=== PATIENT | female | born 1945 | race Caucasian/White ===

== ENCOUNTER 2020-03-25 19:30 | Inpatient (IN) | payer MEDICARE ==
--- NOTE | 2020-03-25 20:11 | ER Document Report ---
ED General - General Chief Complaint: Abdominal Pain Stated Complaint: ABDOMINAL PAIN Time Seen by Provider: 03/25/20 19:56 Notes: Patient is a 74 year old female that comes to the Emergency Department by EMS for chief complaint of upper abdominal pain and abdominal swelling, along with swelling of all the extremities. She denies current pain in the abdomen however, it comes and goes. She denies vomiting, fever, chest pain. She states she has no appetite. Patient comes from home, for most questions she replies "you'll need to ask my ". She denies history of NE, CAD, congestive heart failure, or liver failure. She denies alcohol. Past medical history per her home medications includes hypertension, hyperlipidemia, type 2 diabetes and she has been on diuretics including metolazone and Bumex. - Related Data Allergies/Adverse Reactions: oxycodone [From Percocet] Adverse Reaction (Verified 03/26/20 00:40) Nausea Past Medical History - General Information source: Patient - Social History Smoking Status: Never Smoker Frequency of alcohol use: None Drug Abuse: None Lives with: Family Family History: Reviewed & Not Pertinent - Past Medical History Cardiac Medical History: Reports: Hx Congestive Heart Failure, Hx Hypercholesterolemia, Hx Hypertension Endocrine Medical History: Reports: Hx Diabetes Mellitus Type 2 Past Surgical History: Reports: Hx Bowel Surgery - ? Bowel perforation repair - Immunizations Hx Diphtheria, Pertussis, Tetanus Vaccination: Yes Review of Systems - Review of Systems Constitutional: No symptoms reported EENT: No symptoms reported Cardiovascular: See HPI Respiratory: No symptoms reported Gastrointestinal: See HPI Genitourinary: No symptoms reported Female Genitourinary: No symptoms reported Musculoskeletal: See HPI Skin: No symptoms reported Hematologic/Lymphatic: No symptoms reported Neurological/Psychological: No symptoms reported Physical Exam - Vital signs Vitals: Temp 98.0 F 03/25/20 19:55 - Notes Notes: GENERAL: Alert, responsive, cooperative HEAD: Normocephalic, atraumatic. EYES: Pupils equal, round, and reactive to light. Extraocular movements intact. ENT: Oral mucosa dry, tongue midline. Oropharynx unremarkable. Airway patent. NECK: Full range of motion. Supple. Trachea midline. No lymphadenopathy. LUNGS: Clear to auscultation bilaterally, no wheezes, rales, or rhonchi. No respiratory distress. Non-tender chest wall. HEART: Regular rate and rhythm. No murmur ABDOMEN: Abdomen appears somewhat distended but is not rigid or noted to be tender. Old surgical scars over the left mid to lower abdomen. Questionable mid to right upper abdominal hernia but the area is soft and there is no noted tenderness or erythema. EXTREMITIES: 2+ pitting edema in bilateral lower extremities, there is also noted pitting edema in both upper extremities with some clear weeping fluid from the hand. Distal sensation and capillary refill intact. Otherwise unremar kable. BACK: no cervical, thoracic, lumbar midline tenderness. No saddle anesthesia, normal distal neurovascular exam. NEUROLOGICAL: Alert and oriented to person and place but not to events. Normal s peech. Cranial nerves II through XII grossly intact. Strength 5/5 in all extremities. PSYCH: Normal affect, normal mood. SKIN: Warm, dry, normal turgor. No rashes or lesions noted. Course - Re-evaluation Re-evalutation: 03/25/20 21:40 Patient reevaluated. She is still alert and oriented. Acute abdominal series does not show evidence of obstruction, there is no free air, chest x-ray showing possible right lower infiltrate. Patient has no fever, leukocytosis, cough, shortness of breath, chest pain. Patient is hyponatremic at 118, bicarbonate is low at 20, heart is enlarged on imaging, patient with pitting edema in all extremities with weeping fluid suggestive of developing anasarca. Patient is not hypoxic, denies shortness of breath, does not have vascular congestion on x-ray. BNP is 10,000. Suspect component of right heart failure. Discussed with Dr. Garcia, recommends admission to the hospitalist at this point, no further interventions recommended because of patient's complicated presentation with both hyponatremia and fluid overload. Seizure precautions are in place. Discussed with Dr. Baer, he does not recommend any initiated treatments at this time, recommends full admission to [facility]. - Vital Signs Vital signs: Temp Pulse Resp BP Pulse Ox 97.7 F 72 18 178/86 H 100 03/26/20 00:07 03/26/20 00:07 03/26/20 00:07 03/26/20 00:07 03/26/20 00:07 - Laboratory Result Diagrams: 03/25/20 19:50 03/25/20 20:41 Laboratory results interpreted by me: 03/25/20 03/25/20 03/25/20 19:50 19:50 20:41 Lymph % (Auto) 9.6 L Seg Neutrophils % 84.6 H APTT 37.7 H Sodium Chloride Carbon Dioxide BUN Creatinine Est GFR ( Amer) Est GFR (MDRD) Non-Af Glucose Calcium AST Alkaline Phosphatase NT-Pro-B Natriuret Pep 87136 H Total Protein Albumin 03/25/20 20:41 Lymph % (Auto) Seg Neutrophils % APTT Sodium 118.4 L* Chloride 93 L Carbon Dioxide 19 L BUN 23 H Creatinine 1.52 H Est GFR ( Amer) 41 L Est GFR (MDRD) Non-Af 34 L Glucose 133 H Calcium 7.5 L AST 43 H Alkaline Phosphatase 154 H NT-Pro-B Natriuret Pep Total Protein 5.7 L Albumin 2.5 L Discharge - Discharge Clinical Impression: Swelling of extremity, Hyponatremia, Uncontrolled hypertension CHF exacerbation Qualifiers: Heart failure type: unspecified Qualified Code(s): I50.9 - Heart failure, unspecified Condition: Stable Disposition: ADMITTED INPATIENT Admitting Provider: Buffy (Hospitalist) Unit Admitted: [facility]
[2020-03-25 20:13] LABS: ABSOLUTE LYMPHOCYTES (AUTO) 0.6 10^3/uL (0.5-4.7); ABSOLUTE MONOCYTES (AUTO) 0.3 10^3/uL (0.1-1.4); ABSOLUTE NEUT (AUTO) 5.2 10^3/uL (1.7-8.2); BASOPHILS % (AUTO) 0.5 % (0-2); EOSINOPHILS % (AUTO) 0.3 % (0-6); HEMATOCRIT 36.1 % (36.0-47.0); HEMOGLOBIN 12.6 g/dL (12.0-15.5); LYMPHOCYTES % (AUTO) 9.6 % (13-45); MEAN CORPUSCULAR HEMOGLOBIN 31.5 pg (27.0-33.4); MEAN CORPUSCULAR VOLUME 90 fl (80-97); PLATELET COUNT 303 10^3/uL (150-450); RED CELL DISTRIBUTION WIDTH 12.9 % (11.5-14.0); SEGMENTED NEUTROPHILS % (AUTO) 84.6 % (42-78); TOTAL CELLS COUNTED % (AUTO) 100 %; WHITE BLOOD COUNT 6.2 10^3/uL (4.0-10.5)
[2020-03-25 20:20] LABS: INTERNATIONAL RATION (INR) 1.16; PROTHROMBIN TIME 14.9 SEC (11.4-15.4)
[2020-03-25 20:21] LABS: PARTIAL THROMBOPLASTIN TIME 37.7 SEC (23.5-35.8)
[2020-03-25 21:10] LABS: ALBUMIN 2.5 g/dL (3.5-5.0); ALKALINE PHOSPHATASE 154 U/L (38-126); ASPARTATE AMINO TRANSFERASE 43 U/L (14-36); BILIRUBIN,TOTAL 0.4 mg/dL (0.2-1.3); BLOOD UREA NITROGEN 23 mg/dL (7-20); CALCIUM 7.5 mg/dL (8.4-10.2); CARBON DIOXIDE 19 mmol/L (22-30); CHLORIDE 93 mmol/L (98-107); GLUCOSE 133 mg/dL (75-110); TOTAL PROTEIN 5.7 g/dL (6.3-8.2)
[2020-03-25 21:11] LABS: ANION GAP 6 (5-19)
[2020-03-25 21:22] LABS: TROPONIN I 0.015 ng/mL
--- NOTE | 2020-03-25 21:25 | RADIOLOGY REPORT (SQ) ---
EXAM DESCRIPTION: XR ABDOMEN SUPINE AND ERECT WITH CHEST (ABD ACUTE SERIES) COMPLETED DATE/TME: 03/25/2020 20:05 CLINICAL HISTORY: 74 years Female ,abdominal swelling COMPARISON: 05/02/2011 TECHNIQUE: Frontal view chest x-ray and two views of the abdomen. FINDINGS: Cardiac enlargement which appears similar to the previous. Calcified aorta and median sternotomy wires. Patchy density in the right lung base which may reflect atelectasis. Developing area of infiltrate is not excluded. No free air is identified beneath the hemidiaphragms. No dilated loops of bowel to suggest obstruction. IMPRESSION: Patchy density in the right lung base new when compared to the previous study. Findings may reflect atelectasis versus developing infiltrate Cardiac enlargement
--- NOTE | 2020-03-25 21:25 | EKG REPORT ---
SEVERITY:- ABNORMAL ECG - SINUS RHYTHM BORDERLINE LEFT AXIS DEVIATION ABNRM R PROG, CONSIDER ASMI OR LEAD PLACEMENT NONSPECIFIC T ABNORMALITIES, ANT-LAT LEADS : Confirmed by: Marilou Esparza MD 25-Mar-2020 21:24:40
[2020-03-25] MEDS ORDERED: NORMAL SALINE 1000 ML 1,000 ML IV PRN (21:36)
[2020-03-25] MEDS ORDERED: MAGNESIUM HYDROXIDE SUSP 30 ML UDCUP PO PRN (22:57)
[2020-03-25] MEDS ORDERED: MAG HYDROX/AL HYDROX/SIMETH SUSP 30 ML UDCUP PO PRN (22:57)
[2020-03-25] MEDS ORDERED: ACETAMINOPHEN 325 MG TABLET PO PRN (23:03)
[2020-03-25] MEDS ORDERED: GUAIFENESIN SYRP 200 MG/10 ML UDC PO PRN (23:03)
[2020-03-25] MEDS ORDERED: LORAZEPAM INJ 2 MG/1 ML VIAL IV PRN (23:03)
[2020-03-25] MEDS ORDERED: SODIUM BICARBONATE 650 MG TABLET PO ONE (23:05)
[2020-03-25] MEDS ORDERED: METOPROLOL TARTRATE PF/INJ 5 MG/5 ML SDV IV PRN (23:07)
[2020-03-26] MEDS: FAMOTIDINE 20 MG TABLET PO SCH ×3 (01:28→22:12)
[2020-03-26] MEDS: INSULIN REG, HUMAN 100 UNIT/ML 3 ML VIAL (PYX) SUBCUT SCH ×5 (01:28→22:10)
[2020-03-26] MEDS ORDERED: ALBUMIN HUMAN 50.0 GM/200 ML RTUINJ IV ONE (01:29)
[2020-03-26] MEDS ORDERED: SODIUM BICARBONATE 650 MG TABLET PO ONE (01:30)
[2020-03-26] MEDS: BUMETANIDE INJ/PF 1 MG/4 ML SDV IV SCH ×5 (01:36→22:44)
[2020-03-26] MEDS: ALBUMIN HUMAN 12.5 GM/50 ML RTUINJ IV SCH ×4 (01:42→04:28)
[2020-03-26] MEDS: HYDRALAZINE HCL INJ/PF 20 MG/1 ML SDV IV PRN ×2 (02:40→12:08)
[2020-03-26] MEDS ORDERED: NITROGLYCERIN 2% OINTMENT 1 GM PACKET TP SCH ×2 (03:34→04:30)
--- NOTE | 2020-03-26 03:44 | PDOC H&P ---
History of Present Illness Admission Date/PCP: 03/25/20 22:14 Todd Jaimenelly Patient complains of: Swelling all over History of Present Illness: LITZY MAGANA is a 74 year old female who presented to the emergency room via EMS with a several week history of edema. Patient is a poor historian but relates progressively worsening edema involving all of her extremities and her abdomen over the last 2 to 3 weeks and becoming severe over the last 2 to 3 days. Her swelling was accompanied by mild generalized upper abdominal pain (pressure) beginning earlier today. Her swelling has been associated with a decreased appetite. She denies other associated or accompanying signs and symptoms. She denies prior similar episodes. She has not identified any aggravating or ameliorating factors for her edema. In the emergency room she was found to have an elevated BNP and a sodium 118. She was noted on ER physician exam to have anasarca and was subsequently admitted to the hospital for further evaluation and treatment. Past Medical History Cardiac Medical History: Reports: Hyperlipidema, Hypertension Denies: Atrial Fibrillation, Congestive Heart Failure, Coronary Artery Disease, DVT, Myocardial Infarction, Pulmonary Embolism Pulmonary Medical History: Denies: Asthma, Chronic Obstructive Pulmonary Disease (COPD) EENT Medical History: Denies: Cataracts, Ears - Hearing aids Neurological Medical History: Denies: Hemorrhagic CVA, Ischemic CVA, Seizures Endocrine Medical History: Reports: Diabetes Mellitus Type 2 Denies: Diabetes Mellitus Type 1, Hyperthyroidism, Hypothyroidism Renal/ Medical History: Reports: Chronic Kidney Disease Denies: Nephrolithiasis Malignancy Medical History: Reports: None GI Medical History: Denies: Cirrhosis, Hepatitis, Peptic Ulcer Disease Musculoskeltal Medical History: Denies: Fibromyalgia, Gout Skin Medical History: Denies: Eczema, Psoriasis Psychiatric Medical History: Denies: Alcohol Dependency, Substance Abuse, Tobacco Dependency Traumatic Medical History: Reports: None Hematology: Denies: Anemia, Bleeding Tendencies Infectious Medical History: Reports: None Past Surgical History Past Surgical History: Reports: None Social History Information Source: Patient Lives with: Spouse/Significant other Smoking Status: Former Smoker Electronic Cigarette use?: No Frequency of Alcohol Use: None Hx Recreational Drug Use: No Drugs: None Hx Prescription Drug Abuse: No - Advance Directive Resuscitation Status: Full Code Surrogate healthcare decision maker:: Milton Magana Family History Family History: denies: CAD, DM, Hypertension, Malignancy Parental Family History Reviewed: Yes Children Family History Reviewed: No Sibling(s) Family History Reviewed.: Yes Medication/Allergy Allergies/Adverse Reactions: oxycodone [From Percocet] Adverse Reaction (Verified 03/26/20 00:40) Nausea Review of Systems Constitutional: ABSENT: chills, fever(s) Eyes: ABSENT: visual disturbances, other - Eye pain Ears: ABSENT: hearing changes, other - Ear pain Nose, Mouth, and Throat: ABSENT: headache(s), sore throat Cardiovascular: PRESENT: as per HPI, edema. ABSENT: chest pain, dyspnea on exertion, orthropnea, palpitations Respiratory: ABSENT: cough, dyspnea Gastrointestinal: PRESENT: as per HPI, abdominal pain. ABSENT: constipation, diarrhea, nausea, vomiting Genitourinary: ABSENT: dysuria, hematuria Musculoskeletal: ABSENT: back pain, joint swelling Integumentary: ABSENT: pruritus, rash Neurological: ABSENT: confusion, convulsions, focal weakness, memory loss, syncope Psychiatric: ABSENT: anxiety, depression Endocrine: ABSENT: cold intolerance, heat intolerance, polydipsia, polyphagia, polyuria Hematologic/Lymphatic: ABSENT: easy bleeding, easy bruising Allergic/Immunologic: ABSENT: seasonal rhinorrhea Physical Exam Vital Signs: Temp Pulse Resp BP Pulse Ox 97.9 F 77 18 203/66 H 99 03/25/20 22:14 03/25/20 22:14 03/25/20 22:14 03/25/20 22:14 03/25/20 22:14 Intake & Output 03/23/20 03/24/20 03/25/20 23:59 23:59 23:59 Weight 75.2 kg General appearance: PRESENT: no acute distress, cooperative Head exam: PRESENT: atraumatic, normocephalic Eye exam: PRESENT: conjunctiva pink. ABSENT: conjunctival injection, scleral icterus Ear exam: PRESENT: normal external ear exam. ABSENT: bleeding, drainage Mouth exam: PRESENT: dry mucosa, neck supple Neck exam: ABSENT: JVD, thyromegaly, tracheal deviation Respiratory exam: PRESENT: clear to auscultation star, symmetrical, unlabored Cardiovascular exam: PRESENT: RRR, other - Anasarca involving the bilateral upper and lower extremities and the abdominal pannus. ABSENT: clicks, gallop, rubs Pulses: PRESENT: normal carotid pulses, normal radial pulses Vascular exam: PRESENT: normal capillary refill. ABSENT: pallor GI/Abdominal exam: PRESENT: normal bowel sounds, soft, other - Anasarca involving the abdominal pannus Rectal exam: PRESENT: deferred Extremities exam: PRESENT: pedal edema - Bilateral, other - 3+ pitting edema (anasarca) of the bilateral upper and lower extremities as well as the abdominal pannus. ABSENT: joint swelling Musculoskeletal exam: ABSENT: deformity, dislocation Neurological exam: PRESENT: alert, oriented to person, oriented to place, oriented to time, oriented to situation, CN II-XII grossly intact. ABSENT: motor sensory deficit Psychiatric exam: PRESENT: appropriate affect, normal mood Skin exam: PRESENT: dry, intact, warm. ABSENT: jaundice, rash, urticaria Results Laboratory Results: 03/25/20 19:50 03/25/20 20:41 03/25/20 03/25/20 03/25/20 19:50 19:50 20:41 WBC 6.2 RBC 4.00 Hgb 12.6 Hct 36.1 MCV 90 MCH 31.5 MCHC 35.0 RDW 12.9 Plt Count 303 Seg Neutrophils % 84.6 H Sodium Cancelled Potassium Cancelled Chloride Cancelled Carbon Dioxide Cancelled Anion Gap Cancelled BUN Cancelled Creatinine Cancelled Est GFR ( Amer) Cancelled Est GFR (Non-Af Amer) Cancelled Glucose Cancelled Lactic Acid 1.0 Calcium Cancelled Total Bilirubin Cancelled AST Cancelled Alkaline Phosphatase Cancelled Total Protein Cancelled Albumin Cancelled Lipase Cancelled 03/25/20 20:41 WBC RBC Hgb Hct MCV MCH MCHC RDW Plt Count Seg Neutrophils % Sodium 118.4 L* Potassium 4.0 Chloride 93 L Carbon Dioxide 19 L Anion Gap 6 BUN 23 H Creatinine 1.52 H Est GFR ( Amer) 41 L Est GFR (Non-Af Amer) Glucose 133 H Lactic Acid Calcium 7.5 L Total Bilirubin 0.4 AST 43 H Alkaline Phosphatase 154 H Total Protein 5.7 L Albumin 2.5 L Lipase 71.7 03/25/20 03/25/20 03/25/20 19:50 19:50 20:41 Troponin I Cancelled 0.015 NT-Pro-B Natriuret Pep Cancelled 20149 H Impressions: Acute Abdomen Series 03/25/20 20:05 IMPRESSION: Patchy density in the right lung base new when compared to the previous study. Findings may reflect atelectasis versus developing infiltrate Cardiac enlargement Assessment and Plan - Diagnosis (1) Anasarca Is this a current diagnosis for this admission?: Yes (2) Uncontrolled hypertension Is this a current diagnosis for this admission?: Yes (3) Hyponatremia Is this a current diagnosis for this admission?: Yes (4) Chronic kidney disease (CKD) Qualifiers: Chronic kidney disease stage: unspecified stage Qualified Code(s): N18.9 - Chronic kidney disease, unspecified Is this a current diagnosis for this admission?: Yes (5) Hyperlipidemia, unspecified Qualifiers: Hyperlipidemia type: unspecified Qualified Code(s): E78.5 - Hyperlipidemia, unspecified Is this a current diagnosis for this admission?: Yes (6) Diabetes mellitus type 2 in nonobese Is this a current diagnosis for this admission?: Yes - Plan Summary Summary: Patient will be admitted to the [facility] where she will receive routine supportive and symptomatic cares. She will be treated initially with IV albumin and diuresis with Bumex 1 mg IV every 6 hours. She will be given oral sodium bicarbonate 1300 mg p.o. with meals and at bedtime. Her blood pressure will be controlled with IV hydralazine and/or IV metoprolol as required. CBCs, metabolic profiles and magnesium levels to be followed closely. Patient will be maintained on telemetry. She will be treated with a low-fat and diabetic restricted diet. Hemoglobin A1c and a lipid profile will be obtained in the morning. A cardiology consultation will be obtained with Dr. Strickland. Before meals and at bedtime Accu-Cheks will be obtained with sliding scale regular insulin administered for hyperglycemia and a hypoglycemic protocol in place. She will use Ativan 1 mg IV every 4 hours as needed for anxiety or restlessness. A nephrology consultation may be appropriate as soon as nephrology service is again available on Friday. - Time Time Spent with patient: 15-24 minutes Medications reviewed and adjusted accordingly: Yes Anticipated discharge: Home with Homehealth - Inpatient Certification Based on my medical assessment, after consideration of the patient's comorbidities, presenting symptoms, or acuity I expect that the services needed warrant INPATIENT care.: Yes I certify that my determination is in accordance with my understanding of Medicare's requirements for reasonable and necessary INPATIENT services [42 CFR 412.3e].: Yes Medical Necessity: Significant Comorbidiites Make Outpatient Treatment Too Risky, Need Close Monitoring Due to Risk of Patient Decompensation, Need For Continuous Telemetry Monitoring, Risk of Complication if Not Cared For in Hospital, Risk of Diagnosis Which Will Require Inpatient Eval/Care/Monitoring
[2020-03-26 03:51] LABS: CREATINE KINASE MB 2.08 ng/mL (<4.55); TROPONIN I 0.023 ng/mL
[2020-03-26] MEDS: NITROGLYCERIN 2% OINTMENT 1 GM PACKET TP SCH ×3 (04:27→17:19)
[2020-03-26] MEDS: LOSARTAN POTASSIUM 50 MG TABLET PO SCH ×2 (04:28→22:13)
[2020-03-26] MEDS: METOPROLOL SUCCINATE 50 MG TAB.SR.24H PO SCH ×2 (05:47→17:16)
[2020-03-26] MEDS: HEPARIN SOD (PORCINE) 5,000 UNIT/ML 1 ML VIAL SUBCUT SCH ×3 (05:47→22:14)
[2020-03-26 06:59] LABS: APPEARANCE,URINE SLIGHTLY-CLOUDY; BILIRUBIN,URINE NEGATIVE (NEGATIVE); COLOR,URINE YELLOW; GLUCOSE, URINE 150 mg/dL (NEGATIVE); KETONES,URINE NEGATIVE (NEGATIVE); LEUKOCYTE ESTERASE,URINE NEGATIVE (NEGATIVE); NITRITE,URINE NEGATIVE (NEGATIVE); PROTEIN,URINE >=500 mg/dL (NEGATIVE); URINE SPECIFIC GRAVITY 1.007; UROBILINOGEN,URINE NEGATIVE mg/dL (<2.0)
[2020-03-26] MEDS: SODIUM BICARBONATE 650 MG TABLET PO SCH ×4 (08:27→22:13)
[2020-03-26] MEDS: SUCRALFATE 1 GM TABLET PO SCH ×4 (08:28→22:11)
[2020-03-26] MEDS: METOCLOPRAMIDE HCL 10 MG TABLET PO SCH ×4 (08:28→22:12)
[2020-03-26 08:59] LABS: BLOOD UREA NITROGEN 23 mg/dL (7-20); CALCIUM 7.7 mg/dL (8.4-10.2); CARBON DIOXIDE 20 mmol/L (22-30); CHLORIDE 94 mmol/L (98-107); CREATINE KINASE 144 U/L (30-135); GLUCOSE 90 mg/dL (75-110); POTASSIUM 3.8 mmol/L (3.6-5.0); TRIGLYCERIDES 67 mg/dL (<150)
[2020-03-26 09:02] LABS: HEMATOCRIT 28.8 % (36.0-47.0); MEAN CORPUSCULAR HEMOGLOBIN 32.1 pg (27.0-33.4); MEAN CORPUSCULAR HGB CONC 35.9 g/dL (32.0-36.0); MEAN CORPUSCULAR VOLUME 90 fl (80-97); PLATELET COUNT 225 10^3/uL (150-450); RED BLOOD COUNT 3.22 10^6/uL (3.72-5.28); RED CELL DISTRIBUTION WIDTH 13.1 % (11.5-14.0); WHITE BLOOD COUNT 5.5 10^3/uL (4.0-10.5)
[2020-03-26 09:03] LABS: HEMOGLOBIN 10.3 g/dL (12.0-15.5)
[2020-03-26 09:11] LABS: CREATINE KINASE MB 1.92 ng/mL (<4.55); TROPONIN I 0.028 ng/mL
[2020-03-26 09:16] LABS: FREE T3 2.29 pg/mL (2.77-5.27)
[2020-03-26 09:18] LABS: DIRECT LDL < 30 mg/dL (<100)
[2020-03-26 09:22] LABS: ANION GAP 7 (5-19)
[2020-03-26 09:30] LABS: THYROID STIMULATING HORMONE 2.31 uIU/mL (0.47-4.68)
[2020-03-26] MEDS ORDERED: LOSARTAN POTASSIUM 50 MG TABLET PO SCH (10:00)
[2020-03-26] MEDS ORDERED: METOPROLOL SUCCINATE 50 MG TAB.SR.24H PO SCH (10:00)
[2020-03-26] MEDS: DOCUSATE SODIUM 100 MG/10 ML UDC PO SCH ×2 (10:12→17:17)
--- NOTE | 2020-03-26 10:18 | EKG REPORT ---
SEVERITY:- ABNORMAL ECG - SINUS RHYTHM ATRIAL PREMATURE COMPLEX LOW VOLTAGE THROUGHOUT CONSIDER ANTERIOR INFARCT NONSPECIFIC T ABNORMALITIES, DIFFUSE LEADS : Confirmed by: Marilou Esparza MD 26-Mar-2020 10:17:56
[2020-03-26 14:58] LABS: ANION GAP 8 (5-19); BLOOD UREA NITROGEN 25 mg/dL (7-20); CALCIUM 7.4 mg/dL (8.4-10.2); CARBON DIOXIDE 19 mmol/L (22-30); CHLORIDE 94 mmol/L (98-107); GLUCOSE 138 mg/dL (75-110); POTASSIUM 3.8 mmol/L (3.6-5.0)
[2020-03-26 15:08] LABS: CREATINE KINASE MB 1.83 ng/mL (<4.55); TROPONIN I 0.022 ng/mL
--- NOTE | 2020-03-26 15:38 | PDOC PROGRESS REPORT ---
Subjective Progress Note for:: 03/26/20 Subjective:: The patient reports feeling poorly in general Reason For Visit: ANASARCA,UPPER ABDOMINAL PAIN,MALIGNANT Physical Exam Vital Signs: Temp Pulse Resp BP Pulse Ox 98.1 F 63 18 160/51 H 94 03/26/20 14:43 03/26/20 14:43 03/26/20 14:43 03/26/20 14:56 03/26/20 14:43 Intake & Output 03/25/20 03/26/20 03/27/20 06:59 06:59 06:59 Intake Total 459 480 Output Total 325 550 Balance 134 -70 Weight 78.2 kg General appearance: PRESENT: cooperative, mild distress, well-developed Head exam: PRESENT: atraumatic, normocephalic Ear exam: PRESENT: normal external ear exam. ABSENT: bleeding, drainage Mouth exam: PRESENT: moist, tongue midline Neck exam: PRESENT: lymphadenopathy - Bilateral submandibular gland slightly enlarged. No tenderness., other - Extensive redundant skin anteriorly Respiratory exam: PRESENT: clear to auscultation star, symmetrical, unlabored. ABSENT: accessory muscle use, rales, rhonchi, tachypnea, wheezes Cardiovascular exam: PRESENT: RRR, +S1, +S2 GI/Abdominal exam: PRESENT: normal bowel sounds, soft. ABSENT: distended, guarding, tenderness Rectal exam: PRESENT: deferred Extremities exam: PRESENT: +1 edema Neurological exam: PRESENT: alert, awake, oriented to person, oriented to place, oriented to time, oriented to situation, CN II-XII grossly intact. ABSENT: altered Psychiatric exam: PRESENT: flat affect. ABSENT: agitated, anxious Focused psych exam: ABSENT: delusional, paranoid, restlessness Skin exam: PRESENT: dry - Very dry skin, pallor, warm Results Laboratory Results: 03/26/20 08:17 03/26/20 14:07 03/25/20 03/25/20 03/25/20 19:50 19:50 20:41 WBC 6.2 RBC 4.00 Hgb 12.6 Hct 36.1 MCV 90 MCH 31.5 MCHC 35.0 RDW 12.9 Plt Count 303 Seg Neutrophils % 84.6 H Sodium Cancelled Potassium Cancelled Chloride Cancelled Carbon Dioxide Cancelled Anion Gap Cancelled BUN Cancelled Creatinine Cancelled Est GFR ( Amer) Cancelled Est GFR (Non-Af Amer) Cancelled Glucose Cancelled Lactic Acid 1.0 Calcium Cancelled Magnesium Total Bilirubin Cancelled AST Cancelled Alkaline Phosphatase Cancelled Total Protein Cancelled Albumin Cancelled Triglycerides Cholesterol LDL Cholesterol Direct VLDL Cholesterol HDL Cholesterol Lipase Cancelled TSH Free T3 pg/mL Urine Color Urine Appearance Urine pH Ur Specific Silva Urine Protein Urine Glucose (UA) Urine Ketones Urine Blood Urine Nitrite Ur Leukocyte Esterase Urine WBC (Auto) Urine RBC (Auto) 03/25/20 03/26/20 03/26/20 20:41 05:50 08:17 WBC RBC Hgb Hct MCV MCH MCHC RDW Plt Count Seg Neutrophils % Sodium 118.4 L* 120.7 L* Potassium 4.0 3.8 Chloride 93 L 94 L Carbon Dioxide 19 L 20 L Anion Gap 6 7 BUN 23 H 23 H Creatinine 1.52 H 1.56 H Est GFR ( Amer) 41 L 39 L Est GFR (Non-Af Amer) Glucose 133 H 90 Lactic Acid Calcium 7.5 L 7.7 L Magnesium 3.0 H Total Bilirubin 0.4 AST 43 H Alkaline Phosphatase 154 H Total Protein 5.7 L Albumin 2.5 L Triglycerides 67 Cholesterol 108.20 LDL Cholesterol Direct < 30 VLDL Cholesterol 13.0 HDL Cholesterol 74 Lipase 71.7 TSH Free T3 pg/mL Urine Color YELLOW Urine Appearance SLIGHTLY-CLOUDY Urine pH 6.0 Ur Specific Silva 1.007 Urine Protein >=500 H Urine Glucose (UA) 150 H Urine Ketones NEGATIVE Urine Blood SMALL H Urine Nitrite NEGATIVE Ur Leukocyte Esterase NEGATIVE Urine WBC (Auto) 2 Urine RBC (Auto) 1 03/26/20 03/26/20 03/26/20 08:17 08:17 14:07 WBC 5.5 RBC 3.22 L Hgb 10.3 L D Hct 28.8 L MCV 90 MCH 32.1 MCHC 35.9 RDW 13.1 Plt Count 225 Seg Neutrophils % Sodium 121.0 L Potassium 3.8 Chloride 94 L Carbon Dioxide 19 L Anion Gap 8 BUN 25 H Creatinine 1.61 H Est GFR ( Amer) 38 L Est GFR (Non-Af Amer) Glucose 138 H Lactic Acid Calcium 7.4 L Magnesium Total Bilirubin AST Alkaline Phosphatase Total Protein Albumin Triglycerides Cholesterol LDL Cholesterol Direct VLDL Cholesterol HDL Cholesterol Lipase TSH 2.31 Free T3 pg/mL 2.29 L Urine Color Urine Appearance Urine pH Ur Specific Silva Urine Protein Urine Glucose (UA) Urine Ketones Urine Blood Urine Nitrite Ur Leukocyte Esterase Urine WBC (Auto) Urine RBC (Auto) 03/25/20 03/25/20 03/25/20 19:50 19:50 20:41 Creatine Kinase CK-MB (CK-2) Troponin I Cancelled 0.015 NT-Pro-B Natriuret Pep Cancelled [id number] H 03/26/20 03/26/20 03/26/20 02:54 02:54 08:17 Creatine Kinase 115 144 H CK-MB (CK-2) 2.08 Troponin I 0.023 NT-Pro-B Natriuret Pep 03/26/20 03/26/20 03/26/20 08:17 14:07 14:07 Creatine Kinase 134 CK-MB (CK-2) 1.92 1.83 Troponin I 0.028 0.022 NT-Pro-B Natriuret Pep Impressions: Acute Abdomen Series 03/25/20 20:05 IMPRESSION: Patchy density in the right lung base new when compared to the previous study. Findings may reflect atelectasis versus developing infiltrate Cardiac enlargement Assessment and Plan - Diagnosis (1) Anasarca Is this a current diagnosis for this admission?: Yes Plan: 03/26/2020 Patient's anasarca is likely due to her kidney disease. We will try to diurese the patient keeping in mind her sodium levels. Nephrology will be consulted as well. Urine studies have been ordered. (2) Chronic kidney disease, stage 3 (moderate) Is this a current diagnosis for this admission?: Yes Plan: 03/26/[address] from [facility]. Patient's GFR was between 30 and 45 as well. She has a lot of protein in her urine. Urine studies have been ordered and nephrology is consulted. (3) Hypertensive emergency Is this a current diagnosis for this admission?: Yes Plan: 03/26/2020 The patient's blood pressures were markedly elevated on admission. I received her medications. We will try to crease her blood pressures now at a moderate pace. Cardiology will be seeing the patient as well. (4) Hyponatremia Is this a current diagnosis for this admission?: Yes Plan: 03/26/2020 Is here at home will check urine studies including urine sodium, urine and plasma osmolality. We will check a kidney ultrasound and nephrology will be seeing the patient. Her hyponatremia is most likely due to her kidney disease with possibly diuretic use contributing. (5) Hyperglycemia due to diabetes mellitus Is this a current diagnosis for this admission?: Yes Plan: 03/26/2020 We will start with insulin sliding scale and Accu-Cheks. According to her hus band her appetite is been poor so we will need to proceed cautiously. (6) Proteinuria due to type 2 diabetes mellitus Is this a current diagnosis for this admission?: Yes Plan: 03/26/2020 Marked proteinuria by dipstick. 24-hour studies have been ordered. (7) Chronic diarrhea Is this a current diagnosis for this admission?: Yes Plan: 03/26/2020 Ever since her ruptured colon with subsequent partial colectomy she has been having watery stools. States that they are watery with some mucus. He never has observed any bright red blood. This is been going on for 10 years. Her lipase is in the low normal range. I will check for fecal fat and a stool culture has been ordered. She will benefit from GI consult including possible endoscopy. - Plan Summary Summary: Patient will be admitted to the [facility] where she will receive routine supportive and symptomatic cares. She will be treated initially with IV albumin and diur esis with Bumex 1 mg IV every 6 hours. She will be given oral sodium bicarbonate 1300 mg p.o. with meals and at bedtime. Her blood pressure will be controlled with IV hydralazine and/or IV metoprolol as required. CBCs, metabolic profiles and magnesium levels to be followed closely. Patient will be maintained on telemetry. She will be treated with a low-fat and diabetic restricted diet. Hemoglobin A1c and a lipid profile will be obtained in the morning. A cardiology consultation will be obtained with Dr. Strickland. Before meals and at bedtime Accu-Cheks will be obtained with sliding scale regular insulin administered for hyperglycemia and a hypoglycemic protocol in place. She will use Ativan 1 mg IV every 4 hours as needed for anxiety or restlessness. A nephrology consultation may be appropriate as soon as nephrology service is again available on Friday. - Time Time Spent with patient: 25-34 minutes - More than half of this time was spent obtaining further history from the patient's she has such a poor historian. In addition reviewing records from [facility]. Medications reviewed and adjusted accordingly: Yes
[2020-03-27] MEDS: NITROGLYCERIN 2% OINTMENT 1 GM PACKET TP SCH ×3 (00:21→06:35)
--- NOTE | 2020-03-27 00:44 | RADIOLOGY REPORT (SQ) ---
Ultrasound abdomen: 03/26/2020 11:41 PM CDT Technique: Multiple grayscale and color Doppler images of the abdomen were obtained. Comparison: None available History: 74-year old patient with anasarca, renal failure, alcohol use. Findings: The visualized portions of the hepatic parenchyma demonstrates a coarsened heterogeneous appearance. There is no evidence to suggest intra or extrahepatic ductal dilatation. There is normal direction of flow is seen in the main portal vein. The gallbladder is surgically absent. The common duct measures 1-2 mm. The right kidney measures up to 10.1 cm in length. The left kidney measures 10.4 cm in length. Both kidneys demonstrate normal cortical echogenicity with no evidence to suggest hydronephrosis. The spleen measures up to 8.5 cm in length, and is normal in size. The abdominal aorta, IVC, and pancreatic head are obscured by overlying bowel gas. Trace free intraperitoneal fluid is seen. Evaluation of the hepatic vasculature was limited by lack of patient cooperation. Impression: The liver has a coarse heterogeneous appearance which could be due to underlying hepatic parenchymal disease. Trace ascites is seen. The main portal vein has normal directional flow. Evaluation is limited by lack of cooperation.
[2020-03-27 06:00] LABS: ABSOLUTE EOSINOPHILS # (AUTO) 0.1 10^3/uL (0.0-0.6); ABSOLUTE LYMPHOCYTES (AUTO) 0.5 10^3/uL (0.5-4.7); ABSOLUTE MONOCYTES (AUTO) 0.4 10^3/uL (0.1-1.4); ABSOLUTE NEUT (AUTO) 5.4 10^3/uL (1.7-8.2); BASOPHILS % (AUTO) 0.3 % (0-2); EOSINOPHILS % (AUTO) 1.2 % (0-6); HEMATOCRIT 27.6 % (36.0-47.0); HEMOGLOBIN 9.8 g/dL (12.0-15.5); LYMPHOCYTES % (AUTO) 8.1 % (13-45); MEAN CORPUSCULAR HEMOGLOBIN 32.1 pg (27.0-33.4); MEAN CORPUSCULAR HGB CONC 35.5 g/dL (32.0-36.0); MEAN CORPUSCULAR VOLUME 90 fl (80-97); MONOCYTES % (AUTO) 6.7 % (3-13); PLATELET COUNT 198 10^3/uL (150-450); RED BLOOD COUNT 3.06 10^6/uL (3.72-5.28); RED CELL DISTRIBUTION WIDTH 13.2 % (11.5-14.0); SEGMENTED NEUTROPHILS % (AUTO) 83.7 % (42-78); TOTAL CELLS COUNTED % (AUTO) 100 %; WHITE BLOOD COUNT 6.4 10^3/uL (4.0-10.5)
[2020-03-27 06:25] LABS: C-REACTIVE PROTEIN < 5.0 mg/L (<10.0)
[2020-03-27] MEDS: HEPARIN SOD (PORCINE) 5,000 UNIT/ML 1 ML VIAL SUBCUT SCH ×3 (06:25→22:41)
[2020-03-27] MEDS: METOPROLOL SUCCINATE 50 MG TAB.SR.24H PO SCH ×2 (06:26→17:08)
[2020-03-27] MEDS: BUMETANIDE INJ/PF 1 MG/4 ML SDV IV SCH ×3 (06:32→22:41)
[2020-03-27 06:40] LABS: ERYTHROCYTE SEDIMENTATION RATE 19 mm/hr (0-30)
[2020-03-27 08:30] LABS: ALBUMIN 2.4 g/dL (3.5-5.0); ALKALINE PHOSPHATASE 84 U/L (38-126); ASPARTATE AMINO TRANSFERASE 30 U/L (14-36); BILIRUBIN,TOTAL 0.5 mg/dL (0.2-1.3); BLOOD UREA NITROGEN 26 mg/dL (7-20); CALCIUM 7.3 mg/dL (8.4-10.2); CHLORIDE 95 mmol/L (98-107); GLUCOSE 90 mg/dL (75-110); POTASSIUM 3.7 mmol/L (3.6-5.0); TOTAL PROTEIN 4.8 g/dL (6.3-8.2)
[2020-03-27 08:37] LABS: ANION GAP 5 (5-19); CARBON DIOXIDE 21 mmol/L (22-30)
[2020-03-27] MEDS: INSULIN REG, HUMAN 100 UNIT/ML 3 ML VIAL (PYX) SUBCUT SCH (09:04)
[2020-03-27] MEDS: DOCUSATE SODIUM 100 MG/10 ML UDC PO SCH (09:37)
[2020-03-27] MEDS: FAMOTIDINE 20 MG TABLET PO SCH (09:37)
[2020-03-27] MEDS: LOSARTAN POTASSIUM 50 MG TABLET PO SCH (09:37)
[2020-03-27] MEDS: SUCRALFATE 1 GM TABLET PO SCH ×4 (09:37→22:40)
[2020-03-27] MEDS: METOCLOPRAMIDE HCL 10 MG TABLET PO SCH ×4 (09:37→22:40)
[2020-03-27] MEDS: SODIUM BICARBONATE 650 MG TABLET PO SCH (09:37)
[2020-03-27] MEDS: HYDRALAZINE HCL INJ/PF 20 MG/1 ML SDV IV PRN (09:41)
--- NOTE | 2020-03-27 09:45 | PDOC CONSULTATION ---
Consultation Consult Date: 03/27/20 Attending physician:: NADIA MARLEY Provider Consulted: ARLEEN MACK Consult reason:: Anasarca History of Present Illness Admission Date/PCP: 03/25/20 22:14 Patient complains of: Abdominal pain and swelling all over History of Present Illness: LITZY DUKES is a 74 year old female Who is a poor historian Patient was admitted through the emergency room with reports of increasing anasarca and also epigastric discomfort. Patient is not able to relate any meaningful history. She appears to be in a fair amount of distress. No family is present at this time. She does not mention any prior cardiac history to me. Although it is difficult to corroborate without the presence of family members. She does not have detailed history in the electronic record either. Past Medical History Cardiac Medical History: Reports: Hyperlipidema, Hypertension Denies: Atrial Fibrillation, Congestive Heart Failure, Coronary Artery Disease, DVT, Myocardial Infarction, Pulmonary Embolism Pulmonary Medical History: Denies: Asthma, Chronic Obstructive Pulmonary Disease (COPD) EENT Medical History: Denies: Cataracts, Ears - Hearing aids Neurological Medical History: Denies: Hemorrhagic CVA, Ischemic CVA, Seizures Endocrine Medical History: Reports: Diabetes Mellitus Type 2 Denies: Diabetes Mellitus Type 1, Hyperthyroidism, Hypothyroidism Renal/ Medical History: Reports: Chronic Kidney Disease Denies: Nephrolithiasis Malignancy Medical History: Reports: None GI Medical History: Denies: Cirrhosis, Hepatitis, Peptic Ulcer Disease Musculoskeltal Medical History: Denies: Fibromyalgia, Gout Skin Medical History: Denies: Eczema, Psoriasis Psychiatric Medical History: Reports: Depression Denies: Alcohol Dependency, Substance Abuse, Tobacco Dependency Traumatic Medical History: Reports: None Hematology: Denies: Anemia, Bleeding Tendencies Infectious Medical History: Reports: None Past Surgical History Past Surgical History: Reports: None Social History Lives with: Spouse/Significant other Smoking Status: Former Smoker Electronic Cigarette use?: No Frequency of Alcohol Use: None Hx Recreational Drug Use: No Drugs: None Hx Prescription Drug Abuse: No - Advance Directive Resuscitation Status: Full Code Family History Family History: denies: CAD, DM, Hypertension, Malignancy Parental Family History Reviewed: No - Unable to obtain. Patient is in distress. Children Family History Reviewed: NA Sibling(s) Family History Reviewed.: NA Medication/Allergy Home Medications: Amlodipine Besylate [Norvasc 5 mg Tablet] 5 mg PO DAILY 03/26/20 Aspirin [Ecotrin 81 mg EC Tablet] 81 mg PO DAILY 03/26/20 Azilsartan Medoxomil [Edarbi] 80 mg PO QPM 03/26/20 Cholecalciferol (Vitamin D3) [Vitamin D3 1000 Unit Tablet] 2,000 unit PO DAILY 03/26/20 Cholestyramine (with Sugar) [Cholestyramine Packet] 4 gm PO TID 03/26/20 Levothyroxine Sodium [Synthroid 0.025 mg Tablet] 0.025 mg PO Q6AM 03/26/20 Loperamide HCl [Imodium 2 mg Capsule] 2 mg PO Q6HP PRN 03/26/20 Magnesium Oxide [Mag-Ox 400 mg Tablet] 400 mg PO BID 03/26/20 Simvastatin 20 mg PO QHS 03/26/20 Ubidecarenone [Co Q-10] 150 mg PO DAILY 03/26/20 Allergies/Adverse Reactions: oxycodone [From Percocet] Adverse Reaction (Verified 03/26/20 00:40) Nausea Review of Systems ROS unobtainable: Other - Reports abdominal pain and swelling all over. Gastrointestinal: PRESENT: abdominal pain, bloating Integumentary: PRESENT: as per HPI Neurological: PRESENT: as per HPI Physical Exam Vital Signs: Temp Pulse Resp BP Pulse Ox 98.1 F 54 L 15 186/50 H 96 03/27/20 08:29 03/27/20 08:29 03/27/20 08:29 03/27/20 08:29 03/27/20 08:29 Intake & Output 03/26/20 03/27/20 03/28/20 06:59 06:59 06:59 Intake Total 459 1373 Output Total 325 1160 Balance 134 213 Weight 78.2 kg 75.1 kg General appearance: PRESENT: mild distress, obese, well-developed, well- nourished Head exam: PRESENT: atraumatic Eye exam: PRESENT: conjunctiva pale Neck exam: PRESENT: JVD Respiratory exam: PRESENT: crackles, decreased breath sounds, symmetrical, unlabored Cardiovascular exam: PRESENT: RRR, +S1, +S2 Pulses: PRESENT: normal radial pulses GI/Abdominal exam: PRESENT: ascites, distended Rectal exam: PRESENT: deferred Neurological exam: PRESENT: alert, awake Skin exam: PRESENT: dry Results Laboratory Results: 03/27/20 05:40 03/27/20 05:40 03/26/20 03/26/20 03/26/20 08:17 08:17 14:07 WBC RBC Hgb Hct MCV MCH MCHC RDW Plt Count Seg Neutrophils % Sodium 120.7 L* 121.0 L Potassium 3.8 3.8 Chloride 94 L 94 L Carbon Dioxide 20 L 19 L Anion Gap 7 8 BUN 23 H 25 H Creatinine 1.56 H 1.61 H Est GFR ( Amer) 39 L 38 L Glucose 90 138 H Serum Osmolality Calcium 7.7 L 7.4 L Magnesium 3.0 H Total Bilirubin AST Alkaline Phosphatase C-Reactive Protein Total Protein Albumin Triglycerides 67 Cholesterol 108.20 LDL Cholesterol Direct < 30 VLDL Cholesterol 13.0 HDL Cholesterol 74 TSH 2.31 Free T3 pg/mL 2.29 L Stool Occult Blood 03/26/20 03/27/20 03/27/20 20:50 05:40 05:40 WBC RBC Hgb Hct MCV MCH MCHC RDW Plt Count Seg Neutrophils % Sodium Potassium Chloride Carbon Dioxide Anion Gap BUN Creatinine Est GFR ( Amer) Glucose Serum Osmolality 261 L Calcium Magnesium 2.7 H Total Bilirubin AST Alkaline Phosphatase C-Reactive Protein < 5.0 Total Protein Albumin Triglycerides Cholesterol LDL Cholesterol Direct VLDL Cholesterol HDL Cholesterol TSH Free T3 pg/mL Stool Occult Blood POSITIVE 03/27/20 03/27/20 05:40 05:40 WBC 6.4 RBC 3.06 L Hgb 9.8 L Hct 27.6 L MCV 90 MCH 32.1 MCHC 35.5 RDW 13.2 Plt Count 198 Seg Neutrophils % 83.7 H Sodium 121.2 L Potassium 3.7 Chloride 95 L Carbon Dioxide 21 L Anion Gap 5 BUN 26 H Creatinine 1.69 H Est GFR ( Amer) 36 L Glucose 90 Serum Osmolality Calcium 7.3 L Magnesium Total Bilirubin 0.5 AST 30 Alkaline Phosphatase 84 C-Reactive Protein Total Protein 4.8 L Albumin 2.4 L Triglycerides Cholesterol LDL Cholesterol Direct VLDL Cholesterol HDL Cholesterol TSH Free T3 pg/mL Stool Occult Blood 03/25/20 03/25/20 03/25/20 19:50 19:50 20:41 Creatine Kinase CK-MB (CK-2) Troponin I Cancelled 0.015 NT-Pro-B Natriuret Pep Cancelled [id number] H 03/26/20 03/26/20 03/26/20 02:54 02:54 08:17 Creatine Kinase 115 144 H CK-MB (CK-2) 2.08 Troponin I 0.023 NT-Pro-B Natriuret Pep 03/26/20 03/26/20 03/26/20 08:17 14:07 14:07 Creatine Kinase 134 CK-MB (CK-2) 1.92 1.83 Troponin I 0.028 0.022 NT-Pro-B Natriuret Pep EKG Comments: Twelve-lead EKG. 26 Mar 2020. Independently viewed by me. Low voltage throughout. Sinus rhythm, 71 bpm, nonspecific ST-T abnormalities. Baseline artifact. Cardiac enlargement is seen on chest x-ray. Patchy opacity in the right lung. Abdominal ultrasound-coarse hepatic echotexture-hepatic parenchymal disease. Trace ascites. Impressions: Acute Abdomen Series 03/25/20 20:05 IMPRESSION: Patchy density in the right lung base new when compared to the previous study. Findings may reflect atelectasis versus developing infiltrate Cardiac enlargement Assessment & Plan - Diagnosis (1) Anasarca Is this a current diagnosis for this admission?: Yes Plan: Anasarca. Difficult history. EKG shows normal rhythm. Low voltage. Agree with diuretic challenge We will obtain transthoracic echocardiogram Abnormal liver ultrasound noted as well. Fluid restriction Consider Aldactone
--- NOTE | 2020-03-27 09:59 | CDI QUERY ---
CDI Query CDI Review: Dear Provider: To better reflect your patients severity of illness, morbidity, and resource utilization Please specify and document in the Progress Notes and Discharge Summary if you are monitoring / treating / evaluating any of the following conditions: Query Clinical indicators Please stage the CKD Chronic kidney disease (CKD) Qualifiers: Chronic kidney disease stage: unspecified stage Qualified Code(s): N18.9 - Chronic kidney disease, unspecified Is this a current diagnosis for this admission?: Yes BUN / Cr 26 / 1.69 Est GFR ( Amer) 41 L Est GFR (MDRD) Non-Af 34 L CKD I GFR > 90 CKD II GFR 60-89 CKD III GFR 30-59 CKD IV GFR 15-20 CKD V GFR < 15 ESRD On dialysis The terms probable, suspected, likely, possible or still to be ruled out may be used if you are unable to determine the exact nature of a condition. Thank you for your consideration, Clinical Documentation Physician Advisors DIMPLE Real RN DIMPLE Parnell Office [phone] Office [phone]
--- NOTE | 2020-03-27 11:37 | PDOC CONSULTATION ---
Consultation Consult Date: 03/27/20 Provider Consulted: Rich MARTIN Consult reason:: Hyponatremia/ VAISHNAVI History of Present Illness Admission Date/PCP: 03/25/20 22:14 History of Present Illness: LITZY DUKES is a 74 year old female With a past medical history of chronic hypertension, hypothyroidism, hyperlipidemia and chronic diarrhea for the last 1 year was admitted with history of generalized anasarca and weakness. She tells me that she is not a diabetic. She is also complaining of upper abdominal pains with intermittent nausea with occasional vomiting. No history of any GI blood losses. She states she has been having this chronic diarrhea for quite some time and apparently has been evaluated. Unsure when she had a last colonoscopy. No history of any fever or chills. Poor intake for the last few days. She recalls having some sort of colectomy in the past for apparent perforation?. Evaluations in the ER revealed that she had severe hypertension. Admission labs showed sodium of 118 along with a creatinine of 1.5, albumin of 2.4 and she had urinary proteinuria. She doctors with a Dr. macias in [facility]. She is unsure if she has a pre existing kidney disease.She is been admitted for further evaluation. Medications were reviewed. Past Medical History Cardiac Medical History: Reports: Hyperlipidemia, Hypertension-primary Denies: Atrial Fibrillation, Coronary Artery Disease, DVT, Myocardial Infarction, Pulmonary Embolism Pulmonary Medical History: Denies: Asthma, Chronic Obstructive Pulmonary Disease (COPD) EENT Medical History: Denies: Cataracts, Ears - Hearing aids Neurological Medical History: Denies: Hemorrhagic CVA, Ischemic CVA, Seizures Endocrine Medical History: Reports: Diabetes Mellitus Type 2 Denies: Diabetes Mellitus Type 1, Hyperthyroidism, Hypothyroidism Complications of Diabetes: Reports: None Renal/ Medical History: Denies: Hematuria, Nephrolithiasis Malignancy Medical History: Reports: None GI Medical History: Denies: Cirrhosis, Hepatitis, Peptic Ulcer Disease Musculoskeltal Medical History: Denies: Fibromyalgia, Gout Skin Medical History: Denies: Eczema, Psoriasis Psychiatric Medical History: Reports: Depression Denies: Alcohol Dependency, Substance Abuse, Tobacco Dependency Traumatic Medical History: Reports: None Infectious Medical History: Reports: None Past Surgical History Past Surgical History: Reports: None, Colectomy - ?And partial Social History Lives with: Spouse/Significant other Smoking Status: Former Smoker Electronic Cigarette use?: No Frequency of Alcohol Use: None Hx Recreational Drug Use: No Drugs: None Hx Prescription Drug Abuse: No - Advance Directive Resuscitation Status: Full Code Family History Parental Family History Reviewed: No Children Family History Reviewed: No Sibling(s) Family History Reviewed.: No Medication/Allergy Home Medications: Amlodipine Besylate [Norvasc 5 mg Tablet] 5 mg PO DAILY 03/26/20 Aspirin [Ecotrin 81 mg EC Tablet] 81 mg PO DAILY 03/26/20 Azilsartan Medoxomil [Edarbi] 80 mg PO QPM 03/26/20 Cholecalciferol (Vitamin D3) [Vitamin D3 1000 Unit Tablet] 2,000 unit PO DAILY 03/26/20 Cholestyramine (with Sugar) [Cholestyramine Packet] 4 gm PO TID 03/26/20 Levothyroxine Sodium [Synthroid 0.025 mg Tablet] 0.025 mg PO Q6AM 03/26/20 Loperamide HCl [Imodium 2 mg Capsule] 2 mg PO Q6HP PRN 03/26/20 Magnesium Oxide [Mag-Ox 400 mg Tablet] 400 mg PO BID 03/26/20 Simvastatin 20 mg PO QHS 03/26/20 Ubidecarenone [Co Q-10] 150 mg PO DAILY 03/26/20 Allergies/Adverse Reactions: oxycodone [From Percocet] Adverse Reaction (Verified 03/26/20 00:40) Nausea Review of Systems Constitutional: PRESENT: anorexia, fatigue, weakness. ABSENT: chills, fever(s), headache(s), night sweats Nose, Mouth, and Throat: ABSENT: mouth pain, sore throat Cardiovascular: PRESENT: dyspnea on exertion, edema. ABSENT: chest pain, orthropnea, palpitations Gastrointestinal: PRESENT: abdominal pain, bloating, diarrhea - Chronic and intermittent for the last 1 year. No precipitating or relieving factors. Usually preceded by abdominal pains., nausea, vomiting. ABSENT: coffee ground emesis, constipation, dysphagia, heartburn, hematemesis, hematochezia, melena Genitourinary: ABSENT: dysuria, hematuria, nocturia Musculoskeletal: ABSENT: deformity, joint swelling Integumentary: ABSENT: lesions, pruritus, rash Neurological: ABSENT: abnormal gait, abnormal movements, abnormal speech, focal weakness Hematologic/Lymphatic: ABSENT: easy bruising, lymphadenopathy Physical Exam Vital Signs: Temp Pulse Resp BP Pulse Ox 98.1 F 54 L 15 186/50 H 96 03/27/20 08:29 03/27/20 08:29 03/27/20 08:29 03/27/20 08:29 03/27/20 08:29 Intake & Output 03/26/20 03/27/20 03/28/20 06:59 06:59 06:59 Intake Total 459 1373 Output Total 325 1160 Balance 134 213 Weight 78.2 kg 75.1 kg General appearance: PRESENT: no acute distress, disheveled Eye exam: PRESENT: EOMI, PERRLA. ABSENT: scleral icterus Mouth exam: PRESENT: neck supple. ABSENT: moist Neck exam: ABSENT: lymphadenopathy, meningismus, tenderness, thyromegaly, tracheal deviation Respiratory exam: PRESENT: clear to auscultation star, decreased breath sounds. ABSENT: crackles Cardiovascular exam: PRESENT: +S1, +S2 GI/Abdominal exam: PRESENT: diminished bowel sounds, distended, soft, tenderness - Mainly in the left upper quadrant. ABSENT: firm, guarding, normal bowel sounds, organomegaly Extremities exam: PRESENT: pedal edema Neurological exam: PRESENT: alert, awake, oriented to person Psychiatric exam: PRESENT: anxious Skin exam: ABSENT: cyanosis, erythema, mottled, rash Results Laboratory Results: 03/27/20 05:40 03/27/20 05:40 03/26/20 03/26/20 03/27/20 14:07 20:50 05:40 WBC RBC Hgb Hct MCV MCH MCHC RDW Plt Count Seg Neutrophils % Sodium 121.0 L Potassium 3.8 Chloride 94 L Carbon Dioxide 19 L Anion Gap 8 BUN 25 H Creatinine 1.61 H Est GFR ( Amer) 38 L Glucose 138 H Serum Osmolality Calcium 7.4 L Magnesium 2.7 H Total Bilirubin AST Alkaline Phosphatase C-Reactive Protein < 5.0 Total Protein Albumin Stool Occult Blood POSITIVE 03/27/20 03/27/20 03/27/20 05:40 05:40 05:40 WBC 6.4 RBC 3.06 L Hgb 9.8 L Hct 27.6 L MCV 90 MCH 32.1 MCHC 35.5 RDW 13.2 Plt Count 198 Seg Neutrophils % 83.7 H Sodium 121.2 L Potassium 3.7 Chloride 95 L Carbon Dioxide 21 L Anion Gap 5 BUN 26 H Creatinine 1.69 H Est GFR ( Amer) 36 L Glucose 90 Serum Osmolality 261 L Calcium 7.3 L Magnesium Total Bilirubin 0.5 AST 30 Alkaline Phosphatase 84 C-Reactive Protein Total Protein 4.8 L Albumin 2.4 L Stool Occult Blood 03/25/20 03/25/20 03/25/20 19:50 19:50 20:41 Creatine Kinase CK-MB (CK-2) Troponin I Cancelled 0.015 NT-Pro-B Natriuret Pep Cancelled [id number] H 03/26/20 03/26/20 03/26/20 02:54 02:54 08:17 Creatine Kinase 115 144 H CK-MB (CK-2) 2.08 Troponin I 0.023 NT-Pro-B Natriuret Pep 03/26/20 03/26/20 03/26/20 08:17 14:07 14:07 Creatine Kinase 134 CK-MB (CK-2) 1.92 1.83 Troponin I 0.028 0.022 NT-Pro-B Natriuret Pep Impressions: Acute Abdomen Series 03/25/20 20:05 IMPRESSION: Patchy density in the right lung base new when compared to the previous study. Findings may reflect atelectasis versus developing infiltrate Cardiac enlargement Assessment & Plan - Diagnosis (1) Hyponatremia Is this a current diagnosis for this admission?: Yes Plan: Looks like she may have had a chronic hyponatremia given her chronic diarrhea and such.Will treat gently with IV fluids and monitor. Etiology of diarrhea still unknown. This needs to be worked up. (2) Proteinuria Plan: Likely nephrotic. Patient not a diabetic as I see. Initiate work-up. (3) Anasarca Is this a current diagnosis for this admission?: Yes Plan: Probably part of nephrotic syndrome/hypoalbuminemia. Monitor (4) Chronic diarrhea Is this a current diagnosis for this admission?: Yes Plan: Been going on for 1 year. Usually preceded by abdominal pains. Needs further evaluations.I ordered a C. difficile. (5) Chronic kidney disease, stage 3 (moderate) Is this a current diagnosis for this admission?: Yes Plan: Likely element of acute on chronic. It is possible that her chronic diarrhea may be playing a role in some of her CKD. Imaging studies did not show any obstructive uropathy. Initiate work-up. She may ultimately need a renal biopsy. (6) Hypertensive emergency Is this a current diagnosis for this admission?: Yes Plan: Currently she is taking any p.o. medications. I would stop her amlo dipine/Losartan and then start on IV hydralazine and titrate.
[2020-03-27 14:40] LABS: C DIFFICILE GDH NEGATIVE (NEGATIVE)
[2020-03-27] MEDS: NORMAL SALINE 1000 ML 1,000 ML IV PRN (14:49)
--- NOTE | 2020-03-27 15:08 | RADIOLOGY REPORT (SQ) ---
EXAM DESCRIPTION: KUB/ABDOMEN (SINGLE VIEW) IMAGES COMPLETED DATE/TIME: 03/27/2020 2:53 pm REASON FOR STUDY: distention COMPARISON: AP views of the abdomen from 03/25/2020. NUMBER OF VIEWS: One view. TECHNIQUE: Supine radiographic image of the abdomen acquired. LIMITATIONS: None. FINDINGS: BOWEL GAS PATTERN: Anastomotic staple line in the right lower quadrant. There are air-gisella led distended loops of small bowel in the pelvis that measure up to 2.4 cm in AP diameter. The trans verse colon is also distended. CALCIFICATIONS: Pelvic phleboliths. SOFT TISSUES: No abnormality. HARDWARE: Cholecystectomy clips. BONES: Degenerative spondylosis of the lumbar spine. OTHER: No other finding. IMPRESSION: Nonspecific nonobstructive bowel gas pattern. TECHNICAL DOCUMENTATION: JOB ID: [id number] 2010 [employer]- All Rights Reserved Reading location - IP/workstation name: [email or web address]
[2020-03-27 15:40] LABS: ANION GAP 6 (5-19); BLOOD UREA NITROGEN 26 mg/dL (7-20); CALCIUM 7.4 mg/dL (8.4-10.2); CARBON DIOXIDE 21 mmol/L (22-30); CHLORIDE 94 mmol/L (98-107); GLUCOSE 106 mg/dL (75-110); POTASSIUM 3.5 mmol/L (3.6-5.0)
[2020-03-27] MEDS ORDERED: DIPHENOXYLATE HCL/ATROP SULF 2.5-0.025 MG TABLET PO PRN (15:44)
--- NOTE | 2020-03-27 16:21 | PDOC PROGRESS REPORT ---
Subjective Progress Note for:: 03/27/20 Subjective:: Patient was seen on morning rounds. She is found resting in bed, comfortably, on room air. She does report continued frequent loose stools; chronic for several years, and managed at home with Imodium. She denies ever having had a formal work-up for her diarrhea. She also reports generalized abdominal discomfort and bloating; does confirm that she is passing flatus today. Does not feel that her peripheral edema is significantly improved. Otherwise, she has no questions or concerns today. Specifically denies fever, chest pain, palpitations, dyspnea, orthopnea, cough. Case discussed with nursing. Reason For Visit: ANASARCA,UPPER ABDOMINAL PAIN,MALIGNANT Physical Exam Vital Signs: Temp Pulse Resp BP Pulse Ox 98.1 F 65 13 163/43 H 96 03/27/20 10:43 03/27/20 14:00 03/27/20 10:43 03/27/20 10:43 03/27/20 10:43 Intake & Output 03/26/20 03/27/20 03/28/20 06:59 06:59 06:59 Intake Total 459 1373 Output Total 325 1160 Balance 134 213 Weight 78.2 kg 75.1 kg General appearance: PRESENT: no acute distress, cooperative, disheveled, well- developed, well-nourished Head exam: PRESENT: atraumatic, normocephalic Eye exam: PRESENT: conjunctiva pink, EOMI, PERRLA. ABSENT: scleral icterus Ear exam: PRESENT: normal external ear exam Mouth exam: PRESENT: moist, tongue midline Respiratory exam: PRESENT: clear to auscultation star, symmetrical, unlabored. ABSENT: rales, rhonchi, wheezes Cardiovascular exam: PRESENT: RRR. ABSENT: diastolic murmur, rubs, systolic murmur Pulses: PRESENT: normal dorsalis pedis pul Vascular exam: PRESENT: normal capillary refill GI/Abdominal exam: PRESENT: distended - bloated, hyperactive bowel sounds, soft, tenderness - RUQ. ABSENT: guarding, mass, organolmegaly, rebound Rectal exam: PRESENT: deferred Extremities exam: PRESENT: full ROM. ABSENT: calf tenderness, clubbing, pedal edema Neurological exam: PRESENT: alert, awake, oriented to person, oriented to place, oriented to time, oriented to situation, CN II-XII grossly intact. ABSENT: motor sensory deficit Psychiatric exam: PRESENT: normal mood, unusual affect. ABSENT: homicidal ideation, suicidal ideation Skin exam: PRESENT: dry, intact, warm. ABSENT: cyanosis, rash Results Laboratory Results: 03/27/20 05:40 03/26/20 03/27/20 03/27/20 20:50 05:40 05:40 WBC RBC Hgb Hct MCV MCH MCHC RDW Plt Count Seg Neutrophils % Sodium Potassium Chloride Carbon Dioxide Anion Gap BUN Creatinine Est GFR ( Amer) Glucose Serum Osmolality 261 L Calcium Magnesium 2.7 H Total Bilirubin AST Alkaline Phosphatase C-Reactive Protein < 5.0 Total Protein Albumin Stool Occult Blood POSITIVE 03/27/20 03/27/20 05:40 05:40 WBC 6.4 RBC 3.06 L Hgb 9.8 L Hct 27.6 L MCV 90 MCH 32.1 MCHC 35.5 RDW 13.2 Plt Count 198 Seg Neutrophils % 83.7 H Sodium 121.2 L Potassium 3.7 Chloride 95 L Carbon Dioxide 21 L Anion Gap 5 BUN 26 H Creatinine 1.69 H Est GFR ( Amer) 36 L Glucose 90 Serum Osmolality Calcium 7.3 L Magnesium Total Bilirubin 0.5 AST 30 Alkaline Phosphatase 84 C-Reactive Protein Total Protein 4.8 L Albumin 2.4 L Stool Occult Blood 03/25/20 03/25/20 03/25/20 19:50 19:50 20:41 Creatine Kinase CK-MB (CK-2) Troponin I Cancelled 0.015 NT-Pro-B Natriuret Pep Cancelled [id number] H 03/26/20 03/26/20 03/26/20 02:54 02:54 08:17 Creatine Kinase 115 144 H CK-MB (CK-2) 2.08 Troponin I 0.023 NT-Pro-B Natriuret Pep 03/26/20 03/26/20 03/26/20 08:17 14:07 14:07 Creatine Kinase 134 CK-MB (CK-2) 1.92 1.83 Troponin I 0.028 0.022 NT-Pro-B Natriuret Pep Impressions: Acute Abdomen Series 03/25/20 20:05 IMPRESSION: Patchy density in the right lung base new when compared to the previous study. Findings may reflect atelectasis versus developing infiltrate Cardiac enlargement KUB X-Ray 03/27/20 00:00 IMPRESSION: Nonspecific nonobstructive bowel gas pattern. Assessment and Plan - Diagnosis (1) Anasarca Is this a current diagnosis for this admission?: Yes Plan: Patient's anasarca is likely due to her kidney disease. ABD U/S shows coarse heterogeneous liver appearance; likely underlying liver d isease. LFTs unremarkable Hep B/C panel pending Cardiology and Nephrology services are consulted. Echo pending per cardiology. Nephrology evaluating for nephrotic syndome. IV fluids and IV bumetanide per Dr. Mac. client delivery manager is consulted. (2) Chronic diarrhea Is this a current diagnosis for this admission?: Yes Plan: Patient reports chronic diarrhea since prior ruptured colon with subsequent partial colectomy; unclear follow up. Stool culture and C. diff pending. KUB shows nonspecific gas pattern. Will trial lomotil. Plan to consult GI when Dr. Deshpande will be available tomorrow. (3) Chronic kidney disease, stage 3 (moderate) Is this a current diagnosis for this admission?: Yes Plan: Received records from [facility]. Patient's GFR was between 30 and 45 as well. She has a lot of protein in her urine. Nephrology has been consulted; primary management per their expertise. (4) Hyperglycemia due to diabetes mellitus Is this a current diagnosis for this admission?: No Plan: Patient reports that she does not have diabetes. Hemoglobin A1c 5.1%. Glucose 90-138 since time of admission. Has not required insulin coverage. We will discontinue Accu-Cheks and insulin. Should we note that her glucose on chemistries trend upward; reevaluate. Registered dietitian is consulted. (5) Hypertensive emergency Is this a current diagnosis for this admission?: Yes Plan: Improved blood pressures; 163/43 today. Patient is on home dose amlodipine and losartan placed on hold per nephrology. Continue metoprolol twice daily. IV hydralazine as needed for blood pressure control. Nephrology livestock auctioneer has been consulted; appreciate Dr. Mac's evaluation recommendations. Cardiac diet. (6) Hyponatremia Is this a current diagnosis for this admission?: Yes Plan: Sodium 121.4; Trending upward from 118 at time of admission. Likely secondary to fluid volume overload resulting in anasarca. Nephrology is consulted. Appreciate Dr. Mac's assistance. (7) Proteinuria Qualifiers: Proteinuria type: unspecified Qualified Code(s): R80.9 - Proteinuria, unspecified Is this a current diagnosis for this admission?: Yes Plan: Likely nephrotic syndrome. 24hr urine pending Nephrology consulted. - Time Time Spent with patient: 25-34 minutes Medications reviewed and adjusted accordingly: Yes
[2020-03-27] MEDS: DOCUSATE SODIUM 100 MG CAPSULE PO SCH (18:43)
[2020-03-28] MEDS: HYDRALAZINE HCL INJ/PF 20 MG/1 ML SDV IV PRN ×2 (04:12→23:55)
[2020-03-28] MEDS: ONDANSETRON HCL INJ/PF 4 MG/2 ML SDV IV PRN (04:17)
[2020-03-28] MEDS: HEPARIN SOD (PORCINE) 5,000 UNIT/ML 1 ML VIAL SUBCUT SCH ×3 (05:55→21:45)
[2020-03-28] MEDS: LEVOTHYROXINE SODIUM 0.025 MG TABLET PO SCH (05:59)
[2020-03-28 06:49] LABS: HEMATOCRIT 27.8 % (36.0-47.0); MEAN CORPUSCULAR HEMOGLOBIN 32.4 pg (27.0-33.4); MEAN CORPUSCULAR HGB CONC 35.9 g/dL (32.0-36.0); MEAN CORPUSCULAR VOLUME 90 fl (80-97); PLATELET COUNT 193 10^3/uL (150-450); RED BLOOD COUNT 3.08 10^6/uL (3.72-5.28); RED CELL DISTRIBUTION WIDTH 13.5 % (11.5-14.0); WHITE BLOOD COUNT 5.9 10^3/uL (4.0-10.5)
[2020-03-28] MEDS: METOPROLOL SUCCINATE 50 MG TAB.SR.24H PO SCH ×2 (06:51→17:32)
[2020-03-28 07:21] LABS: ANION GAP 6 (5-19); BLOOD UREA NITROGEN 26 mg/dL (7-20); CALCIUM 7.3 mg/dL (8.4-10.2); CARBON DIOXIDE 21 mmol/L (22-30); CHLORIDE 96 mmol/L (98-107); GLUCOSE 83 mg/dL (75-110); POTASSIUM 3.3 mmol/L (3.6-5.0)
[2020-03-28] MEDS ORDERED: POTASSIUM CHLORIDE 10 MEQ TABLET.ER PO ONE ×2 (08:17→14:00)
[2020-03-28] MEDS: DOCUSATE SODIUM 100 MG CAPSULE PO SCH ×2 (09:14→17:35)
[2020-03-28] MEDS: BUMETANIDE INJ/PF 1 MG/4 ML SDV IV SCH ×2 (09:16→21:43)
[2020-03-28] MEDS: SUCRALFATE 1 GM TABLET PO SCH ×4 (09:17→21:44)
[2020-03-28] MEDS: FAMOTIDINE 20 MG TABLET PO SCH (09:17)
[2020-03-28] MEDS: METOCLOPRAMIDE HCL 10 MG TABLET PO SCH ×4 (09:17→21:44)
[2020-03-28] MEDS: NORMAL SALINE 1000 ML 1,000 ML IV PRN (09:18)
[2020-03-28] MEDS ORDERED: AMLODIPINE BESYLATE 5 MG TABLET PO SCH (10:00)
--- NOTE | 2020-03-28 11:40 | PDOC PROGRESS REPORT ---
Subjective Progress Note for:: 03/28/20 Subjective:: Patient was seen laying in her bed at the time of examination. Her only complaint was that she was cold. Diarrhea is currently resolved. She denies chest pain or SOB. Urine output was 1,300mL for a negative of 600mL for yesterday. Reason For Visit: ANASARCA,UPPER ABDOMINAL PAIN,MALIGNANT Physical Exam Vital Signs: Temp Pulse Resp BP Pulse Ox 97.9 F 57 L 16 176/60 H 97 03/28/20 08:15 03/28/20 08:15 03/28/20 08:15 03/28/20 08:15 03/28/20 08:15 Intake & Output 03/27/20 03/28/20 03/29/20 06:59 06:59 06:59 Intake Total 1373 700 924 Output Total 1160 1300 Balance 213 -600 924 Weight 75.1 kg 75.2 kg 75.2 kg General appearance: PRESENT: no acute distress, well-developed, well-nourished Mouth exam: PRESENT: moist, neck supple Respiratory exam: PRESENT: clear to auscultation star. ABSENT: accessory muscle use, crackles, rales, rhonchi, wheezes Cardiovascular exam: PRESENT: +S1, +S2 GI/Abdominal exam: PRESENT: diminished bowel sounds, distended, soft, tenderness - Mainly in the left upper quadrant. ABSENT: firm, guarding, normal bowel sounds, organomegaly Extremities exam: PRESENT: pedal edema, +2 edema. ABSENT: tenderness Musculoskeletal exam: ABSENT: normal inspection, tenderness Neurological exam: PRESENT: alert, awake, oriented to person, oriented to place, oriented to time, oriented to situation Skin exam: PRESENT: dry, intact, warm. ABSENT: cyanosis Results Laboratory Results: 03/28/20 05:57 03/28/20 05:57 03/27/20 03/28/20 03/28/20 15:00 05:57 05:57 WBC 5.9 RBC 3.08 L Hgb 10.0 L Hct 27.8 L MCV 90 MCH 32.4 MCHC 35.9 RDW 13.5 Plt Count 193 Sodium 121.4 L 123.1 L Potassium 3.5 L 3.3 L Chloride 94 L 96 L Carbon Dioxide 21 L 21 L Anion Gap 6 6 BUN 26 H 26 H Creatinine 1.61 H 1.66 H Est GFR ( Amer) 38 L 37 L Glucose 106 83 Calcium 7.4 L 7.3 L 03/25/20 03/25/20 03/25/20 19:50 19:50 20:41 Creatine Kinase CK-MB (CK-2) Troponin I Cancelled 0.015 NT-Pro-B Natriuret Pep Cancelled [id number] H 03/26/20 03/26/20 03/26/20 02:54 02:54 08:17 Creatine Kinase 115 144 H CK-MB (CK-2) 2.08 Troponin I 0.023 NT-Pro-B Natriuret Pep 03/26/20 03/26/20 03/26/20 08:17 14:07 14:07 Creatine Kinase 134 CK-MB (CK-2) 1.92 1.83 Troponin I 0.028 0.022 NT-Pro-B Natriuret Pep Impressions: Acute Abdomen Series 03/25/20 20:05 IMPRESSION: Patchy density in the right lung base new when compared to the previous study. Findings may reflect atelectasis versus developing infiltrate Cardiac enlargement KUB X-Ray 03/27/20 00:00 IMPRESSION: Nonspecific nonobstructive bowel gas pattern. Assessment & Plan - Diagnosis (1) Hyponatremia Is this a current diagnosis for this admission?: Yes Plan: currently improving on normal saline and with fluid removal. Likely combination from chronic diarrhea and the fluid overload from the anasarca (2) Chronic kidney disease, stage 3 (moderate) Is this a current diagnosis for this admission?: Yes Plan: Awaiting serologies, currently creatinine is stable. Awaiting 24 hour urine calculations. Renal biopsy pending biopsy. Due to the risk and complications that can happen with a picc line she should not have one. If better access is needed I recommend a central line over a picc. (3) Proteinuria Qualifiers: Proteinuria type: unspecified Qualified Code(s): R80.9 - Proteinuria, unspecified Is this a current diagnosis for this admission?: Yes Plan: awaiting serology testing, currently stable at this time. Biopsy pending serology (4) Hypokalemia Plan: Patient received 40mEQ of potassium this AM. She will most likely need more from the increased urination and saline she is receiving. Will look to also have her receive another 20mEQ later in the afternoon. Due not want to cause for her diarrhea to come back. (5) Anasarca Is this a current diagnosis for this admission?: Yes Plan: looks to be due to hypoalbuminemia and nephritis. Giving bumex 1mg bid, continue to look for negative I's and O's. (6) Chronic diarrhea Is this a current diagnosis for this admission?: Yes Plan: awaiting culture, as of right now it has resolved according to the patient. (7) Uncontrolled hypertension Is this a current diagnosis for this admission?: Yes
--- NOTE | 2020-03-28 13:01 | PDOC PROGRESS REPORT ---
Subjective Progress Note for:: 03/28/20 Subjective:: No complaints. Resting in bed. Reason For Visit: ANASARCA,UPPER ABDOMINAL PAIN,MALIGNANT Physical Exam Vital Signs: Temp Pulse Resp BP Pulse Ox 97.9 F 57 L 16 176/60 H 97 03/28/20 08:15 03/28/20 08:15 03/28/20 08:15 03/28/20 08:15 03/28/20 08:15 Intake & Output 03/27/20 03/28/20 03/29/20 06:59 06:59 06:59 Intake Total 1373 700 924 Output Total 1160 1300 Balance 213 -600 924 Weight 75.1 kg 75.2 kg 75.2 kg General appearance: PRESENT: no acute distress, obese, well-developed, well- nourished Head exam: PRESENT: atraumatic, normocephalic Eye exam: PRESENT: EOMI Respiratory exam: PRESENT: symmetrical, unlabored Cardiovascular exam: PRESENT: RRR, +S1, +S2 GI/Abdominal exam: PRESENT: distended Rectal exam: PRESENT: deferred Extremities exam: PRESENT: pedal edema Neurological exam: PRESENT: alert, awake Skin exam: PRESENT: dry, intact, pallor Results Laboratory Results: 03/28/20 05:57 03/28/20 05:57 03/27/20 03/28/20 03/28/20 15:00 05:57 05:57 WBC 5.9 RBC 3.08 L Hgb 10.0 L Hct 27.8 L MCV 90 MCH 32.4 MCHC 35.9 RDW 13.5 Plt Count 193 Sodium 121.4 L 123.1 L Potassium 3.5 L 3.3 L Chloride 94 L 96 L Carbon Dioxide 21 L 21 L Anion Gap 6 6 BUN 26 H 26 H Creatinine 1.61 H 1.66 H Est GFR ( Amer) 38 L 37 L Glucose 106 83 Calcium 7.4 L 7.3 L 03/25/20 03/25/20 03/25/20 19:50 19:50 20:41 Creatine Kinase CK-MB (CK-2) Troponin I Cancelled 0.015 NT-Pro-B Natriuret Pep Cancelled [id number] H 03/26/20 03/26/20 03/26/20 02:54 02:54 08:17 Creatine Kinase 115 144 H CK-MB (CK-2) 2.08 Troponin I 0.023 NT-Pro-B Natriuret Pep 03/26/20 03/26/20 03/26/20 08:17 14:07 14:07 Creatine Kinase 134 CK-MB (CK-2) 1.92 1.83 Troponin I 0.028 0.022 NT-Pro-B Natriuret Pep Impressions: Acute Abdomen Series 03/25/20 20:05 IMPRESSION: Patchy density in the right lung base new when compared to the previous study. Findings may reflect atelectasis versus developing infiltrate Cardiac enlargement KUB X-Ray 03/27/20 00:00 IMPRESSION: Nonspecific nonobstructive bowel gas pattern. Assessment & Plan - Diagnosis (1) Anasarca Is this a current diagnosis for this admission?: Yes Plan: Likely multifactorial Presentation does not truly fit congestive heart failure although patient probably has diastolic dysfunction Ongoing work-up for proteinuria which can contribute to edema Also significant fluid losses and hypoalbuminemic state Agree with intravenous diuretic We will review echocardiogram
--- NOTE | 2020-03-28 15:21 | PDOC PROGRESS REPORT ---
Subjective Progress Note for:: 03/28/20 Subjective:: Patient was seen on afternoon rounds. She is found resting in bed, comfortably, on room air. She reports continued frequent loose stools; chronic for several years. Reports that she has not had loose stools today; however, she is noted to be grimacing, baring down, with audible flatus/passage of stool. She also reports continued generalized abdominal discomfort and bloating. Otherwise, she expresses that she denies fever, chest pain, palpitations, dyspnea, orthopnea, cough, nausea and vomiting. She has no questions or concerns today. No concerns per nursing. Reason For Visit: ANASARCA,UPPER ABDOMINAL PAIN,MALIGNANT Physical Exam Vital Signs: Temp Pulse Resp BP Pulse Ox 97.9 F 61 16 176/60 H 97 03/28/20 08:15 03/28/20 14:00 03/28/20 08:15 03/28/20 08:15 03/28/20 08:15 Intake & Output 03/27/20 03/28/20 03/29/20 06:59 06:59 06:59 Intake Total 1373 700 924 Output Total 1160 1300 Balance 213 -600 924 Weight 75.1 kg 75.2 kg 75.2 kg General appearance: PRESENT: no acute distress, disheveled, well-developed, well-nourished Head exam: PRESENT: atraumatic, normocephalic Eye exam: PRESENT: conjunctiva pink, EOMI, PERRLA. ABSENT: scleral icterus Mouth exam: PRESENT: moist, tongue midline Respiratory exam: PRESENT: clear to auscultation star, symmetrical, unlabored. ABSENT: rales, rhonchi, wheezes Cardiovascular exam: PRESENT: RRR. ABSENT: diastolic murmur, rubs, systolic murmur Pulses: PRESENT: normal dorsalis pedis pul Vascular exam: PRESENT: normal capillary refill GI/Abdominal exam: PRESENT: distended - bloated, normal bowel sounds, soft, tenderness. ABSENT: guarding, mass, organolmegaly, rebound Rectal exam: PRESENT: deferred Extremities exam: PRESENT: full ROM. ABSENT: calf tenderness, clubbing, pedal edema Neurological exam: PRESENT: alert, awake, oriented to person, oriented to place, oriented to time, oriented to situation, CN II-XII grossly intact. ABSENT: motor sensory deficit Psychiatric exam: PRESENT: normal mood, unusual affect. ABSENT: homicidal ideation, suicidal ideation Skin exam: PRESENT: dry, intact, warm. ABSENT: cyanosis, rash Results Laboratory Results: 03/28/20 05:57 03/28/20 05:57 03/27/20 03/28/20 03/28/20 15:00 05:57 05:57 WBC 5.9 RBC 3.08 L Hgb 10.0 L Hct 27.8 L MCV 90 MCH 32.4 MCHC 35.9 RDW 13.5 Plt Count 193 Sodium 121.4 L 123.1 L Potassium 3.5 L 3.3 L Chloride 94 L 96 L Carbon Dioxide 21 L 21 L Anion Gap 6 6 BUN 26 H 26 H Creatinine 1.61 H 1.66 H Est GFR ( Amer) 38 L 37 L Glucose 106 83 Calcium 7.4 L 7.3 L 03/25/20 03/25/20 03/25/20 19:50 19:50 20:41 Creatine Kinase CK-MB (CK-2) Troponin I Cancelled 0.015 NT-Pro-B Natriuret Pep Cancelled 16811 H 03/26/20 03/26/20 03/26/20 02:54 02:54 08:17 Creatine Kinase 115 144 H CK-MB (CK-2) 2.08 Troponin I 0.023 NT-Pro-B Natriuret Pep 03/26/20 03/26/20 03/26/20 08:17 14:07 14:07 Creatine Kinase 134 CK-MB (CK-2) 1.92 1.83 Troponin I 0.028 0.022 NT-Pro-B Natriuret Pep Impressions: Acute Abdomen Series 03/25/20 20:05 IMPRESSION: Patchy density in the right lung base new when compared to the previous study. Findings may reflect atelectasis versus developing infiltrate Cardiac enlargement KUB X-Ray 03/27/20 00:00 IMPRESSION: Nonspecific nonobstructive bowel gas pattern. Assessment and Plan - Diagnosis (1) Anasarca Is this a current diagnosis for this admission?: Yes Plan: Patient's anasarca is likely due to her kidney disease. ABD U/S shows coarse heterogeneous liver appearance; likely underlying liver disease. LFTs unremarkable Hep B/C panel pending Cardiology and Nephrology services are consulted. Echo pending per cardiology. Did discuss with Dr. Strickland today; unlikely due to CHF alone, though expects some underlying diastolic dysfunction. Nephrology evaluating for nephrotic syndome. IV fluids and IV bumetanide per Dr. Mac. luggage liner is consulted. (2) Chronic diarrhea Is this a current diagnosis for this admission?: Yes Plan: Patient reports chronic diarrhea since prior ruptured colon with subsequent partial colectomy; unclear follow up. Stool culture and C. diff pending. KUB shows nonspecific gas pattern. Will trial lomotil. GI consulted today; appreciate Dr. Deshpande's evaluation and recommendations. (3) Chronic kidney disease, stage 3 (moderate) Is this a current diagnosis for this admission?: Yes Plan: Received records from [facility]. Patient's GFR was between 30 and 45 as well. She has a lot of protein in her urine. Nephrology has been consulted; primary management per their expertise. (4) Hyperglycemia due to diabetes mellitus Is this a current diagnosis for this admission?: No Plan: Patient reports that she does not have diabetes. Hemoglobin A1c 5.1%. Glucose 90-138 since time of admission. Has not required insulin coverage. We will discontinue Accu-Cheks and insulin. Should we note that her glucose on chemistries trend upward; reevaluate. Registered dietitian is consulted. Cardiac diet. (5) Hypertensive emergency Is this a current diagnosis for this admission?: Yes Plan: Improved blood pressures; 176/60 today. Patient is on home dose amlodipine and losartan placed on hold per nephrology. Continue metoprolol twice daily. IV hydralazine as needed for blood pressure control. Nephrology diamond grinder has been consulted; appreciate Dr. Mac's evaluation recommendations. Cardiac diet. (6) Hyponatremia Is this a current diagnosis for this admission?: Yes Plan: Sodium 123.1; Trending upward from 118 at time of admission. Likely secondary to fluid volume overload resulting in anasarca. Nephrology is consulted. Appreciate Dr. Mac's assistance. (7) Proteinuria Qualifiers: Proteinuria type: unspecified Qualified Code(s): R80.9 - Proteinuria, unspecified Is this a current diagnosis for this admission?: Yes Plan: Likely nephrotic syndrome. 24hr urine pending Nephrology consulted. (8) Hypokalemia Is this a current diagnosis for this admission?: Yes Plan: R/t GI losses. Perhaps worsened by diuretics. Oral replacement today. Follow up chemistry. - Time Time Spent with patient: 25-34 minutes Medications reviewed and adjusted accordingly: Yes Anticipated discharge: Home with Homehealth
--- NOTE | 2020-03-28 16:48 | PDOC CONSULTATION ---
Consultation Consult Date: 03/28/20 Provider Consulted: JENNIFER BURNETT Consult reason:: chronic diarrhea with history of previous colectomy due to possible perforated diverticulitis History of Present Illness Admission Date/PCP: 03/25/20 22:14 History of Present Illness: LITZY DUKES is a 74 year old female patient has been admitted via the Hospitalist service. has been having diarrhea with concomitant electrolyte abnormalities has had chronic CKD witth now anarsarca asked to provide evaluation for diarrhea, has not been controlled with medications unclear why she had partial colectomy, not a great historian need mucosal evaluation rule out underlying collagenous colitis will need colonoscopy Past Medical History Cardiac Medical History: Reports: Hyperlipidema, Hypertension Denies: Atrial Fibrillation, Congestive Heart Failure, Coronary Artery Disease, DVT, Myocardial Infarction, Pulmonary Embolism Pulmonary Medical History: Denies: Asthma, Chronic Obstructive Pulmonary Disease (COPD) EENT Medical History: Denies: Cataracts, Ears - Hearing aids Neurological Medical History: Denies: Hemorrhagic CVA, Ischemic CVA, Seizures Endocrine Medical History: Reports: Diabetes Mellitus Type 2 Denies: Diabetes Mellitus Type 1, Hyperthyroidism, Hypothyroidism Renal/ Medical History: Reports: Chronic Kidney Disease Denies: Nephrolithiasis Malignancy Medical History: Reports: None GI Medical History: Denies: Cirrhosis, Hepatitis, Peptic Ulcer Disease Musculoskeltal Medical History: Denies: Fibromyalgia, Gout Skin Medical History: Denies: Eczema, Psoriasis Psychiatric Medical History: Reports: Depression Denies: Alcohol Dependency, Substance Abuse, Tobacco Dependency Traumatic Medical History: Reports: None Hematology: Denies: Anemia, Bleeding Tendencies Infectious Medical History: Reports: None Past Surgical History Past Surgical History: Reports: None Social History Lives with: Spouse/Significant other Smoking Status: Former Smoker Electronic Cigarette use?: No Frequency of Alcohol Use: None Hx Recreational Drug Use: No Drugs: None Hx Prescription Drug Abuse: No - Advance Directive Resuscitation Status: Full Code Family History Family History: denies: CAD, DM, Hypertension, Malignancy Parental Family History Reviewed: Yes Children Family History Reviewed: Unknown Sibling(s) Family History Reviewed.: Unknown Medication/Allergy Home Medications: Amlodipine Besylate [Norvasc 5 mg Tablet] 5 mg PO DAILY 03/26/20 Aspirin [Ecotrin 81 mg EC Tablet] 81 mg PO DAILY 03/26/20 Azilsartan Medoxomil [Edarbi] 80 mg PO QPM 03/26/20 Cholecalciferol (Vitamin D3) [Vitamin D3 1000 Unit Tablet] 2,000 unit PO DAILY 03/26/20 Cholestyramine (with Sugar) [Cholestyramine Packet] 4 gm PO TID 03/26/20 Levothyroxine Sodium [Synthroid 0.025 mg Tablet] 0.025 mg PO Q6AM 03/26/20 Loperamide HCl [Imodium 2 mg Capsule] 2 mg PO Q6HP PRN 03/26/20 Magnesium Oxide [Mag-Ox 400 mg Tablet] 400 mg PO BID 03/26/20 Simvastatin 20 mg PO QHS 03/26/20 Ubidecarenone [Co Q-10] 150 mg PO DAILY 03/26/20 Allergies/Adverse Reactions: oxycodone [From Percocet] Adverse Reaction (Verified 03/26/20 00:40) Nausea Review of Systems Constitutional: ABSENT: fever(s), headache(s), night sweats, weakness Eyes: ABSENT: visual disturbances Ears: ABSENT: hearing changes Nose, Mouth, and Throat: ABSENT: mouth pain, sore throat Respiratory: ABSENT: dyspnea, hemoptysis Gastrointestinal: PRESENT: diarrhea. ABSENT: hematemesis, nausea, vomiting Genitourinary: ABSENT: dysuria, hematuria Musculoskeletal: ABSENT: joint swelling Neurological: ABSENT: syncope, tingling, tremor(s), vertigo Endocrine: ABSENT: polydipsia, polyphagia Hematologic/Lymphatic: ABSENT: easy bruising Physical Exam Vital Signs: Temp Pulse Resp BP Pulse Ox 97.9 F 61 16 176/60 H 97 03/28/20 08:15 03/28/20 14:00 03/28/20 08:15 03/28/20 08:15 03/28/20 08:15 Intake & Output 03/27/20 03/28/20 03/29/20 06:59 06:59 06:59 Intake Total 1373 700 924 Output Total 1160 1300 Balance 213 -600 924 Weight 75.1 kg 75.2 kg 75.2 kg General appearance: PRESENT: no acute distress, well-developed Head exam: PRESENT: atraumatic, normocephalic Eye exam: PRESENT: EOMI, PERRLA. ABSENT: scleral icterus Mouth exam: PRESENT: moist, neck supple Throat exam: ABSENT: tonsillogmegaly Neck exam: ABSENT: meningismus, tenderness, thyromegaly Respiratory exam: PRESENT: symmetrical, unlabored. ABSENT: tachypnea, wheezes Cardiovascular exam: PRESENT: RRR, +S1, +S2 GI/Abdominal exam: ABSENT: St's sign Extremities exam: PRESENT: pedal edema. ABSENT: joint swelling Neurological exam: PRESENT: alert, awake, CN II-XII grossly intact Skin exam: PRESENT: normal color. ABSENT: mottled, pallor, urticaria, vesicles Results Laboratory Results: 03/28/20 05:57 03/28/20 05:57 03/28/20 03/28/20 05:57 05:57 WBC 5.9 RBC 3.08 L Hgb 10.0 L Hct 27.8 L MCV 90 MCH 32.4 MCHC 35.9 RDW 13.5 Plt Count 193 Sodium 123.1 L Potassium 3.3 L Chloride 96 L Carbon Dioxide 21 L Anion Gap 6 BUN 26 H Creatinine 1.66 H Est GFR ( Amer) 37 L Glucose 83 Calcium 7.3 L 03/25/20 03/25/20 03/25/20 19:50 19:50 20:41 Creatine Kinase CK-MB (CK-2) Troponin I Cancelled 0.015 NT-Pro-B Natriuret Pep Cancelled [id number] H 03/26/20 03/26/20 03/26/20 02:54 02:54 08:17 Creatine Kinase 115 144 H CK-MB (CK-2) 2.08 Troponin I 0.023 NT-Pro-B Natriuret Pep 03/26/20 03/26/20 03/26/20 08:17 14:07 14:07 Creatine Kinase 134 CK-MB (CK-2) 1.92 1.83 Troponin I 0.028 0.022 NT-Pro-B Natriuret Pep Impressions: Acute Abdomen Series 03/25/20 20:05 IMPRESSION: Patchy density in the right lung base new when compared to the previous study. Findings may reflect atelectasis versus developing infiltrate Cardiac enlargement KUB X-Ray 03/27/20 00:00 IMPRESSION: Nonspecific nonobstructive bowel gas pattern. Assessment & Plan - Diagnosis (1) Chronic diarrhea Is this a current diagnosis for this admission?: Yes Plan: chronic changes in her bowel habits, it is prolonged and in conjunction with her kidney disease as electrolyte abnormalities work up to include a colonoscopy to exclude possible collagenous colitis Risks, benefits and alternatives are explained to the patient in detail further recommendations to follow will put on schedule with Propofol sedation - Time Time Spent: 50 to 70 Minutes
[2020-03-28] MEDS ORDERED: PEG 3350/NA SULF,BICARB,CL/KCL 4000 ML PO ONE (17:30)
[2020-03-29] MEDS: HEPARIN SOD (PORCINE) 5,000 UNIT/ML 1 ML VIAL SUBCUT SCH ×3 (05:00→22:05)
[2020-03-29] MEDS: METOPROLOL SUCCINATE 50 MG TAB.SR.24H PO SCH ×2 (05:01→17:26)
[2020-03-29] MEDS: LEVOTHYROXINE SODIUM 0.025 MG TABLET PO SCH (05:02)
[2020-03-29] MEDS: NORMAL SALINE 1000 ML 1,000 ML IV PRN (05:02)
[2020-03-29 07:23] LABS: ALBUMIN 2.3 g/dL (3.5-5.0); ALKALINE PHOSPHATASE 76 U/L (38-126); ANION GAP 6 (5-19); ASPARTATE AMINO TRANSFERASE 27 U/L (14-36); BILIRUBIN,TOTAL 0.3 mg/dL (0.2-1.3); BLOOD UREA NITROGEN 27 mg/dL (7-20); CALCIUM 7.1 mg/dL (8.4-10.2); CARBON DIOXIDE 19 mmol/L (22-30); CHLORIDE 101 mmol/L (98-107); GLUCOSE 101 mg/dL (75-110); POTASSIUM 3.8 mmol/L (3.6-5.0); TOTAL PROTEIN 4.6 g/dL (6.3-8.2)
[2020-03-29 07:38] LABS: HEPATITS B SURFACE ANTIGEN Negative (Negative)
[2020-03-29] MEDS: HYDRALAZINE HCL INJ/PF 20 MG/1 ML SDV IV PRN ×2 (08:20→17:32)
[2020-03-29] MEDS: BUMETANIDE INJ/PF 1 MG/4 ML SDV IV SCH ×2 (09:06→17:26)
[2020-03-29] MEDS: SUCRALFATE 1 GM TABLET PO SCH ×4 (09:06→22:09)
[2020-03-29] MEDS: METOCLOPRAMIDE HCL 10 MG TABLET PO SCH ×2 (09:06→11:50)
[2020-03-29] MEDS: FAMOTIDINE 20 MG TABLET PO SCH (09:06)
[2020-03-29 09:10] LABS: HEPATITIS B CORE AB TOT Negative (Negative)
[2020-03-29] MEDS: DOCUSATE SODIUM 100 MG CAPSULE PO SCH ×2 (10:03→17:28)
--- NOTE | 2020-03-29 10:35 | Progress Note ---
Provider Note Provider Note: patient refused prep overnight RN patient also does not want procedure done next available time that I would be able to get her procedure done will be Saturday 03/31 I will sign off for now her electrolytes are better please call if needed
[2020-03-29 10:53] LABS: URINE CREATININE 46.2 mg/dL (15-278); URINE SODIUM 39 mmol/L (30-90)
[2020-03-29 10:57] LABS: 24 HOUR URINE SODIUM RESULT 37 mmol/day (40-200)
[2020-03-29] MEDS ORDERED: NORMAL SALINE 1000 ML 1,000 ML IV PRN (10:59)
[2020-03-29 11:07] LABS: 24 HOUR URINE PROTEIN RESULT 3855 mg/day (42-225); URINE PROTEIN 401.6 mg/dL (<12)
--- NOTE | 2020-03-29 11:10 | PDOC PROGRESS REPORT ---
Subjective Progress Note for:: 03/29/20 Subjective:: Patient was laying in her bed this morning in no acute distress. She declined doing the bowel prep for her colonoscopy. She denies chest pain or SOB. Recently had a gandhi catheter placed for stricter I's&O's. Continues to have significant swelling in her arms and legs. Reason For Visit: ANASARCA,UPPER ABDOMINAL PAIN,MALIGNANT Physical Exam Vital Signs: Temp Pulse Resp BP Pulse Ox 97.8 F 60 18 211/50 H 97 03/29/20 08:06 03/29/20 08:16 03/29/20 08:06 03/29/20 08:16 03/29/20 08:16 Intake & Output 03/28/20 03/29/20 03/30/20 06:59 06:59 06:59 Intake Total 700 2606 Output Total 1300 865 Balance -600 1741 Weight 75.2 kg 76.4 kg General appearance: PRESENT: no acute distress, well-developed, well-nourished Mouth exam: PRESENT: moist, neck supple Neck exam: ABSENT: JVD, tracheal deviation Respiratory exam: PRESENT: clear to auscultation star, crackles - -bases. ABSENT: rales, rhonchi, wheezes Cardiovascular exam: PRESENT: +S1, +S2 GI/Abdominal exam: PRESENT: diminished bowel sounds, distended, soft, tenderness - Mainly in the left upper quadrant. ABSENT: firm, guarding, normal bowel sounds, organomegaly Extremities exam: PRESENT: pedal edema, +2 edema. ABSENT: tenderness Musculoskeletal exam: PRESENT: normal inspection. ABSENT: tenderness Neurological exam: PRESENT: alert, awake, oriented to person, oriented to place, oriented to time, oriented to situation Psychiatric exam: PRESENT: depressed, flat affect Skin exam: PRESENT: dry, intact, warm. ABSENT: cyanosis Results Laboratory Results: 03/28/20 05:57 03/29/20 06:40 03/29/20 06:40 Sodium 125.6 L Potassium 3.8 Chloride 101 Carbon Dioxide 19 L Anion Gap 6 BUN 27 H Creatinine 1.59 H Est GFR ( Amer) 39 L Glucose 101 Calcium 7.1 L Total Bilirubin 0.3 AST 27 Alkaline Phosphatase 76 Total Protein 4.6 L Albumin 2.3 L 03/26/20 20:50 Stool - Stool Fecal Fat Neutral Stain - Final 03/26/20 20:50 Stool - Stool Stool Fat, Qualitative - Final 03/25/20 03/25/20 03/25/20 19:50 19:50 20:41 Creatine Kinase CK-MB (CK-2) Troponin I Cancelled 0.015 NT-Pro-B Natriuret Pep Cancelled [id number] H 03/26/20 03/26/20 03/26/20 02:54 02:54 08:17 Creatine Kinase 115 144 H CK-MB (CK-2) 2.08 Troponin I 0.023 NT-Pro-B Natriuret Pep 03/26/20 03/26/20 03/26/20 08:17 14:07 14:07 Creatine Kinase 134 CK-MB (CK-2) 1.92 1.83 Troponin I 0.028 0.022 NT-Pro-B Natriuret Pep Impressions: Acute Abdomen Series 03/25/20 20:05 IMPRESSION: Patchy density in the right lung base new when compared to the previous study. Findings may reflect atelectasis versus developing infiltrate Cardiac enlargement KUB X-Ray 03/27/20 00:00 IMPRESSION: Nonspecific nonobstructive bowel gas pattern. Assessment & Plan - Diagnosis (1) Hyponatremia Is this a current diagnosis for this admission?: Yes Plan: Improving, will look to increase bumex to 1mg q8. Decreasing normal saline to 40mL an hour to keep helping with the sodium. Need to shift I's&O's to being negative. If she is still positive than the normal saline may need to be stopped. (2) Chronic kidney disease, stage 3 (moderate) Is this a current diagnosis for this admission?: Yes Plan: Awaiting serologies, currently creatinine is stable. Awaiting 24 hour urine calculations. Renal biopsy pending serology. Due to the risk and complications that can happen with a picc line she should not have one. If better access is needed I recommend a central line over a picc. (3) Proteinuria Qualifiers: Proteinuria type: unspecified Qualified Code(s): R80.9 - Proteinuria, unspecified Is this a current diagnosis for this admission?: Yes Plan: awaiting serology testing, currently stable at this time. Biopsy pending serology (4) Hypokalemia Is this a current diagnosis for this admission?: Yes Plan: stable today, will reassess with the increase in bumex (5) Anasarca Is this a current diagnosis for this admission?: Yes Plan: increasing bumex to 1mg TID and decreasing normal saline to 40mL an hour. May need to consider adding albumin before giving bumex if urine output dose not supervisor toy assembly. (6) Chronic diarrhea Is this a current diagnosis for this admission?: Yes Plan: awaiting culture, as of right now it has resolved according to the patient. turned down colonoscopy (7) Uncontrolled hypertension Is this a current diagnosis for this admission?: Yes Plan: Having the metoprolol restarted, on hydralazine 25mg q8 prn. If patient becomes bradycardic then she will need to be switched to different medications. Will also see how her bp is with removing more fluid. (8) Hypocalcemia Plan: getting an ionized calcium
--- NOTE | 2020-03-29 13:39 | PDOC PROGRESS REPORT ---
Subjective Progress Note for:: 03/29/20 Subjective:: Patient was seen on afternoon rounds. She is found resting in bed, comfortably, on room air. She reports continued frequent loose stools; chronic for several years. Reports that she has not had loose stools today; however, she is noted to be grimacing, baring down, with audible flatus/passage of stool. She also reports continued generalized abdominal discomfort and bloating. Otherwise, she expresses that she denies fever, chest pain, palpitations, dyspnea, orthopnea, cough, nausea and vomiting. She has no questions or concerns today. No concerns per nursing. Reason For Visit: ANASARCA,UPPER ABDOMINAL PAIN,MALIGNANT Physical Exam Vital Signs: Temp Pulse Resp BP Pulse Ox 97.8 F 52 L 16 153/86 H 98 03/29/20 12:40 03/29/20 12:40 03/29/20 12:40 03/29/20 12:40 03/29/20 12:40 Intake & Output 03/28/20 03/29/20 03/30/20 06:59 06:59 06:59 Intake Total 700 2606 Output Total 1300 865 Balance -600 1741 Weight 75.2 kg 76.4 kg General appearance: PRESENT: no acute distress, disheveled, well-developed, well-nourished. ABSENT: cooperative Head exam: PRESENT: atraumatic, normocephalic Eye exam: PRESENT: conjunctiva pink, EOMI, PERRLA. ABSENT: scleral icterus Mouth exam: PRESENT: moist, tongue midline Respiratory exam: PRESENT: clear to auscultation star, symmetrical, unlabored. ABSENT: rales, rhonchi, wheezes Cardiovascular exam: PRESENT: RRR. ABSENT: diastolic murmur, rubs, systolic murmur Vascular exam: PRESENT: normal capillary refill GI/Abdominal exam: PRESENT: distended - Bloated, normal bowel sounds, soft, tenderness. ABSENT: guarding, mass, organolmegaly, rebound Rectal exam: PRESENT: heme (+) stool Extremities exam: PRESENT: full ROM, +1 edema - BLE. ABSENT: calf tenderness, clubbing, pedal edema Neurological exam: PRESENT: alert, awake, oriented to person, oriented to place, oriented to time, oriented to situation, CN II-XII grossly intact. ABSENT: motor sensory deficit Psychiatric exam: PRESENT: agitated, normal mood. ABSENT: homicidal ideation, suicidal ideation Skin exam: PRESENT: dry, intact, warm. ABSENT: cyanosis, rash Results Laboratory Results: 03/28/20 05:57 03/29/20 06:40 03/29/20 03/29/20 06:40 09:40 Sodium 125.6 L Potassium 3.8 Chloride 101 Carbon Dioxide 19 L Anion Gap 6 BUN 27 H Creatinine 1.59 H Est GFR ( Amer) 39 L Glucose 101 Calcium 7.1 L Total Bilirubin 0.3 AST 27 Alkaline Phosphatase 76 Total Protein 4.6 L Albumin 2.3 L Ur 24 Hour Volume 960 Ur Total Protein 24 Hr 3855 H Ur Sodium 24 Hour 37 L 03/26/20 20:50 Stool - Stool Fecal Fat Neutral Stain - Final 03/26/20 20:50 Stool - Stool Stool Fat, Qualitative - Final 03/25/20 03/25/20 03/25/20 19:50 19:50 20:41 Creatine Kinase CK-MB (CK-2) Troponin I Cancelled 0.015 NT-Pro-B Natriuret Pep Cancelled [id number] H 03/26/20 03/26/20 03/26/20 02:54 02:54 08:17 Creatine Kinase 115 144 H CK-MB (CK-2) 2.08 Troponin I 0.023 NT-Pro-B Natriuret Pep 03/26/20 03/26/20 03/26/20 08:17 14:07 14:07 Creatine Kinase 134 CK-MB (CK-2) 1.92 1.83 Troponin I 0.028 0.022 NT-Pro-B Natriuret Pep Impressions: Acute Abdomen Series 03/25/20 20:05 IMPRESSION: Patchy density in the right lung base new when compared to the previous study. Findings may reflect atelectasis versus developing infiltrate Cardiac enlargement KUB X-Ray 03/27/20 00:00 IMPRESSION: Nonspecific nonobstructive bowel gas pattern. Assessment and Plan - Diagnosis (1) Anasarca Is this a current diagnosis for this admission?: Yes Plan: Patient's anasarca is likely due to her kidney disease. ABD U/S shows coarse heterogeneous liver appearance; likely underlying liver disease. LFTs unremarkable Hep B negative. Hep C pending. Cardiology and Nephrology services are consulted. Echo pending per cardiology. Did discuss with Dr. Strickland; unlikely due to CHF alone, though expects some underlying diastolic dysfunction. Nephrology evaluating for nephrotic syndome. IV fluids and IV bumetanide per Dr. Mac. sociology teacher is consulted. (2) Chronic diarrhea Is this a current diagnosis for this admission?: Yes Plan: Patient reports chronic diarrhea since prior ruptured colon with subsequent partial colectomy; unclear follow up. Stool culture and C. diff pending. Occult stool positive. Now with melena and blood clots w/ stools. KUB shows nonspecific gas pattern. Clear liquid diet. Protonix and Carafate Clear liquids. Hold on antidiarrheal. Stap scheduled Reglan GI consulted today; appreciate Dr. Deshpande's evaluation and recommendations. Plans for colonoscopy. (3) Chronic kidney disease, stage 3 (moderate) Is this a current diagnosis for this admission?: Yes Plan: Received records from [facility]. Patient's GFR was between 30 and 45 as well. She has a lot of protein in her urine. Nephrology has been consulted; primary management per their expertise. (4) Hyperglycemia due to diabetes mellitus Is this a current diagnosis for this admission?: No Plan: Patient reports that she does not have diabetes. Hemoglobin A1c 5.1%. Glucose 90-138 since time of admission. Has not required insulin coverage. We will discontinue Accu-Cheks and insulin. Should we note that her glucose on chemistries trend upward; reevaluate. Registered dietitian is consulted. Cardiac diet. (5) Hypertensive emergency Is this a current diagnosis for this admission?: Yes Plan: Improved blood pressures; 150/80 today. Patient is on home dose amlodipine and losartan placed on hold per nephrology. Continue metoprolol twice daily. IV hydralazine as needed for blood pressure control. Nephrology medical records receptionist has been consulted; appreciate Dr. Mac's evaluation recommendations. Cardiac diet. (6) Hyponatremia Is this a current diagnosis for this admission?: Yes Plan: Sodium 125.6; Trending upward from 118 at time of admission. Likely secondary to fluid volume overload resulting in anasarca. Nephrology is consulted. Appreciate Dr. Mac's assistance. (7) Proteinuria Qualifiers: Proteinuria type: unspecified Qualified Code(s): R80.9 - Proteinuria, unspecified Is this a current diagnosis for this admission?: Yes Plan: Likely nephrotic syndrome. 24hr urine pending Nephrology consulted. (8) Hypokalemia Is this a current diagnosis for this admission?: Yes Plan: Replete. R/t GI losses. Perhaps worsened by diuretics. Follow up chemistry. (9) Melena Is this a current diagnosis for this admission?: Yes Plan: GI is consulted; plans for colonoscopy. Start twice daily Protonix. Continue Carafate with meals at bedtime. Clear liquid diet. Serial CBCs. - Time Time Spent with patient: 25-34 minutes Medications reviewed and adjusted accordingly: Yes Anticipated discharge: Home with Homehealth
[2020-03-29 15:16] LABS: HEMATOCRIT 29.7 % (36.0-47.0); HEMOGLOBIN 10.4 g/dL (12.0-15.5); MEAN CORPUSCULAR HGB CONC 35.1 g/dL (32.0-36.0); MEAN CORPUSCULAR VOLUME 91 fl (80-97); PLATELET COUNT 131 10^3/uL (150-450); RED BLOOD COUNT 3.25 10^6/uL (3.72-5.28); RED CELL DISTRIBUTION WIDTH 13.6 % (11.5-14.0); WHITE BLOOD COUNT 7.7 10^3/uL (4.0-10.5)
[2020-03-29] MEDS: CALCIUM CARBONATE 600 MG TABLET PO SCH (22:09)
[2020-03-29] MEDS: MELATONIN 3 MG TABLET PO SCH (22:09)
[2020-03-29] MEDS: PANTOPRAZOLE SODIUM 40 MG VIAL IV SCH (22:09)
[2020-03-29 23:47] LABS: URINE CREATININE 53.2 mg/dL (15-278)
[2020-03-29 23:54] LABS: UR PRO/CREAT RATIO RESULT 9.8 mg/mg (0.0-0.2); URINE PROTEIN 519.5 mg/dL (<12)
[2020-03-30 00:29] LABS: OSMOLALITY,URINE 220 mOsm/kg (300-900)
[2020-03-30] MEDS: BUMETANIDE INJ/PF 1 MG/4 ML SDV IV SCH ×3 (01:21→18:14)
[2020-03-30] MEDS: HYDRALAZINE HCL INJ/PF 20 MG/1 ML SDV IV PRN ×4 (01:38→22:44)
[2020-03-30] MEDS: HEPARIN SOD (PORCINE) 5,000 UNIT/ML 1 ML VIAL SUBCUT SCH ×3 (05:11→21:16)
[2020-03-30] MEDS: LEVOTHYROXINE SODIUM 0.025 MG TABLET PO SCH (05:12)
[2020-03-30] MEDS: METOPROLOL SUCCINATE 50 MG TAB.SR.24H PO SCH ×2 (05:12→17:51)
[2020-03-30 06:49] LABS: HEMATOCRIT 27.4 % (36.0-47.0); HEMOGLOBIN 9.7 g/dL (12.0-15.5); MEAN CORPUSCULAR HGB CONC 35.4 g/dL (32.0-36.0); MEAN CORPUSCULAR VOLUME 91 fl (80-97); PLATELET COUNT 186 10^3/uL (150-450); RED BLOOD COUNT 3.02 10^6/uL (3.72-5.28); RED CELL DISTRIBUTION WIDTH 13.2 % (11.5-14.0); WHITE BLOOD COUNT 5.3 10^3/uL (4.0-10.5)
[2020-03-30 07:12] LABS: ANION GAP 5 (5-19); BLOOD UREA NITROGEN 28 mg/dL (7-20); CALCIUM 7.4 mg/dL (8.4-10.2); CARBON DIOXIDE 20 mmol/L (22-30); CHLORIDE 102 mmol/L (98-107); GLUCOSE 106 mg/dL (75-110); POTASSIUM 3.7 mmol/L (3.6-5.0)
[2020-03-30 07:13] LABS: ANTINUCLEAR ANTIBODIES Negative (Negative)
[2020-03-30] MEDS: ALBUMIN HUMAN 12.5 GM/50 ML RTUINJ IV SCH ×3 (09:41→17:48)
[2020-03-30] MEDS: CALCIUM CARBONATE 600 MG TABLET PO SCH ×2 (09:42→17:51)
[2020-03-30] MEDS: DOCUSATE SODIUM 100 MG CAPSULE PO SCH ×3 (09:42→17:53)
[2020-03-30] MEDS: PANTOPRAZOLE SODIUM 40 MG VIAL IV SCH ×2 (09:42→21:11)
[2020-03-30] MEDS: SUCRALFATE 1 GM TABLET PO SCH ×4 (10:03→21:11)
[2020-03-30] MEDS ORDERED: CARBOXYMETHYLCELLULOSE SOD 0.5% 0.4 ML DROPERETTE OU PRN (11:04)
--- NOTE | 2020-03-30 11:10 | PDOC PROGRESS REPORT ---
Subjective Progress Note for:: 03/30/20 Subjective:: Patient was seen on morning rounds. She is found sitting up to the recliner, comfortably, on room air. She reports that she is feeling well today. She cannot recall if she had any bowel movements overnight (per nursing, multiple soft melena stools). She denies current abdominal pain, nausea or vomiting. She states that she is feeling well. At this time, she is agreeable to colonoscopy. She denies fever, chest pain, palpitations, dyspnea, orthopnea, cough. She has no questions or concerns today. No concerns per nursing. Reason For Visit: ANASARCA,UPPER ABDOMINAL PAIN,MALIGNANT Physical Exam Vital Signs: Temp Pulse Resp BP Pulse Ox 98.2 F 83 18 165/58 H 96 03/30/20 08:17 03/30/20 10:28 03/30/20 08:17 03/30/20 10:28 03/30/20 08:17 Intake & Output 03/29/20 03/30/20 03/31/20 06:59 06:59 06:59 Intake Total 2606 240 Output Total 865 710 Balance 1741 -470 Weight 76.4 kg 78.8 kg General appearance: PRESENT: no acute distress, well-developed, well-nourished - Overweight Head exam: PRESENT: atraumatic, normocephalic Eye exam: PRESENT: conjunctiva pink, EOMI, PERRLA. ABSENT: scleral icterus Mouth exam: PRESENT: moist, tongue midline Respiratory exam: PRESENT: clear to auscultation star, symmetrical, unlabored. ABSENT: rales, rhonchi, wheezes Cardiovascular exam: PRESENT: RRR, +S1, +S2. ABSENT: diastolic murmur, rubs, systolic murmur Vascular exam: PRESENT: normal capillary refill GI/Abdominal exam: PRESENT: distended, hyperactive bowel sounds, normal bowel sounds, soft. ABSENT: guarding, mass, organolmegaly, rebound, tenderness Extremities exam: PRESENT: full ROM, +1 edema - BLE. ABSENT: calf tenderness, clubbing, pedal edema Neurological exam: PRESENT: alert, awake, oriented to person, oriented to place, oriented to time, oriented to situation, CN II-XII grossly intact, other - Intermittently confused/forgetful. ABSENT: motor sensory deficit Psychiatric exam: PRESENT: appropriate affect, normal mood. ABSENT: homicidal ideation, suicidal ideation Skin exam: PRESENT: dry, intact, warm. ABSENT: cyanosis, rash Results Laboratory Results: 03/30/20 06:35 03/30/20 06:35 03/29/20 03/29/20 03/29/20 09:40 14:47 14:47 WBC 7.7 RBC 3.25 L Hgb 10.4 L Hct 29.7 L MCV 91 MCH 32.0 MCHC 35.1 RDW 13.6 Plt Count 131 L Sodium Potassium Chloride Carbon Dioxide Anion Gap BUN Creatinine Est GFR ( Amer) Glucose Calcium Ionized Calcium Dina 1.01 L PTH Intact Urine Osmolality Ur 24 Hour Volume 960 Ur Total Protein 24 Hr 3855 H Ur Sodium 24 Hour 37 L 03/29/20 03/30/20 03/30/20 23:04 06:35 06:35 WBC RBC Hgb Hct MCV MCH MCHC RDW Plt Count Sodium 126.9 L Potassium 3.7 Chloride 102 Carbon Dioxide 20 L Anion Gap 5 BUN 28 H Creatinine 1.48 H Est GFR ( Amer) 42 L Glucose 106 Calcium 7.4 L Ionized Calcium Dina PTH Intact 91.1 H Urine Osmolality 220 L Ur 24 Hour Volume Ur Total Protein 24 Hr Ur Sodium 24 Hour 03/30/20 06:35 WBC 5.3 RBC 3.02 L Hgb 9.7 L Hct 27.4 L MCV 91 MCH 32.0 MCHC 35.4 RDW 13.2 Plt Count 186 Sodium Potassium Chloride Carbon Dioxide Anion Gap BUN Creatinine Est GFR ( Amer) Glucose Calcium Ionized Calcium Dina PTH Intact Urine Osmolality Ur 24 Hour Volume Ur Total Protein 24 Hr Ur Sodium 24 Hour 03/27/20 19:13 Stool - Stool - Final 03/26/20 20:50 Stool - Stool Fecal Fat Neutral Stain - Final 03/26/20 20:50 Stool - Stool Stool Fat, Qualitative - Final 03/25/20 03/25/20 03/25/20 19:50 19:50 20:41 Creatine Kinase CK-MB (CK-2) Troponin I Cancelled 0.015 NT-Pro-B Natriuret Pep Cancelled [id number] H 03/26/20 03/26/20 03/26/20 02:54 02:54 08:17 Creatine Kinase 115 144 H CK-MB (CK-2) 2.08 Troponin I 0.023 NT-Pro-B Natriuret Pep 03/26/20 03/26/20 03/26/20 08:17 14:07 14:07 Creatine Kinase 134 CK-MB (CK-2) 1.92 1.83 Troponin I 0.028 0.022 NT-Pro-B Natriuret Pep Impressions: Acute Abdomen Series 03/25/20 20:05 IMPRESSION: Patchy density in the right lung base new when compared to the previous study. Findings may reflect atelectasis versus developing infiltrate Cardiac enlargement KUB X-Ray 03/27/20 00:00 IMPRESSION: Nonspecific nonobstructive bowel gas pattern. Assessment and Plan - Diagnosis (1) Anasarca Is this a current diagnosis for this admission?: Yes Plan: Slight improvement. Patient's anasarca is likely due to her kidney disease. ABD U/S shows coarse heterogeneous liver appearance; likely underlying liver disease. LFTs unremarkable Hep B negative. Hep C pending. Cardiology and Nephrology services are consulted. Echo pending per cardiology. Did discuss with Dr. Strickland; unlikely due to CHF alone, though expects some underlying diastolic dysfunction. Nephrology evaluating for nephrotic syndome. IV fluids and IV bumetanide per Dr. Mac. oim consultant is consulted. (2) Chronic diarrhea Is this a current diagnosis for this admission?: Yes Plan: Patient reports chronic diarrhea since prior ruptured colon with subsequent partial colectomy; unclear follow up. Stool culture and C. diff pending. Occult stool positive. Now with melena and blood clots w/ stools. KUB shows nonspecific gas pattern. Clear liquid diet. Protonix and Carafate Clear liquids. Hold on antidiarrheal. Stop scheduled Reglan GI consulted today; appreciate Dr. Deshpande's evaluation and recommendations. Plans for colonoscopy. (3) Chronic kidney disease, stage 3 (moderate) Is this a current diagnosis for this admission?: Yes Plan: Received records from [facility]. Patient's GFR was between 30 and 45 as well. She has a lot of protein in her urine. Nephrology has been consulted; primary management per their expertise. (4) Hyperglycemia due to diabetes mellitus Is this a current diagnosis for this admission?: No Plan: Patient reports that she does not have diabetes. Hemoglobin A1c 5.1%. Glucose 90-138 since time of admission. Has not required insulin coverage. We will discontinue Accu-Cheks and insulin. Should we note that her glucose on chemistries trend upward; reevaluate. Registered dietitian is consulted. Cardiac diet. Currently n.p.o. for colonoscopy; when appropriate, advance to consistent carb diet. (5) Hypertensive emergency Is this a current diagnosis for this admission?: Yes Plan: Continues to have elevated blood pressures. Patient home dose amlodipine and losartan placed on hold per nephrology. Continue metoprolol twice daily. IV hydralazine as needed for blood pressure control. Nephrology has been consulted; appreciate Dr. Mac's evaluation r ecommendations. Cardiac diet. (6) Hyponatremia Is this a current diagnosis for this admission?: Yes Plan: Sodium 126.9; Trending upward from 118 at time of admission. Likely secondary to fluid volume overload resulting in anasarca. Nephrology is consulted. Appreciate Dr. Mac's assistance. (7) Proteinuria Qualifiers: Proteinuria type: unspecified Qualified Code(s): R80.9 - Proteinuria, unspecified Is this a current diagnosis for this admission?: Yes Plan: Likely nephrotic syndrome. 24hr urine pending Nephrology consulted. (8) Hypokalemia Is this a current diagnosis for this admission?: Yes Plan: Replete. R/t GI losses. Perhaps worsened by diuretics. Follow up chemistry. (9) Melena Is this a current diagnosis for this admission?: Yes Plan: GI is consulted; plans for colonoscopy. Continue twice daily Protonix. Continue Carafate with meals at bedtime. Hemoglobin stable; follow-up CBC. - Time Time Spent with patient: 25-34 minutes Medications reviewed and adjusted accordingly: Yes Anticipated discharge: Home with Homehealth
[2020-03-30] MEDS: POLYETHYLENE GLYCOL 3350 POWDER 17 GM/1 PACKET PO SCH ×2 (11:11→15:28)
--- NOTE | 2020-03-30 12:00 | PDOC PROGRESS REPORT ---
Subjective Progress Note for:: 03/30/20 Subjective:: Patient continues to slowly improve with her swelling and hyponatremia. She claims to be feeling better today. She is set for a colonoscopy today despite not doing her bowel prep. Reason For Visit: ANASARCA,UPPER ABDOMINAL PAIN,MALIGNANT Physical Exam Vital Signs: Temp Pulse Resp BP Pulse Ox 98.2 F 83 18 165/58 H 96 03/30/20 08:17 03/30/20 10:28 03/30/20 08:17 03/30/20 10:28 03/30/20 08:17 Intake & Output 03/29/20 03/30/20 03/31/20 06:59 06:59 06:59 Intake Total 2606 240 Output Total 865 710 Balance 1741 -470 Weight 76.4 kg 78.8 kg General appearance: PRESENT: no acute distress, well-developed, well-nourished Mouth exam: PRESENT: moist, neck supple Neck exam: ABSENT: JVD, tracheal deviation Respiratory exam: PRESENT: crackles. ABSENT: clear to auscultation star, rales, wheezes Cardiovascular exam: PRESENT: +S1, +S2 GI/Abdominal exam: PRESENT: diminished bowel sounds, distended, soft, tenderness - Mainly in the left upper quadrant. ABSENT: firm, guarding, normal bowel sounds, organomegaly Extremities exam: PRESENT: pedal edema, +2 edema. ABSENT: tenderness Musculoskeletal exam: PRESENT: normal inspection. ABSENT: tenderness Neurological exam: PRESENT: alert, awake, oriented to person, oriented to place, oriented to time, oriented to situation Psychiatric exam: PRESENT: other - appears slightly happier this morning Skin exam: PRESENT: dry, intact, warm Results Laboratory Results: 03/30/20 06:35 03/30/20 06:35 03/29/20 03/29/20 03/29/20 14:47 14:47 23:04 WBC 7.7 RBC 3.25 L Hgb 10.4 L Hct 29.7 L MCV 91 MCH 32.0 MCHC 35.1 RDW 13.6 Plt Count 131 L Sodium Potassium Chloride Carbon Dioxide Anion Gap BUN Creatinine Est GFR ( Amer) Glucose Calcium Ionized Calcium Dina 1.01 L PTH Intact Urine Osmolality 220 L 03/30/20 03/30/20 03/30/20 06:35 06:35 06:35 WBC 5.3 RBC 3.02 L Hgb 9.7 L Hct 27.4 L MCV 91 MCH 32.0 MCHC 35.4 RDW 13.2 Plt Count 186 Sodium 126.9 L Potassium 3.7 Chloride 102 Carbon Dioxide 20 L Anion Gap 5 BUN 28 H Creatinine 1.48 H Est GFR ( Amer) 42 L Glucose 106 Calcium 7.4 L Ionized Calcium Dina PTH Intact 91.1 H Urine Osmolality 03/27/20 19:13 Stool - Stool - Final 03/25/20 03/25/20 03/25/20 19:50 19:50 20:41 Creatine Kinase CK-MB (CK-2) Troponin I Cancelled 0.015 NT-Pro-B Natriuret Pep Cancelled [id number] H 03/26/20 03/26/20 03/26/20 02:54 02:54 08:17 Creatine Kinase 115 144 H CK-MB (CK-2) 2.08 Troponin I 0.023 NT-Pro-B Natriuret Pep 03/26/20 03/26/20 03/26/20 08:17 14:07 14:07 Creatine Kinase 134 CK-MB (CK-2) 1.92 1.83 Troponin I 0.028 0.022 NT-Pro-B Natriuret Pep Impressions: Acute Abdomen Series 03/25/20 20:05 IMPRESSION: Patchy density in the right lung base new when compared to the previous study. Findings may reflect atelectasis versus developing infiltrate Cardiac enlargement KUB X-Ray 03/27/20 00:00 IMPRESSION: Nonspecific nonobstructive bowel gas pattern. Assessment & Plan - Diagnosis (1) Hyponatremia Is this a current diagnosis for this admission?: Yes Plan: slowly improving, adding albumin 12.5g TID. Also stopped the normal saline for now. (2) Chronic kidney disease, stage 3 (moderate) Is this a current diagnosis for this admission?: Yes Plan: despite the improvement in creatinine, her proteinuria is at a large level. With the protein/creatinine ratio at 9.8g a day she is in need of a kidney biopsy. Discussed the risks and benefits of a kidney biopsy. She was agreeable. Will look to arrange for a kidney biopsy for tomorrow morning. (3) Proteinuria Qualifiers: Proteinuria type: unspecified Qualified Code(s): R80.9 - Proteinuria, unspecified Is this a current diagnosis for this admission?: Yes Plan: With the protein/creatinine ratio at 9.8g a day she is in need of a kidney biopsy. Discussed the risks and benefits of a kidney biopsy. She was agreeable. Will look to arrange for a kidney biopsy for tomorrow morning. (4) Hypokalemia Is this a current diagnosis for this admission?: Yes Plan: stable today (5) Anasarca Is this a current diagnosis for this admission?: Yes Plan: On bumex to 1mg TID, stopped normal saline. Starting albumin 12.5g TID (6) Chronic diarrhea Is this a current diagnosis for this admission?: Yes Plan: awaiting culture, as of right now it has resolved according to the patient. colonoscopy today (7) Uncontrolled hypertension Is this a current diagnosis for this admission?: Yes Plan: Having the metoprolol restarted, on hydralazine 25mg q8 prn. If patient becomes bradycardic then she will need to be switched to different medications. Will also see how her bp is with removing more fluid. (8) Hypocalcemia Plan: starting calcium supplements
[2020-03-30 14:16] LABS: INTERNATIONAL RATION (INR) 1.07; PROTHROMBIN TIME 13.9 SEC (11.4-15.4)
[2020-03-30] MEDS ORDERED: EPINEPHRINE INJ 1 MG/10 ML DISP.SYRIN ONE (14:25)
[2020-03-30] MEDS ORDERED: PROPOFOL INJ 200 MG/20 ML VIAL IV ONE (15:00)
[2020-03-30 15:36] LABS: ANTIMYELOPEROXIDASE (MPO) AB <9.0 U/mL (0.0-9.0); CYTOPLASMIC (C-ANCA) <1:20 titer (Neg:<1:20)
--- NOTE | 2020-03-30 15:36 | Operative Report ---
Operative Report DATE OF SURGERY: 03/30/20 Operative Report: The risk, benefits and alternatives of the procedure including the risk of bleeding, perforation requiring surgery have been explained to the patient in detail and informed consent has been obtained. Patient is taken back to the endoscopy suite and placed in a left, lateral decubital position. Timeout was called. Propofol medication is administered. Rectal examination is done which did not reveal any masses, tears or fissures. An Olympus videoscope was seen introduced into the patient's rectum and advanced to the anastomosis. There appears to be some irritation on the colonic side and biopsies obtained the scope was then sequentially pulled back through the various segments of the colon there appears to have been at least a right hemicolectomy. 2 polyps are noted and removed via snare polypectomy retroflexion does reveal some internal hemorrhoids there also appears to be diverticulum noted in the rectum. There also appears to be a previous surgery site in the area. PREOPERATIVE DIAGNOSIS: Chronic diarrhea possible GI bleeding POSTOPERATIVE DIAGNOSIS: Colon polyps removed via snare polypectomy. Biopsies obtained to rule out for reasons of chronic diarrhea. No active GI bleeding see n OPERATION: Colonoscopy with snare polypectomy. Colonoscopy with biopsy SURGEON: JENNIFER BURNETT ANESTHESIA: LMAC TISSUE REMOVED OR ALTERED: As noted above. COMPLICATIONS: None. ESTIMATED BLOOD LOSS: None. INTRAOPERATIVE FINDINGS: As noted above. PROCEDURE: Patient tolerated the procedure well. No immediate postprocedure complications are noted. Patient is sent back to her room in good condition. Wait on the pathology. Resume previous diet. Resume previous activity level. If further GI bleeding may need EGD
--- NOTE | 2020-03-30 17:59 | PDOC PROGRESS REPORT ---
Subjective Progress Note for:: 03/30/20 Subjective:: No complaints. Resting in chair. Had melena. Awaiting colonoscopy. Feels somewhat better. Reason For Visit: ANASARCA,UPPER ABDOMINAL PAIN,MALIGNANT Physical Exam Vital Signs: Temp Pulse Resp BP Pulse Ox 97.8 F 73 16 165/54 H 100 03/30/20 15:56 03/30/20 15:56 03/30/20 15:56 03/30/20 15:56 03/30/20 15:56 Intake & Output 03/29/20 03/30/20 03/31/20 06:59 06:59 06:59 Intake Total 2606 240 250 Output Total 865 710 Balance 1741 -470 250 Weight 76.4 kg 78.8 kg General appearance: PRESENT: cooperative, well-developed, well-nourished Head exam: PRESENT: atraumatic, normocephalic Eye exam: PRESENT: EOMI Mouth exam: PRESENT: moist Respiratory exam: PRESENT: crackles, symmetrical, unlabored Cardiovascular exam: PRESENT: RRR, +S1, +S2 Pulses: PRESENT: normal radial pulses - 76-year-old biliary was admitted pleural EMS patient 22-year of care Painful over the ASD 25 and a year he had a severe younger years. He had 8-year-old who tends a year close follow-up to do with higher your higher probability of fallon reviewed by anybody here is anybody here will a lot of at work and I do not hear PND. Agree with your ENT if you are older GI/Abdominal exam: PRESENT: soft Rectal exam: PRESENT: deferred Extremities exam: PRESENT: pedal edema Musculoskeletal exam: PRESENT: normal inspection Neurological exam: PRESENT: alert, awake, oriented to person, oriented to place, oriented to time, oriented to situation Results Laboratory Results: 03/30/20 06:35 03/30/20 06:35 03/29/20 03/30/20 03/30/20 23:04 06:35 06:35 WBC RBC Hgb Hct MCV MCH MCHC RDW Plt Count Sodium 126.9 L Potassium 3.7 Chloride 102 Carbon Dioxide 20 L Anion Gap 5 BUN 28 H Creatinine 1.48 H Est GFR ( Amer) 42 L Glucose 106 Calcium 7.4 L PTH Intact 91.1 H Urine Osmolality 220 L 03/30/20 06:35 WBC 5.3 RBC 3.02 L Hgb 9.7 L Hct 27.4 L MCV 91 MCH 32.0 MCHC 35.4 RDW 13.2 Plt Count 186 Sodium Potassium Chloride Carbon Dioxide Anion Gap BUN Creatinine Est GFR ( Amer) Glucose Calcium PTH Intact Urine Osmolality 03/27/20 19:13 Stool - Stool - Final 03/27/20 19:13 Stool - Stool Stool Culture - Final NO SALMONELLA, SHIGELLA, CAMPYLOBACTER, OR E.COLI 0157 RECOVERED. NEGATIVE FOR SHIGA TOXINS 1&2. 03/25/20 03/25/20 03/25/20 19:50 19:50 20:41 Creatine Kinase CK-MB (CK-2) Troponin I Cancelled 0.015 NT-Pro-B Natriuret Pep Cancelled [id number] H 03/26/20 03/26/20 03/26/20 02:54 02:54 08:17 Creatine Kinase 115 144 H CK-MB (CK-2) 2.08 Troponin I 0.023 NT-Pro-B Natriuret Pep 03/26/20 03/26/20 03/26/20 08:17 14:07 14:07 Creatine Kinase 134 CK-MB (CK-2) 1.92 1.83 Troponin I 0.028 0.022 NT-Pro-B Natriuret Pep Impressions: Acute Abdomen Series 03/25/20 20:05 IMPRESSION: Patchy density in the right lung base new when compared to the previous study. Findings may reflect atelectasis versus developing infiltrate Cardiac enlargement KUB X-Ray 03/27/20 00:00 IMPRESSION: Nonspecific nonobstructive bowel gas pattern. Assessment & Plan - Diagnosis (1) Anasarca Is this a current diagnosis for this admission?: Yes Plan: Likely multifactorial Presentation does not truly fit congestive heart failure although patient probably has diastolic dysfunction Ongoing work-up for proteinuria which can contribute to edema Also significant fluid losses and hypoalbuminemic state Agree with intravenous diuretic
[2020-03-30] MEDS ORDERED: ENALAPRILAT DIHYDRATE INJ/PF 2.5 MG/2 ML SDV IV ONE (21:00)
[2020-03-30] MEDS: MELATONIN 3 MG TABLET PO SCH (21:12)
--- NOTE | 2020-03-30 21:40 | EKG REPORT ---
SEVERITY:- ABNORMAL ECG - ATRIAL FIBRILLATION, V-RATE 68-115 NONSPECIFIC T ABNORMALITIES, LATERAL LEADS CONSIDER OLD ANTERIOR MO : Confirmed by: Abhijit Hardy MD 30-Mar-2020 21:39:50
[2020-03-31] MEDS: BUMETANIDE INJ/PF 1 MG/4 ML SDV IV SCH ×3 (01:29→17:52)
[2020-03-31] MEDS ORDERED: NITROGLYCERIN 2% OINTMENT 1 GM PACKET TP ONE (03:46)
[2020-03-31] MEDS ORDERED: LORAZEPAM INJ 2 MG/1 ML VIAL ONE (03:47)
[2020-03-31] MEDS ORDERED: NITROGLYCERIN 2% OINTMENT 1 GM PACKET ONE (03:55)
[2020-03-31] MEDS ORDERED: LORAZEPAM INJ 2 MG/1 ML VIAL IV ONE (04:00)
[2020-03-31] MEDS ORDERED: AMLODIPINE BESYLATE 10 MG TABLET PO ONE (05:00)
[2020-03-31] MEDS: HEPARIN SOD (PORCINE) 5,000 UNIT/ML 1 ML VIAL SUBCUT SCH ×3 (05:07→21:54)
[2020-03-31] MEDS: METOPROLOL SUCCINATE 50 MG TAB.SR.24H PO SCH ×2 (05:09→17:52)
[2020-03-31] MEDS: LEVOTHYROXINE SODIUM 0.025 MG TABLET PO SCH (05:09)
[2020-03-31] MEDS: HYDRALAZINE HCL INJ/PF 20 MG/1 ML SDV IV PRN (06:44)
[2020-03-31] MEDS ORDERED: FENTANYL CITRATE INJ/PF 100 MCG/2 ML AMPUL ONE (08:31)
[2020-03-31] MEDS ORDERED: MIDAZOLAM 2 MG/2 ML INJ ONE (08:31)
[2020-03-31 09:22] LABS: ATYPICAL PANCA <1:20 titer (Neg:<1:20)
[2020-03-31] MEDS ORDERED: AMLODIPINE BESYLATE 10 MG TABLET PO SCH (10:00)
--- NOTE | 2020-03-31 10:13 | RADIOLOGY REPORT (SQ) ---
EXAM DESCRIPTION: CT BIOPSY RENAL IMAGES COMPLETED DATE/TIME: 03/31/2020 9:49 am REASON FOR STUDY: Nephrotic Proteinuria COMPARISON: None. RADIATION DOSE: CT Rad equipment meets quality standard of care and radiation dose reduction techniq ues were employed. CTDIvol: 4.0 - 19.4 mGy. DLP: 906 mGy-cm. mGy. LIMITATIONS: None. PROCEDURE: After obtaining informed consent and explaining the risks and benefits of conscious sedat ion,the patient agreed to the procedure. Preliminary CT scanning to localize the biopsy site was performed. A site was marked on the left kid nilam and time out was performed. Procedure was performed using CT fluoroscopy. Total exposure time: [address] fluoroscopic images were obtained and saved to PACS. IV conscious sedation was administered and physician direction by the registered nurse using 1.0 mill igrams of Versed and 50 micrograms of fentanyl. Physiologic monitoring was provided before, during, a nd after sedation. The total sedation time was 20 minutes. Documentation face to face time, the performing proceduralist, spent monitoring the patient: 20 minut es. After sterile skin prep with ChloraPrep, local lidocaine for skin and deep tissue anesthesia, the lef t kidney was localized. A coaxial 18 gauge needle was used to obtain 4 cores of tissue from the left kidney. The biopsy tract was embolized with Gelfoam. All CT scanners at this facility use dose modulation, iterative reconstruction, and/or weight based d osing when appropriate to reduce radiation dose to as low as reasonably achievable (ALARA). [facility]: Dose Right [facility]: CareDose [facility]: Dose Right [facility]: Teradose 4D [facility]: [employer] FINDINGS: There were no immediate complications. Specimen was carried to cytology on sterile saline gauze and submitted to the sorority supervisor for processing. Pathology is pending at the time of dict ation. IMPRESSION: CT GUIDED LEFT KIDNEY CORTICAL BIOPSY. COMMENT: Patient medication list reviewed:Yes- Quality ID# [id number]:Eligible professional attests to docu menting in the medical record they obtained, updated, or reviewed the patient's current medications.. TECHNICAL DOCUMENTATION: JOB ID: [id number] Quality ID #[id number]: Final reports for procedures using fluoroscopy that document radiation exposure jatin erik, or exposure time and number of fluorographic images (if radiation exposure indices are not avail able) Quality ID # [id number]: Final reports with documentation of one or more dose reduction techniques (e.g., Au tomated exposure control, adjustment of the mA and/or kV according to patient size, use of iterative reconstruction technique) 2010 [employer]- All Rights Reserved Reading location - IP/workstation name: [email or web address]
--- NOTE | 2020-03-31 10:15 | RADIOLOGY REPORT (SQ) ---
EXAM DESCRIPTION: CT NEEDLE PLACEMENT COMPLETE DATE/TIME: 03/31/2020 9:49 am REASON FOR STUDY: Nephrotic Proteinuria FINDINGS: Please see combined report for performance of procedure and radiologic supervision and int erpretation. IMPRESSION: Please see combined report for performance of procedure and radiologic supervision and i nterpretation. Reading location - IP/workstation name: [email or web address]
--- NOTE | 2020-03-31 10:40 | RADIOLOGY REPORT (SQ) ---
EXAM DESCRIPTION: ADDITIONAL CHARGES COMPLETE DATE/TIME: 03/31/2020 10:29 am REASON FOR STUDY: Nephrotic Proteinuria FINDINGS: Please see combined report for performance of procedure and radiologic supervision and int erpretation. IMPRESSION: Please see combined report for performance of procedure and radiologic supervision and i nterpretation. Reading location - IP/workstation name: [email or web address]
[2020-03-31 10:46] LABS: ABSOLUTE EOSINOPHILS # (AUTO) 0.2 10^3/uL (0.0-0.6); ABSOLUTE LYMPHOCYTES (AUTO) 0.5 10^3/uL (0.5-4.7); ABSOLUTE MONOCYTES (AUTO) 0.3 10^3/uL (0.1-1.4); ABSOLUTE NEUT (AUTO) 4.4 10^3/uL (1.7-8.2); BASOPHILS % (AUTO) 0.4 % (0-2); EOSINOPHILS % (AUTO) 4.4 % (0-6); HEMATOCRIT 25.9 % (36.0-47.0); HEMOGLOBIN 9.1 g/dL (12.0-15.5); LYMPHOCYTES % (AUTO) 8.9 % (13-45); MEAN CORPUSCULAR HGB CONC 35.2 g/dL (32.0-36.0); MEAN CORPUSCULAR VOLUME 91 fl (80-97); PLATELET COUNT 173 10^3/uL (150-450); RED BLOOD COUNT 2.85 10^6/uL (3.72-5.28); RED CELL DISTRIBUTION WIDTH 13.2 % (11.5-14.0); SEGMENTED NEUTROPHILS % (AUTO) 80.3 % (42-78); TOTAL CELLS COUNTED % (AUTO) 100 %; WHITE BLOOD COUNT 5.5 10^3/uL (4.0-10.5)
[2020-03-31] MEDS: SUCRALFATE 1 GM TABLET PO SCH ×4 (11:04→21:55)
[2020-03-31] MEDS: PANTOPRAZOLE SODIUM 40 MG VIAL IV SCH ×2 (11:13→21:54)
[2020-03-31] MEDS: CALCIUM CARBONATE 600 MG TABLET PO SCH ×2 (11:13→17:52)
[2020-03-31] MEDS: ALBUMIN HUMAN 12.5 GM/50 ML RTUINJ IV SCH ×3 (11:13→17:53)
[2020-03-31 11:16] LABS: ANION GAP 6 (5-19); BLOOD UREA NITROGEN 27 mg/dL (7-20); CALCIUM 7.7 mg/dL (8.4-10.2); CARBON DIOXIDE 21 mmol/L (22-30); CHLORIDE 101 mmol/L (98-107); GLUCOSE 112 mg/dL (75-110); POTASSIUM 3.5 mmol/L (3.6-5.0)
[2020-03-31] MEDS: DOCUSATE SODIUM 100 MG CAPSULE PO SCH ×2 (11:17→17:38)
--- NOTE | 2020-03-31 12:03 | PDOC PROGRESS REPORT ---
Subjective Progress Note for:: 03/31/20 Subjective:: Patient was seen this morning laying in bed. Apparently she had several high blood pressure readings last night. Currently this morning the bp is down to the 160s systolic. She was also given ativan so she is fairly sleepy this morning. She had a colonoscopy yesterday. Patient is having her kidney biopsy this AM. Currently denies chest pain or SOB. Reason For Visit: ANASARCA,UPPER ABDOMINAL PAIN,MALIGNANT Physical Exam Vital Signs: Temp Pulse Resp BP Pulse Ox 97.5 F 86 18 169/41 H 92 03/31/20 08:06 03/31/20 08:06 03/31/20 08:06 03/31/20 08:06 03/31/20 08:06 Intake & Output 03/30/20 03/31/20 04/01/20 06:59 06:59 06:59 Intake Total 240 300 Output Total 710 875 Balance -470 -575 Weight 78.8 kg 78.4 kg General appearance: PRESENT: no acute distress, well-developed, well-nourished, other - -fairly sleepy Mouth exam: PRESENT: moist, neck supple Neck exam: ABSENT: JVD, tracheal deviation Respiratory exam: PRESENT: crackles - in the bases of the lungs.. ABSENT: rhonchi, wheezes Cardiovascular exam: PRESENT: +S1, +S2 GI/Abdominal exam: PRESENT: soft, tenderness - Mainly in the left upper quadrant. ABSENT: firm, guarding, normal bowel sounds, organomegaly Extremities exam: PRESENT: +2 edema. ABSENT: tenderness Musculoskeletal exam: PRESENT: normal inspection. ABSENT: tenderness Neurological exam: PRESENT: oriented to person, oriented to place. ABSENT: alert, awake Skin exam: PRESENT: dry, intact, warm. ABSENT: cyanosis Results Laboratory Results: 03/30/20 06:35 03/30/20 06:35 03/27/20 19:13 Stool - Stool - Final 03/27/20 19:13 Stool - Stool Stool Culture - Final NO SALMONELLA, SHIGELLA, CAMPYLOBACTER, OR E.COLI 0157 RECOVERED. NEGATIVE FOR SHIGA TOXINS 1&2. 03/25/20 03/25/20 03/25/20 19:50 19:50 20:41 Creatine Kinase CK-MB (CK-2) Troponin I Cancelled 0.015 NT-Pro-B Natriuret Pep Cancelled [id number] H 03/26/20 03/26/20 03/26/20 02:54 02:54 08:17 Creatine Kinase 115 144 H CK-MB (CK-2) 2.08 Troponin I 0.023 NT-Pro-B Natriuret Pep 03/26/20 03/26/20 03/26/20 08:17 14:07 14:07 Creatine Kinase 134 CK-MB (CK-2) 1.92 1.83 Troponin I 0.028 0.022 NT-Pro-B Natriuret Pep Impressions: Acute Abdomen Series 03/25/20 20:05 IMPRESSION: Patchy density in the right lung base new when compared to the previous study. Findings may reflect atelectasis versus developing infiltrate Cardiac enlargement KUB X-Ray 03/27/20 00:00 IMPRESSION: Nonspecific nonobstructive bowel gas pattern. Assessment & Plan - Diagnosis (1) Hyponatremia Is this a current diagnosis for this admission?: Yes Plan: She continues to improve, continue with bumex and albumin (2) Chronic kidney disease, stage 3 (moderate) Is this a current diagnosis for this admission?: Yes Plan: despite the improvement in creatinine, her proteinuria is at a large level. With the protein/creatinine ratio at 9.8g a day. Patient had renal biopsy this AM. Awaiting results. (3) Proteinuria Qualifiers: Proteinuria type: unspecified Qualified Code(s): R80.9 - Proteinuria, uns pecified Is this a current diagnosis for this admission?: Yes Plan: Waiting on biopsy and serology results (4) Hypokalemia Is this a current diagnosis for this admission?: Yes Plan: giving 20mEQ of klor con once (5) Anasarca Is this a current diagnosis for this admission?: Yes Plan: She looks to be slowly improving. Currently not having as much urine output as expected but still negative on her I's&O's. On bumex to 1mg TID and albumin 12.5g TID (6) Chronic diarrhea Is this a current diagnosis for this admission?: Yes Plan: awaiting culture, as of right now it has resolved according to the patient. colonoscopy yesterday (7) Uncontrolled hypertension Is this a current diagnosis for this admission?: Yes Plan: Patient is on metoprolol and amlodipine. Recommend starting an ALFREDO-I or an ARB to help will reducing the proteinuria and getting the bp under better control. (8) Hypocalcemia Plan: currently improving
[2020-03-31] MEDS ORDERED: POTASSIUM CHLORIDE 10 MEQ TABLET.ER PO ONE (13:00)
[2020-03-31] MEDS: DILTIAZEM HCL 30 MG TABLET PO SCH ×2 (14:00→21:55)
--- NOTE | 2020-03-31 14:38 | PDOC PROGRESS REPORT ---
Subjective Progress Note for:: 03/31/20 Subjective:: Patient was seen on morning rounds. She was sleeping soundly; having just returned from renal biopsy. She roused slightly when I said her name but then waved her hand at me and closed her eyes. Did not attempt to wake her again. She does appear comfortable and is not noted to be in any distress. No concerns per nursing. Reason For Visit: ANASARCA,UPPER ABDOMINAL PAIN,MALIGNANT Physical Exam Vital Signs: Temp Pulse Resp BP Pulse Ox 97.4 F 77 18 158/58 H 94 03/31/20 11:00 03/31/20 11:00 03/31/20 11:00 03/31/20 11:00 03/31/20 11:00 Intake & Output 03/30/20 03/31/20 04/01/20 06:59 06:59 06:59 Intake Total 240 300 50 Output Total 710 875 175 Balance -470 -575 -125 Weight 78.8 kg 78.4 kg General appearance: PRESENT: no acute distress, well-developed, well-nourished - Overweight Head exam: PRESENT: atraumatic, normocephalic Eye exam: PRESENT: conjunctiva pink, EOMI, PERRLA. ABSENT: scleral icterus Mouth exam: PRESENT: moist, tongue midline Respiratory exam: PRESENT: clear to auscultation star, symmetrical, unlabored. ABSENT: rales, rhonchi, wheezes Cardiovascular exam: PRESENT: RRR. ABSENT: diastolic murmur, rubs, systolic murmur Pulses: PRESENT: normal dorsalis pedis pul Vascular exam: PRESENT: normal capillary refill Extremities exam: PRESENT: full ROM, +1 edema - BLE; improved. ABSENT: calf tenderness, clubbing, pedal edema Neurological exam: PRESENT: other - Sleeping soundly. Intermittent confusion. ABSENT: motor sensory deficit Psychiatric exam: PRESENT: appropriate affect, normal mood. ABSENT: homicidal ideation, suicidal ideation Skin exam: PRESENT: dry, intact, warm. ABSENT: cyanosis, rash Results Laboratory Results: 03/31/20 10:25 03/31/20 10:25 03/31/20 03/31/20 10:25 10:25 WBC 5.5 RBC 2.85 L Hgb 9.1 L Hct 25.9 L MCV 91 MCH 32.0 MCHC 35.2 RDW 13.2 Plt Count 173 Seg Neutrophils % 80.3 H Sodium 128.2 L Potassium 3.5 L Chloride 101 Carbon Dioxide 21 L Anion Gap 6 BUN 27 H Creatinine 1.49 H Est GFR ( Amer) 42 L Glucose 112 H Calcium 7.7 L 03/27/20 19:13 Stool - Stool - Final 03/27/20 19:13 Stool - Stool Stool Culture - Final NO SALMONELLA, SHIGELLA, CAMPYLOBACTER, OR E.COLI 0157 RECOVERED. NEGATIVE FOR SHIGA TOXINS 1&2. 03/25/20 03/25/20 03/25/20 19:50 19:50 20:41 Creatine Kinase CK-MB (CK-2) Troponin I Cancelled 0.015 NT-Pro-B Natriuret Pep Cancelled [id number] H 03/26/20 03/26/20 03/26/20 02:54 02:54 08:17 Creatine Kinase 115 144 H CK-MB (CK-2) 2.08 Troponin I 0.023 NT-Pro-B Natriuret Pep 03/26/20 03/26/20 03/26/20 08:17 14:07 14:07 Creatine Kinase 134 CK-MB (CK-2) 1.92 1.83 Troponin I 0.028 0.022 NT-Pro-B Natriuret Pep Impressions: Acute Abdomen Series 03/25/20 20:05 IMPRESSION: Patchy density in the right lung base new when compared to the previous study. Findings may reflect atelectasis versus developing infiltrate Cardiac enlargement KUB X-Ray 03/27/20 00:00 IMPRESSION: Nonspecific nonobstructive bowel gas pattern. Guidance Needle Placement CT 03/31/20 00:00 IMPRESSION: Please see combined report for performance of procedure and radiologic supervision and interpretation. Renal Biopsy CT 03/31/20 08:00 IMPRESSION: CT GUIDED LEFT KIDNEY CORTICAL BIOPSY. Assessment and Plan - Diagnosis (1) Anasarca Is this a current diagnosis for this admission?: Yes Plan: Slight improvement. Patient's anasarca is likely due to her kidney disease. ABD U/S shows coarse heterogeneous liver appearance; likely underlying liver disease. LFTs unremarkable Hep B negative. Hep C pending. Cardiology and Nephrology services are consulted. Echo pending per cardiology. Did discuss with Dr. Strickland; unlikely due to CHF alone, though expects some underlying diastolic dysfunction. Nephrology evaluating for nephrotic syndome. S/p kidney biopsy IV fluids and IV bumetanide per Dr. Mac. hypoid gear generator is consulted. (2) Chronic diarrhea Is this a current diagnosis for this admission?: Yes Plan: Patient reports chronic diarrhea since prior ruptured colon with subsequent partial colectomy; unclear follow up. Stool culture and C. diff negative. Occult stool positive. Melena and blood clots w/ stools is resolved. KUB shows nonspecific gas pattern. Colonoscopy revealed a colon polyps (removed via snare) and no active signs of GI bleeding. Clear liquid diet. Protonix and Carafate Clear liquids. Hold on antidiarrheal. Stop scheduled Reglan GI consulted today; appreciate Dr. Deshpande's evaluation and recommendations. (3) Chronic kidney disease, stage 3 (moderate) Is this a current diagnosis for this admission?: Yes Plan: Received records from [facility]. Patient's GFR was between 30 and 45 as well. She has a lot of protein in her urine. S/p renal biopsy Nephrology has been consulted; primary management per their expertise. (4) Hyperglycemia due to diabetes mellitus Is this a current diagnosis for this admission?: No Plan: Patient reports that she does not have diabetes. Hemoglobin A1c 5.1%. Has not required insulin coverage. We will discontinue Accu-Cheks and insulin. Should we note that her glucose on chemistries trend upward; reevaluate. Registered dietitian is consulted. Consistent Carb diet. (5) Hypertensive emergency Is this a current diagnosis for this admission?: Yes Plan: Continues to have elevated blood pressures. Start diltiazem Continue metoprolol twice daily. IV hydralazine as needed for blood pressure control. Nephrology has been consulted; appreciate Dr. Mac's evaluation recommendations. Cardiac diet. (6) Hyponatremia Is this a current diagnosis for this admission?: Yes Plan: Sodium 18.2; Trending upward from 118 at time of admission. Likely secondary to fluid volume overload resulting in anasarca. Nephrology is consulted. Appreciate Dr. Mac's assistance. (7) Proteinuria Qualifiers: Proteinuria type: unspecified Qualified Code(s): R80.9 - Proteinuria, unspecified Is this a current diagnosis for this admission?: Yes Plan: Likely nephrotic syndrome. Nephrology consulted. Evaluation and management as above. (8) Hypokalemia Is this a current diagnosis for this admission?: Yes Plan: Replete. R/t GI losses. Perhaps worsened by diuretics. Follow up chemistry. (9) Melena Is this a current diagnosis for this admission?: Yes Plan: No further episodes. GI is consulted. s/p colonoscopy. Continue twice daily Protonix. Continue Carafate with meals at bedtime. Hemoglobin stable; follow-up CBC. (10) Atrial fibrillation Qualifiers: Atrial fibrillation type: paroxysmal Qualified Code(s): I48.0 - Paroxysmal atrial fibrillation Is this a current diagnosis for this admission?: Yes Plan: Patient converted into atrial fibrillation overnight on telemetry. Confirmed by EKG. Unknown history of the same; patient not able to elaborate. She is already on metoprolol 100 mg twice daily. We will start diltiazem 30 mg every 8 hours. Not a candidate for anticoagulation or aspirin therapy at this time due to recent renal biopsy and GI bleed. - Time Time Spent with patient: 35 or more minutes Medications reviewed and adjusted accordingly: Yes Anticipated discharge: Home with Homehealth Within: within 48 hours
[2020-03-31] MEDS: MELATONIN 3 MG TABLET PO SCH (21:55)
[2020-03-31] MEDS: ONDANSETRON HCL INJ/PF 4 MG/2 ML SDV IV PRN (22:24)
[2020-03-31 23:36] LABS: HEPATITIS C QUANTITATION HCV Not Detected IU/mL (.)
[2020-04-01] MEDS: BUMETANIDE INJ/PF 1 MG/4 ML SDV IV SCH ×3 (01:14→17:33)
[2020-04-01] MEDS: HEPARIN SOD (PORCINE) 5,000 UNIT/ML 1 ML VIAL SUBCUT SCH ×3 (05:31→21:56)
[2020-04-01] MEDS: ONDANSETRON HCL INJ/PF 4 MG/2 ML SDV IV PRN ×4 (05:31→20:27)
[2020-04-01] MEDS: METOPROLOL SUCCINATE 50 MG TAB.SR.24H PO SCH ×2 (05:32→17:39)
[2020-04-01] MEDS: LEVOTHYROXINE SODIUM 0.025 MG TABLET PO SCH (05:32)
[2020-04-01] MEDS: DILTIAZEM HCL 30 MG TABLET PO SCH ×3 (05:32→21:55)
[2020-04-01 06:39] LABS: ANION GAP 8 (5-19); BLOOD UREA NITROGEN 33 mg/dL (7-20); CALCIUM 7.8 mg/dL (8.4-10.2); CARBON DIOXIDE 20 mmol/L (22-30); CHLORIDE 101 mmol/L (98-107); GLUCOSE 123 mg/dL (75-110); POTASSIUM 4.1 mmol/L (3.6-5.0)
[2020-04-01 07:51] LABS: MEAN CORPUSCULAR HEMOGLOBIN 32.8 pg (27.0-33.4); MEAN CORPUSCULAR HGB CONC 36.1 g/dL (32.0-36.0); MEAN CORPUSCULAR VOLUME 91 fl (80-97); PLATELET COUNT 134 10^3/uL (150-450); RED BLOOD COUNT 1.54 10^6/uL (3.72-5.28); RED CELL DISTRIBUTION WIDTH 13.7 % (11.5-14.0)
[2020-04-01 08:06] LABS: HEMOGLOBIN 5.1 g/dL (12.0-15.5)
[2020-04-01] MEDS ORDERED: NORMAL SALINE 250 ML IV PRN ×2 (08:12)
[2020-04-01] MEDS: SUCRALFATE 1 GM TABLET PO SCH ×4 (08:32→21:55)
[2020-04-01] MEDS ORDERED: POTASSIUM CHLORIDE 20 MEQ PACKET PO SCH (10:00)
--- NOTE | 2020-04-01 10:32 | RADIOLOGY REPORT (SQ) ---
EXAM DESCRIPTION: CT ABD/PELVIS NO ORAL OR IV IMAGES COMPLETED DATE/TIME: 04/01/2020 9:46 am REASON FOR STUDY: anemia, abdominal distension COMPARISON: None. TECHNIQUE: CT scan of the abdomen and pelvis performed without intravenous or oral contrast. Images reviewed with lung, soft tissue, and bone windows. Reconstructed coronal and sagittal MPR images revi ewed. All images stored on PACS. All CT scanners at this facility use dose modulation, iterative reconstruction, and/or weight based d osing when appropriate to reduce radiation dose to as low as reasonably achievable (ALARA). [facility]: Dose Right [facility]: CareDose [facility]: Dose Right [facility]: Teradose 4D [facility]: Smart [employer] RADIATION DOSE: CT Rad equipment meets quality standard of care and radiation dose reduction techniq ues were employed. CTDIvol: 11.0 mGy. DLP: 554 mGy-cm.mGy. LIMITATIONS: None. FINDINGS: LOWER CHEST: Cardiomegaly. Small pleural effusions. NON-CONTRASTED LIVER, SPLEEN, ADRENALS: Evaluation limited by lack of IV contrast. No identified sign ificant masses. PANCREAS: No masses. No peripancreatic inflammatory changes. GALLBLADDER: Surgically absent. RIGHT KIDNEY AND URETER: No suspicious masses. Assessment limited by lack of IV contrast. No signif icant calcifications. No hydronephrosis or hydroureter. LEFT KIDNEY AND URETER: No suspicious masses. Assessment limited by lack of IV contrast. Lateral mauricio bcapsular hematoma status post recent biopsy. No hydronephrosis or hydroureter. AORTA AND RETROPERITONEUM: No aneurysm. No retroperitoneal masses or adenopathy. BOWEL AND PERITONEAL CAVITY: Trace ascites. Dilated 3rd and 4th portions of the duodenum with decomp ressed proximal jejunum. Small bowel anastomosis right lower quadrant. Anastomosis sigmoid colon. No free-air. APPENDIX: Not visualized. PELVIS, BLADDER, AND ABDOMINAL WALL:Right upper quadrant anterior abdominal hernia containing nondila ho colon. Body wall edema. BONES: Nothing acute. Chronic appearing compression fracture L1. OTHER: No other significant finding. IMPRESSION: 1. Contained hematoma left kidney status post recent biopsy. 2. Dilated duodenum with transition at the duodenum jejunal junction status post partial small bowel and sigmoid resection. 3. Right upper quadrant hernia containing nondilated colon. COMMENT: Quality ID # [id number]: Final reports with documentation of one or more dose reduction techniques (e.g., Automated exposure control, adjustment of the mA and/or kV according to patient size, use of iterative reconstruction technique) TECHNICAL DOCUMENTATION: JOB ID: [id number] 2010 [employer]- All Rights Reserved Reading location - IP/workstation name: [email or web address]
[2020-04-01] MEDS: PANTOPRAZOLE SODIUM 40 MG VIAL IV SCH (10:48)
[2020-04-01] MEDS: DOCUSATE SODIUM 100 MG CAPSULE PO SCH ×2 (10:52→17:39)
[2020-04-01] MEDS: CALCIUM CARBONATE 600 MG TABLET PO SCH ×2 (10:55→17:39)
[2020-04-01] MEDS: ALBUMIN HUMAN 12.5 GM/50 ML RTUINJ IV SCH ×3 (11:10→17:34)
--- NOTE | 2020-04-01 11:45 | PDOC PROGRESS REPORT ---
Subjective Progress Note for:: 04/01/20 Subjective:: No adverse events overnight. She was complaining of some persistent abdominal pain. Her hemoglobin dropped some this morning and so we got an abdominal CT. She appears to have a contained renal hematoma. 2 units of packed red blood cells were ordered. She has an incisional hernia without evidence of obstruction. Her belly was soft and she has bowel sounds. Reason For Visit: ANASARCA,UPPER ABDOMINAL PAIN,MALIGNANT Physical Exam Vital Signs: Temp Pulse Resp BP Pulse Ox 97.7 F 67 18 124/48 L 96 04/01/20 10:52 04/01/20 10:52 04/01/20 10:52 04/01/20 10:52 04/01/20 10:52 Intake & Output 03/31/20 04/01/20 04/02/20 06:59 06:59 06:59 Intake Total 300 150 0 Output Total 875 315 Balance -575 -165 0 Weight 78.4 kg 74.9 kg General appearance: PRESENT: no acute distress, well-developed, pale, cantanker ous Respiratory exam: PRESENT: clear to auscultation star, symmetrical, unlabored. ABSENT: rales, rhonchi, wheezes Cardiovascular exam: PRESENT: RRR. ABSENT: diastolic murmur, rubs, systolic murmur Abdomen: Soft mass upper abdomen right of midline, no tenderness to palpation, body wall edema Pulses: PRESENT: normal dorsalis pedis pul Vascular exam: PRESENT: normal capillary refill Extremities exam: PRESENT: full ROM, +1 edema - BLE; improved. ABSENT: calf tenderness, clubbing, pedal edema Neurological exam: PRESENT: Awake, alert, oriented to person, oriented to situation ABSENT: motor sensory deficit Psychiatric exam: PRESENT: appropriate affect, normal mood Skin exam: PRESENT: dry, intact, warm. ABSENT: cyanosis, rash Results Laboratory Results: 04/01/20 07:16 04/01/20 06:01 04/01/20 04/01/20 04/01/20 06:01 06:01 07:16 WBC Cancelled 10.0 RBC Cancelled 1.54 L Hgb Cancelled 5.1 L D Hct Cancelled 14.0 L* MCV Cancelled 91 MCH Cancelled 32.8 MCHC Cancelled 36.1 H RDW Cancelled 13.7 Plt Count Cancelled 134 L Sodium 128.5 L Potassium 4.1 Chloride 101 Carbon Dioxide 20 L Anion Gap 8 BUN 33 H Creatinine 1.98 H Est GFR ( Amer) 30 L Glucose 123 H Calcium 7.8 L Blood Type Antibody Screen 04/01/20 07:16 WBC RBC Hgb Hct MCV MCH MCHC RDW Plt Count Sodium Potassium Chloride Carbon Dioxide Anion Gap BUN Creatinine Est GFR ( Amer) Glucose Calcium Blood Type A NEGATIVE Antibody Screen NEGATIVE 03/25/20 03/25/20 03/25/20 19:50 19:50 20:41 Creatine Kinase CK-MB (CK-2) Troponin I Cancelled 0.015 NT-Pro-B Natriuret Pep Cancelled [id number] H 03/26/20 03/26/20 03/26/20 02:54 02:54 08:17 Creatine Kinase 115 144 H CK-MB (CK-2) 2.08 Troponin I 0.023 NT-Pro-B Natriuret Pep 03/26/20 03/26/20 03/26/20 08:17 14:07 14:07 Creatine Kinase 134 CK-MB (CK-2) 1.92 1.83 Troponin I 0.028 0.022 NT-Pro-B Natriuret Pep Impressions: Acute Abdomen Series 03/25/20 20:05 IMPRESSION: Patchy density in the right lung base new when compared to the previous study. Findings may reflect atelectasis versus developing infiltrate Cardiac enlargement KUB X-Ray 03/27/20 00:00 IMPRESSION: Nonspecific nonobstructive bowel gas pattern. Guidance Needle Placement CT 03/31/20 00:00 IMPRESSION: Please see combined report for performance of procedure and r adiologic supervision and interpretation. Renal Biopsy CT 03/31/20 08:00 IMPRESSION: CT GUIDED LEFT KIDNEY CORTICAL BIOPSY. Abdomen/Pelvis CT 04/01/20 00:00 IMPRESSION: 1. Contained hematoma left kidney status post recent biopsy. 2. Dilated duodenum with transition at the duodenum jejunal junction status post partial small bowel and sigmoid resection. 3. Right upper quadrant hernia containing nondilated colon. Assessment and Plan - Diagnosis (1) Closed hematoma of left kidney Qualifiers: Encounter type: initial encounter Qualified Code(s): S37.012A - Minor contusion of left kidney, initial encounter Is this a current diagnosis for this admission?: Yes Plan: The hematoma looks stable on abdominal CT. We will continue to monitor closely for any signs of decompensation. (2) Acute blood loss anemia Is this a current diagnosis for this admission?: Yes Plan: 2 units of packed red blood cells ordered, will monitor for any signs of ongoing blood loss. (3) Anasarca Is this a current diagnosis for this admission?: Yes Plan: Slight improvement. Patient's anasarca is likely due to her kidney disease. ABD U/S shows coarse heterogeneous liver appearance; likely underlying liver disease. LFTs unremarkable Hep B negative. Hep C pending. Cardiology and Nephrology services are consulted. Echo pending per cardiology. Did discuss with Dr. Strickland; unlikely due to CHF alone, though expects some underlying diastolic dysfunction. Nephrology evaluating for nephrotic syndome. S/p kidney biopsy IV fluids and IV bumetanide per Dr. Mac. mica plate layer hand is consulted. (4) Atrial fibrillation Qualifiers: Atrial fibrillation type: paroxysmal Qualified Code(s): I48.0 - Paroxysmal atrial fibrillation Is this a current diagnosis for this admission?: Yes Plan: Patient converted into atrial fibrillation overnight on telemetry. Confirmed by EKG. Unknown history of the same; patient not able to elaborate. She is already on metoprolol 100 mg twice daily. diltiazem 30 mg every 8 hours. Not a candidate for anticoagulation or aspirin therapy at this time due to recent renal hematoma and GI bleed. (5) CHF exacerbation Qualifiers: Heart failure type: unspecified Qualified Code(s): I50.9 - Heart failure, unspecified Is this a current diagnosis for this admission?: Yes Plan: Anasarca actually not thought to be due to a CHF exacerbation at this time, echocardiogram pending, cardiology consulted (6) Chronic kidney disease, stage 3 (moderate) Is this a current diagnosis for this admission?: Yes Plan: Received records from [facility]. Patient's GFR was between 30 and 45 as well. She has a lot of protein in her urine. S/p renal biopsy Nephrology has been consulted; primary management per their expertise. (7) Diabetes mellitus type 2 in nonobese Is this a current diagnosis for this admission?: Yes Plan: Continue sliding scale and diabetic diet - Time Time Spent with patient: 25-34 minutes
--- NOTE | 2020-04-01 11:54 | PDOC PROGRESS REPORT ---
Subjective Progress Note for:: 04/01/20 Subjective:: No complaints. Resting in bed. Had melena. Colonoscopy failed to reveal an active source of bleeding. Subsequently had renal biopsy. Drop in hemoglobin. Perinephric hematoma consistent with renal biopsy Herniated colon. Interim development of atrial fibrillation with controlled ventricular response on the monitor which is a new finding. Tolerating the arrhythmia well. Reason For Visit: ANASARCA,UPPER ABDOMINAL PAIN,MALIGNANT Physical Exam Vital Signs: Temp Pulse Resp BP Pulse Ox 97.7 F 67 18 124/48 L 96 04/01/20 10:52 04/01/20 10:52 04/01/20 10:52 04/01/20 10:52 04/01/20 10:52 Intake & Output 03/31/20 04/01/20 04/02/20 06:59 06:59 06:59 Intake Total 300 150 0 Output Total 875 315 Balance -575 -165 0 Weight 78.4 kg 74.9 kg General appearance: PRESENT: no acute distress, obese, well-developed, well- nourished Head exam: PRESENT: normocephalic Eye exam: PRESENT: conjunctiva pale Ear exam: PRESENT: normal external ear exam Respiratory exam: PRESENT: symmetrical, unlabored Cardiovascular exam: PRESENT: irregular rhythm, +S1, +S2 Pulses: PRESENT: normal radial pulses GI/Abdominal exam: PRESENT: soft Rectal exam: PRESENT: deferred Skin exam: PRESENT: dry, intact, pallor Results Laboratory Results: 04/01/20 07:16 04/01/20 06:01 04/01/20 04/01/20 04/01/20 06:01 06:01 07:16 WBC Cancelled 10.0 RBC Cancelled 1.54 L Hgb Cancelled 5.1 L D Hct Cancelled 14.0 L* MCV Cancelled 91 MCH Cancelled 32.8 MCHC Cancelled 36.1 H RDW Cancelled 13.7 Plt Count Cancelled 134 L Sodium 128.5 L Potassium 4.1 Chloride 101 Carbon Dioxide 20 L Anion Gap 8 BUN 33 H Creatinine 1.98 H Est GFR ( Amer) 30 L Glucose 123 H Calcium 7.8 L Blood Type Antibody Screen 04/01/20 07:16 WBC RBC Hgb Hct MCV MCH MCHC RDW Plt Count Sodium Potassium Chloride Carbon Dioxide Anion Gap BUN Creatinine Est GFR ( Amer) Glucose Calcium Blood Type A NEGATIVE Antibody Screen NEGATIVE 03/25/20 03/25/20 03/25/20 19:50 19:50 20:41 Creatine Kinase CK-MB (CK-2) Troponin I Cancelled 0.015 NT-Pro-B Natriuret Pep Cancelled [id number] H 03/26/20 03/26/20 03/26/20 02:54 02:54 08:17 Creatine Kinase 115 144 H CK-MB (CK-2) 2.08 Troponin I 0.023 NT-Pro-B Natriuret Pep 03/26/20 03/26/20 03/26/20 08:17 14:07 14:07 Creatine Kinase 134 CK-MB (CK-2) 1.92 1.83 Troponin I 0.028 0.022 NT-Pro-B Natriuret Pep EKG Comments: Telemetry shows atrial fibrillation controlled ventricular response CT scan abdomen findings reviewed. Perinephric hematoma. Colonic herniation Impressions: Acute Abdomen Series 03/25/20 20:05 IMPRESSION: Patchy density in the right lung base new when compared to the previous study. Findings may reflect atelectasis versus developing infiltrate Cardiac enlargement KUB X-Ray 03/27/20 00:00 IMPRESSION: Nonspecific nonobstructive bowel gas pattern. Guidance Needle Placement CT 03/31/20 00:00 IMPRESSION: Please see combined report for performance of procedure and radiologic supervision and interpretation. Renal Biopsy CT 03/31/20 08:00 IMPRESSION: CT GUIDED LEFT KIDNEY CORTICAL BIOPSY. Abdomen/Pelvis CT 04/01/20 00:00 IMPRESSION: 1. Contained hematoma left kidney status post recent biopsy. 2. Dilated duodenum with transition at the duodenum jejunal junction status post partial small bowel and sigmoid resection. 3. Right upper quadrant hernia containing nondilated colon. Assessment & Plan - Diagnosis (1) Anasarca Is this a current diagnosis for this admission?: Yes (2) Atrial fibrillation Qualifiers: Atrial fibrillation type: paroxysmal Qualified Code(s): I48.0 - Paroxysmal atrial fibrillation Is this a current diagnosis for this admission?: Yes Plan: New onset atrial fibrillation in the midst of anemia status post procedure Probably a reflection of overall illness and poor health Rate controlled. Would recommend rate control only given anemia and probable bleeding. Consider use of metoprolol as needed for rate control Would not recommend systemic anticoagulation (3) Closed hematoma of left kidney Qualifiers: Encounter type: initial encounter Qualified Code(s): S37.012A - Minor contusion of left kidney, initial encounter Is this a current diagnosis for this admission?: Yes Plan: Hopefully this is self-contained and will resolve (4) Acute blood loss anemia Is this a current diagnosis for this admission?: Yes Plan: Multifactorial. Watching hemoglobin and hematocrit Would not recommend anticoagulation for A. fib Perinephric hematoma reported
[2020-04-01] MEDS ORDERED: METOCLOPRAMIDE HCL INJ/PF 10 MG/2 ML SDV ONE (17:28)
[2020-04-01] MEDS ORDERED: METOCLOPRAMIDE HCL INJ/PF 10 MG/2 ML SDV IV ONE (17:30)
[2020-04-01] MEDS ORDERED: MORPHINE SULFATE 10 MG/ML INJ ONE (18:16)
[2020-04-01 18:30] LABS: ABSOLUTE MONOCYTES (AUTO) 0.9 10^3/uL (0.1-1.4); BASOPHILS % (AUTO) 0.1 % (0-2); EOSINOPHILS % (AUTO) 0.1 % (0-6); HEMATOCRIT 23.1 % (36.0-47.0); HEMOGLOBIN 8.1 g/dL (12.0-15.5); LYMPHOCYTES % (AUTO) 8.9 % (13-45); MEAN CORPUSCULAR HEMOGLOBIN 30.4 pg (27.0-33.4); MEAN CORPUSCULAR HGB CONC 35.1 g/dL (32.0-36.0); MONOCYTES % (AUTO) 8.2 % (3-13); PLATELET COUNT 120 10^3/uL (150-450); RED BLOOD COUNT 2.67 10^6/uL (3.72-5.28); RED CELL DISTRIBUTION WIDTH 15.7 % (11.5-14.0); SEGMENTED NEUTROPHILS % (AUTO) 82.7 % (42-78); TOTAL CELLS COUNTED % (AUTO) 100 %; WHITE BLOOD COUNT 10.9 10^3/uL (4.0-10.5)
[2020-04-01 18:31] LABS: MEAN CORPUSCULAR VOLUME 87 fl (80-97)
[2020-04-01 18:45] LABS: ANION GAP 10 (5-19); BLOOD UREA NITROGEN 33 mg/dL (7-20); CALCIUM 8.2 mg/dL (8.4-10.2); CARBON DIOXIDE 18 mmol/L (22-30); CHLORIDE 100 mmol/L (98-107); GLUCOSE 128 mg/dL (75-110); POTASSIUM 4.1 mmol/L (3.6-5.0)
[2020-04-01] MEDS: NORMAL SALINE 1000 ML 1,000 ML IV PRN (20:20)
[2020-04-01] MEDS ORDERED: HALOPERIDOL LACTATE INJ 5 MG/1 ML VIAL IV ONE (21:30)
[2020-04-01] MEDS ORDERED: HALOPERIDOL LACTATE INJ 5 MG/1 ML VIAL ONE (21:32)
[2020-04-01] MEDS: MELATONIN 3 MG TABLET PO SCH (21:55)
[2020-04-01] MEDS: MORPHINE SULFATE 10 MG/ML INJ IV PRN (21:56)
[2020-04-01 23:24] LABS: HEMATOCRIT 18.2 % (36.0-47.0); MEAN CORPUSCULAR HEMOGLOBIN 29.8 pg (27.0-33.4); MEAN CORPUSCULAR HGB CONC 34.9 g/dL (32.0-36.0); MEAN CORPUSCULAR VOLUME 86 fl (80-97); PLATELET COUNT 103 10^3/uL (150-450); RED BLOOD COUNT 2.13 10^6/uL (3.72-5.28); RED CELL DISTRIBUTION WIDTH 15.8 % (11.5-14.0); WHITE BLOOD COUNT 12.2 10^3/uL (4.0-10.5)
[2020-04-01 23:31] LABS: HEMOGLOBIN 6.3 g/dL (12.0-15.5)
[2020-04-02] MEDS: MORPHINE SULFATE 10 MG/ML INJ IV PRN (01:33)
[2020-04-02] MEDS: METOPROLOL SUCCINATE 50 MG TAB.SR.24H PO SCH ×2 (06:26→18:38)
[2020-04-02] MEDS: DILTIAZEM HCL 30 MG TABLET PO SCH ×3 (06:27→21:14)
[2020-04-02] MEDS: LEVOTHYROXINE SODIUM 0.025 MG TABLET PO SCH (06:27)
[2020-04-02] MEDS: HEPARIN SOD (PORCINE) 5,000 UNIT/ML 1 ML VIAL SUBCUT SCH ×3 (06:27→21:15)
[2020-04-02 06:35] LABS: ANION GAP 8 (5-19); BLOOD UREA NITROGEN 39 mg/dL (7-20); CALCIUM 7.8 mg/dL (8.4-10.2); CARBON DIOXIDE 18 mmol/L (22-30); CHLORIDE 103 mmol/L (98-107); GLUCOSE 147 mg/dL (75-110); POTASSIUM 4.6 mmol/L (3.6-5.0)
[2020-04-02] MEDS: SUCRALFATE 1 GM TABLET PO SCH ×4 (10:38→21:14)
[2020-04-02] MEDS: CALCIUM CARBONATE 600 MG TABLET PO SCH ×2 (10:39→18:04)
[2020-04-02] MEDS: DOCUSATE SODIUM 100 MG CAPSULE PO SCH ×2 (10:39→18:04)
[2020-04-02] MEDS: ONDANSETRON HCL INJ/PF 4 MG/2 ML SDV IV PRN (10:40)
--- NOTE | 2020-04-02 11:16 | PDOC PROGRESS REPORT ---
Subjective Progress Note for:: 04/02/20 Subjective:: We trended her hemoglobin last night and her hemoglobin dropped again so she got another couple units of packed red blood cells. We checked metabolic panel yesterday and her creatinine was rising, so we took another one last night and it was still going up but the rate of rise had attenuated. She is not had a lot of urine output. Oral intake is been poor. Reason For Visit: ANASARCA,UPPER ABDOMINAL PAIN,MALIGNANT Physical Exam Vital Signs: Temp Pulse Resp BP Pulse Ox 98.2 F 55 L 18 147/55 H 96 04/02/20 09:55 04/02/20 09:55 04/02/20 09:55 04/02/20 09:55 04/02/20 09:55 Intake & Output 04/01/20 04/02/20 04/03/20 06:59 06:59 06:59 Intake Total 150 1025 300 Output Total 315 20 Balance -165 1005 300 Weight 74.9 kg 74.2 kg General appearance: PRESENT: no acute distress, well-developed, pale, [place] ro[place]an Respiratory exam: PRESENT: clear to auscultation star, symmetrical, unlabored. ABSENT: rales, rhonchi, wheezes Cardiovascular exam: PRESENT: RRR. ABSENT: diastolic murmur, rubs, systolic murmur Abdomen: Soft mass upper abdomen right of midline, no tenderness to palpation, body wall edema Pulses: PRESENT: normal dorsalis pedis pul Vascular exam: PRESENT: normal capillary refill Extremities exam: PRESENT: full ROM, +1 edema - BLE; improved. ABSENT: calf tenderness, clubbing, pedal edema Neurological exam: PRESENT: Drowsy but arousable, oriented to person, oriented to situation ABSENT: motor sensory deficit Psychiatric exam: PRESENT: appropriate affect, normal mood Skin exam: PRESENT: dry, intact, warm. ABSENT: cyanosis, rash Results Laboratory Results: 04/01/20 23:10 04/02/20 05:59 04/01/20 04/01/20 04/01/20 07:16 17:55 17:55 WBC 10.9 H RBC 2.67 L Hgb 8.1 L D Hct 23.1 L MCV 87 D MCH 30.4 MCHC 35.1 RDW 15.7 H Plt Count 120 L Seg Neutrophils % 82.7 H Sodium 127.9 L Potassium 4.1 Chloride 100 Carbon Dioxide 18 L Anion Gap 10 BUN 33 H Creatinine 2.33 H Est GFR ( Amer) 25 L Glucose 128 H Calcium 8.2 L Blood Type A NEGATIVE Antibody Screen NEGATIVE 04/01/20 04/01/20 04/02/20 22:44 23:10 05:59 WBC Cancelled 12.2 H RBC Cancelled 2.13 L Hgb Cancelled 6.3 L Hct Cancelled 18.2 L MCV Cancelled 86 MCH Cancelled 29.8 MCHC Cancelled 34.9 RDW Cancelled 15.8 H Plt Count Cancelled 103 L Seg Neutrophils % Sodium 128.6 L Potassium 4.6 Chloride 103 Carbon Dioxide 18 L Anion Gap 8 BUN 39 H Creatinine 2.56 H Est GFR ( Amer) 22 L Glucose 147 H Calcium 7.8 L Blood Type Antibody Screen 03/25/20 03/25/20 03/25/20 19:50 19:50 20:41 Creatine Kinase CK-MB (CK-2) Troponin I Cancelled 0.015 NT-Pro-B Natriuret Pep Cancelled [id number] H 03/26/20 03/26/20 03/26/20 02:54 02:54 08:17 Creatine Kinase 115 144 H CK-MB (CK-2) 2.08 Troponin I 0.023 NT-Pro-B Natriuret Pep 03/26/20 03/26/20 03/26/20 08:17 14:07 14:07 Creatine Kinase 134 CK-MB (CK-2) 1.92 1.83 Troponin I 0.028 0.022 NT-Pro-B Natriuret Pep Impressions: Acute Abdomen Series 03/25/20 20:05 IMPRESSION: Patchy density in the right lung base new when compared to the previous study. Findings may reflect atelectasis versus developing infiltrate Cardiac enlargement KUB X-Ray 03/27/20 00:00 IMPRESSION: Nonspecific nonobstructive bowel gas pattern. Guidance Needle Placement CT 03/31/20 00:00 IMPRESSION: Please see combined report for performance of procedure and radiologic supervision and interpretation. Renal Biopsy CT 03/31/20 08:00 IMPRESSION: CT GUIDED LEFT KIDNEY CORTICAL BIOPSY. Abdomen/Pelvis CT 04/01/20 00:00 IMPRESSION: 1. Contained hematoma left kidney status post recent biopsy. 2. Dilated duodenum with transition at the duodenum jejunal junction status post partial small bowel and sigmoid resection. 3. Right upper quadrant hernia containing nondilated colon. Assessment and Plan - Diagnosis (1) Closed hematoma of left kidney Qualifiers: Encounter type: initial encounter Qualified Code(s): S37.012A - Minor contusion of left kidney, initial encounter Is this a current diagnosis for this admission?: Yes Plan: The hematoma looks stable on abdominal CT. We will continue to monitor closely for any signs of decompensation. Rising creatinine is declining. Will monitor urine output closely. Monitoring CBC to determine need for repeat transfusion. (2) Acute blood loss anemia Is this a current diagnosis for this admission?: Yes Plan: 2 more units of packed red blood cells ordered, will monitor for any signs of ongoing blood loss. (3) Anasarca Is this a current diagnosis for this admission?: Yes Plan: Slight improvement. Patient's anasarca is likely due to her kidney disease. ABD U/S shows coarse heterogeneous liver appearance; likely underlying liver disease. LFTs unremarkable Hep B negative. Hep C pending. Cardiology and Nephrology services are consulted. Echo pending per cardiology. Did discuss with Dr. Strickland; unlikely due to CHF alone, though expects some underlying diastolic dysfunction. Nephrology evaluating for nephrotic syndome. S/p kidney biopsy IV fluids and IV bumetanide per Dr. Mac, bumetanide on hold due to renal failure. leather tacker is consulted. (4) Atrial fibrillation Qualifiers: Atrial fibrillation type: paroxysmal Qualified Code(s): I48.0 - Paroxysmal atrial fibrillation Is this a current diagnosis for this admission?: Yes Plan: Patient converted into atrial fibrillation overnight on telemetry. Confirmed by EKG. Unknown history of the same; patient not able to elaborate. She is already on metoprolol 100 mg twice daily. diltiazem 30 mg every 8 hours. Not a candidate for anticoagulation or aspirin therapy at this time due to recent renal hematoma and GI bleed. (5) CHF exacerbation Qualifiers: Heart failure type: unspecified Qualified Code(s): I50.9 - Heart failure, unspecified Is this a current diagnosis for this admission?: Yes Plan: Anasarca actually not thought to be due to a CHF exacerbation at this time, echocardiogram pending, cardiology consulted (6) Chronic kidney disease, stage 3 (moderate) Is this a current diagnosis for this admission?: Yes Plan: Received records from [facility]. Patient's GFR was between 30 and 45 as well. She has a lot of protein in her urine. S/p renal biopsy Nephrology has been consulted; primary management per their expertise. (7) Diabetes mellitus type 2 in nonobese Is this a current diagnosis for this admission?: Yes Plan: Continue sliding scale and diabetic diet (8) Myxdl-gd-[id number] kidney injury Qualifiers: Acute renal failure type: with other specified pathological lesion Chronic kidney disease stage: stage 3 (moderate) Qualified Code(s): N17.8 - Other acute kidney failure; N18.3 - Chronic kidney disease, stage 3 (moderate) Is this a current diagnosis for this admission?: Yes Plan: Creatinine has gotten worse since the formation of a hematoma. Creatinine went up fairly quickly, the rate of rise has attenuated. We will get a repeat her m etabolic panel again this afternoon to see if the rate of rise is plateaued. She is on IV fluids and getting repeat transfusions as needed, monitoring urine output. - Time Time Spent with patient: 25-34 minutes
[2020-04-02 12:22] LABS: HEMATOCRIT 25.8 % (36.0-47.0); MEAN CORPUSCULAR HEMOGLOBIN 30.2 pg (27.0-33.4); MEAN CORPUSCULAR VOLUME 84 fl (80-97); RED BLOOD COUNT 3.07 10^6/uL (3.72-5.28); RED CELL DISTRIBUTION WIDTH 14.4 % (11.5-14.0); WHITE BLOOD COUNT 16.4 10^3/uL (4.0-10.5)
[2020-04-02 12:27] LABS: HEMOGLOBIN 9.3 g/dL (12.0-15.5)
[2020-04-02 12:50] LABS: PLATELET COUNT 86 10^3/uL (150-450)
[2020-04-02] MEDS: NORMAL SALINE 1000 ML 1,000 ML IV PRN (13:41)
[2020-04-02 16:40] LABS: ANION GAP 10 (5-19); BLOOD UREA NITROGEN 40 mg/dL (7-20); CALCIUM 7.8 mg/dL (8.4-10.2); CARBON DIOXIDE 17 mmol/L (22-30); CHLORIDE 102 mmol/L (98-107); GLUCOSE 125 mg/dL (75-110); POTASSIUM 4.2 mmol/L (3.6-5.0)
[2020-04-02] MEDS ORDERED: NORMAL SALINE 1000 ML 1,000 ML IV PRN (21:01)
[2020-04-02] MEDS ORDERED: ALBUMIN HUMAN 50.0 GM/200 ML RTUINJ IV ONE (21:13)
[2020-04-02] MEDS: MELATONIN 3 MG TABLET PO SCH (21:16)
[2020-04-02] MEDS: ALBUMIN HUMAN 12.5 GM/50 ML RTUINJ IV SCH ×3 (21:19→23:55)
[2020-04-03] MEDS: ALBUMIN HUMAN 12.5 GM/50 ML RTUINJ IV SCH (00:40)
[2020-04-03] MEDS: HEPARIN SOD (PORCINE) 5,000 UNIT/ML 1 ML VIAL SUBCUT SCH ×3 (05:22→21:39)
[2020-04-03] MEDS: METOPROLOL SUCCINATE 50 MG TAB.SR.24H PO SCH ×2 (05:23→18:32)
[2020-04-03] MEDS: DILTIAZEM HCL 30 MG TABLET PO SCH ×3 (05:23→21:46)
[2020-04-03] MEDS: LEVOTHYROXINE SODIUM 0.025 MG TABLET PO SCH (05:23)
[2020-04-03] MEDS ORDERED: NORMAL SALINE 1000 ML 1,000 ML IV PRN (05:56)
[2020-04-03 06:41] LABS: ANION GAP 11 (5-19); BLOOD UREA NITROGEN 46 mg/dL (7-20); CARBON DIOXIDE 16 mmol/L (22-30); CHLORIDE 104 mmol/L (98-107); GLUCOSE 96 mg/dL (75-110); POTASSIUM 4.3 mmol/L (3.6-5.0)
[2020-04-03 09:20] LABS: HEMATOCRIT 22.4 % (36.0-47.0); MEAN CORPUSCULAR HEMOGLOBIN 30.8 pg (27.0-33.4); MEAN CORPUSCULAR HGB CONC 35.7 g/dL (32.0-36.0); MEAN CORPUSCULAR VOLUME 86 fl (80-97); RED CELL DISTRIBUTION WIDTH 15.3 % (11.5-14.0); WHITE BLOOD COUNT 11.2 10^3/uL (4.0-10.5)
[2020-04-03] MEDS ORDERED: FUROSEMIDE INJ/PF 100 MG/10 ML SDV IV ONE (09:30)
[2020-04-03 09:42] LABS: PLATELET COUNT 81 10^3/uL (150-450)
[2020-04-03 09:44] LABS: ABSOLUTE LYMPHOCYTES# (MANUAL) 0.1 10^3/uL (0.5-4.7); ABSOLUTE MONOCYTES # (MANUAL) 0.4 10^3/uL (0.1-1.4); BASOPHILS % (MANUAL) 0 % (0-2); EOSINOPHILS % (MANUAL) 0 % (0-6); LYMPHOCYTES % (MANUAL) 1 % (13-45); MONOCYTES % (MANUAL) 4 % (3-13); SEGMENTED NEUTROPHILS % (MAN) 95 % (42-78); TOTAL CELLS COUNTED 100
[2020-04-03 09:46] LABS: ANISOCYTOSIS SLIGHT; BURR CELLS SLIGHT; OVALOCYTES SLIGHT; PLATELET COMMENT DECREASED; POIKILOCYTOSIS SLIGHT; POLYCHROMASIA SLIGHT; TOXIC GRANULATION 2+
[2020-04-03] MEDS: DOCUSATE SODIUM 100 MG CAPSULE PO SCH ×2 (10:19→18:29)
[2020-04-03] MEDS: CALCIUM CARBONATE 600 MG TABLET PO SCH ×2 (10:19→18:31)
[2020-04-03] MEDS: SUCRALFATE 1 GM TABLET PO SCH ×4 (10:20→21:46)
[2020-04-03 10:25] LABS: INTERNATIONAL RATION (INR) 1.41; PROTHROMBIN TIME 17.4 SEC (11.4-15.4)
--- NOTE | 2020-04-03 10:43 | RADIOLOGY REPORT (SQ) ---
EXAM DESCRIPTION: CHEST SINGLE VIEW IMAGES COMPLETED DATE/TIME: 04/03/2020 9:39 am REASON FOR STUDY: wheezing COMPARISON: CT of the abdomen and pelvis without contrast from 04/01/2020. EXAM PARAMETERS: NUMBER OF VIEWS: One view. TECHNIQUE: An AP view of the chest was obtained. RADIATION DOSE: NA LIMITATIONS: None. FINDINGS: LUNGS AND PLEURA: Asymmetric bibasilar predominant opacities that on the left obscure the contour of the hemidiaphragm. The costophrenic sulci are blunted. There is no pneumothorax. MEDIASTINUM AND HILAR STRUCTURES: The contour of the left hilum is indistinct. HEART AND VASCULAR STRUCTURES: The cardiac silhouette is enlarged. BONES: No acute findings. HARDWARE: None in the chest. OTHER: No other finding. IMPRESSION: Cardiomegaly and asymmetric bibasilar opacities that on the left could represent a [place] of pleural fluid, atelectasis and/or consolidation. TECHNICAL DOCUMENTATION: JOB ID: [id number] 2010 [employer]- All Rights Reserved Reading location - IP/workstation name: [email or web address]
--- NOTE | 2020-04-03 11:04 | PDOC PROGRESS REPORT ---
Subjective Progress Note for:: 04/03/20 Subjective:: 74-year-old female with multiple medical problems who was admitted on 03/25/2020 with anasarca and who had been followed by Dr. Strickland for possible heart failure. For details of this admission and cardiology follow-up please see Dr. Strickland's notes. In summary, the patient presented slightly obtunded and with anasarca. She eventually developed new onset atrial fibrillation with RVR and was consulted to cardiology. During this hospitalization she also developed melena as well as a perinephric hematoma status post renal biopsy. Today she is at her baseline and this morning complains of slightly increase in her shortness of breath. Her hemoglobin dropped again as of this morning. Her telemetry demonstrates atrial fibrillation with no sustained ventricular dysrhythmias. Physical exam on 04/03/2020: GENERAL: Pleasant and conversational. Oriented x3 with normal mood. Not in acute distress. Well groomed and well developed. HEENT: Normocephalic, atraumatic. Pupils equal. Sclerae anicteric. Oropharynx moist. NECK: No JVD. No carotid bruits. ABDOMEN: No masses or tenderness to palpation. No bruit. No splenomegaly or hepatomegaly. No abdominal aorta bruit noted. EXTREMITIES: 2+ pitting edema bilaterally SKIN: No lesions or rashes. MUSCULOSKELETAL: No chest tenderness to palpation. NEUROLOGIC: Nonfocal. No gross sensory or motor deficits bilateral upper or lower extremities. Cardiac studies: Echocardiogram on 03/07/2020: -LV systolic function is normal. -EF 60 to 65%. -Moderate concentric LVH. -Grade 1 diastolic dysfunction. -Suspected pulmonary hypertension. -Small pericardial effusion. No evidence of cardiac tamponade. -Pleural effusion is present. Lexiscan MPS on 11/14/2014: -No ischemia or infarct. -Normal ejection fraction. Reason For Visit: ANASARCA,UPPER ABDOMINAL PAIN,MALIGNANT Physical Exam Vital Signs: Temp Pulse Resp BP Pulse Ox 98.0 F 78 16 145/42 H 90 L 04/03/20 03:44 04/03/20 07:00 04/02/20 23:32 04/03/20 03:44 04/03/20 03:44 Intake & Output 04/02/20 04/03/20 04/04/20 06:59 06:59 06:59 Intake Total 2025 2508 Output Total 20 100 Balance 20048 Weight 74.2 kg 76.2 kg Results Laboratory Results: 04/03/20 05:09 04/03/20 05:09 04/02/20 04/02/20 04/03/20 11:47 15:55 05:09 WBC 16.4 H RBC 3.07 L Hgb 9.3 L D Hct 25.8 L MCV 84 MCH 30.2 MCHC 36.0 RDW 14.4 H Plt Count 86 L Seg Neutrophils % Sodium 128.6 L 131.1 L Potassium 4.2 4.3 Chloride 102 104 Carbon Dioxide 17 L 16 L Anion Gap 10 11 BUN 40 H 46 H Creatinine 2.55 H 2.88 H Est GFR ( Amer) 22 L 19 L Glucose 125 H 96 Calcium 7.8 L 8.0 L 04/03/20 05:09 WBC Cancelled RBC Cancelled Hgb Cancelled Hct Cancelled MCV Cancelled MCH Cancelled MCHC Cancelled RDW Cancelled Plt Count Cancelled Seg Neutrophils % Cancelled Sodium Potassium Chloride Carbon Dioxide Anion Gap BUN Creatinine Est GFR ( Amer) Glucose Calcium 03/25/20 03/25/20 03/25/20 19:50 19:50 20:41 Creatine Kinase CK-MB (CK-2) Troponin I Cancelled 0.015 NT-Pro-B Natriuret Pep Cancelled 38228 H 03/26/20 03/26/20 03/26/20 02:54 02:54 08:17 Creatine Kinase 115 144 H CK-MB (CK-2) 2.08 Troponin I 0.023 NT-Pro-B Natriuret Pep 03/26/20 03/26/20 03/26/20 08:17 14:07 14:07 Creatine Kinase 134 CK-MB (CK-2) 1.92 1.83 Troponin I 0.028 0.022 NT-Pro-B Natriuret Pep Impressions: Acute Abdomen Series 03/25/20 20:05 IMPRESSION: Patchy density in the right lung base new when compared to the previous study. Findings may reflect atelectasis versus developing infiltrate Cardiac enlargement KUB X-Ray 03/27/20 00:00 IMPRESSION: Nonspecific nonobstructive bowel gas pattern. Guidance Needle Placement CT 03/31/20 00:00 IMPRESSION: Please see combined report for performance of procedure and radiologic supervision and interpretation. Renal Biopsy CT 03/31/20 08:00 IMPRESSION: CT GUIDED LEFT KIDNEY CORTICAL BIOPSY. Abdomen/Pelvis CT 04/01/20 00:00 IMPRESSION: 1. Contained hematoma left kidney status post recent biopsy. 2. Dilated duodenum with transition at the duodenum jejunal junction status post partial small bowel and sigmoid resection. 3. Right upper quadrant hernia containing nondilated colon. 04/03/20 09:07 04/03/20 05:09 MCV 86 fl (80-97) 04/03/20 09:07 MCH 30.8 pg (27.0-33.4) 04/03/20 09:07 MCHC 35.7 g/dL (32.0-36.0) 04/03/20 09:07 RDW 15.3 % (11.5-14.0) H 04/03/20 09:07 Seg Neutrophils % Not Reportable 04/03/20 09:07 Chloride 104 mmol/L (98-107) 04/03/20 05:09 Carbon Dioxide 16 mmol/L (22-30) L 04/03/20 05:09 Anion Gap 11 (5-19) 04/03/20 05:09 Est GFR ( Amer) 19 (>60) L 04/03/20 05:09 Est GFR (Non-Af Amer) Cancelled 03/25/20 19:50 Glucose 96 mg/dL (75-110) 04/03/20 05:09 Serum Osmolality 261 mOsm/kg (275-301) L 03/27/20 05:40 Lactic Acid 1.0 mmol/L (0.7-2.1) 03/25/20 20:41 Calcium 8.0 mg/dL (8.4-10.2) L 04/03/20 05:09 Ionized Calcium Dina 1.01 mmol/L (1.14-1.30) L 03/29/20 14:47 Magnesium 2.7 mg/dL (1.6-2.3) H 03/27/20 05:40 Total Bilirubin 0.3 mg/dL (0.2-1.3) 03/29/20 06:40 AST 27 U/L (14-36) 03/29/20 06:40 Alkaline Phosphatase 76 U/L (38-126) 03/29/20 06:40 C-Reactive Protein < 5.0 mg/L (<10.0) 03/27/20 05:40 Total Protein 4.6 g/dL (6.3-8.2) L 03/29/20 06:40 Albumin 2.3 g/dL (3.5-5.0) L 03/29/20 06:40 Triglycerides 67 mg/dL (<150) 03/26/20 08:17 Cholesterol 108.20 mg/dL (0-200) 03/26/20 08:17 LDL Cholesterol Direct < 30 mg/dL (<100) 03/26/20 08:17 VLDL Cholesterol 13.0 mg/dL (10-31) 03/26/20 08:17 HDL Cholesterol 74 mg/dL (>40) 03/26/20 08:17 Lipase 71.7 U/L (23-300) 03/25/20 20:41 TSH 2.31 uIU/mL (0.47-4.68) 03/26/20 08:17 Free T3 pg/mL 2.29 pg/mL (2.77-5.27) L 03/26/20 08:17 PTH Intact 91.1 pg/mL (10.0-65.0) H 03/30/20 06:35 Urine Color YELLOW 03/26/20 05:50 Urine Appearance SLIGHTLY-CLOUDY 03/26/20 05:50 Urine pH 6.0 (5.0-9.0) 03/26/20 05:50 Ur Specific [place] 1.007 03/26/20 05:50 Urine Protein >=500 mg/dL (NEGATIVE) H 03/26/20 05:50 Urine Glucose (UA) 150 mg/dL (NEGATIVE) H 03/26/20 05:50 Urine Ketones NEGATIVE mg/dL (NEGATIVE) 03/26/20 05:50 Urine Blood SMALL (NEGATIVE) H 03/26/20 05:50 Urine Nitrite NEGATIVE (NEGATIVE) 03/26/20 05:50 Ur Leukocyte Esterase NEGATIVE (NEGATIVE) 03/26/20 05:50 Urine WBC (Auto) 2 /HPF 03/26/20 05:50 Urine RBC (Auto) 1 /HPF 03/26/20 05:50 Urine Osmolality 220 mOsm/kg (300-900) L 03/29/20 23:04 Ur 24 Hour Volume 960 mL 03/29/20 09:40 Ur Total Protein 24 Hr 3855 mg/day (42-225) H 03/29/20 09:40 Ur Sodium 24 Hour 37 mmol/day (40-200) L 03/29/20 09:40 Stool Occult Blood POSITIVE (NEGATIVE) 03/26/20 20:50 Blood Type A NEGATIVE 04/01/20 07:16 Antibody Screen NEGATIVE 04/01/20 07:16 03/25/20 03/25/20 03/25/20 19:50 19:50 20:41 Creatine Kinase CK-MB (CK-2) Troponin I Cancelled 0.015 NT-Pro-B Natriuret Pep Cancelled [id number] H 03/26/20 03/26/20 03/26/20 02:54 02:54 08:17 Creatine Kinase 115 144 H CK-MB (CK-2) 2.08 Troponin I 0.023 NT-Pro-B Natriuret Pep 03/26/20 03/26/20 03/26/20 08:17 14:07 14:07 Creatine Kinase 134 CK-MB (CK-2) 1.92 1.83 Troponin I 0.028 0.022 NT-Pro-B Natriuret Pep Current Medication List Generic Name Dose Route Start Last Admin Trade Name Freq PRN Reason Stop Dose Admin Acetaminophen 650 mg 03/25/20 23:03 04/01/20 17:38 Tylenol 325 Mg Tablet PO 04/24/20 23:02 650 mg Q4HP PRN Administration For headache, pain or fever Al Hydrox/Mg Hydrox/Simethicone 30 ml 03/25/20 22:57 Maalox Plus Susp 30 Udcup PO 04/24/20 22:56 Q6HP PRN HEARTBURN Artificial Tears 1 drop 03/30/20 11:04 Refresh Plus 0.5% Oph Soln 0.4 Ml Droperette OU 04/29/20 11:03 QIDP PRN DRY EYE(S) Calcium Carbonate 600 mg 03/29/20 21:00 04/03/20 10:19 Caltrate 600 Mg Tablet PO 04/28/20 20:59 600 mg BID PATRICIA Administration Diltiazem HCl 30 mg 03/31/20 14:00 04/03/20 05:23 Cardizem 30 Mg Tablet PO 04/30/20 13:59 30 mg Q8 PATRICIA Administration Docusate Sodium 100 mg 03/27/20 18:00 04/03/20 10:19 Colace 100 Mg Capsule PO 04/26/20 17:59 100 mg BID PATRICIA Administration Guaifenesin 200 mg 03/25/20 23:03 Robitussin Syrup 200 Mg/10 Ml Ud Cup PO 04/24/20 23:02 Q4HP PRN COUGH Heparin Sodium (Porcine) 5,000 unit 03/26/20 06:00 04/03/20 05:22 Heparin Inj 5,000 Units/Ml 1 Ml Vial SUBCUT 04/25/20 05:59 Not Given Q8 PATRICIA Hydralazine HCl 10 mg 03/30/20 16:28 03/31/20 06:44 Apresoline Inj/Pf 20 Mg/1 Ml Sdv IV 04/29/20 16:27 10 mg Q6HP PRN Administration FOR SBP >160 AND/OR DBP > 100 Levothyroxine Sodium 0.025 mg 03/28/20 06:00 04/03/20 05:23 Synthroid 0.025 Mg Tablet PO 04/27/20 05:59 0.025 mg Q6AM PATRICIA Administration Magnesium Hydroxide 30 ml 03/25/20 22:57 Milk Of Magnesia 30 Ml Udcup PO 04/24/20 22:56 HSP PRN FOR CONSTIPATION Melatonin 6 mg 03/29/20 22:00 04/02/20 21:16 Melatonin 3 Mg Tablet PO 04/28/20 21:59 6 mg QHS PATRICIA Administration Metoprolol Succinate 100 mg 03/26/20 06:00 04/03/20 05:23 Toprol Xl 50 Mg Tab.Sr PO 04/25/20 05:59 100 mg Q12H PATRICIA Administration Morphine Sulfate 2 mg 04/01/20 19:21 04/02/20 01:33 Morphine 10 Mg/Ml Inj IV 04/08/20 19:20 2 mg Q4HP PRN Administration FOR PAIN SCALE 3-5 Ondansetron HCl 4 mg 03/25/20 22:57 04/02/20 10:40 Zofran Inj/Pf 4 Mg/2 Ml Sdv IV 04/24/20 22:56 4 mg Q4HP PRN Administration FOR NAUSEA/VOMITING Sodium Chloride 2.5 ml 03/26/20 06:00 04/03/20 05:23 Saline Flush 2.5 Ml Monoject Prefil Syrin IV 04/25/20 05:59 2.5 ml Q8 PATRICIA Administration Sucralfate 1 gm 03/26/20 08:00 04/03/20 10:20 Carafate 1 Gm Tablet PO 04/25/20 07:59 1 gm ACHS PATRICIA Administration Discontinued Medications Generic Name Dose Route Start Last Admin Trade Name Freq PRN Reason Stop Dose Admin Amlodipine Besylate 5 mg 03/28/20 10:00 Norvasc 5 Mg Tablet PO 04/27/20 09:59 DAILY PATRICIA Amlodipine Besylate 10 mg 03/31/20 05:00 03/31/20 04:42 Norvasc 10 Mg Tablet PO 03/31/20 05:01 10 mg NOW ONE Administration Amlodipine Besylate 10 mg 03/31/20 10:00 Norvasc 10 Mg Tablet PO 04/30/20 09:59 DAILY PATRICIA Bumetanide 1 mg 03/25/20 23:30 03/27/20 11:50 Bumex Inj/Pf 1 Mg/4 Ml Sdv IV 04/24/20 23:29 1 mg Q6H PATRICIA Administration Bumetanide 1 mg 03/27/20 22:00 03/29/20 09:06 Bumex Inj/Pf 1 Mg/4 Ml Sdv IV 04/26/20 21:59 1 mg Q12 PATRICIA Administration Bumetanide 1 mg 03/29/20 18:00 04/01/20 17:33 Bumex Inj/Pf 1 Mg/4 Ml Sdv IV 04/28/20 17:59 1 mg Q8A PATRICIA Administration Diphenoxylate HCl/Atropine 1 tab 03/27/20 15:44 03/27/20 17:09 Lomotil 2.5 Mg Tablet PO 04/03/20 15:43 1 tab QIDP PRN Administration DIARRHEA Docusate Sodium 100 mg 03/26/20 10:00 03/27/20 09:37 Colace Udc 100 Mg/10 Ml Oral Soln PO 04/25/20 09:59 Not Given BID PATRICIA Enalaprilat 2.5 mg 03/30/20 21:00 03/30/20 20:51 Vasotec Inj/Pf 2.5 Mg/2 Ml Sdv IV 03/30/20 21:01 2.5 mg NOW ONE Administration Epinephrine HCl Confirm 03/30/20 14:25 Epinephrine Inj 1 Mg/10 Ml Disp.Syrin Administered 03/30/20 14:26 Dose 1 mg .ROUTE .STK-MED ONE Famotidine 20 mg 03/25/20 23:00 03/27/20 09:37 Pepcid 20 Mg Tablet PO 04/24/20 22:59 20 mg Q12 PATRICIA Administration Famotidine 20 mg 03/28/20 10:00 03/29/20 09:06 Pepcid 20 Mg Tablet PO 04/27/20 09:59 20 mg DAILY PATRICIA Administration Fentanyl Citrate Confirm 03/31/20 08:31 03/31/20 11:03 Sublimaze Inj/Pf 100 Mcg/2 Ml Ampule Administered 03/31/20 08:32 Not Given Dose 100 mcg .ROUTE .STK-MED ONE Furosemide 60 mg 04/03/20 09:30 04/03/20 10:20 Lasix Inj/Pf 100 Mg/10 Ml Sdv IV 04/03/20 09:31 60 mg NOW ONE Administration Haloperidol Lactate 5 mg 04/01/20 21:30 04/01/20 21:36 Haldol 5 Mg/Ml Inj 1 Ml Vial IV 04/01/20 21:31 5 mg NOW ONE Administration Haloperidol Lactate Confirm 04/01/20 21:32 04/01/20 21:36 Haldol 5 Mg/Ml Inj 1 Ml Vial Administered 04/01/20 21:33 Not Given Dose 5 mg .ROUTE .STK-MED ONE Hydralazine HCl 20 mg 03/25/20 23:07 03/27/20 09:41 Apresoline Inj/Pf 20 Mg/1 Ml Sdv IV 04/24/20 23:06 20 mg Q4HP PRN Administration Give For Sbp > 160 / Dbp > 100 Hydralazine HCl 10 mg 03/27/20 11:30 03/30/20 09:43 Apresoline Inj/Pf 20 Mg/1 Ml Sdv IV 04/26/20 11:29 10 mg Q8HP PRN Administration FOR SBP >160 AND/OR DBP > 100 Sodium Chloride 1,000 mls @ 125 mls/hr 03/25/20 21:36 Nacl 0.9% 1000 Ml Iv Soln IV 04/24/20 21:35 .CONTINUOUS PRN DIARRHEA Albumin Human 12.5 gm in 50 mls @ 50 mls/hr 03/25/20 23:15 03/26/20 05:57 Albuminar-25 Rtu Inj 12.5 Gm/50 Ml Premix IV 03/26/20 03:14 Infused Q1H PATRICIA Infusion Albumin Human Confirm 03/26/20 01:29 03/26/20 01:47 Albuminar-25 Rtu Inj 12.5 Gm/50 Ml Premix Administered 03/26/20 01:30 Not Given Dose 50.0 gm in 200 mls @ ud IV .STK-MED ONE Sodium Chloride 1,000 mls @ 50 mls/hr 03/27/20 11:19 03/29/20 05:02 Nacl 0.9% 1000 Ml Iv Soln IV 04/26/20 11:18 50 mls/hr CONTINUOUS PRN Administration THIS MED IS NOT "PRN" Sodium Chloride 1,000 mls @ 40 mls/hr 03/29/20 10:59 Nacl 0.9% 1000 Ml Iv Soln IV 04/26/20 11:18 CONTINUOUS PRN THIS MED IS NOT "PRN" Albumin Human 12.5 gm in 50 mls @ 50 mls/hr 03/30/20 10:00 04/01/20 17:34 Albuminar-25 Rtu Inj 12.5 Gm/50 Ml Premix IV 04/02/20 09:59 50 mls/hr TID PATRICIA Administration Sodium Chloride 250 mls @ 30 mls/hr 04/01/20 08:12 Nacl 0.9% 250 Ml Iv Soln IV 04/02/20 08:11 .DURING TRANSFUSION PRN THIS MED IS NOT "PRN" Sodium Chloride 250 mls @ 0 mls/hr 04/01/20 08:12 Nacl 0.9% 250 Ml Iv Soln IV 04/02/20 08:11 CONTINUOUS PRN AFTER EACH UNIT As Directed Sodium Chloride 1,000 mls @ 100 mls/hr 04/01/20 19:09 04/02/20 23:45 Nacl 0.9% 1000 Ml Iv Soln IV 05/01/20 19:08 Infused CONTINUOUS PRN Infusion THIS MED IS NOT "PRN" Albumin Human 12.5 gm in 50 mls @ 50 mls/hr 04/02/20 21:00 04/03/20 01:45 Albuminar-25 Rtu Inj 12.5 Gm/50 Ml Premix IV 04/03/20 00:59 Infused Q1H PATRICIA Infusion Sodium Chloride 1,000 mls @ 150 mls/hr 04/02/20 21:01 04/03/20 04:00 Nacl 0.9% 1000 Ml Iv Soln IV 05/02/20 21:00 Infused CONTINUOUS PRN Infusion THIS MED IS NOT "PRN" Albumin Human Confirm 04/02/20 21:13 04/02/20 21:20 Albuminar-25 Rtu Inj 12.5 Gm/50 Ml Premix Administered 04/02/20 21:14 Not Given Dose 50.0 gm in 200 mls @ ud IV .STK-MED ONE Sodium Chloride 1,000 mls @ 100 mls/hr 04/03/20 05:56 Nacl 0.9% 1000 Ml Iv Soln IV 05/03/20 05:55 CONTINUOUS PRN THIS MED IS NOT "PRN" Insulin Human Regular 0 - 15 unit 03/25/20 23:03 03/27/20 09:04 Humulin R (Pyxis) Insulin 100 Unit/Ml 3ml SUBCUT 04/24/20 23:02 Not Given ACHS PATRICIA Protocol Lorazepam 1 mg 03/25/20 23:03 Ativan Inj 2 Mg/1 Ml Vial IV 04/01/20 23:02 Q4HP PRN ANXIETY/AGITATION Lorazepam Confirm 03/31/20 03:47 03/31/20 03:53 Ativan Inj 2 Mg/1 Ml Vial Administered 03/31/20 03:48 Not Given Dose 2 mg .ROUTE .STK-MED ONE Lorazepam 1 mg 03/31/20 04:00 03/31/20 03:52 Ativan Inj 2 Mg/1 Ml Vial IV 03/31/20 04:01 1 mg NOW ONE Administration Losartan Potassium 50 mg 03/26/20 10:00 Cozaar 50 Mg Tablet PO 04/25/20 09:59 Q12 PATRICIA Losartan Potassium 50 mg 03/26/20 04:30 03/27/20 09:37 Cozaar 50 Mg Tablet PO 04/25/20 04:29 50 mg Q12 PATRICIA Administration Metoclopramide HCl 5 mg 03/26/20 08:00 03/29/20 11:50 Reglan 10 Mg Tablet PO 04/25/20 07:59 5 mg ACHS PATRICIA Administration Metoclopramide HCl 10 mg 04/01/20 17:30 04/01/20 17:31 Reglan Inj/Pf 10 Mg/2 Ml Sdv IV 04/01/20 17:31 10 mg NOW ONE Administration Metoclopramide HCl Confirm 04/01/20 17:28 04/01/20 17:46 Reglan Inj/Pf 10 Mg/2 Ml Sdv Administered 04/01/20 17:29 Not Given Dose 10 mg .ROUTE .STK-MED ONE Metoprolol Succinate 100 mg 03/26/20 10:00 Toprol Xl 50 Mg Tab.Sr PO 04/25/20 09:59 Q12 PATRICIA Metoprolol Tartrate 5 mg 03/25/20 23:07 Lopressor Inj/Pf 5 Mg/5 Ml Sdv IV 04/24/20 23:06 Q4HP PRN Give For Sbp > 160 / Dbp > 100 Midazolam HCl Confirm 03/31/20 08:31 03/31/20 11:04 Versed 2 Mg/2 Ml Inj Administered 03/31/20 08:32 Not Given Dose 2 mg .ROUTE .STK-MED ONE Morphine Sulfate Confirm 04/01/20 18:16 04/01/20 18:22 Morphine 10 Mg/Ml Inj Administered 04/01/20 18:17 2 mg Dose Administration 10 mg .ROUTE .STK-MED ONE Nitroglycerin 1 gm 03/26/20 03:34 03/26/20 04:52 Nitrol 2% Ointment 1gm Packet TP 04/25/20 03:33 Not Given Q6 PATRICIA Nitroglycerin 1 gm 03/26/20 04:30 Nitrol 2% Ointment 1gm Packet TP 04/25/20 04:29 Q6 PATRICIA Nitroglycerin 1 gm 03/26/20 04:30 03/27/20 06:35 Nitrol 2% Ointment 1gm Packet TP 04/25/20 04:29 Not Given Q6 PATRICIA Nitroglycerin 0.5 gm 03/31/20 03:46 03/31/20 03:53 Nitrol 2% Ointment 1gm Packet TP 03/31/20 03:47 0.5 gm NOW ONE Administration Nitroglycerin Confirm 03/31/20 03:55 03/31/20 04:15 Nitrol 2% Ointment 1gm Packet Administered 03/31/20 03:56 Not Given Dose 1 gm .ROUTE .STK-MED ONE Pantoprazole Sodium 40 mg 03/29/20 22:00 04/01/20 10:48 Protonix Iv Inj 40 Mg Vial IV 04/01/20 21:59 40 mg Q12 PATRICIA Administration Polyethylene Glycol 17 gm 03/30/20 11:30 03/30/20 15:28 Miralax Powder 17 Gm/Packet PO 03/30/20 14:01 Not Given Q2 PATRICIA Polyethylene Glycol/Electrolytes 4,000 ml 03/28/20 17:30 03/28/20 22:57 Golytely Solution 4000 Ml PO 03/28/20 17:31 Not Given ONCE ONE Potassium Chloride 40 meq 03/28/20 08:17 03/28/20 09:17 Klor-Con 10 Meq Tablet Er PO 03/28/20 08:18 40 meq NOW ONE Administration Potassium Chloride 20 meq 03/28/20 14:00 03/28/20 14:19 Klor-Con 10 Meq Tablet Er PO 03/28/20 14:01 20 meq TAM@1400 ONE Administration Potassium Chloride 20 meq 03/31/20 13:00 03/31/20 14:00 Klor-Con 10 Meq Tablet Er PO 03/31/20 13:01 20 meq NOW ONE Administration Potassium Chloride 20 meq 04/01/20 10:00 04/01/20 10:52 Potassium Chloride 20 Meq Packet PO 05/01/20 09:59 Not Given DAILY PATRICIA Propofol Confirm 03/30/20 15:00 Diprivan Inj 200 Mg/20 Ml Vial Administered 03/30/20 15:01 Dose 200 mg IV .STK-MED ONE Sodium Bicarbonate 1,300 mg 03/26/20 09:00 03/27/20 09:37 Sodium Bicarbonate 650 Mg Tablet PO 04/25/20 08:59 1,300 mg HS PATRICIA Administration Sodium Bicarbonate 2,600 mg 03/25/20 23:05 03/26/20 01:29 Sodium Bicarbonate 650 Mg Tablet PO 03/25/20 23:06 2,600 mg NOW ONE Administration Sodium Bicarbonate 2,600 mg 03/26/20 01:30 03/26/20 01:48 Sodium Bicarbonate 650 Mg Tablet PO 03/26/20 01:31 Not Given NOW ONE Assessment & Plan - Diagnosis (1) Atrial fibrillation Qualifiers: Atrial fibrillation type: paroxysmal Qualified Code(s): I48.0 - Paroxysmal atrial fibrillation Is this a current diagnosis for this admission?: Yes Plan: Likely secondary to her other medical problems. She is essentially asymptomatic and without palpitations this morning. Her telemetry did not show any sustained ventricular dysrhythmias. Unfortunately she cannot be anticoagulated at this point given her bleeding issues. Recommendations: -Continue with current medical management. -We will continue to follow-up with you. (2) Anasarca Plan: Multifactorial in etiology. The patient does not appear to have acute heart failure at this time. Recommendations: -We will defer further management to primary team. (3) Acute blood loss anemia Is this a current diagnosis for this admission?: Yes Plan: Her hemoglobin is slightly down from the prior CBC. She denied bright red blood per rectum, black/tarry stools as well as red/tea colored urine as of this morning. Recommendations: -Further management per primary team. (4) Closed hematoma of left kidney Qualifiers: Encounter type: initial encounter Qualified Code(s): S37.012A - Minor contusion of left kidney, initial encounter Is this a current diagnosis for this admission?: Yes Plan: I will defer further management to primary team.
[2020-04-03 11:22] LABS: ARTERIAL BLOOD BASE EXCESS -6.8 mmol/L; ARTERIAL BLOOD H2CO3 0.95 mmol/L (1.05-1.35); ARTERIAL BLOOD HCO3 17.7 mmol/L (20-24); ARTERIAL BLOOD O2 SATURATION 90.6 % (94-98); ARTERIAL BLOOD PCO2 31.5 mmHg (35-45); ARTERIAL BLOOD PH 7.37 (7.35-7.45); ARTERIAL BLOOD TOTAL CO2 18.6 mmol/L (21-25)
[2020-04-03 11:24] LABS: ARTERIAL BLOOD FIO2 21%
[2020-04-03 12:47] LABS: D-DIMER 2.47 ug/mL (0.00-0.50)
--- NOTE | 2020-04-03 12:53 | PDOC PROGRESS REPORT ---
Subjective Progress Note for:: 04/03/20 Reason For Visit: Patient seen today. She is status post CT-guided renal biopsy of her left kidney on Friday the . Apparently the procedure was uneventful, however she dropped her hemoglobin the next day from a prebiopsy hemoglobin of 9.1-5.1. A CT scan done the next day she shows that she has a maury-nephric hematoma on the left kidney. The size has not been described. She has required transfusions on the and and today's hemoglobin is 8.0. At the same time I note that her white count was 5.5 pre biopsy and today is 11.2 and it peaked at 16 on the . Her platelets were 176 prebiopsy and today its 81. Patient looks comfortable though she complains of mild shortness of breath with some exertion. She denies any history of chest pain, fever chills or rigors. She denies any abdominal pains. She denies any hematuria. Labs and medications were reviewed. Discussions were done with Dr. Holley/hospitalist covering her today. Physical Exam Vital Signs: Temp Pulse Resp BP Pulse Ox 97.5 F 65 12 154/44 H 96 04/03/20 07:44 04/03/20 07:44 04/03/20 07:44 04/03/20 07:44 04/03/20 07:44 Intake & Output 04/02/20 04/03/20 04/04/20 06:59 06:59 06:59 Intake Total 20248 Output Total 100 Balance 20048 Weight 74.2 kg 76.2 kg General appearance: PRESENT: no acute distress Respiratory exam: PRESENT: clear to auscultation star, decreased breath sounds. ABSENT: crackles Cardiovascular exam: PRESENT: +S1, +S2 GI/Abdominal exam: PRESENT: soft. ABSENT: firm, guarding, normal bowel sounds, organomegaly, tenderness - Mainly in the left upper quadrant Extremities exam: PRESENT: pedal edema Neurological exam: PRESENT: alert, awake, oriented to person. ABSENT: oriented to place, oriented to time Psychiatric exam: PRESENT: agitated Skin exam: ABSENT: cyanosis, erythema, mottled, rash Results Laboratory Results: 04/03/20 09:07 04/03/20 05:09 05/10/20 05/10/20 05/11/20 11:47 15:55 05:09 WBC 16.4 H RBC 3.07 L Hgb 9.3 L D Hct 25.8 L MCV 84 MCH 30.2 MCHC 36.0 RDW 14.4 H Plt Count 86 L Seg Neutrophils % Carbonic Acid HCO3/H2CO3 Ratio ABG pH ABG pCO2 ABG pO2 ABG HCO3 ABG O2 Saturation ABG Base Excess FiO2 Sodium 128.6 L 131.1 L Potassium 4.2 4.3 Chloride 102 104 Carbon Dioxide 17 L 16 L Anion Gap 10 11 BUN 40 H 46 H Creatinine 2.55 H 2.88 H Est GFR ( Amer) 22 L 19 L Glucose 125 H 96 Calcium 7.8 L 8.0 L 04/03/20 04/03/20 04/03/20 05:09 09:07 11:00 WBC Cancelled 11.2 H RBC Cancelled 2.60 L Hgb Cancelled 8.0 L Hct Cancelled 22.4 L MCV Cancelled 86 MCH Cancelled 30.8 MCHC Cancelled 35.7 RDW Cancelled 15.3 H Plt Count Cancelled 81 L Seg Neutrophils % Cancelled Not Reportable Carbonic Acid 0.95 L HCO3/H2CO3 Ratio 18:1 ABG pH 7.37 ABG pCO2 31.5 L ABG pO2 60.0 L ABG HCO3 17.7 L ABG O2 Saturation 90.6 L ABG Base Excess -6.8 FiO2 21% Sodium Potassium Chloride Carbon Dioxide Anion Gap BUN Creatinine Est GFR ( Amer) Glucose Calcium 03/25/20 03/25/20 03/25/20 19:50 19:50 20:41 Creatine Kinase CK-MB (CK-2) Troponin I Cancelled 0.015 NT-Pro-B Natriuret Pep Cancelled 58161 H 03/26/20 03/26/20 03/26/20 02:54 02:54 08:17 Creatine Kinase 115 144 H CK-MB (CK-2) 2.08 Troponin I 0.023 NT-Pro-B Natriuret Pep 03/26/20 03/26/20 03/26/20 08:17 14:07 14:07 Creatine Kinase 134 CK-MB (CK-2) 1.92 1.83 Troponin I 0.028 0.022 NT-Pro-B Natriuret Pep Impressions: Acute Abdomen Series 03/25/20 20:05 IMPRESSION: Patchy density in the right lung base new when compared to the previous study. Findings may reflect atelectasis versus developing infiltrate Cardiac enlargement KUB X-Ray 03/27/20 00:00 IMPRESSION: Nonspecific nonobstructive bowel gas pattern. Guidance Needle Placement CT 03/31/20 00:00 IMPRESSION: Please see combined report for performance of procedure and radi ologic supervision and interpretation. Renal Biopsy CT 03/31/20 08:00 IMPRESSION: CT GUIDED LEFT KIDNEY CORTICAL BIOPSY. Abdomen/Pelvis CT 04/01/20 00:00 IMPRESSION: 1. Contained hematoma left kidney status post recent biopsy. 2. Dilated duodenum with transition at the duodenum jejunal junction status post partial small bowel and sigmoid resection. 3. Right upper quadrant hernia containing nondilated colon. Chest X-Ray 04/03/20 00:00 IMPRESSION: Cardiomegaly and asymmetric bibasilar opacities that on the left could represent a combination of pleural fluid, atelectasis and/or consolidation. Assessment & Plan - Diagnosis (1) Proteinuria Qualifiers: Proteinuria type: unspecified Qualified Code(s): R80.9 - Proteinuria, unspecified Is this a current diagnosis for this admission?: Yes Plan: Nephrotic. Status post renal biopsy. However unfortunately she has had a complicated procedure with resulting perinephric hematoma of the left kidney. Serologies so far returned negative. Renal pathology still pending. Unfortunately we see her drop hemoglobin/platelets along with rising WBCs. Concern for DIC. Discussed with Dr. Holley/hospitalist who is aware of the situation and has ordered appropriate labs including DIC panel and also has ordered a CT scan of her kidneys to assess the hematoma size.If hematoma is worsening, along with the possibility of DIC she would be at high risk of getting into more complications and need for transfer to tertiary care center for possible need of arterial embolization/even nephrectomy if things got worse. I would recommend to get blood cultures and start on antibiotics meanwhile. C hest x-ray done also shows possibility of consolidation which is another insult which should also be covered by the antibiotics.Patient is critical and one should have a low threshold for her to be transferred to a tertiary care center. (2) Closed hematoma of left kidney Qualifiers: Encounter type: initial encounter Qualified Code(s): S37.012A - Minor contusion of left kidney, initial encounter Is this a current diagnosis for this admission?: Yes Plan: She is in the process of having a CT scan repeated to assess if any enlargement of hematoma has happened since last CT scan done on the ninth. I also ordered a urine analysis now to see if she is showing any hematuria. If there is active hematuria as well as any increase in size with a perinephric hematoma and also considering the possibility that she might be entering a DIC phase, she would need to be transferred to tertiary care center for further evaluation and management . (3) Acute blood loss anemia Is this a current diagnosis for this admission?: Yes Plan: Critical. Has been daily transfused. I will also order DDAVP . Discussed with Dr. Holley/hospitalist. (4) Chronic diarrhea Is this a current diagnosis for this admission?: Yes Plan: As per hospitalist. (5) Chronic kidney disease, stage 3 (moderate) Is this a current diagnosis for this admission?: Yes Plan: With acute worsening status post renal biopsy. Her pre-biopsy creatinine was 1.4 and today is 2.8. Multifactorial. Monitor carefully for DIC and hemolysis. Start antibiotics.Follow-up on CT scan of the kidneys. Other plans as outlined earlier. (6) Hypertensive emergency Is this a current diagnosis for this admission?: Yes Plan: Resolved. It is also good to see that she has never been hemodynamically unstable following the perinephric hematoma after the renal biopsy.However one needs to be aware of the potential complications of her current situation and blood pressure and hemodynamics need to be closely monitored. (7) Hyponatremia Is this a current diagnosis for this admission?: Yes Plan: Stable with today's sodium at 131.
[2020-04-03] MEDS ORDERED: DESMOPRESSIN ACETATE 20 MCG in NORMAL SALINE 50 ML IV ONE (13:30)
--- NOTE | 2020-04-03 15:01 | PDOC PROGRESS REPORT ---
Subjective Progress Note for:: 04/03/20 Subjective:: No adverse events overnight. Vital signs been stable. Urine output has been minimal. Her creatinine went up a little again today. Her platelets have been stable. Her hemoglobin was down a point from yesterday but she is been on continuous fluids overnight. She is awake and looks fatigued, but she says that overall she feels okay, just tired. She is not complaining of any abdominal pain. Breathing has been comfortable. There has been no visual evidence of any external bleeding. No rashes. Interestingly, her edema does not appear to have gotten any worse. Reason For Visit: ANASARCA,UPPER ABDOMINAL PAIN,MALIGNANT Physical Exam Vital Signs: Temp Pulse Resp BP Pulse Ox 97.7 F 66 12 171/56 H 94 04/03/20 11:28 04/03/20 11:28 04/03/20 11:28 04/03/20 11:28 04/03/20 11:28 Intake & Output 04/02/20 04/03/20 04/04/20 06:59 06:59 06:59 Intake Total 2024 2507 Output Total Balance 2004 2407 Weight 74.2 kg 76.2 kg General appearance: PRESENT: no acute distress, well-developed, pale, cant ankerous Respiratory exam: PRESENT: clear to auscultation star, symmetrical, unlabored. ABSENT: rales, rhonchi, wheezes Cardiovascular exam: PRESENT: RRR. ABSENT: diastolic murmur, rubs, systolic murmur Abdomen: Soft mass upper abdomen right of midline, no tenderness to palpation, body wall edema Pulses: PRESENT: normal dorsalis pedis pul Vascular exam: PRESENT: normal capillary refill Extremities exam: PRESENT: full ROM, +1 edema - BLE; improved. ABSENT: calf tenderness, clubbing, pedal edema Neurological exam: PRESENT: Drowsy but arousable, oriented to person, oriented to situation ABSENT: motor sensory deficit Psychiatric exam: PRESENT: appropriate affect, normal mood Skin exam: PRESENT: dry, intact, warm. ABSENT: cyanosis, rash Results Laboratory Results: 04/03/20 09:07 04/03/20 05:09 04/02/20 04/03/20 04/03/20 15:55 05:09 05:09 WBC Cancelled RBC Cancelled Hgb Cancelled Hct Cancelled MCV Cancelled MCH Cancelled MCHC Cancelled RDW Cancelled Plt Count Cancelled Seg Neutrophils % Cancelled Carbonic Acid HCO3/H2CO3 Ratio ABG pH ABG pCO2 ABG pO2 ABG HCO3 ABG O2 Saturation ABG Base Excess FiO2 Sodium 128.6 L 131.1 L Potassium 4.2 4.3 Chloride 102 104 Carbon Dioxide 17 L 16 L Anion Gap 10 11 BUN 40 H 46 H Creatinine 2.55 H 2.88 H Est GFR ( Amer) 22 L 19 L Glucose 125 H 96 Calcium 7.8 L 8.0 L 04/03/20 04/03/20 09:07 11:00 WBC 11.2 H RBC 2.60 L Hgb 8.0 L Hct 22.4 L MCV 86 MCH 30.8 MCHC 35.7 RDW 15.3 H Plt Count 81 L Seg Neutrophils % Not Reportable Carbonic Acid 0.95 L HCO3/H2CO3 Ratio 18:1 ABG pH 7.37 ABG pCO2 31.5 L ABG pO2 60.0 L ABG HCO3 17.7 L ABG O2 Saturation 90.6 L ABG Base Excess -6.8 FiO2 21% Sodium Potassium Chloride Carbon Dioxide Anion Gap BUN Creatinine Est GFR ( Amer) Glucose Calcium 03/25/20 03/25/20 03/25/20 19:50 19:50 20:41 Creatine Kinase CK-MB (CK-2) Troponin I Cancelled 0.015 NT-Pro-B Natriuret Pep Cancelled 28652 H 03/26/20 03/26/20 03/26/20 02:54 02:54 08:17 Creatine Kinase 115 144 H CK-MB (CK-2) 2.08 Troponin I 0.023 NT-Pro-B Natriuret Pep 03/26/20 03/26/20 03/26/20 08:17 14:07 14:07 Creatine Kinase 134 CK-MB (CK-2) 1.92 1.83 Troponin I 0.028 0.022 NT-Pro-B Natriuret Pep Impressions: Acute Abdomen Series 03/25/20 20:05 IMPRESSION: Patchy density in the right lung base new when compared to the previous study. Findings may reflect atelectasis versus developing infiltrate Cardiac enlargement KUB X-Ray 03/27/20 00:00 IMPRESSION: Nonspecific nonobstructive bowel gas pattern. Guidance Needle Placement CT 03/31/20 00:00 IMPRESSION: Please see combined report for performance of procedure and radiologic supervision and interpretation. Renal Biopsy CT 03/31/20 08:00 IMPRESSION: CT GUIDED LEFT KIDNEY CORTICAL BIOPSY. Abdomen/Pelvis CT 04/01/20 00:00 IMPRESSION: 1. Contained hematoma left kidney status post recent biopsy. 2. Dilated duodenum with transition at the duodenum jejunal junction status post partial small bowel and sigmoid resection. 3. Right upper quadrant hernia containing nondilated colon. Chest X-Ray 04/03/20 00:00 IMPRESSION: Cardiomegaly and asymmetric bibasilar opacities that on the left could represent a combination of pleural fluid, atelectasis and/or consol idation. Assessment and Plan - Diagnosis (1) Closed hematoma of left kidney Qualifiers: Encounter type: initial encounter Qualified Code(s): S37.012A - Minor contusion of left kidney, initial encounter Is this a current diagnosis for this admission?: Yes Plan: I have ordered a repeat CT scan today to see if the size of the hematoma has changed. I will call and speak with the urologist once I have this information, to see if there is any recommendation that could help her from a surgical standpoint. (2) Acute blood loss anemia Is this a current diagnosis for this admission?: Yes Plan: Her hemoglobin seems relatively stable at this time. She had to get 2 units and 2 consecutive days. Her hemoglobin was down a little bit today, but I suspect some of this is from hemodilution. Her platelets are stable from yesterday. There has been mention of some concern that this might be DIC. I do not believe this to be the case, and there are multiple reasons why. First, she has a good explanation for why her hemoglobin is down, and she has had no signs of any external bleeding. Second, her platelets are low, but they have stabilized, and you can see a drop in platelets with blood volume loss combined with administration of IV fluids. Third, her coagulation studies are not that much different from when she was admitted 9 days ago. Her PT is up from 15-17, and her PTT is up from 37-39. Fourth, her fibrinogen is well within the normal range at 338. Her d-dimer is elevated, but with her level of renal failure this is to be expected, and with the bleeding she has had we would expect it to be a little elevated, which it is. Fifth, her LDH is normal, which argues against microangiopathic hemolysis that one typically sees with DIC. We will of course be monitoring her closely for development of this process, but at this time I do not think that is what is going on, for the reasons noted above. (3) Anasarca Is this a current diagnosis for this admission?: Yes Plan: Slight improvement. Patient's anasarca is likely due to her kidney disease. ABD U/S shows coarse heterogeneous liver appearance; likely underlying liver disease. LFTs unremarkable Hep B negative. Hep C negative. Cardiology and Nephrology services are consulted. Echo pending per cardiology. Did discuss with Dr. Strickland; unlikely due to CHF alone, though expects some underlying diastolic dysfunction. Nephrology evaluating for nephrotic syndome, which her 24-hour urine would suggest. S/p kidney biopsy IV fluids and IV bumetanide per Dr. Mac, bumetanide on hold due to renal failure. drop forge hand is consulted. (4) Atrial fibrillation Qualifiers: Atrial fibrillation type: paroxysmal Qualified Code(s): I48.0 - Paroxysmal atrial fibrillation Is this a current diagnosis for this admission?: Yes Plan: Patient converted into atrial fibrillation overnight on telemetry. Confirmed by EKG. Unknown history of the same; patient not able to elaborate. She is already on metoprolol 100 mg twice daily. diltiazem 30 mg every 8 hours. Not a candidate for anticoagulation or aspirin therapy at this time due to recent renal hematoma and GI bleed. (5) CHF exacerbation Qualifiers: Heart failure type: unspecified Qualified Code(s): I50.9 - Heart failure, unspecified Is this a current diagnosis for this admission?: Yes Plan: Anasarca actually not thought to be due to a CHF exacerbation at this time, echocardiogram pending, cardiology consulted (6) Chronic kidney disease, stage 3 (moderate) Is this a current diagnosis for this admission?: Yes Plan: Received records from [facility]. Patient's GFR was between 30 and 45 as well. She has a lot of protein in her urine. S/p renal biopsy Nephrology has been consulted; primary management per their expertise. (7) Diabetes mellitus type 2 in nonobese Is this a current diagnosis for this admission?: Yes Plan: Continue sliding scale and diabetic diet (8) [id number] kidney injury Qualifiers: Acute renal failure type: with other specified pathological lesion Chronic kidney disease stage: stage 3 (moderate) Qualified Code(s): N17.8 - Other acute kidney failure; N18.3 - Chronic kidney disease, stage 3 (moderate) Is this a current diagnosis for this admission?: Yes Plan: Creatinine has gotten worse since the formation of a hematoma. Creatinine went up fairly quickly, up to 2.88 today. She is on IV fluids and getting repeat transfusions as needed, monitoring urine output. Am repeating the CT of the abdomen and pelvis to assess for interval change in the size of the renal hematoma. Once I have that information, I will contact the urologist to discuss the case and see if there is any role for surgical intervention here. My concern is that on the original CT the right kidney looks very atrophic, and I believe the left kidney was probably the better of the 2, and now it is compromised by a large subcapsular hematoma putting mass-effect onto the renal parenchyma, and I would like to see if there is something that can be done to salvage this kidney. With her decreased urine output, she may need dialysis. - Time Time Spent with patient: 25-34 minutes
--- NOTE | 2020-04-03 15:44 | RADIOLOGY REPORT (SQ) ---
EXAM DESCRIPTION: CT ABD/PELVIS NO ORAL OR IV IMAGES COMPLETED DATE/TIME: 04/03/2020 2:58 pm REASON FOR STUDY: left renal hematoma, measure compare to prior COMPARISON: None. TECHNIQUE: CT scan of the abdomen and pelvis performed without intravenous or oral contrast. Images reviewed with lung, soft tissue, and bone windows. Reconstructed coronal and sagittal MPR images revi ewed. All images stored on PACS. All CT scanners at this facility use dose modulation, iterative reconstruction, and/or weight based d osing when appropriate to reduce radiation dose to as low as reasonably achievable (ALARA). [facility]: Dose Right [facility]: CareDose [facility]: Dose Right [facility]: Teradose 4D [facility]: Smart [employer] RADIATION DOSE: CT Rad equipment meets quality standard of care and radiation dose reduction techniq ues were employed. CTDIvol: 10.1 mGy. DLP: 503 mGy-cm. LIMITATIONS: None. FINDINGS: LOWER CHEST: Cardiomegaly and atherosclerotic calcification of the coronary arteries. The re is no pericardial effusion. There are moderate bilateral pleural effusions associated with partial collapse of the left lower lob e and with areas of subsegmental atelectasis in the left lower lobe. The patchy ground-glass opaciti es in the right middle lobe are acute (compared to the 04/01/2020 CT) and nonspecific. NON-CONTRASTED LIVER, SPLEEN, ADRENALS: Evaluation is limited due to the absence of intravenous contr ast. There is no CT evidence of hepatic steatosis. The spleen is normal in size. There is no focal adrenal mass or asymmetry. PANCREAS: No acute gross abnormality of the pancreas. GALLBLADDER: Surgically absent. RIGHT KIDNEY AND URETER: Evaluation is limited due to the absence of intravenous contrast. There is no hydronephrosis, nephrolithiasis, hydroureter or ureterolithiasis. LEFT KIDNEY AND URETER: Evaluation is limited due to the absence of intravenous contrast. There is r e- demonstration of a perinephric hematoma that is unchanged in size compared to 04/01/2020. There is no hydronephrosis, nephrolithiasis, hydroureter or ureterolithiasis. AORTA AND RETROPERITONEUM: Unchanged left-sided retroperitoneal hematoma. BOWEL AND PERITONEAL CAVITY: No bowel obstruction, bowel wall thickening or pericolonic/ perienteric inflammation. There is diffuse stranding of the mesenteric and omental fat without ascites or free i ntraperitoneal gas. APPENDIX: Unable to identify the appendix. PELVIS, BLADDER, AND ABDOMINAL WALL:Diffuse anasarca and right paramedian ventral hernia. There is a Tiwari catheter within the urinary bladder. There is no abnormality of the adnexa that is apparent o n CT. BONES: Compression fracture of the superior endplate of the L1 vertebral body. OTHER: No other finding. IMPRESSION: 1. Bilateral pleural effusions and increased collapse / atelectasis of the left lower l obe. The alveolar ground-glass opacities in the right middle lobe are nonspecific and could represen t an infection or early edema. 2. Unchanged left perinephric and retroperitoneal hematomas. 3. Other findings as detailed above. COMMENT: Quality ID # [id number]: Final reports with documentation of one or more dose reduction techniques (e.g., Automated exposure control, adjustment of the mA and/or kV according to patient size, use of iterative reconstruction technique) TECHNICAL DOCUMENTATION: JOB ID: [id number] 2010 [employer]- All Rights Reserved Reading location - IP/workstation name: [email or web address]
[2020-04-03] MEDS: IPRATROPIUM/ALBUTEROL 0.5-2.5 MG/3 ML AMPUL NEB PRN ×2 (15:48→21:26)
[2020-04-03 16:41] LABS: HEMATOCRIT 24.7 % (36.0-47.0); HEMOGLOBIN 8.8 g/dL (12.0-15.5); MEAN CORPUSCULAR HEMOGLOBIN 30.3 pg (27.0-33.4); MEAN CORPUSCULAR HGB CONC 35.4 g/dL (32.0-36.0); MEAN CORPUSCULAR VOLUME 86 fl (80-97); RED BLOOD COUNT 2.89 10^6/uL (3.72-5.28); RED CELL DISTRIBUTION WIDTH 15.2 % (11.5-14.0); WHITE BLOOD COUNT 12.4 10^3/uL (4.0-10.5)
[2020-04-03 16:56] LABS: ANION GAP 11 (5-19); BLOOD UREA NITROGEN 47 mg/dL (7-20); CARBON DIOXIDE 17 mmol/L (22-30); CHLORIDE 102 mmol/L (98-107); GLUCOSE 192 mg/dL (75-110); PLATELET COUNT 89 10^3/uL (150-450); POTASSIUM 4.2 mmol/L (3.6-5.0)
[2020-04-03] MEDS: HYDRALAZINE HCL INJ/PF 20 MG/1 ML SDV IV PRN (20:01)
[2020-04-03] MEDS: ONDANSETRON HCL INJ/PF 4 MG/2 ML SDV IV PRN (20:56)
[2020-04-03] MEDS ORDERED: NITROGLYCERIN 5 MG (0.2 MG/HR) PATCH.TD24 TD ONE (21:00)
[2020-04-03] MEDS ORDERED: BENZOCAINE/MENTHOL SORE THROAT LOZENGE BUCCAL PRN (21:05)
[2020-04-03] MEDS: MELATONIN 3 MG TABLET PO SCH (21:45)
[2020-04-04] MEDS: IPRATROPIUM/ALBUTEROL 0.5-2.5 MG/3 ML AMPUL NEB PRN ×2 (04:41→19:58)
[2020-04-04] MEDS: HEPARIN SOD (PORCINE) 5,000 UNIT/ML 1 ML VIAL SUBCUT SCH ×3 (06:08→22:00)
[2020-04-04] MEDS: LEVOTHYROXINE SODIUM 0.025 MG TABLET PO SCH (06:24)
[2020-04-04] MEDS: METOPROLOL SUCCINATE 50 MG TAB.SR.24H PO SCH ×2 (06:24→18:21)
[2020-04-04] MEDS: DILTIAZEM HCL 30 MG TABLET PO SCH ×3 (06:24→21:28)
[2020-04-04 07:22] LABS: ANION GAP 11 (5-19); BLOOD UREA NITROGEN 50 mg/dL (7-20); CARBON DIOXIDE 17 mmol/L (22-30); CHLORIDE 101 mmol/L (98-107); GLUCOSE 131 mg/dL (75-110); POTASSIUM 4.2 mmol/L (3.6-5.0)
[2020-04-04] MEDS: SUCRALFATE 1 GM TABLET PO SCH ×4 (08:00→21:28)
[2020-04-04] MEDS: CALCIUM CARBONATE 600 MG TABLET PO SCH ×2 (08:00→18:18)
--- NOTE | 2020-04-04 09:33 | PDOC PROGRESS REPORT ---
Subjective Progress Note for:: 04/04/20 Subjective:: 74-year-old female with multiple medical problems who was admitted on 03/25/2020 with anasarca and who had been followed by Dr. Strickland for possible heart failure. For details of this admission and cardiology follow-up please see Dr. Strickland's notes. In summary, the patient presented slightly obtunded and with anasarca. She eventually developed new onset atrial fibrillation with RVR and was consulted to cardiology. During this hospitalization she also developed melena as well as a perinephric hematoma status post renal biopsy. Today she is at her baseline and this morning complains of slightly increase in her shortness of breath. Her hemoglobin dropped again as of this morning. Her telemetry demonstrates atrial fibrillation with no sustained ventricular dysrhythmias. 04/04/2020: The patient underwent abdominal pelvic CT scan yesterday demonstrating stability of the perinephric hematoma as well as of the retroperitoneal hematoma. Unfortunately she was found to have moderate pleural effusions with partial collapse of the left lower lobe and alveolar groundglass appearance of the right middle lobe consistent with infection versus early edema. Her hemoglobin continues to drop and is now down to 8.8, her platelets are also low at 89,000 with an increased in her creatinine from 1.98 on admission to 3.09. Her blood pressure continues to be above goal and her fluid balance since admission is +4771 cc. This morning she complains of shortness of breath as well as overall feeling poorly. Her telemetry shows significant artifact as well as atrial fibrillation with heart rates between 60 and 80 bpm. Physical exam on 04/04/2020: GENERAL: Pleasant. She is dyspneic with regular conversation. Oriented x3 with normal mood. Disheveled. HEENT: Normocephalic, atraumatic. Pupils equal. Sclerae anicteric. Oropharynx moist. NECK: No JVD. No carotid bruits. LUNGS: Inspiratory and expiratory crackles in all walters as well as wheezing. CARDIOVASCULAR: Irregularly irregular rate and rhythm, normal S1 and S2 without murmurs, rubs, or gallops. PMI not displaced. EXTREMITIES: 2+ pitting edema bilaterally, no cyanosis, no clubbing. +2 pulses femoral and pedal pulses bilaterally. MUSCULOSKELETAL: No chest tenderness to palpation. NEUROLOGIC: Nonfocal. No gross sensory or motor deficits bilateral upper or lower extremities. Cardiac studies: Echocardiogram on 03/07/2020: -LV systolic function is normal. -EF 60 to 65%. -Moderate concentric LVH. -Grade 1 diastolic dysfunction. -Suspected pulmonary hypertension. -Small pericardial effusion. No evidence of cardiac tamponade. -Pleural effusion is present. Lexiscan MPS on 11/14/2014: -No ischemia or infarct. -Normal ejection fraction. Reason For Visit: ANASARCA,UPPER ABDOMINAL PAIN,MALIGNANT Physical Exam Vital Signs: Temp Pulse Resp BP Pulse Ox 98.1 F 71 18 152/66 H 94 04/04/20 03:09 04/04/20 04:41 04/04/20 04:41 04/04/20 03:09 04/04/20 04:41 Intake & Output 04/02/20 04/03/20 04/04/20 06:59 06:59 06:59 Intake Total 2024 2508 165 Output Total 100 85 Balance 2004 2408 80 Weight 74.2 kg 76.2 kg Results Laboratory Results: 04/03/20 16:15 04/03/20 16:15 04/03/20 04/03/20 04/03/20 05:09 05:09 09:07 WBC Cancelled 11.2 H RBC Cancelled 2.60 L Hgb Cancelled 8.0 L Hct Cancelled 22.4 L MCV Cancelled 86 MCH Cancelled 30.8 MCHC Cancelled 35.7 RDW Cancelled 15.3 H Plt Count Cancelled 81 L Seg Neutrophils % Cancelled Not Reportable Carbonic Acid HCO3/H2CO3 Ratio ABG pH ABG pCO2 ABG pO2 ABG HCO3 ABG O2 Saturation ABG Base Excess FiO2 Sodium 131.1 L Potassium 4.3 Chloride 104 Carbon Dioxide 16 L Anion Gap 11 BUN 46 H Creatinine 2.88 H Est GFR ( Amer) 19 L Glucose 96 Calcium 8.0 L 04/03/20 04/03/20 04/03/20 11:00 16:15 16:15 WBC 12.4 H RBC 2.89 L Hgb 8.8 L Hct 24.7 L MCV 86 MCH 30.3 MCHC 35.4 RDW 15.2 H Plt Count 89 L Seg Neutrophils % Carbonic Acid 0.95 L HCO3/H2CO3 Ratio 18:1 ABG pH 7.37 ABG pCO2 31.5 L ABG pO2 60.0 L ABG HCO3 17.7 L ABG O2 Saturation 90.6 L ABG Base Excess -6.8 FiO2 21% Sodium 130.3 L Potassium 4.2 Chloride 102 Carbon Dioxide 17 L Anion Gap 11 BUN 47 H Creatinine 3.09 H Est GFR ( Amer) 18 L Glucose 192 H Calcium 8.0 L 03/25/20 03/25/20 03/25/20 19:50 19:50 20:41 Creatine Kinase CK-MB (CK-2) Troponin I Cancelled 0.015 NT-Pro-B Natriuret Pep Cancelled [id number] H 03/26/20 03/26/20 03/26/20 02:54 02:54 08:17 Creatine Kinase 115 144 H CK-MB (CK-2) 2.08 Troponin I 0.023 NT-Pro-B Natriuret Pep 03/26/20 03/26/20 03/26/20 08:17 14:07 14:07 Creatine Kinase 134 CK-MB (CK-2) 1.92 1.83 Troponin I 0.028 0.022 NT-Pro-B Natriuret Pep Impressions: Acute Abdomen Series 03/25/20 20:05 IMPRESSION: Patchy density in the right lung base new when compared to the previous study. Findings may reflect atelectasis versus developing infiltrate Cardiac enlargement KUB X-Ray 03/27/20 00:00 IMPRESSION: Nonspecific nonobstructive bowel gas pattern. Guidance Needle Placement CT 03/31/20 00:00 IMPRESSION: Please see combined report for performance of procedure and radiologic supervision and interpretation. Renal Biopsy CT 03/31/20 08:00 IMPRESSION: CT GUIDED LEFT KIDNEY CORTICAL BIOPSY. Abdomen/Pelvis CT 04/03/20 00:00 IMPRESSION: 1. Bilateral pleural effusions and increased collapse / a telectasis of the left lower lobe. The alveolar ground-glass opacities in the right middle lobe are nonspecific and could represent an infection or early edema. 2. Unchanged left perinephric and retroperitoneal hematomas. 3. Other findings as detailed above. Chest X-Ray 04/03/20 00:00 IMPRESSION: Cardiomegaly and asymmetric bibasilar opacities that on the left could represent a combination of pleural fluid, atelectasis and/or consolidation. 04/03/20 16:15 04/03/20 16:15 MCV 86 fl (80-97) 04/03/20 16:15 MCH 30.3 pg (27.0-33.4) 04/03/20 16:15 MCHC 35.4 g/dL (32.0-36.0) 04/03/20 16:15 RDW 15.2 % (11.5-14.0) H 04/03/20 16:15 Seg Neutrophils % Not Reportable 04/03/20 09:07 Carbonic Acid 0.95 mmol/L (1.05-1.35) L 04/03/20 11:00 HCO3/H2CO3 Ratio 18:1 04/03/20 11:00 ABG pH 7.37 (7.35-7.45) 04/03/20 11:00 ABG pCO2 31.5 mmHg (35-45) L 04/03/20 11:00 ABG pO2 60.0 mmHg (80-100) L 04/03/20 11:00 ABG HCO3 17.7 mmol/L (20-24) L 04/03/20 11:00 ABG O2 Saturation 90.6 % (94-98) L 04/03/20 11:00 ABG Base Excess -6.8 mmol/L 04/03/20 11:00 FiO2 21% 04/03/20 11:00 Chloride 102 mmol/L (98-107) 04/03/20 16:15 Carbon Dioxide 17 mmol/L (22-30) L 04/03/20 16:15 Anion Gap 11 (5-19) 04/03/20 16:15 Est GFR ( Amer) 18 (>60) L 04/03/20 16:15 Est GFR (Non-Af Amer) Cancelled 03/25/20 19:50 Glucose 192 mg/dL (75-110) H 04/03/20 16:15 Serum Osmolality 261 mOsm/kg (275-301) L 03/27/20 05:40 Lactic Acid 1.0 mmol/L (0.7-2.1) 03/25/20 20:41 Calcium 8.0 mg/dL (8.4-10.2) L 04/03/20 16:15 Ionized Calcium [place] 1.01 mmol/L (1.14-1.30) L 03/29/20 14:47 Magnesium 2.7 mg/dL (1.6-2.3) H 03/27/20 05:40 Total Bilirubin 0.3 mg/dL (0.2-1.3) 03/29/20 06:40 AST 27 U/L (14-36) 03/29/20 06:40 Alkaline Phosphatase 76 U/L (38-126) 03/29/20 06:40 C-Reactive Protein < 5.0 mg/L (<10.0) 03/27/20 05:40 Total Protein 4.6 g/dL (6.3-8.2) L 03/29/20 06:40 Albumin 2.3 g/dL (3.5-5.0) L 03/29/20 06:40 Triglycerides 67 mg/dL (<150) 03/26/20 08:17 Cholesterol 108.20 mg/dL (0-200) 03/26/20 08:17 LDL Cholesterol Direct < 30 mg/dL (<100) 03/26/20 08:17 VLDL Cholesterol 13.0 mg/dL (10-31) 03/26/20 08:17 HDL Cholesterol 74 mg/dL (>40) 03/26/20 08:17 Lipase 71.7 U/L (23-300) 03/25/20 20:41 TSH 2.31 uIU/mL (0.47-4.68) 03/26/20 08:17 Free T3 pg/mL 2.29 pg/mL (2.77-5.27) L 03/26/20 08:17 PTH Intact 91.1 pg/mL (10.0-65.0) H 03/30/20 06:35 Urine Color YELLOW 03/26/20 05:50 Urine Appearance SLIGHTLY-CLOUDY 03/26/20 05:50 Urine pH 6.0 (5.0-9.0) 03/26/20 05:50 Ur Specific [place] 1.007 03/26/20 05:50 Urine Protein >=500 mg/dL (NEGATIVE) H 03/26/20 05:50 Urine Glucose (UA) 150 mg/dL (NEGATIVE) H 03/26/20 05:50 Urine Ketones NEGATIVE mg/dL (NEGATIVE) 03/26/20 05:50 Urine Blood SMALL (NEGATIVE) H 03/26/20 05:50 Urine Nitrite NEGATIVE (NEGATIVE) 03/26/20 05:50 Ur Leukocyte Esterase NEGATIVE (NEGATIVE) 03/26/20 05:50 Urine WBC (Auto) 2 /HPF 03/26/20 05:50 Urine RBC (Auto) 1 /HPF 03/26/20 05:50 Urine Osmolality 220 mOsm/kg (300-900) L 03/29/20 23:04 Ur 24 Hour Volume 960 mL 03/29/20 09:40 Ur Total Protein 24 Hr 3855 mg/day (42-225) H 03/29/20 09:40 Ur Sodium 24 Hour 37 mmol/day (40-200) L 03/29/20 09:40 Stool Occult Blood POSITIVE (NEGATIVE) 03/26/20 20:50 Blood Type A NEGATIVE 04/01/20 07:16 Antibody Screen NEGATIVE 04/01/20 07:16 03/25/20 03/25/20 03/25/20 19:50 19:50 20:41 Creatine Kinase CK-MB (CK-2) Troponin I Cancelled 0.015 NT-Pro-B Natriuret Pep Cancelled [id number] H 03/26/20 03/26/20 03/26/20 02:54 02:54 08:17 Creatine Kinase 115 144 H CK-MB (CK-2) 2.08 Troponin I 0.023 NT-Pro-B Natriuret Pep 03/26/20 03/26/20 03/26/20 08:17 14:07 14:07 Creatine Kinase 134 CK-MB (CK-2) 1.92 1.83 Troponin I 0.028 0.022 NT-Pro-B Natriuret Pep Current Medication List Generic Name Dose Route Start Last Admin Trade Name Freq PRN Reason Stop Dose Admin Acetaminophen 650 mg 03/25/20 23:03 04/01/20 17:38 Tylenol 325 Mg Tablet PO 04/24/20 23:02 650 mg Q4HP PRN Administration For headache, pain or fever Al Hydrox/Mg Hydrox/Simethicone 30 ml 03/25/20 22:57 Maalox Plus Susp 30 Udcup PO 04/24/20 22:56 Q6HP PRN HEARTBURN Albuterol/Ipratropium 3 ml 04/03/20 15:25 04/04/20 04:41 Duoneb 3 Ml Ampul NEB 05/03/20 15:24 3 ml RTQ2HP PRN Administration SHORTNESS OF BREATH Artificial Tears 1 drop 03/30/20 11:04 Refresh Plus 0.5% Oph Soln 0.4 Ml Droperette OU 04/29/20 11:03 QIDP PRN DRY EYE(S) Calcium Carbonate 600 mg 04/03/20 17:00 04/03/20 18:31 Caltrate 600 Mg Tablet PO 05/03/20 16:59 600 mg BIDBS PATRICIA Administration Diltiazem HCl 30 mg 03/31/20 14:00 04/04/20 06:24 Cardizem 30 Mg Tablet PO 04/30/20 13:59 30 mg Q8 PATRICIA Administration Docusate Sodium 100 mg 03/27/20 18:00 04/03/20 18:29 Colace 100 Mg Capsule PO 04/26/20 17:59 Not Given BID [facility] Guaifenesin 200 mg 03/25/20 23:03 Robitussin Syrup 200 Mg/10 Ml Ud Cup PO 04/24/20 23:02 Q4HP PRN COUGH Heparin Sodium (Porcine) 5,000 unit 03/26/20 06:00 04/04/20 06:08 Heparin Inj 5,000 Units/Ml 1 Ml Vial SUBCUT 04/25/20 05:59 Not Given Q8 PATRICIA Hydralazine HCl 10 mg 03/30/20 16:28 04/03/20 20:01 Apresoline Inj/Pf 20 Mg/1 Ml Sdv IV 04/29/20 16:27 10 mg Q6HP PRN Administration FOR SBP >160 AND/OR DBP > 100 Levothyroxine Sodium 0.025 mg 03/28/20 06:00 04/04/20 06:24 Synthroid 0.025 Mg Tablet PO 04/27/20 05:59 0.025 mg Q6AM PATRICIA Administration Magnesium Hydroxide 30 ml 03/25/20 22:57 Milk Of Magnesia 30 Ml Udcup PO 04/24/20 22:56 HSP PRN FOR CONSTIPATION Melatonin 6 mg 03/29/20 22:00 04/03/20 21:45 Melatonin 3 Mg Tablet PO 04/28/20 21:59 6 mg QHS PATRICIA Administration Metoprolol Succinate 100 mg 04/03/20 18:00 04/04/20 06:24 Toprol Xl 50 Mg Tab.Sr PO 05/03/20 17:59 100 mg Q12A PATRICIA Administration Morphine Sulfate 2 mg 04/01/20 19:21 04/02/20 01:33 Morphine 10 Mg/Ml Inj IV 04/08/20 19:20 2 mg Q4HP PRN Administration FOR PAIN SCALE 3-5 Ondansetron HCl 4 mg 03/25/20 22:57 04/03/20 20:56 Zofran Inj/Pf 4 Mg/2 Ml Sdv IV 04/24/20 22:56 4 mg Q4HP PRN Administration FOR NAUSEA/VOMITING Sodium Chloride 2.5 ml 03/26/20 06:00 04/04/20 06:24 Saline Flush 2.5 Ml Monoject Prefil Syrin IV 04/25/20 05:59 2.5 ml Q8 PATRICIA Administration Sucralfate 1 gm 03/26/20 08:00 04/03/20 21:46 Carafate 1 Gm Tablet PO 04/25/20 07:59 1 gm ACHS PATRICIA Administration Throat Lozenges 1 each 04/03/20 21:05 04/03/20 21:45 Chloraseptic Sore Throat Lozenge BUCCAL 05/03/20 21:04 1 each Q2HP PRN Administration FOR SORE THROAT Discontinued Medications Generic Name Dose Route Start Last Admin Trade Name Freq PRN Reason Stop Dose Admin Amlodipine Besylate 5 mg 03/28/20 10:00 Norvasc 5 Mg Tablet PO 04/27/20 09:59 DAILY PATRICIA Amlodipine Besylate 10 mg 03/31/20 05:00 03/31/20 04:42 Norvasc 10 Mg Tablet PO 03/31/20 05:01 10 mg NOW ONE Administration Amlodipine Besylate 10 mg 03/31/20 10:00 Norvasc 10 Mg Tablet PO 04/30/20 09:59 DAILY PATRICIA Bumetanide 1 mg 03/25/20 23:30 03/27/20 11:50 Bumex Inj/Pf 1 Mg/4 Ml Sdv IV 04/24/20 23:29 1 mg Q6H PATRICIA Administration Bumetanide 1 mg 03/27/20 22:00 03/29/20 09:06 Bumex Inj/Pf 1 Mg/4 Ml Sdv IV 04/26/20 21:59 1 mg Q12 PATRICIA Administration Bumetanide 1 mg 03/29/20 18:00 04/01/20 17:33 Bumex Inj/Pf 1 Mg/4 Ml Sdv IV 04/28/20 17:59 1 mg Q8A PATRICIA Administration Calcium Carbonate 600 mg 03/29/20 21:00 04/03/20 10:19 Caltrate 600 Mg Tablet PO 04/28/20 20:59 600 mg BID PATRICIA Administration Diphenoxylate HCl/Atropine 1 tab 03/27/20 15:44 03/27/20 17:09 Lomotil 2.5 Mg Tablet PO 04/03/20 15:43 1 tab QIDP PRN Administration DIARRHEA Docusate Sodium 100 mg 03/26/20 10:00 03/27/20 09:37 Colace Udc 100 Mg/10 Ml Oral Soln PO 04/25/20 09:59 Not Given BID PATRICIA Enalaprilat 2.5 mg 03/30/20 21:00 03/30/20 20:51 Vasotec Inj/Pf 2.5 Mg/2 Ml Sdv IV 03/30/20 21:01 2.5 mg NOW ONE Administration Epinephrine HCl Confirm 03/30/20 14:25 Epinephrine Inj 1 Mg/10 Ml Disp.Syrin Administered 03/30/20 14:26 Dose 1 mg .ROUTE .STK-MED ONE Famotidine 20 mg 03/25/20 23:00 03/27/20 09:37 Pepcid 20 Mg Tablet PO 04/24/20 22:59 20 mg Q12 PATRICIA Administration Famotidine 20 mg 03/28/20 10:00 03/29/20 09:06 Pepcid 20 Mg Tablet PO 04/27/20 09:59 20 mg DAILY PATRICIA Administration Fentanyl Citrate Confirm 03/31/20 08:31 03/31/20 11:03 Sublimaze Inj/Pf 100 Mcg/2 Ml Ampule Administered 03/31/20 08:32 Not Given Dose 100 mcg .ROUTE .STK-MED ONE Furosemide 60 mg 04/03/20 09:30 04/03/20 10:20 Lasix Inj/Pf 100 Mg/10 Ml Sdv IV 04/03/20 09:31 60 mg NOW ONE Administration Haloperidol Lactate 5 mg 04/01/20 21:30 04/01/20 21:36 Haldol 5 Mg/Ml Inj 1 Ml Vial IV 04/01/20 21:31 5 mg NOW ONE Administration Haloperidol Lactate Confirm 04/01/20 21:32 04/01/20 21:36 Haldol 5 Mg/Ml Inj 1 Ml Vial Administered 04/01/20 21:33 Not Given Dose 5 mg .ROUTE .STK-MED ONE Hydralazine HCl 20 mg 03/25/20 23:07 03/27/20 09:41 Apresoline Inj/Pf 20 Mg/1 Ml Sdv IV 04/24/20 23:06 20 mg Q4HP PRN Administration Give For Sbp > 160 / Dbp > 100 Hydralazine HCl 10 mg 03/27/20 11:30 03/30/20 09:43 Apresoline Inj/Pf 20 Mg/1 Ml Sdv IV 04/26/20 11:29 10 mg Q8HP PRN Administration FOR SBP >160 AND/OR DBP > 100 Sodium Chloride 1,000 mls @ 125 mls/hr 03/25/20 21:36 Nacl 0.9% 1000 Ml Iv Soln IV 04/24/20 21:35 .CONTINUOUS PRN DIARRHEA Albumin Human 12.5 gm in 50 mls @ 50 mls/hr 03/25/20 23:15 03/26/20 05:57 Albuminar-25 Rtu Inj 12.5 Gm/50 Ml Premix IV 03/26/20 03:14 Infused Q1H PATRICIA Infusion Albumin Human Confirm 03/26/20 01:29 03/26/20 01:47 Albuminar-25 Rtu Inj 12.5 Gm/50 Ml Premix Administered 03/26/20 01:30 Not Given Dose 50.0 gm in 200 mls @ ud IV .STK-MED ONE Sodium Chloride 1,000 mls @ 50 mls/hr 03/27/20 11:19 03/29/20 05:02 Nacl 0.9% 1000 Ml Iv Soln IV 04/26/20 11:18 50 mls/hr CONTINUOUS PRN Administration THIS MED IS NOT "PRN" Sodium Chloride 1,000 mls @ 40 mls/hr 03/29/20 10:59 Nacl 0.9% 1000 Ml Iv Soln IV 04/26/20 11:18 CONTINUOUS PRN THIS MED IS NOT "PRN" Albumin Human 12.5 gm in 50 mls @ 50 mls/hr 03/30/20 10:00 04/01/20 17:34 Albuminar-25 Rtu Inj 12.5 Gm/50 Ml Premix IV 04/02/20 09:59 50 mls/hr TID PATRICIA Administration Sodium Chloride 250 mls @ 30 mls/hr 04/01/20 08:12 Nacl 0.9% 250 Ml Iv Soln IV 04/02/20 08:11 .DURING TRANSFUSION PRN THIS MED IS NOT "PRN" Sodium Chloride 250 mls @ 0 mls/hr 04/01/20 08:12 Nacl 0.9% 250 Ml Iv Soln IV 04/02/20 08:11 CONTINUOUS PRN AFTER EACH UNIT As Directed Sodium Chloride 1,000 mls @ 100 mls/hr 04/01/20 19:09 04/02/20 23:45 Nacl 0.9% 1000 Ml Iv Soln IV 05/01/20 19:08 Infused CONTINUOUS PRN Infusion THIS MED IS NOT "PRN" Albumin Human 12.5 gm in 50 mls @ 50 mls/hr 04/02/20 21:00 04/03/20 01:45 Albuminar-25 Rtu Inj 12.5 Gm/50 Ml Premix IV 04/03/20 00:59 Infused Q1H PATRICIA Infusion Sodium Chloride 1,000 mls @ 150 mls/hr 04/02/20 21:01 04/03/20 04:00 Nacl 0.9% 1000 Ml Iv Soln IV 05/02/20 21:00 Infused CONTINUOUS PRN Infusion THIS MED IS NOT "PRN" Albumin Human Confirm 04/02/20 21:13 04/02/20 21:20 Albuminar-25 Rtu Inj 12.5 Gm/50 Ml Premix Administered 04/02/20 21:14 Not Given Dose 50.0 gm in 200 mls @ ud IV .STK-MED ONE Sodium Chloride 1,000 mls @ 100 mls/hr 04/03/20 05:56 Nacl 0.9% 1000 Ml Iv Soln IV 05/03/20 05:55 CONTINUOUS PRN THIS MED IS NOT "PRN" Desmopressin Acetate 20 mcg/ 50 mls @ 100 mls/hr 04/03/20 13:30 04/03/20 14:00 Sodium Chloride IV 04/03/20 13:59 Infused NOW ONE Infusion Insulin Human Regular 0 - 15 unit 03/25/20 23:03 03/27/20 09:04 Humulin R (Pyxis) Insulin 100 Unit/Ml 3ml SUBCUT 04/24/20 23:02 Not Given ACHS PATRICIA Protocol Lorazepam 1 mg 03/25/20 23:03 Ativan Inj 2 Mg/1 Ml Vial IV 04/01/20 23:02 Q4HP PRN ANXIETY/AGITATION Lorazepam Confirm 03/31/20 03:47 03/31/20 03:53 Ativan Inj 2 Mg/1 Ml Vial Administered 03/31/20 03:48 Not Given Dose 2 mg .ROUTE .STK-MED ONE Lorazepam 1 mg 03/31/20 04:00 03/31/20 03:52 Ativan Inj 2 Mg/1 Ml Vial IV 03/31/20 04:01 1 mg NOW ONE Administration Losartan Potassium 50 mg 03/26/20 10:00 Cozaar 50 Mg Tablet PO 04/25/20 09:59 Q12 PATRICIA Losartan Potassium 50 mg 03/26/20 04:30 03/27/20 09:37 Cozaar 50 Mg Tablet PO 04/25/20 04:29 50 mg Q12 PATRICIA Administration Metoclopramide HCl 5 mg 03/26/20 08:00 03/29/20 11:50 Reglan 10 Mg Tablet PO 04/25/20 07:59 5 mg ACHS PATRICIA Administration Metoclopramide HCl 10 mg 04/01/20 17:30 04/01/20 17:31 Reglan Inj/Pf 10 Mg/2 Ml Sdv IV 04/01/20 17:31 10 mg NOW ONE Administration Metoclopramide HCl Confirm 04/01/20 17:28 04/01/20 17:46 Reglan Inj/Pf 10 Mg/2 Ml Sdv Administered 04/01/20 17:29 Not Given Dose 10 mg .ROUTE .STK-MED ONE Metoprolol Succinate 100 mg 03/26/20 10:00 Toprol Xl 50 Mg Tab.Sr PO 04/25/20 09:59 Q12 PATRICIA Metoprolol Succinate 100 mg 03/26/20 06:00 04/03/20 05:23 Toprol Xl 50 Mg Tab.Sr PO 04/25/20 05:59 100 mg Q12H PATRICIA Administration Metoprolol Tartrate 5 mg 03/25/20 23:07 Lopressor Inj/Pf 5 Mg/5 Ml Sdv IV 04/24/20 23:06 Q4HP PRN Give For Sbp > 160 / Dbp > 100 Midazolam HCl Confirm 03/31/20 08:31 03/31/20 11:04 Versed 2 Mg/2 Ml Inj Administered 03/31/20 08:32 Not Given Dose 2 mg .ROUTE .STK-MED ONE Morphine Sulfate Confirm 04/01/20 18:16 04/01/20 18:22 Morphine 10 Mg/Ml Inj Administered 04/01/20 18:17 2 mg Dose Administration 10 mg .ROUTE .STK-MED ONE Nitroglycerin 1 gm 03/26/20 03:34 03/26/20 04:52 Nitrol 2% Ointment 1gm Packet TP 04/25/20 03:33 Not Given Q6 PATRICIA Nitroglycerin 1 gm 03/26/20 04:30 Nitrol 2% Ointment 1gm Packet TP 04/25/20 04:29 Q6 PATRICIA Nitroglycerin 1 gm 03/26/20 04:30 03/27/20 06:35 Nitrol 2% Ointment 1gm Packet TP 04/25/20 04:29 Not Given Q6 PATRICIA Nitroglycerin 0.5 gm 03/31/20 03:46 03/31/20 03:53 Nitrol 2% Ointment 1gm Packet TP 03/31/20 03:47 0.5 gm NOW ONE Administration Nitroglycerin Confirm 03/31/20 03:55 03/31/20 04:15 Nitrol 2% Ointment 1gm Packet Administered 03/31/20 03:56 Not Given Dose 1 gm .ROUTE .STK-MED ONE Nitroglycerin 1 each 04/03/20 21:00 04/03/20 21:46 Nitro-Dur 5 Mg (0.2 Mg/Hr) Transdermal Patch TD 04/03/20 21:01 1 each NOW ONE Administration Pantoprazole Sodium 40 mg 03/29/20 22:00 04/01/20 10:48 Protonix Iv Inj 40 Mg Vial IV 04/01/20 21:59 40 mg Q12 PATRICIA Administration Polyethylene Glycol 17 gm 03/30/20 11:30 03/30/20 15:28 Miralax Powder 17 Gm/Packet PO 03/30/20 14:01 Not Given Q2 PATRICIA Polyethylene Glycol/Electrolytes 4,000 ml 03/28/20 17:30 03/28/20 22:57 Golytely Solution 4000 Ml PO 03/28/20 17:31 Not Given ONCE ONE Potassium Chloride 40 meq 03/28/20 08:17 05/05/20 09:17 Klor-Con 10 Meq Tablet Er PO 03/28/20 08:18 40 meq NOW ONE Administration Potassium Chloride 20 meq 03/28/20 14:00 03/28/20 14:19 Klor-Con 10 Meq Tablet Er PO 03/28/20 14:01 20 meq TAM@1400 ONE Administration Potassium Chloride 20 meq 03/31/20 13:00 03/31/20 14:00 Klor-Con 10 Meq Tablet Er PO 03/31/20 13:01 20 meq NOW ONE Administration Potassium Chloride 20 meq 04/01/20 10:00 04/01/20 10:52 Potassium Chloride 20 Meq Packet PO 05/01/20 09:59 Not Given DAILY PATRICIA Propofol Confirm 03/30/20 15:00 Diprivan Inj 200 Mg/20 Ml Vial Administered 03/30/20 15:01 Dose 200 mg IV .STK-MED ONE Sodium Bicarbonate 1,300 mg 03/26/20 09:00 03/27/20 09:37 Sodium Bicarbonate 650 Mg Tablet PO 04/25/20 08:59 1,300 mg PCHS PATRICIA Administration Sodium Bicarbonate 2,600 mg 03/25/20 23:05 03/26/20 01:29 Sodium Bicarbonate 650 Mg Tablet PO 03/25/20 23:06 2,600 mg NOW ONE Administration Sodium Bicarbonate 2,600 mg 03/26/20 01:30 03/26/20 01:48 Sodium Bicarbonate 650 Mg Tablet PO 03/26/20 01:31 Not Given NOW ONE Assessment & Plan - Diagnosis (1) Atrial fibrillation Qualifiers: Atrial fibrillation type: paroxysmal Qualified Code(s): I48.0 - Paroxysmal atrial fibrillation Is this a current diagnosis for this admission?: Yes Plan: Likely secondary to her other medical problems. She is unaware of her atrial fibrillation. Her telemetry did not show any sustained ventricular dysrhythmias with a controlled heart rate. Unfortunately she cannot be anticoagulated at this point given her bleeding issues and low platelets. Recommendations: -Continue with current medical management. -We will continue to follow-up with you. (2) Anasarca Plan: The patient is dyspneic at rest which I believe is multifactorial in etiology given her anemia, atrial fibrillation and overall medical condition however I do believe she is now in heart failure with lower extremity edema and a positive fluid balance of almost 5 L since admission. She also has pleural effusions and possible early alveolar edema on CT scan with partial collapse of the left lower lobe secondary to moderate pleural effusion. Unfortunately this patient is very complicated and sick with worsening renal function and uncontrolled hypertension requiring multiple doses of hydralazine as needed per the nursing staff. It is imperative to keep her blood pressure stable and to get some fluid off however this is going to be complicated given her renal dysfunction. Recommendations: -Need to discuss the case with nephrology to delineate the best diuretic strategy for this patient given her renal dysfunction. I gave her my personal cell number to the patient's nurse so that nephrology can contact me when they see the patient today. -Restrict fluid intake to 1500 cc daily. -Low sodium diet, less than 1500 mg daily. -Strict intake and output. -Daily weights. -Repeat echocardiogram to reassess systolic function. (3) Acute blood loss anemia Is this a current diagnosis for this admission?: Yes Plan: Her hemoglobin continues to decrease and is currently at 8.8 with low platelets. The etiology is unclear given that her perinephric and retroperitoneal hematomas are stable on most recent CT scan. She denied bright red blood per rectum, black/tarry stools as well as red/tea colored urine as of this morning. Recommendations: -Further management per primary team. (4) Closed hematoma of left kidney Qualifiers: Encounter type: initial encounter Qualified Code(s): S37.012A - Minor contusion of left kidney, initial encounter Is this a current diagnosis for this admission?: Yes Plan: Continues to be stable as of most recent CT scan. I will defer further management to primary team.
[2020-04-04 10:21] LABS: HEMATOCRIT 23.8 % (36.0-47.0); HEMOGLOBIN 8.5 g/dL (12.0-15.5); MEAN CORPUSCULAR HEMOGLOBIN 30.8 pg (27.0-33.4); MEAN CORPUSCULAR HGB CONC 35.5 g/dL (32.0-36.0); MEAN CORPUSCULAR VOLUME 87 fl (80-97); RED BLOOD COUNT 2.75 10^6/uL (3.72-5.28); RED CELL DISTRIBUTION WIDTH 15.2 % (11.5-14.0); WHITE BLOOD COUNT 10.3 10^3/uL (4.0-10.5)
[2020-04-04 10:22] LABS: PLATELET COUNT 98 10^3/uL (150-450)
[2020-04-04 10:28] LABS: ABSOLUTE LYMPHOCYTES# (MANUAL) 0.5 10^3/uL (0.5-4.7); ABSOLUTE MONOCYTES # (MANUAL) 0.4 10^3/uL (0.1-1.4); BASOPHILS % (MANUAL) 0 % (0-2); EOSINOPHILS % (MANUAL) 0 % (0-6); LYMPHOCYTES % (MANUAL) 5 % (13-45); MONOCYTES % (MANUAL) 4 % (3-13); SEGMENTED NEUTROPHILS % (MAN) 91 % (42-78); TOTAL CELLS COUNTED 100
[2020-04-04 10:29] LABS: ANISOCYTOSIS SLIGHT; BURR CELLS SLIGHT; OVALOCYTES SLIGHT; POLYCHROMASIA SLIGHT; TOXIC GRANULATION SLIGHT
[2020-04-04 10:30] LABS: PLATELET COMMENT DECREASED
[2020-04-04] MEDS: DOCUSATE SODIUM 100 MG CAPSULE PO SCH ×2 (10:42→18:18)
--- NOTE | 2020-04-04 13:58 | PDOC PROGRESS REPORT ---
Subjective Progress Note for:: 04/04/20 Subjective:: 04/04/2020: Patient was seen and examined. She looks ill. She complains of shortness of breath and she is wheezing bilaterally. She has lower extremity edema. She has abdominal tenderness. Hemoglobin and platelet count so far stable. She is being followed by cardiology and nephrology. Creatinine still elevated and not improving. Reason For Visit: ANASARCA,UPPER ABDOMINAL PAIN,MALIGNANT Physical Exam Vital Signs: Temp Pulse Resp BP Pulse Ox 97.6 F 72 18 154/60 H 95 04/04/20 11:22 04/04/20 12:32 04/04/20 12:32 04/04/20 11:22 04/04/20 12:32 Intake & Output 04/03/20 04/04/20 04/05/20 06:59 06:59 06:59 Intake Total 2508 285 210 Output Total 100 110 Balance 2408 175 210 Weight 167 lb 15.876 oz 183 lb 10.321 oz General appearance: PRESENT: cooperative Head exam: PRESENT: atraumatic, normocephalic Eye exam: PRESENT: EOMI, PERRLA Mouth exam: PRESENT: neck supple Neck exam: PRESENT: tenderness, tracheostomy Respiratory exam: PRESENT: wheezes Cardiovascular exam: PRESENT: RRR GI/Abdominal exam: PRESENT: normal bowel sounds Rectal exam: PRESENT: deferred Extremities exam: PRESENT: pedal edema Psychiatric exam: PRESENT: anxious Results Laboratory Results: 04/04/20 06:17 04/04/20 06:17 04/03/20 04/03/20 04/04/20 16:15 16:15 06:17 WBC 12.4 H RBC 2.89 L Hgb 8.8 L Hct 24.7 L MCV 86 MCH 30.3 MCHC 35.4 RDW 15.2 H Plt Count 89 L Seg Neutrophils % Sodium 130.3 L 128.9 L Potassium 4.2 4.2 Chloride 102 101 Carbon Dioxide 17 L 17 L Anion Gap 11 11 BUN 47 H 50 H Creatinine 3.09 H 3.38 H Est GFR ( Amer) 18 L 16 L Glucose 192 H 131 H Calcium 8.0 L 8.0 L 04/04/20 06:17 WBC 10.3 RBC 2.75 L Hgb 8.5 L Hct 23.8 L MCV 87 MCH 30.8 MCHC 35.5 RDW 15.2 H Plt Count 98 L Seg Neutrophils % Not Reportable Sodium Potassium Chloride Carbon Dioxide Anion Gap BUN Creatinine Est GFR ( Amer) Glucose Calcium 03/25/20 03/25/20 03/25/20 19:50 19:50 20:41 Creatine Kinase CK-MB (CK-2) Troponin I Cancelled 0.015 NT-Pro-B Natriuret Pep Cancelled [id number] H 03/26/20 03/26/20 03/26/20 02:54 02:54 08:17 Creatine Kinase 115 144 H CK-MB (CK-2) 2.08 Troponin I 0.023 NT-Pro-B Natriuret Pep 03/26/20 03/26/20 03/26/20 08:17 14:07 14:07 Creatine Kinase 134 CK-MB (CK-2) 1.92 1.83 Troponin I 0.028 0.022 NT-Pro-B Natriuret Pep Impressions: Acute Abdomen Series 03/25/20 20:05 IMPRESSION: Patchy density in the right lung base new when compared to the previous study. Findings may reflect atelectasis versus developing infiltrate Cardiac enlargement KUB X-Ray 03/27/20 00:00 IMPRESSION: Nonspecific nonobstructive bowel gas pattern. Guidance Needle Placement CT 03/31/20 00:00 IMPRESSION: Please see combined report for performance of procedure and radiologic supervision and interpretation. Renal Biopsy CT 03/31/20 08:00 IMPRESSION: CT GUIDED LEFT KIDNEY CORTICAL BIOPSY. Abdomen/Pelvis CT 04/03/20 00:00 IMPRESSION: 1. Bilateral pleural effusions and increased collapse / atelectasis of the left lower lobe. The alveolar ground-glass opacities in the right middle lobe are nonspecific and could represent an infection or early edema. 2. Unchanged left perinephric and retroperitoneal hematomas. 3. Other findings as detailed above. Chest X-Ray 04/03/20 00:00 IMPRESSION: Cardiomegaly and asymmetric bibasilar opacities that on the left co uld represent a combination of pleural fluid, atelectasis and/or consolidation. Assessment and Plan - Diagnosis (1) Closed hematoma of left kidney Qualifiers: Encounter type: initial encounter Qualified Code(s): S37.012A - Minor contusion of left kidney, initial encounter Is this a current diagnosis for this admission?: Yes Plan: repeat CT scan shows unchanged retroperitoneal hematoma. Dr. Holley spoke with Dr. Hay, a urologist in [place], and discussed the case at length. At that time her repeat hemoglobin and platelets are so far stable. This would seem to indicate that any bleeding has stabilized. Dr. Hay indicated that if the bleeding remained stable, then we should continue to treat her supportiv yuan as we have been doing. (2) Acute blood loss anemia Is this a current diagnosis for this admission?: Yes Plan: Her hemoglobin seems relatively stable at this time. She had to get 2 units and 2 consecutive days. Her platelets are stable from yesterday. There has been mention of some concern that this might be DIC. It appears that Dr. Holley ruled that out. (3) Anasarca Is this a current diagnosis for this admission?: Yes Plan: Slight improvement. Patient's anasarca is likely due to her kidney disease. ABD U/S shows coarse heterogeneous liver appearance; likely underlying liver disease. LFTs unremarkable Hep B negative. Hep C negative. Cardiology and Nephrology services are consulted. Echo pending per cardiology. Dr. Holley did discuss with Dr. Strickland; unlikely due to CHF alone, though expects some underlying diastolic dysfunction. Nephrology evaluating for nephrotic syndome, which her 24-hour urine would suggest. S/p kidney biopsy IV fluids and IV bumetanide per Dr. Mac, bumetanide on hold due to renal failure. sticker on is consulted. (4) Atrial fibrillation Qualifiers: Atrial fibrillation type: paroxysmal Qualified Code(s): I48.0 - Paroxysmal atrial fibrillation Is this a current diagnosis for this admission?: Yes Plan: She is already on metoprolol 100 mg twice daily. diltiazem 30 mg every 8 hours. Not a candidate for anticoagulation or aspirin therapy at this time due to recent renal hematoma and GI bleed. (5) CHF exacerbation Qualifiers: Heart failure type: unspecified Qualified Code(s): I50.9 - Heart failure, unspecified Is this a current diagnosis for this admission?: Yes Plan: Anasarca actually not thought to be due to a CHF exacerbation at this time, echocardiogram pending, cardiology following (6) Chronic kidney disease, stage 3 (moderate) Is this a current diagnosis for this admission?: Yes Plan: Received records from [facility]. Patient's GFR was between 30 and 45 as well. She has a lot of protein in her urine. S/p renal biopsy Nephrology has been consulted; primary management per their expertise. (7) Sihlz-sc-sjitiwk kidney injury Qualifiers: Acute renal failure type: with other specified pathological lesion Chronic kidney disease stage: stage 3 (moderate) Qualified Code(s): N17.8 - Other acute kidney failure; N18.3 - Chronic kidney disease, stage 3 (moderate) Is this a current diagnosis for this admission?: Yes Plan: Creatinine has gotten worse. She is on IV fluids and getting repeat transfusions as needed, monitoring urine output. With her decreased urine output, she may need dialysis. Nephrology is managing. (8) Diabetes mellitus type 2 in nonobese Is this a current diagnosis for this admission?: Yes Plan: Continue sliding scale and diabetic diet - Plan Summary Summary: I spoke with Dr. Hay, a urologist in [place], and discussed the case at length. At this time her repeat hemoglobin has come back up to 8.8, and her platelets are also trending back up at 86. This would seem to indicate that any bleeding has stabilized. The repeat CT scan showed subcapsular hematoma was stable, and a retroperitoneal hematoma was also mentioned as being stable, even though this was not mentioned on the initial CT. Dr. Hya indicated that if the bleeding remained stable, then we should continue to treat her supportively as we have been doing. As previously noted, I do not believe for many reasons that this patient is in DIC, and indeed if she was her hemoglobin and her platelets would continue to drop. She should be on bedrest until her hemoglobin is stable for another 24 hours, and then we could potentially consider ambulati ng her. Her urine output seems to have increased a little bit today, and so we will monitor her for recovery of function. No adverse events overnight. Vital signs been stable. Urine output has been minimal. Her creatinine went up a little again today. Her platelets have been stable. Her hemoglobin was down a point from yesterday but she is been on continuous fluids overnight. She is awake and looks fatigued, but she says that overall she feels okay, just tired. She is not complaining of any abdominal pain. Breathing has been comfortable. There has been no visual evidence of any external bleeding. No rashes. Interestingly, her edema does not appear to have gotten any worse. Reason For Visit: ANASARCA,UPPER ABDOMINAL PAIN,MALIGNANT (1) Closed hematoma of left kidney Qualifiers: Encounter type: initial encounter Qualified Code(s): S37.012A - Minor contusion of left kidney, initial encounter Is this a current diagnosis for this admission?: Yes Plan: I have ordered a repeat CT scan today to see if the size of the hematoma has changed. I will call and speak with the urologist once I have this information, to see if there is any recommendation that could help her from a surgical [facility]. (2) Acute blood loss anemia Is this a current diagnosis for this admission?: Yes Plan: Her hemoglobin seems relatively stable at this time. She had to get 2 units and 2 consecutive days. Her hemoglobin was down a little bit today, but I suspect some of this is from hemodilution. Her platelets are stable from yesterday. There has been mention of some concern that this might be DIC. I do not believe this to be the case, and there are multiple reasons why. First, she has a good explanation for why her hemoglobin is down, and she has had no signs of any external bleeding. Second, her platelets are low, but they have stabilized, and you can see a drop in platelets with blood volume loss combined with administr ation of IV fluids. Third, her coagulation studies are not that much different from when she was admitted 9 days ago. Her PT is up from 15-17, and her PTT is up from 37-39. Fourth, her fibrinogen is well within the normal range at 338. Her d-dimer is elevated, but with her level of renal failure this is to be expected, and with the bleeding she has had we would expect it to be a little elevated, which it is. Fifth, her LDH is normal, which argues against microangiopathic hemolysis that one typically sees with DIC. We will of course be monitoring her closely for development of this process, but at this time I do not think that is what is going on, for the reasons noted above. (3) Anasarca Is this a current diagnosis for this admission?: Yes Plan: Slight improvement. Patient's anasarca is likely due to her kidney disease. ABD U/S shows coarse heterogeneous liver appearance; likely underlying liver disease. LFTs unremarkable Hep B negative. Hep C negative. Cardiology and Nephrology services are consulted. Echo pending per cardiology. Did discuss with Dr. Strickland; unlikely due to CHF alone, though expects some underlying diastolic dysfunction. Nephrology evaluating for nephrotic syndome, which her 24-hour urine would suggest. S/p kidney biopsy IV fluids and IV bumetanide per Dr. Mac, bumetanide on hold due to renal failure. sticker on is consulted. (4) Atrial fibrillation Qualifiers: Atrial fibrillation type: paroxysmal Qualified Code(s): I48.0 - Paroxysmal atrial fibrillation Is this a current diagnosis for this admission?: Yes Plan: Patient converted into atrial fibrillation overnight on telemetry. Confirmed by EKG. Unknown history of the same; patient not able to elaborate. She is already on metoprolol 100 mg twice daily. diltiazem 30 mg every 8 hours. Not a candidate for anticoagulation or aspirin therapy at this time due to recent renal hematoma and GI bleed. (5) CHF exacerbation Qualifiers: Heart failure type: unspecified Qualified Code(s): I50.9 - Heart failure, unspecified Is this a current diagnosis for this admission?: Yes Plan: Anasarca actually not thought to be due to a CHF exacerbation at this time, echocardiogram pending, cardiology consulted (6) Chronic kidney disease, stage 3 (moderate) Is this a current diagnosis for this admission?: Yes Plan: Received records from [facility]. Patient's GFR was between 30 and 45 as well. She has a lot of protein in her urine. S/p renal biopsy Nephrology has been consulted; primary management per their expertise. (7) Diabetes mellitus type 2 in nonobese Is this a current diagnosis for this admission?: Yes Plan: Continue sliding scale and diabetic diet (8) Deevv-ry-lnebirj kidney injury Qualifiers: Acute renal failure type: with other specified pathological lesion Chronic kidney disease stage: stage 3 (moderate) Qualified Code(s): N17.8 - Other acute kidney failure; N18.3 - Chronic kidney disease, stage 3 (moderate) Is this a current diagnosis for this admission?: Yes Plan: Creatinine has gotten worse since the formation of a hematoma. Creatinine went up fairly quickly, up to 2.88 today. She is on IV fluids and getting repeat transfusions as needed, monitoring urine output. Am repeating the CT of the abdomen and pelvis to assess for interval change in the size of the renal hematoma. Once I have that information, I will contact the urologist to discuss the case and see if there is any role for surgical intervention here. My con cern is that on the original CT the right kidney looks very atrophic, and I believe the left kidney was probably the better of the 2, and now it is compromised by a large subcapsular hematoma putting mass-effect onto the renal parenchyma, and I would like to see if there is something that can be done to salvage this kidney. With her decreased urine output, she may need dialysis. - Time Time Spent with patient: 25-34 minutes
[2020-04-04] MEDS ORDERED: BUMETANIDE INJ/PF 1 MG/4 ML SDV IV ONE (14:21)
--- NOTE | 2020-04-04 14:21 | Progress Note ---
Provider Note Provider Note: I just discussed this case with Dr. Tabor who is covering nephrology at this point. We discussed that the patient is fluid overloaded and with clinical heart failure and she concurred with me that she needs diuresis therefore we will proceed with at least 1 dose of Bumex 2 mg IV now with close attention to her creatinine. Dr. Tabor will be evaluating the patient later today.
--- NOTE | 2020-04-04 14:44 | RADIOLOGY REPORT (SQ) ---
EXAM DESCRIPTION: CHEST SINGLE VIEW IMAGES COMPLETED DATE/TIME: 04/04/2020 2:31 pm REASON FOR STUDY: sob COMPARISON: 04/03/2020 EXAM PARAMETERS: NUMBER OF VIEWS: One view. TECHNIQUE: Single frontal radiographic view of the chest acquired. RADIATION DOSE: NA LIMITATIONS: None. FINDINGS: LUNGS AND PLEURA: Bilateral alveolar airspace disease. More marked in the lung periphery. This could represent atypical edema. Viral pneumonia is cannot be excluded. Clinical correlation is needed. Small left effusion cannot be excluded. MEDIASTINUM AND HILAR STRUCTURES: No masses. Contour normal. HEART AND VASCULAR STRUCTURES: Heart is enlarged. Mild central vascular prominence. BONES: No acute findings. HARDWARE: None in the chest. OTHER: No other significant finding. IMPRESSION: New bilateral peripheral alveolar infiltrates. Atypical pneumonia cannot be excluded. Clinical correlation is needed. Pulmonary edema is also a possibility. TECHNICAL DOCUMENTATION: JOB ID: [id number] 2010 [employer]- All Rights Reserved Reading location - IP/workstation name: [email or web address]
[2020-04-04 15:11] LABS: ANION GAP 11 (5-19); BLOOD UREA NITROGEN 51 mg/dL (7-20); CARBON DIOXIDE 18 mmol/L (22-30); CHLORIDE 100 mmol/L (98-107); GLUCOSE 163 mg/dL (75-110); POTASSIUM 4.1 mmol/L (3.6-5.0)
[2020-04-04 17:54] LABS: ARTERIAL BLOOD BASE EXCESS -6.7 mmol/L; ARTERIAL BLOOD H2CO3 1.04 mmol/L (1.05-1.35); ARTERIAL BLOOD HCO3 18.3 mmol/L (20-24); ARTERIAL BLOOD O2 SATURATION 86.7 % (94-98); ARTERIAL BLOOD PCO2 34.5 mmHg (35-45); ARTERIAL BLOOD PH 7.34 (7.35-7.45); ARTERIAL BLOOD PO2 54.1 mmHg (80-100); ARTERIAL BLOOD TOTAL CO2 19.4 mmol/L (21-25)
[2020-04-04] MEDS: ONDANSETRON HCL INJ/PF 4 MG/2 ML SDV IV PRN (19:49)
--- NOTE | 2020-04-04 19:51 | PDOC PROGRESS REPORT ---
Subjective Progress Note for:: 04/04/20 Subjective:: Case reviewed. Patient has been followed by my associates, Dr. Mac and Bereket Khoury PA-C for the past week for proteinuria associated with anasarca and chronic kidney disease. On March 29 she had a 24-hour urine protein of 3855 and a corresponding random urine protein to creatinine ratio of 9.8. Work-up including serologies have been negative. Patient underwent percutaneous left kidney biopsy on March 31 unfortunately complicated by perinephric hematoma and retrop eritoneal hematoma with immediate decrease of hemoglobin requiring blood transfusions for 2 consecutive days. Patient's kidney function has also deteriorated since then. Last week patient's creatinine ranges anywhere between 1.4-1.6 with EGFR of 30-35. After the kidney biopsy the patient's creatinine is steadily gone up and today she has a BUN of 50, creatinine of 3.38 with EGFR of 13. It is accurately recorded patient's urine output has also declined for the last 3 days anywhere between 20 to 110 mL. Is approximately +4.5 L fluid balance. Today when I saw the patient she is in mild respiratory distress. She is also not producing much urine with a note of only 75 mL for the first shift. Electromechanic, Dr. Pagan is seen the patient earlier who called me stating that the patient probably now in some form of congestive heart failure at this point. I did agree and concurred with giving the patient diuretics. Patient is about to be given the Bumex [address] Pagan has ordered. Patient denies any chest pains. There is no active bleeding. Her appetite is also poor. Reason For Visit: ANASARCA,UPPER ABDOMINAL PAIN,MALIGNANT Physical Exam Vital Signs: Temp Pulse Resp BP Pulse Ox 97.6 F 72 18 154/60 H 95 04/04/20 11:22 04/04/20 12:32 04/04/20 12:32 04/04/20 11:22 04/04/20 12:32 Intake & Output 04/03/20 04/04/20 04/05/20 06:59 06:59 06:59 Intake Total 2508 285 210 Output Total 100 110 Balance 2408 175 210 Weight 76.2 kg 83.3 kg Exam: General appearance: PRESENT: In mild acute respiratory distress, cooperative, well-developed, well-nourished Head exam: PRESENT: atraumatic, normocephalic Eye exam: PRESENT: conjunctiva pale, PERRLA. ABSENT: scleral icterus Neck exam: ABSENT: JVD Respiratory exam: PRESENT: Diminished breath sounds. ABSENT: crackles, rales, rhonchi, unlabored, wheezes Cardiovascular exam: PRESENT: Irregularly irregular rate rhythm -+S1, +S2. ABSENT: diastolic murmur, systolic murmur GI/Abdominal exam: PRESENT: normal bowel sounds, soft. Positive right upper quadrant abdominal large hernia which is reducible ABSENT: guarding, mass, tenderness Extremities exam: Positive anasarca with upper and lower extremity edema Neurological exam: PRESENT: alert, awake, oriented to person, place and time. Skin exam: PRESENT: dry, warm, Cardiovascular exam: PRESENT: +S1, +S2 GI/Abdominal exam: PRESENT: soft. ABSENT: firm, guarding, normal bowel sounds, organomegaly, tenderness - Mainly in the left upper quadrant Results Laboratory Results: 04/04/20 06:17 04/03/20 04/03/20 04/04/20 16:15 16:15 06:17 WBC 12.4 H RBC 2.89 L Hgb 8.8 L Hct 24.7 L MCV 86 MCH 30.3 MCHC 35.4 RDW 15.2 H Plt Count 89 L Seg Neutrophils % Sodium 130.3 L 128.9 L Potassium 4.2 4.2 Chloride 102 101 Carbon Dioxide 17 L 17 L Anion Gap 11 11 BUN 47 H 50 H Creatinine 3.09 H 3.38 H Est GFR ( Amer) 18 L 16 L Glucose 192 H 131 H Calcium 8.0 L 8.0 L 04/04/20 06:17 WBC 10.3 RBC 2.75 L Hgb 8.5 L Hct 23.8 L MCV 87 MCH 30.8 MCHC 35.5 RDW 15.2 H Plt Count 98 L Seg Neutrophils % Not Reportable Sodium Potassium Chloride Carbon Dioxide Anion Gap BUN Creatinine Est GFR ( Amer) Glucose Calcium 03/25/20 03/25/20 03/25/20 19:50 19:50 20:41 Creatine Kinase CK-MB (CK-2) Troponin I Cancelled 0.015 NT-Pro-B Natriuret Pep Cancelled 21779 H 03/26/20 03/26/20 03/26/20 02:54 02:54 08:17 Creatine Kinase 115 144 H CK-MB (CK-2) 2.08 Troponin I 0.023 NT-Pro-B Natriuret Pep 03/26/20 03/26/20 03/26/20 08:17 14:07 14:07 Creatine Kinase 134 CK-MB (CK-2) 1.92 1.83 Troponin I 0.028 0.022 NT-Pro-B Natriuret Pep Impressions: Acute Abdomen Series 03/25/20 20:05 IMPRESSION: Patchy density in the right lung base new when compared to the previous study. Findings may reflect atelectasis versus developing infiltrate Cardiac enlargement KUB X-Ray 03/27/20 00:00 IMPRESSION: Nonspecific nonobstructive bowel gas pattern. Guidance Needle Placement CT 03/31/20 00:00 IMPRESSION: Please see combined report for performance of procedure and radiologic supervision and interpretation. Renal Biopsy CT 03/31/20 08:00 IMPRESSION: CT GUIDED LEFT KIDNEY CORTICAL BIOPSY. Abdomen/Pelvis CT 04/03/20 00:00 IMPRESSION: 1. Bilateral pleural effusions and increased collapse / atelectasis of the left lower lobe. The alveolar ground-glass opacities in the right middle lobe are nonspecific and could represent an infection or early edema. 2. Unchanged left perinephric and retroperitoneal hematomas. 3. Other findings as detailed above. Chest X-Ray 04/04/20 00:00 IMPRESSION: New bilateral peripheral alveolar infiltrates. Atypical pneumonia cannot be excluded. Clinical correlation is needed. Pulmonary edema is also a possibility. Assessment & Plan - Diagnosis (1) [id number] kidney injury Qualifiers: Acute renal failure type: with other specified pathological lesion Chronic kidney disease stage: stage 3 (moderate) Qualified Code(s): N17.8 - Other acute kidney failure; N18.3 - Chronic kidney disease, stage 3 (moderate) Is this a current diagnosis for this admission?: Yes Plan: Patient is currently oligo-anuric with developing fluid overload. Kidney function has deteriorated after the complicated kidney biopsy which developed perinephric hematoma procedure. If the patient does not respond to the IV Bumex, she most likely need acute renal replacement therapy remittent hem odialysis tomorrow. I discussed dialysis with the patient today planing the procedure, benefits and risks to include but not limited to infection, bleeding with insertion of vascular access and during the procedure, hemodynamic instability and cardiac arrest. Patient understood without any questions and agreed to have the procedure done if necessary. I also discussed this with Dr. Patel today. Will probably have the surgeon insert a temporary dialysis catheter tonight in preparation for possible need of acute hemodialysis tomorrow morning. (2) Closed hematoma of left kidney Qualifiers: Encounter type: initial encounter Qualified Code(s): S37.012A - Minor contusion of left kidney, initial encounter Is this a current diagnosis for this admission?: Yes Plan: CT scan on 04/01 and 04/03 showed unchanged perinephric hematoma with retroperitoneal hematoma. Yesterday Dr. Holley has a spoken to a urologist in [facility], Dr. Hay who indicated that there is no change in the CT scan and the patient's hemoglobin continues to be stable then supportive measures is r ecommended. However if again the patient shows any deterioration, I think we should reconsider possible transfer to tertiary care facility. The DIC was considered yesterday with low platelets, elevated PT and PTT and d- dimer, however the fibrinogen is normal. Close monitoring is warranted. (3) CHF exacerbation Qualifiers: Heart failure type: unspecified Qualified Code(s): I50.9 - Heart failure, unspecified Is this a current diagnosis for this admission?: Yes Plan: Patient has developed mild respiratory distress. Her chest x-ray today showed bilateral alveolar airspace disease which could either be atypical edema versus atypical pneumonia and mild central vascular prominence which were new findings compared to previous chest x-rays. The CT scan of the abdomen that was done yesterday also showed bilateral pleural effusion associated with partial collapse of left lower lobe with areas of subsegmental atelectasis. There was also patchy groundglass opacity in the right middle lobe Dr. Pagan has been following the patient and ordered an echocardiogram. Bumex 2 mg IV was also ordered this afternoon. (4) Metabolic acidosis Is this a current diagnosis for this admission?: Yes Plan: Due to VAISHNAVI (5) Hypertension Is this a current diagnosis for this admission?: Yes Plan: Seems to be more elevated today likely secondary to fluid retention. (6) Acute blood loss anemia Is this a current diagnosis for this admission?: Yes Plan: Unfortunately patient had perinephric and retroperitoneal hematoma post kidney biopsy on March 31. She required blood transfusions for 2 consecutive days over the weekend. Patient also was considered for possible GI bleed last week prior to kidney biopsy. Colonoscopy was done on March 30 which did not show any active bleeding. Monitor hemoglobin. (7) Proteinuria Qualifiers: Proteinuria type: unspecified Qualified Code(s): R80.9 - Proteinuria, unspecified Is this a current diagnosis for this admission?: Yes Plan: Urine protein to creatinine ratio of 9.8 and 24-hour urine of 3.8 g. Due to b eing in the nephrotic range, percutaneous left kidney biopsy was done on March 31, 2020. Pathology report is still pending. Serologies have been negative. (8) Anasarca Is this a current diagnosis for this admission?: Yes Plan: Patient has nephrotic range proteinuria and hypoalbuminemia. (9) Atrial fibrillation Qualifiers: Atrial fibrillation type: paroxysmal Qualified Code(s): I48.0 - Paroxysmal atrial fibrillation Is this a current diagnosis for this admission?: Yes Plan: Defer to cardiology. (10) Hyponatremia Is this a current diagnosis for this admission?: Yes Plan: Likely secondary to hypervolemic state due to fluid retention and anuria. (11) Chronic kidney disease, stage 3 (moderate) Is this a current diagnosis for this admission?: Yes - Notes Notes: Discussed with Dr. Patel. I also discussed the plan with her nurse today, Csai. - Time Time with patient: Greater than 35 minutes
[2020-04-04] MEDS: MORPHINE SULFATE 10 MG/ML INJ IV PRN (21:26)
[2020-04-04] MEDS: MELATONIN 3 MG TABLET PO SCH (21:28)
--- NOTE | 2020-04-04 22:06 | Operative Report ---
Nonrecallable Operative Report DATE OF SURGERY: 04/04/20 PREOPERATIVE DIAGNOSIS: 1. Need for hemodialysis, chronic kidney disease. 2. CHF POSTOPERATIVE DIAGNOSIS: same as above OPERATION: 1. ultrasound guided central venous puncture. 2. right femoral vas- cath placement SURGEON: SUKH MARLEY ANESTHESIA: Local TISSUE REMOVED OR ALTERED: none COMPLICATIONS: none apparent ESTIMATED BLOOD LOSS: minimal PROCEDURE: implant: 30cm femoral vas-cath Procedure in-detail: After informed consent was obtained, the pt was laid in the supine position in the hospital room. The area of the right groin was prepped and draped in a normal, sterile fashion. The right femoral vein was identified using the ultrasound device. Under direct ultrasonic guidance, the right femoral vein was cannulated using the supplied access needle. The wire was inserted easily into the vein. The wire was seen to reside within the vein on ultrasound. Picture documentation was obtained with the ultrasound device. Next, dilators were used to serially dilate the soft tissues. The catheter was then slid over the wire using a modified Seldinger technique. The catheter was sutured to the skin. Next, the catheter was aspirated and flushed x3. A Biopatch was placed, as well as an occlusive dressing. Once the dressing was placed, the procedure was concluded. All sponge, instrument, and needle counts were correct. Condition: Fair.
[2020-04-05] MEDS: IPRATROPIUM/ALBUTEROL 0.5-2.5 MG/3 ML AMPUL NEB PRN (00:23)
[2020-04-05] MEDS: ONDANSETRON HCL INJ/PF 4 MG/2 ML SDV IV PRN (02:24)
[2020-04-05] MEDS ORDERED: NORMAL SALINE 1000 ML 1,000 ML IV PRN (05:00)
[2020-04-05] MEDS ORDERED: HEPARIN SOD (PORCINE) 1,000 UNIT/ML 10 ML VIAL IV PRN (05:00)
[2020-04-05 05:22] LABS: HEMATOCRIT 24.7 % (36.0-47.0); HEMOGLOBIN 8.6 g/dL (12.0-15.5); MEAN CORPUSCULAR HEMOGLOBIN 30.9 pg (27.0-33.4); MEAN CORPUSCULAR VOLUME 88 fl (80-97); PLATELET COUNT 119 10^3/uL (150-450); RED CELL DISTRIBUTION WIDTH 15.4 % (11.5-14.0); WHITE BLOOD COUNT 11.9 10^3/uL (4.0-10.5)
[2020-04-05] MEDS: DILTIAZEM HCL 30 MG TABLET PO SCH ×3 (05:27→22:00)
[2020-04-05] MEDS: METOPROLOL SUCCINATE 50 MG TAB.SR.24H PO SCH ×2 (05:27→17:02)
[2020-04-05] MEDS: LEVOTHYROXINE SODIUM 0.025 MG TABLET PO SCH (05:27)
[2020-04-05 05:39] LABS: ANION GAP 12 (5-19); BLOOD UREA NITROGEN 55 mg/dL (7-20); CARBON DIOXIDE 16 mmol/L (22-30); CHLORIDE 101 mmol/L (98-107); GLUCOSE 134 mg/dL (75-110); POTASSIUM 4.4 mmol/L (3.6-5.0)
[2020-04-05] MEDS: HEPARIN SOD (PORCINE) 5,000 UNIT/ML 1 ML VIAL SUBCUT SCH ×3 (05:40→22:00)
--- NOTE | 2020-04-05 11:50 | PDOC PROGRESS REPORT ---
Subjective Progress Note for:: 04/05/20 Subjective:: 04/04/2020: Patient was seen and examined. She looks ill. She complains of shortness of breath and she is wheezing bilaterally. She has lower extremity edema. She has abdominal tenderness. Hemoglobin and platelet count so far stable. She is being followed by cardiology and nephrology. Creatinine still elevated and not improving. 04/05/2020: Patient was seen and examined on dialysis. She had dialysis catheter placed last night and started dialysis today. She still with poor appetite but looks better and feels better. Physical Exam General appearance: PRESENT: cooperative Head exam: PRESENT: atraumatic, normocephalic Eye exam: PRESENT: EOMI, PERRLA Mouth exam: PRESENT: neck supple Neck exam: PRESENT: tenderness, tracheostomy Respiratory exam: PRESENT: wheezes Cardiovascular exam: PRESENT: RRR GI/Abdominal exam: PRESENT: normal bowel sounds Rectal exam: PRESENT: deferred Extremities exam: PRESENT: pedal edema Psychiatric exam: PRESENT: anxious Reason For Visit: ANASARCA,UPPER ABDOMINAL PAIN,MALIGNANT Physical Exam Vital Signs: Temp Pulse Resp BP Pulse Ox 97.4 F 74 18 197/61 H 92 04/05/20 03:19 04/05/20 11:04 04/05/20 11:04 04/05/20 03:19 04/05/20 11:04 Intake & Output 04/04/20 04/05/20 04/06/20 06:59 06:59 06:59 Intake Total 285 560 700 Output Total 170 997 3973 Balance 175 420 -2800 Weight 183 lb 10.321 oz 182 lb 8.684 oz Results Laboratory Results: 04/05/20 04:45 04/05/20 04:45 04/04/20 04/04/20 04/05/20 14:19 17:27 04:45 WBC 11.9 H RBC 2.80 L Hgb 8.6 L Hct 24.7 L MCV 88 MCH 30.9 MCHC 35.0 RDW 15.4 H Plt Count 119 L Carbonic Acid 1.04 L HCO3/H2CO3 Ratio 17:1 ABG pH 7.34 L ABG pCO2 34.5 L ABG pO2 54.1 L ABG HCO3 18.3 L ABG O2 Saturation 86.7 L ABG Base Excess -6.7 FiO2 5.00 Sodium 129.0 L Potassium 4.1 Chloride 100 Carbon Dioxide 18 L Anion Gap 11 BUN 51 H Creatinine 3.38 H Est GFR ( Amer) 16 L Glucose 163 H Calcium 8.0 L 04/05/20 04:45 WBC RBC Hgb Hct MCV MCH MCHC RDW Plt Count Carbonic Acid HCO3/H2CO3 Ratio ABG pH ABG pCO2 ABG pO2 ABG HCO3 ABG O2 Saturation ABG Base Excess FiO2 Sodium 128.7 L Potassium 4.4 Chloride 101 Carbon Dioxide 16 L Anion Gap 12 BUN 55 H Creatinine 3.41 H Est GFR ( Amer) 16 L Glucose 134 H Calcium 8.0 L 03/25/20 03/25/20 03/25/20 19:50 19:50 20:41 Creatine Kinase CK-MB (CK-2) Troponin I Cancelled 0.015 NT-Pro-B Natriuret Pep Cancelled [id number] H 03/26/20 03/26/20 03/26/20 02:54 02:54 08:17 Creatine Kinase 115 144 H CK-MB (CK-2) 2.08 Troponin I 0.023 NT-Pro-B Natriuret Pep 03/26/20 03/26/20 03/26/20 08:17 14:07 14:07 Creatine Kinase 134 CK-MB (CK-2) 1.92 1.83 Troponin I 0.028 0.022 NT-Pro-B Natriuret Pep Impressions: Acute Abdomen Series 03/25/20 20:05 IMPRESSION: Patchy density in the right lung base new when compared to the previous study. Findings may reflect atelectasis versus developing infiltrate Cardiac enlargement KUB X-Ray 03/27/20 00:00 IMPRESSION: Nonspecific nonobstructive bowel gas pattern. Guidance Needle Placement CT 03/31/20 00:00 IMPRESSION: Please see combined report for performance of procedure and radiologic supervision and interpretation. Renal Biopsy CT 03/31/20 08:00 IMPRESSION: CT GUIDED LEFT KIDNEY CORTICAL BIOPSY. Abdomen/Pelvis CT 04/03/20 00:00 IMPRESSION: 1. Bilateral pleural effusions and increased collapse / atelectasis of the left lower lobe. The alveolar ground-glass opacities in the right middle lobe are nonspecific and could represent an infection or early edema. 2. Unchanged left perinephric and retroperitoneal hematomas. 3. Other findings as detailed above. Chest X-Ray 05/12/20 00:00 IMPRESSION: New bilateral peripheral alveolar infiltrates. Atypical pneumonia cannot be excluded. Clinical correlation is needed. Pulmonary edema is also a possibility. Assessment and Plan - Diagnosis (1) Closed hematoma of left kidney Qualifiers: Encounter type: initial encounter Qualified Code(s): S37.012A - Minor contusion of left kidney, initial encounter Is this a current diagnosis for this admission?: Yes Plan: repeat CT scan shows unchanged retroperitoneal hematoma. Dr. Holley spoke with Dr. Hay, a urologist in [place], and discussed the case at length. At that time her repeat hemoglobin and platelets are so far stable. This would seem to indicate that any bleeding has stabilized. Dr. Hay indicated that if the bleeding remained stable, then we should continue to treat her supportively as we have been doing. (2) Acute blood loss anemia Is this a current diagnosis for this admission?: Yes Plan: Her hemoglobin seems relatively stable at this time. She had to get 2 units and 2 consecutive days. Her platelets are stable from yesterday. There has been mention of some concern that this might be DIC. It appears that Dr. Holley rul ed that out. (3) Anasarca Is this a current diagnosis for this admission?: Yes Plan: Slight improvement. Patient's anasarca is likely due to her kidney disease. ABD U/S shows coarse heterogeneous liver appearance; likely underlying liver disease. LFTs unremarkable Hep B negative. Hep C negative. Cardiology and Nephrology services are consulted. Echo pending per cardiology. Dr. Holley did discuss with Dr. Strickland; unlikely due to CHF alone, though expects some underlying diastolic dysfunction. Nephrology evaluating for nephrotic syndome, which her 24-hour urine would suggest. S/p kidney biopsy Did not respond to diuretics. Patient had dialysis catheter placed 04/04/2020 and dialysis started today. (4) Atrial fibrillation Qualifiers: Atrial fibrillation type: paroxysmal Qualified Code(s): I48.0 - Paroxysmal atrial fibrillation Is this a current diagnosis for this admission?: Yes Plan: She is already on metoprolol 100 mg twice daily. diltiazem 30 mg every 8 hours. Not a candidate for anticoagulation or aspirin therapy at this time due to recent renal hematoma and GI bleed. (5) CHF exacerbation Qualifiers: Heart failure type: unspecified Qualified Code(s): I50.9 - Heart failure, unspecified Is this a current diagnosis for this admission?: Yes Plan: Anasarca actually not thought to be due to a CHF exacerbation at this time, echocardiogram pending, cardiology following (6) Chronic kidney disease, stage 3 (moderate) Is this a current diagnosis for this admission?: Yes Plan: Received records from [facility]. Patient's GFR was between 30 and 45 as well. She has a lot of protein in her urine. S/p renal biopsy Patient started dialysis today (7) [id number]-li-cmhydtz kidney injury Qualifiers: Acute renal failure type: with other specified pathological lesion Chronic kidney disease stage: stage 3 (moderate) Qualified Code(s): N17.8 - Other acute kidney failure; N18.3 - Chronic kidney disease, stage 3 (moderate) Is this a current diagnosis for this admission?: Yes Plan: Creatinine has gotten worse. She was on IV fluids and got repeat transfusions. Very poor urine output. Started dialysis today.. Nephrology is managing. (8) Diabetes mellitus type 2 in nonobese Is this a current diagnosis for this admission?: Yes Plan: Continue sliding scale and diabetic diet - Plan Summary Summary: I spoke with Dr. Hay, a urologist in [place], and discussed the case at length. At this time her repeat hemoglobin has come back up to 8.8, and her platelets are also trending back up at 86. This would seem to indicate that any bleeding has stabilized. The repeat CT scan showed subcapsular hematoma was stable, and a retroperitoneal hematoma was also mentioned as being stable, even though this was not mentioned on the initial CT. Dr. Hay indicated that if the bleeding remained stable, then we should continue to treat her supportively as we have been doing. As previously noted, I do not believe for many reasons that this patient is in DIC, and indeed if she was her hemoglobin and her platelets would continue to drop. She should be on bedrest until her hemoglobin is stable for another 24 hours, and then we could potentially consider ambulating her. Her urine output seems to have increased a little bit today, and so we will monitor her for recovery of function. No adverse events overnight. Vital signs been stable. Urine output has been mi nimal. Her creatinine went up a little again today. Her platelets have been stable. Her hemoglobin was down a point from yesterday but she is been on continuous fluids overnight. She is awake and looks fatigued, but she says that overall she feels okay, just tired. She is not complaining of any abdominal pain. Breathing has been comfortable. There has been no visual evidence of any external bleeding. No rashes. Interestingly, her edema does not appear to have gotten any worse. Reason For Visit: ANASARCA,UPPER ABDOMINAL PAIN,MALIGNANT (1) Closed hematoma of left kidney Qualifiers: Encounter type: initial encounter Qualified Code(s): S37.012A - Minor contusion of left kidney, initial encounter Is this a current diagnosis for this admission?: Yes Plan: I have ordered a repeat CT scan today to see if the size of the hematoma has changed. I will call and speak with the urologist once I have this information, to see if there is any recommendation that could help her from a surgical standpoint. (2) Acute blood loss anemia Is this a current diagnosis for this admission?: Yes Plan: Her hemoglobin seems relatively stable at this time. She had to get 2 units and 2 consecutive days. Her hemoglobin was down a little bit today, but I suspect some of this is from hemodilution. Her platelets are stable from yesterday. There has been mention of some concern that this might be DIC. I do not believe this to be the case, and there are multiple reasons why. First, she has a good explanation for why her hemoglobin is down, and she has had no signs of any external bleeding. Second, her platelets are low, but they have stabilized, and you can see a drop in platelets with blood volume loss combined with administration of IV fluids. Third, her coagulation studies are not that much different from when she was admitted 9 days ago. Her PT is up from 15-17, and her PTT is up from 37-39. Fourth, her fibrinogen is well within the normal ran ge at 338. Her d-dimer is elevated, but with her level of renal failure this is to be expected, and with the bleeding she has had we would expect it to be a little elevated, which it is. Fifth, her LDH is normal, which argues against microangiopathic hemolysis that one typically sees with DIC. We will of course be monitoring her closely for development of this process, but at this time I do not think that is what is going on, for the reasons noted above. (3) Anasarca Is this a current diagnosis for this admission?: Yes Plan: Slight improvement. Patient's anasarca is likely due to her kidney disease. ABD U/S shows coarse heterogeneous liver appearance; likely underlying liver disease. LFTs unremarkable Hep B negative. Hep C negative. Cardiology and Nephrology services are consulted. Echo pending per cardiology. Did discuss with Dr. Strickland; unlikely due to CHF alone, though expects some underlying diastolic dysfunction. Nephrology evaluating for nephrotic syndome, which her 24-hour urine would suggest. S/p kidney biopsy IV fluids and IV bumetanide per Dr. Mac, bumetanide on hold due to renal failure. 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 (4) Atrial fibrillation Qualifiers: Atrial fibrillation type: paroxysmal Qualified Code(s): I48.0 - Paroxysmal atrial fibrillation Is this a current diagnosis for this admission?: Yes Plan: Patient converted into atrial fibrillation overnight on telemetry. Confirmed by EKG. Unknown history of the same; patient not able to elaborate. She is already on metoprolol 100 mg twice daily. diltiazem 30 mg every 8 hours. Not a candidate for anticoagulation or aspirin therapy at this time due to recent renal hematoma and GI bleed. (5) CHF exacerbation Qualifiers: Heart failure type: unspecified Qualified Code(s): I50.9 - Heart failure, unspecified Is this a current diagnosis for this admission?: Yes Plan: Anasarca actually not thought to be due to a CHF exacerbation at this time, echocardiogram pending, cardiology consulted (6) Chronic kidney disease, stage 3 (moderate) Is this a current diagnosis for this admission?: Yes Plan: Received records from [facility]. Patient's GFR was between 30 and 45 as well. She has a lot of protein in her urine. S/p renal biopsy Nephrology has been consulted; primary management per their expertise. (7) Diabetes mellitus type 2 in nonobese Is this a current diagnosis for this admission?: Yes Plan: Continue sliding scale and diabetic diet (8) [id number] kidney injury Qualifiers: Acute renal failure type: with other specified pathological lesion Chronic kidney disease stage: stage 3 (moderate) Qualified Code(s): N17.8 - Other acute kidney failure; N18.3 - Chronic kidney disease, stage 3 (moderate) Is this a current diagnosis for this admission?: Yes Plan: Creatinine has gotten worse since the formation of a hematoma. Creatinine went up fairly quickly, up to 2.88 today. She is on IV fluids and getting repeat transfusions as needed, monitoring urine output. Am repeating the CT of the abdomen and pelvis to assess for interval change in the size of the renal hematoma. Once I have that information, I will contact the urologist to discuss the case and see if there is any role for surgical intervention here. My concern is that on the original CT the right kidney looks very atrophic, and I believe the left kidney was probably the better of the 2, and now it is compromised by a large subcapsular hematoma putting mass-effect onto the renal p arenchyma, and I would like to see if there is something that can be done to salvage this kidney. With her decreased urine output, she may need dialysis. - Time Time Spent with patient: 25-34 minutes
--- NOTE | 2020-04-05 12:50 | PDOC PROGRESS REPORT ---
Subjective Progress Note for:: 04/05/20 Subjective:: 74-year-old female with multiple medical problems who was admitted on 03/25/2020 with anasarca and who had been followed by Dr. Strickland for possible heart failure. For details of this admission and cardiology follow-up please see Dr. Strickland's notes. In summary, the patient presented slightly obtunded and with anasarca. She eventually developed new onset atrial fibrillation with RVR and was consulted to cardiology. During this hospitalization she also developed melena as well as a perinephric hematoma status post renal biopsy. Today she is at her baseline and this morning complains of slightly increase in her shortness of breath. Her hemoglobin dropped again as of this morning. Her telemetry demonstrates atrial fibrillation with no sustained ventricular dysrhythmias. 04/05/2020: The patient continued to be fluid overloaded, hypertensive, in heart failure and unresponsive to IV Bumex therefore Dr. Tabor took her to dialysis this morning without complications. Unfortunately I do not have the report from dialysis at this point. She feels slightly better than yesterday however she appears to be mildly short of breath at rest. Underwent abdominal pelvic CT scan 2 days ago demonstrating stability of the perinephric hematoma as well as of the r etroperitoneal hematoma. Unfortunately she was found to have moderate pleural effusions with partial collapse of the left lower lobe and alveolar groundglass appearance of the right middle lobe consistent with infection versus early edema. Her hemoglobin is now stable. Her telemetry shows significant artifact as well as atrial fibrillation with heart rates between 60 and 80 bpm without sustained ventricular dysrhythmias. Physical exam on 04/04/2020: GENERAL: Pleasant. She is dyspneic with regular conversation. Oriented x3 with normal mood. Disheveled. HEENT: Normocephalic, atraumatic. Pupils equal. Sclerae anicteric. Oropharynx moist. NECK: No JVD. No carotid bruits. LUNGS: Inspiratory and expiratory crackles in all wal[place] as well as wheezing. CARDIOVASCULAR: Irregularly irregular rate and rhythm, normal S1 and S2 without murmurs, rubs, or gallops. PMI not displaced. EXTREMITIES: 2+ pitting edema bilaterally, no cyanosis, no clubbing. +2 pulses femoral and pedal pulses bilaterally. MUSCULOSKELETAL: No chest tenderness to palpation. NEUROLOGIC: Nonfocal. No gross sensory or motor deficits bilateral upper or lower extremities. Cardiac studies: Echocardiogram on 03/07/2020: -LV systolic function is normal. -EF 60 to 65%. -Moderate concentric LVH. -Grade 1 diastolic dysfunction. -Suspected pulmonary hypertension. -Small pericardial effusion. No evidence of cardiac tamponade. -Pleural effusion is present. Lexiscan MPS on 11/14/2014: -No ischemia or infarct. -Normal ejection fraction. Reason For Visit: ANASARCA,UPPER ABDOMINAL PAIN,MALIGNANT Physical Exam Vital Signs: Temp Pulse Resp BP Pulse Ox 97.4 F 145 H 20 197/61 H 82 L 04/05/20 03:19 04/05/20 03:19 04/05/20 03:19 04/05/20 03:19 04/05/20 03:19 Intake & Output 04/03/20 04/04/20 04/05/20 06:59 06:59 06:59 Intake Total 2508 285 560 Output Total 100 110 140 Balance 2408 175 420 Weight 76.2 kg 83.3 kg 82.8 kg Results Laboratory Results: 04/05/20 04:45 04/05/20 04:45 04/04/20 04/04/20 04/04/20 06:17 06:17 14:19 WBC 10.3 RBC 2.75 L Hgb 8.5 L Hct 23.8 L MCV 87 MCH 30.8 MCHC 35.5 RDW 15.2 H Plt Count 98 L Seg Neutrophils % Not Reportable Carbonic Acid HCO3/H2CO3 Ratio ABG pH ABG pCO2 ABG pO2 ABG HCO3 ABG O2 Saturation ABG Base Excess FiO2 Sodium 128.9 L 129.0 L Potassium 4.2 4.1 Chloride 101 100 Carbon Dioxide 17 L 18 L Anion Gap 11 11 BUN 50 H 51 H Creatinine 3.38 H 3.38 H Est GFR ( Amer) 16 L 16 L Glucose 131 H 163 H Calcium 8.0 L 8.0 L 04/04/20 04/05/20 04/05/20 17:27 04:45 04:45 WBC 11.9 H RBC 2.80 L Hgb 8.6 L Hct 24.7 L MCV 88 MCH 30.9 MCHC 35.0 RDW 15.4 H Plt Count 119 L Seg Neutrophils % Carbonic Acid 1.04 L HCO3/H2CO3 Ratio 17:1 ABG pH 7.34 L ABG pCO2 34.5 L ABG pO2 54.1 L ABG HCO3 18.3 L ABG O2 Saturation 86.7 L ABG Base Excess -6.7 FiO2 5.00 Sodium 128.7 L Potassium 4.4 Chloride 101 Carbon Dioxide 16 L Anion Gap 12 BUN 55 H Creatinine 3.41 H Est GFR ( Amer) 16 L Glucose 134 H Calcium 8.0 L 03/25/20 03/25/20 03/25/20 19:50 19:50 20:41 Creatine Kinase CK-MB (CK-2) Troponin I Cancelled 0.015 NT-Pro-B Natriuret Pep Cancelled [id number] H 03/26/20 03/26/20 03/26/20 02:54 02:54 08:17 Creatine Kinase 115 144 H CK-MB (CK-2) 2.08 Troponin I 0.023 NT-Pro-B Natriuret Pep 03/26/20 03/26/20 03/26/20 08:17 14:07 14:07 Creatine Kinase 134 CK-MB (CK-2) 1.92 1.83 Troponin I 0.028 0.022 NT-Pro-B Natriuret Pep Impressions: Acute Abdomen Series 03/25/20 20:05 IMPRESSION: Patchy density in the right lung base new when compared to the previous study. Findings may reflect atelectasis versus developing infiltrate Cardiac enlargement KUB X-Ray 03/27/20 00:00 IMPRESSION: Nonspecific nonobstructive bowel gas pattern. Guidance Needle Placement CT 03/31/20 00:00 IMPRESSION: Please see combined report for performance of procedure and radiologic supervision and interpretation. Renal Biopsy CT 03/31/20 08:00 IMPRESSION: CT GUIDED LEFT KIDNEY CORTICAL BIOPSY. Abdomen/Pelvis CT 04/03/20 00:00 IMPRESSION: 1. Bilateral pleural effusions and increased collapse / atelectasis of the left lower lobe. The alveolar ground-glass opacities in the right middle lobe are nonspecific and could represent an infection or early edema. 2. Unchanged left perinephric and retroperitoneal hematomas. 3. Other findings as detailed above. Chest X-Ray 04/04/20 00:00 IMPRESSION: New bilateral peripheral alveolar infiltrates. Atypical pneumonia cannot be excluded. Clinical correlation is needed. Pulmonary edema is also a possibility. 04/05/20 04:45 04/05/20 04:45 MCV 88 fl (80-97) 04/05/20 04:45 MCH 30.9 pg (27.0-33.4) 04/05/20 04:45 MCHC 35.0 g/dL (32.0-36.0) 04/05/20 04:45 RDW 15.4 % (11.5-14.0) H 04/05/20 04:45 Seg Neutrophils % Not Reportable 04/04/20 06:17 Carbonic Acid 1.04 mmol/L (1.05-1.35) L 04/04/20 17:27 HCO3/H2CO3 Ratio 17:1 04/04/20 17:27 ABG pH 7.34 (7.35-7.45) L 04/04/20 17:27 ABG pCO2 34.5 mmHg (35-45) L 04/04/20 17:27 ABG pO2 54.1 mmHg (80-100) L 04/04/20 17:27 ABG HCO3 18.3 mmol/L (20-24) L 04/04/20 17:27 ABG O2 Saturation 86.7 % (94-98) L 04/04/20 17:27 ABG Base Excess -6.7 mmol/L 04/04/20 17:27 FiO2 5.00 04/04/20 17:27 Chloride 101 mmol/L (98-107) 04/05/20 04:45 Carbon Dioxide 16 mmol/L (22-30) L 04/05/20 04:45 Anion Gap 12 (5-19) 04/05/20 04:45 Est GFR ( Amer) 16 (>60) L 04/05/20 04:45 Est GFR (Non-Af Amer) Cancelled 03/25/20 19:50 Glucose 134 mg/dL (75-110) H 04/05/20 04:45 Serum Osmolality 261 mOsm/kg (275-301) L 03/27/20 05:40 Lactic Acid 1.0 mmol/L (0.7-2.1) 03/25/20 20:41 Calcium 8.0 mg/dL (8.4-10.2) L 04/05/20 04:45 Ionized Calcium [place] 1.01 mmol/L (1.14-1.30) L 03/29/20 14:47 Magnesium 2.7 mg/dL (1.6-2.3) H 03/27/20 05:40 Total Bilirubin 0.3 mg/dL (0.2-1.3) 03/29/20 06:40 AST 27 U/L (14-36) 03/29/20 06:40 Alkaline Phosphatase 76 U/L (38-126) 03/29/20 06:40 C-Reactive Protein < 5.0 mg/L (<10.0) 03/27/20 05:40 Total Protein 4.6 g/dL (6.3-8.2) L 03/29/20 06:40 Albumin 2.3 g/dL (3.5-5.0) L 03/29/20 06:40 Triglycerides 67 mg/dL (<150) 03/26/20 08:17 Cholesterol 108.20 mg/dL (0-200) 03/26/20 08:17 LDL Cholesterol Direct < 30 mg/dL (<100) 03/26/20 08:17 VLDL Cholesterol 13.0 mg/dL (10-31) 03/26/20 08:17 HDL Cholesterol 74 mg/dL (>40) 03/26/20 08:17 Lipase 71.7 U/L (23-300) 03/25/20 20:41 TSH 2.31 uIU/mL (0.47-4.68) 03/26/20 08:17 Free T3 pg/mL 2.29 pg/mL (2.77-5.27) L 03/26/20 08:17 PTH Intact 91.1 pg/mL (10.0-65.0) H 03/30/20 06:35 Urine Color YELLOW 03/26/20 05:50 Urine Appearance SLIGHTLY-CLOUDY 03/26/20 05:50 Urine pH 6.0 (5.0-9.0) 03/26/20 05:50 Ur Specific [place] 1.007 03/26/20 05:50 Urine Protein >=500 mg/dL (NEGATIVE) H 03/26/20 05:50 Urine Glucose (UA) 150 mg/dL (NEGATIVE) H 03/26/20 05:50 Urine Ketones NEGATIVE mg/dL (NEGATIVE) 03/26/20 05:50 Urine Blood SMALL (NEGATIVE) H 03/26/20 05:50 Urine Nitrite NEGATIVE (NEGATIVE) 03/26/20 05:50 Ur Leukocyte Esterase NEGATIVE (NEGATIVE) 03/26/20 05:50 Urine WBC (Auto) 2 /HPF 03/26/20 05:50 Urine RBC (Auto) 1 /HPF 03/26/20 05:50 Urine Osmolality 220 mOsm/kg (300-900) L 03/29/20 23:04 Ur 24 Hour Volume 960 mL 03/29/20 09:40 Ur Total Protein 24 Hr 3855 mg/day (42-225) H 03/29/20 09:40 Ur Sodium 24 Hour 37 mmol/day (40-200) L 03/29/20 09:40 Stool Occult Blood POSITIVE (NEGATIVE) 03/26/20 20:50 Blood Type A NEGATIVE 04/01/20 07:16 Antibody Screen NEGATIVE 04/01/20 07:16 03/25/20 03/25/20 03/25/20 19:50 19:50 20:41 Creatine Kinase CK-MB (CK-2) Troponin I Cancelled 0.015 NT-Pro-B Natriuret Pep Cancelled [id number] H 03/26/20 03/26/20 03/26/20 02:54 02:54 08:17 Creatine Kinase 115 144 H CK-MB (CK-2) 2.08 Troponin I 0.023 NT-Pro-B Natriuret Pep 03/26/20 03/26/20 03/26/20 08:17 14:07 14:07 Creatine Kinase 134 CK-MB (CK-2) 1.92 1.83 Troponin I 0.028 0.022 NT-Pro-B Natriuret Pep Current Medication List Generic Name Dose Route Start Last Admin Trade Name Freq PRN Reason Stop Dose Admin Acetaminophen 650 mg 03/25/20 23:03 04/01/20 17:38 Tylenol 325 Mg Tablet PO 04/24/20 23:02 650 mg Q4HP PRN Administration For headache, pain or fever Al Hydrox/Mg Hydrox/Simethicone 30 ml 03/25/20 22:57 04/05/20 05:28 Maalox Plus Susp 30 Udcup PO 04/24/20 22:56 30 ml Q6HP PRN Administration HEARTBURN Albuterol/Ipratropium 3 ml 04/03/20 15:25 04/05/20 00:23 Duoneb 3 Ml Ampul NEB 05/03/20 15:24 3 ml RTQ2HP PRN Administration SHORTNESS OF BREATH Artificial Tears 1 drop 03/30/20 11:04 Refresh Plus 0.5% Oph Soln 0.4 Ml [place]perette OU 04/29/20 11:03 QIDP PRN DRY EYE(S) Calcium Carbonate 600 mg 04/03/20 17:00 04/04/20 18:18 Caltrate 600 Mg Tablet PO 05/03/20 16:59 Not Given BIDBS PATRICIA Diltiazem HCl 30 mg 03/31/20 14:00 04/05/20 05:27 Cardizem 30 Mg Tablet PO 04/30/20 13:59 30 mg Q8 PATRICIA Administration Docusate Sodium 100 mg 03/27/20 18:00 04/04/20 18:18 Colace 100 Mg Capsule PO 04/26/20 17:59 Not Given BID PATRICIA Guaifenesin 200 mg 03/25/20 23:03 Robitussin Syrup 200 Mg/10 Ml Ud Cup PO 04/24/20 23:02 Q4HP PRN COUGH Heparin Sodium (Porcine) 5,000 unit 03/26/20 06:00 04/05/20 05:40 Heparin Inj 5,000 Units/Ml 1 Ml Vial SUBCUT 04/25/20 05:59 Not Given Q8 PATRICIA Heparin Sodium (Porcine) 4,600 unit 04/05/20 05:00 Heparin Inj 1,000 Unit/Ml 10 Ml Vial IV 04/05/20 23:59 .SPLIT B/N CATHETERS PRN THIS MED IS NOT "PRN" Hydralazine HCl 10 mg 03/30/20 16:28 04/03/20 20:01 Apresoline Inj/Pf 20 Mg/1 Ml Sdv IV 04/29/20 16:27 10 mg Q6HP PRN Administration FOR SBP >160 AND/OR DBP > 100 Sodium Chloride 1,000 mls @ 0 mls/hr 04/05/20 05:00 Nacl 0.9% 1000 Ml Iv Soln IV 04/05/20 23:59 .DIALYSIS PRN THIS MED IS NOT "PRN" As Directed Levothyroxine Sodium 0.025 mg 03/28/20 06:00 04/05/20 05:27 Synthroid 0.025 Mg Tablet PO 04/27/20 05:59 0.025 mg Q6AM PATRICIA Administration Magnesium Hydroxide 30 ml 03/25/20 22:57 Milk Of Magnesia 30 Ml Udcup PO 04/24/20 22:56 HSP PRN FOR CONSTIPATION Melatonin 6 mg 03/29/20 22:00 04/04/20 21:28 Melatonin 3 Mg Tablet PO 04/28/20 21:59 6 mg QHS PATRICIA Administration Metoprolol Succinate 100 mg 04/03/20 18:00 04/05/20 05:27 Toprol Xl 50 Mg Tab.Sr PO 05/03/20 17:59 100 mg Q12A PATRICIA Administration Morphine Sulfate 2 mg 04/01/20 19:21 04/04/20 21:26 Morphine 10 Mg/Ml Inj IV 04/08/20 19:20 2 mg Q4HP PRN Administration FOR PAIN SCALE 3-5 Ondansetron HCl 4 mg 03/25/20 22:57 04/05/20 02:24 Zofran Inj/Pf 4 Mg/2 Ml Sdv IV 04/24/20 22:56 4 mg Q4HP PRN Administration FOR NAUSEA/VOMITING Sodium Chloride 2.5 ml 03/26/20 06:00 04/04/20 22:00 Saline Flush 2.5 Ml Monoject Prefil Syrin IV 04/25/20 05:59 2.5 ml Q8 PATRICIA Administration Sucralfate 1 gm 03/26/20 08:00 04/04/20 21:28 Carafate 1 Gm Tablet PO 04/25/20 07:59 1 gm ACHS PATRICIA Administration Throat Lozenges 1 each 04/03/20 21:05 04/03/20 21:45 Chloraseptic Sore Throat Lozenge BUCCAL 05/03/20 21:04 1 each Q2HP PRN Administration FOR SORE THROAT Discontinued Medications Generic Name Dose Route Start Last Admin Trade Name Freq PRN Reason Stop Dose Admin Amlodipine Besylate 5 mg 03/28/20 10:00 Norvasc 5 Mg Tablet PO 04/27/20 09:59 DAILY PATRICIA Amlodipine Besylate 10 mg 03/31/20 05:00 03/31/20 04:42 Norvasc 10 Mg Tablet PO 03/31/20 05:01 10 mg NOW ONE Administration Amlodipine Besylate 10 mg 03/31/20 10:00 Norvasc 10 Mg Tablet PO 04/30/20 09:59 DAILY PATRICIA Bumetanide 1 mg 03/25/20 23:30 03/27/20 11:50 Bumex Inj/Pf 1 Mg/4 Ml Sdv IV 04/24/20 23:29 1 mg Q6H PATRICIA Administration Bumetanide 1 mg 03/27/20 22:00 03/29/20 09:06 Bumex Inj/Pf 1 Mg/4 Ml Sdv IV 04/26/20 21:59 1 mg Q12 PATRICIA Administration Bumetanide 1 mg 03/29/20 18:00 04/01/20 17:33 Bumex Inj/Pf 1 Mg/4 Ml Sdv IV 04/28/20 17:59 1 mg Q8A PATRICIA Administration Bumetanide 2 mg 04/04/20 14:21 04/04/20 14:39 Bumex Inj/Pf 1 Mg/4 Ml Sdv IV 04/04/20 14:22 2 mg NOW ONE Administration Calcium Carbonate 600 mg 03/29/20 21:00 04/03/20 10:19 Caltrate 600 Mg Tablet PO 04/28/20 20:59 600 mg BID PATRICIA Administration Diphenoxylate HCl/Atropine 1 tab 03/27/20 15:44 03/27/20 17:09 Lomotil 2.5 Mg Tablet PO 04/03/20 15:43 1 tab QIDP PRN Administration DIARRHEA Docusate Sodium 100 mg 03/26/20 10:00 03/27/20 09:37 Colace Udc 100 Mg/10 Ml Oral Soln PO 04/25/20 09:59 Not Given BID PATRICIA Enalaprilat 2.5 mg 03/30/20 21:00 03/30/20 20:51 Vasotec Inj/Pf 2.5 Mg/2 Ml Sdv IV 03/30/20 21:01 2.5 mg NOW ONE Administration Epinephrine HCl Confirm 03/30/20 14:25 Epinephrine Inj 1 Mg/10 Ml Disp.Syrin Administered 03/30/20 14:26 Dose 1 mg .ROUTE .STK-MED ONE Famotidine 20 mg 03/25/20 23:00 03/27/20 09:37 Pepcid 20 Mg Tablet PO 04/24/20 22:59 20 mg Q12 PATRICIA Administration Famotidine 20 mg 03/28/20 10:00 03/29/20 09:06 Pepcid 20 Mg Tablet PO 04/27/20 09:59 20 mg DAILY PATRICIA Administration Fentanyl Citrate Confirm 03/31/20 08:31 03/31/20 11:03 Sublimaze Inj/Pf 100 Mcg/2 Ml Ampule Administered 03/31/20 08:32 Not Given Dose 100 mcg .ROUTE .STK-MED ONE Furosemide 60 mg 04/03/20 09:30 04/03/20 10:20 Lasix Inj/Pf 100 Mg/10 Ml Sdv IV 04/03/20 09:31 60 mg NOW ONE Administration Haloperidol Lactate 5 mg 04/01/20 21:30 04/01/20 21:36 Haldol 5 Mg/Ml Inj 1 Ml Vial IV 04/01/20 21:31 5 mg NOW ONE Administration Haloperidol Lactate Confirm 04/01/20 21:32 04/01/20 21:36 Haldol 5 Mg/Ml Inj 1 Ml Vial Administered 04/01/20 21:33 Not Given Dose 5 mg .ROUTE .STK-MED ONE Hydralazine HCl 20 mg 03/25/20 23:07 03/27/20 09:41 Apresoline Inj/Pf 20 Mg/1 Ml Sdv IV 04/24/20 23:06 20 mg Q4HP PRN Administration Give For Sbp > 160 / Dbp > 100 Hydralazine HCl 10 mg 03/27/20 11:30 03/30/20 09:43 Apresoline Inj/Pf 20 Mg/1 Ml Sdv IV 04/26/20 11:29 10 mg Q8HP PRN Administration FOR SBP >160 AND/OR DBP > 100 Sodium Chloride 1,000 mls @ 125 mls/hr 03/25/20 21:36 Nacl 0.9% 1000 Ml Iv Soln IV 04/24/20 21:35 .CONTINUOUS PRN DIARRHEA Albumin Human 12.5 gm in 50 mls @ 50 mls/hr 03/25/20 23:15 03/26/20 05:57 Albuminar-25 Rtu Inj 12.5 Gm/50 Ml Premix IV 03/26/20 03:14 Infused Q1H PATRICIA Infusion Albumin Human Confirm 03/26/20 01:29 03/26/20 01:47 Albuminar-25 Rtu Inj 12.5 Gm/50 Ml Premix Administered 03/26/20 01:30 Not Given Dose 50.0 gm in 200 mls @ ud IV .STK-MED ONE Sodium Chloride 1,000 mls @ 50 mls/hr 03/27/20 11:19 03/29/20 05:02 Nacl 0.9% 1000 Ml Iv Soln IV 04/26/20 11:18 50 mls/hr CONTINUOUS PRN Administration THIS MED IS NOT "PRN" Sodium Chloride 1,000 mls @ 40 mls/hr 03/29/20 10:59 Nacl 0.9% 1000 Ml Iv Soln IV 04/26/20 11:18 CONTINUOUS PRN THIS MED IS NOT "PRN" Albumin Human 12.5 gm in 50 mls @ 50 mls/hr 03/30/20 10:00 04/01/20 17:34 Albuminar-25 Rtu Inj 12.5 Gm/50 Ml Premix IV 04/02/20 09:59 50 mls/hr TID PATRICIA Administration Sodium Chloride 250 mls @ 30 mls/hr 04/01/20 08:12 Nacl 0.9% 250 Ml Iv Soln IV 04/02/20 08:11 .DURING TRANSFUSION PRN THIS MED IS NOT "PRN" Sodium Chloride 250 mls @ 0 mls/hr 04/01/20 08:12 Nacl 0.9% 250 Ml Iv Soln IV 04/02/20 08:11 CONTINUOUS PRN AFTER EACH UNIT As Directed Sodium Chloride 1,000 mls @ 100 mls/hr 04/01/20 19:09 04/02/20 23:45 Nacl 0.9% 1000 Ml Iv Soln IV 05/01/20 19:08 Infused CONTINUOUS PRN Infusion THIS MED IS NOT "PRN" Albumin Human 12.5 gm in 50 mls @ 50 mls/hr 04/02/20 21:00 04/03/20 01:45 Albuminar-25 Rtu Inj 12.5 Gm/50 Ml Premix IV 04/03/20 00:59 Infused Q1H PATRICIA Infusion Sodium Chloride 1,000 mls @ 150 mls/hr 04/02/20 21:01 04/03/20 04:00 Nacl 0.9% 1000 Ml Iv Soln IV 05/02/20 21:00 Infused CONTINUOUS PRN Infusion THIS MED IS NOT "PRN" Albumin Human Confirm 04/02/20 21:13 04/02/20 21:20 Albuminar-25 Rtu Inj 12.5 Gm/50 Ml Premix Administered 04/02/20 21:14 Not Given Dose 50.0 gm in 200 mls @ ud IV .STK-MED ONE Sodium Chloride 1,000 mls @ 100 mls/hr 04/03/20 05:56 Nacl 0.9% 1000 Ml Iv Soln IV 05/03/20 05:55 CONTINUOUS PRN THIS MED IS NOT "PRN" Desmopressin Acetate 20 mcg/ 50 mls @ 100 mls/hr 04/03/20 13:30 04/03/20 14:00 Sodium Chloride IV 04/03/20 13:59 Infused NOW ONE Infusion Insulin Human Regular 0 - 15 unit 03/25/20 23:03 03/27/20 09:04 Humulin R (Pyxis) Insulin 100 Unit/Ml 3ml SUBCUT 04/24/20 23:02 Not Given ACHS PATRICIA Protocol Lorazepam 1 mg 03/25/20 23:03 Ativan Inj 2 Mg/1 Ml Vial IV 04/01/20 23:02 Q4HP PRN ANXIETY/AGITATION Lorazepam Confirm 03/31/20 03:47 03/31/20 03:53 Ativan Inj 2 Mg/1 Ml Vial Administered 03/31/20 03:48 Not Given Dose 2 mg .ROUTE .STK-MED ONE Lorazepam 1 mg 03/31/20 04:00 03/31/20 03:52 Ativan Inj 2 Mg/1 Ml Vial IV 03/31/20 04:01 1 mg NOW ONE Administration Losartan Potassium 50 mg 03/26/20 10:00 Cozaar 50 Mg Tablet PO 04/25/20 09:59 Q12 PATRICIA Losartan Potassium 50 mg 03/26/20 04:30 03/27/20 09:37 Cozaar 50 Mg Tablet PO 04/25/20 04:29 50 mg Q12 PATRICIA Administration Metoclopramide HCl 5 mg 03/26/20 08:00 03/29/20 11:50 Reglan 10 Mg Tablet PO 04/25/20 07:59 5 mg ACHS PATRICIA Administration Metoclopramide HCl 10 mg 04/01/20 17:30 04/01/20 17:31 Reglan Inj/Pf 10 Mg/2 Ml Sdv IV 04/01/20 17:31 10 mg NOW ONE Administration Metoclopramide HCl Confirm 04/01/20 17:28 04/01/20 17:46 Reglan Inj/Pf 10 Mg/2 Ml Sdv Administered 04/01/20 17:29 Not Given Dose 10 mg .ROUTE .STK-MED ONE Metoprolol Succinate 100 mg 03/26/20 10:00 Toprol Xl 50 Mg Tab.Sr PO 04/25/20 09:59 Q12 PATRICIA Metoprolol Succinate 100 mg 03/26/20 06:00 04/03/20 05:23 Toprol Xl 50 Mg Tab.Sr PO 04/25/20 05:59 100 mg Q12H PATRICIA Administration Metoprolol Tartrate 5 mg 03/25/20 23:07 Lopressor Inj/Pf 5 Mg/5 Ml Sdv IV 04/24/20 23:06 Q4HP PRN Give For Sbp > 160 / Dbp > 100 Midazolam HCl Confirm 03/31/20 08:31 03/31/20 11:04 Versed 2 Mg/2 Ml Inj Administered 03/31/20 08:32 Not Given Dose 2 mg .ROUTE .STK-MED ONE Morphine Sulfate Confirm 04/01/20 18:16 04/01/20 18:22 Morphine 10 Mg/Ml Inj Administered 04/01/20 18:17 2 mg Dose Administration 10 mg .ROUTE .STK-MED ONE Nitroglycerin 1 gm 03/26/20 03:34 03/26/20 04:52 Nitrol 2% Ointment 1gm Packet TP 04/25/20 03:33 Not Given Q6 PATRICIA Nitroglycerin 1 gm 03/26/20 04:30 Nitrol 2% Ointment 1gm Packet TP 04/25/20 04:29 Q6 PATRICIA Nitroglycerin 1 gm 03/26/20 04:30 03/27/20 06:35 Nitrol 2% Ointment 1gm Packet TP 04/25/20 04:29 Not Given Q6 PATRICIA Nitroglycerin 0.5 gm 03/31/20 03:46 03/31/20 03:53 Nitrol 2% Ointment 1gm Packet TP 03/31/20 03:47 0.5 gm NOW ONE Administration Nitroglycerin Confirm 03/31/20 03:55 03/31/20 04:15 Nitrol 2% Ointment 1gm Packet Administered 03/31/20 03:56 Not Given Dose 1 gm .ROUTE .STK-MED ONE Nitroglycerin 1 each 04/03/20 21:00 04/03/20 21:46 Nitro-Dur 5 Mg (0.2 Mg/Hr) Transdermal Patch TD 04/03/20 21:01 1 each NOW ONE Administration Pantoprazole Sodium 40 mg 03/29/20 22:00 04/01/20 10:48 Protonix Iv Inj 40 Mg Vial IV 04/01/20 21:59 40 mg Q12 PATRICIA Administration Polyethylene Glycol 17 gm 03/30/20 11:30 03/30/20 15:28 Miralax Powder 17 Gm/Packet PO 03/30/20 14:01 Not Given Q2 PATRICIA Polyethylene Glycol/Electrolytes 4,000 ml 03/28/20 17:30 03/28/20 22:57 Golytely Solution 4000 Ml PO 03/28/20 17:31 Not Given ONCE ONE Potassium Chloride 40 meq 03/28/20 08:17 03/28/20 09:17 Klor-Con 10 Meq Tablet Er PO 03/28/20 08:18 40 meq NOW ONE Administration Potassium Chloride 20 meq 03/28/20 14:00 03/28/20 14:19 Klor-Con 10 Meq Tablet Er PO 03/28/20 14:01 20 meq TAM@1400 ONE Administration Potassium Chloride 20 meq 03/31/20 13:00 03/31/20 14:00 Klor-Con 10 Meq Tablet Er PO 03/31/20 13:01 20 meq NOW ONE Administration Potassium Chloride 20 meq 04/01/20 10:00 04/01/20 10:52 Potassium Chloride 20 Meq Packet PO 05/01/20 09:59 Not Given DAILY PATRICIA Propofol Confirm 03/30/20 15:00 Diprivan Inj 200 Mg/20 Ml Vial Administered 03/30/20 15:01 Dose 200 mg IV .STK-MED ONE Sodium Bicarbonate 1,300 mg 03/26/20 09:00 03/27/20 09:37 Sodium Bicarbonate 650 Mg Tablet PO 04/25/20 08:59 1,300 mg PCHS PATRICIA Administration Sodium Bicarbonate 2,600 mg 03/25/20 23:05 03/26/20 01:29 Sodium Bicarbonate 650 Mg Tablet PO 03/25/20 23:06 2,600 mg NOW ONE Administration Sodium Bicarbonate 2,600 mg 03/26/20 01:30 03/26/20 01:48 Sodium Bicarbonate 650 Mg Tablet PO 03/26/20 01:31 Not Given NOW ONE Assessment & Plan - Diagnosis (1) Atrial fibrillation Qualifiers: Atrial fibrillation type: paroxysmal Qualified Code(s): I48.0 - Paroxysmal atrial fibrillation Is this a current diagnosis for this admission?: Yes Plan: Likely secondary to her other medical problems. She is unaware of her atrial fibrillation. Her telemetry did not show any sustained ventricular dysrhythmias with a controlled heart rate. Unfortunately she cannot be anticoagulated at this point given her bleeding issues and low platelets. Recommendations: -Continue with current medical management. -We will continue to follow-up with you. (2) Anasarca Is this a current diagnosis for this admission?: Yes Plan: The patient continues to be in heart failure although she feels slightly better after undergoing dialysis this morning. She is now followed by Dr. Tabor. Recommendations: -Restrict fluid intake to 1500 cc daily. -Low sodium diet, less than 1500 mg daily. -Strict intake and output. -Daily weights. -Continue with dialysis per nephrology recommendations. -Repeat echocardiogram to reassess systolic function. (3) Acute blood loss anemia Is this a current diagnosis for this admission?: Yes Plan: Her hemoglobin is now stable. Recommendations: -Further management per primary team. (4) Closed hematoma of left kidney Qualifiers: Encounter type: initial encounter Qualified Code(s): S37.012A - Minor contusion of left kidney, initial encounter Is this a current diagnosis for this admission?: Yes Plan: Continues to be stable as of most recent CT scan. I will defer further management to primary team.
[2020-04-05] MEDS: CALCIUM CARBONATE 600 MG TABLET PO SCH ×2 (13:28→17:02)
[2020-04-05] MEDS: DOCUSATE SODIUM 100 MG CAPSULE PO SCH ×2 (13:29→17:00)
[2020-04-05] MEDS: SUCRALFATE 1 GM TABLET PO SCH ×3 (13:29→22:00)
--- NOTE | 2020-04-05 20:54 | PDOC PROGRESS REPORT ---
Subjective Progress Note for:: 04/05/20 Subjective:: I am seeing the patient during her first dialysis treatment this morning. She appears to be better compared to yesterday but she still has some labored breathing although she is just on nasal cannula. She tells me that she feels a little bit better today. She really does not have any other complaints. So far she is tolerating dialysis. Reason For Visit: ANASARCA,UPPER ABDOMINAL PAIN,MALIGNANT Physical Exam Vital Signs: Temp Pulse Resp BP Pulse Ox 97.4 F 145 H 20 197/61 H 82 L 04/05/20 03:19 04/05/20 03:19 04/05/20 03:19 04/05/20 03:19 04/05/20 03:19 Intake & Output 04/04/20 04/05/20 04/06/20 06:59 06:59 06:59 Intake Total 285 560 Output Total 110 140 Balance 175 420 Weight 83.3 kg 82.8 kg Vitals during dialysis: Blood pressure 142/48, pulse rate of 72, blood flow rate of 250 mL/min and dialysate flow rate of 600 mL/min, oxygen saturation of 93% at 4 L oxygen via nasal cannula. Exam: General appearance: PRESENT: Still appears to have some labored breathing but improved from yesterday, cooperative, well-developed, well-nourished Head exam: PRESENT: atraumatic, normocephalic Eye exam: PRESENT: conjunctiva pale, PERRLA. ABSENT: scleral icterus Neck exam: ABSENT: JVD Respiratory exam: PRESENT: Coarse breath sounds. ABSENT: crackles, rales, rhonchi, unlabored, wheezes Cardiovascular exam: PRESENT: Regular rate rhythm -+S1, +S2. ABSENT: diastolic murmur, systolic murmur GI/Abdominal exam: PRESENT: normal bowel sounds, soft. ABSENT: guarding, mass, tenderness Extremities exam: Persistent anasarca with bilateral upper and lower extremities edema Neurological exam: PRESENT: alert, awake, oriented to person, place and time. Skin exam: PRESENT: dry, warm, positive pallor Cardiovascular exam: PRESENT: +S1, +S2 GI/Abdominal exam: PRESENT: soft. ABSENT: firm, guarding, normal bowel sounds, organomegaly, tenderness - Mainly in the left upper quadrant Results Laboratory Results: 04/05/20 04:45 04/05/20 04:45 04/04/20 04/04/20 04/04/20 06:17 14:19 17:27 WBC 10.3 RBC 2.75 L Hgb 8.5 L Hct 23.8 L MCV 87 MCH 30.8 MCHC 35.5 RDW 15.2 H Plt Count 98 L Seg Neutrophils % Not Reportable Carbonic Acid 1.04 L HCO3/H2CO3 Ratio 17:1 ABG pH 7.34 L ABG pCO2 34.5 L ABG pO2 54.1 L ABG HCO3 18.3 L ABG O2 Saturation 86.7 L ABG Base Excess -6.7 FiO2 5.00 Sodium 129.0 L Potassium 4.1 Chloride 100 Carbon Dioxide 18 L Anion Gap 11 BUN 51 H Creatinine 3.38 H Est GFR ( Amer) 16 L Glucose 163 H Calcium 8.0 L 04/05/20 04/05/20 04:45 04:45 WBC 11.9 H RBC 2.80 L Hgb 8.6 L Hct 24.7 L MCV 88 MCH 30.9 MCHC 35.0 RDW 15.4 H Plt Count 119 L Seg Neutrophils % Carbonic Acid HCO3/H2CO3 Ratio ABG pH ABG pCO2 ABG pO2 ABG HCO3 ABG O2 Saturation ABG Base Excess FiO2 Sodium 128.7 L Potassium 4.4 Chloride 101 Carbon Dioxide 16 L Anion Gap 12 BUN 55 H Creatinine 3.41 H Est GFR ( Amer) 16 L Glucose 134 H Calcium 8.0 L 03/25/20 03/25/20 03/25/20 19:50 19:50 20:41 Creatine Kinase CK-MB (CK-2) Troponin I Cancelled 0.015 NT-Pro-B Natriuret Pep Cancelled 62341 H 03/26/20 03/26/20 03/26/20 02:54 02:54 08:17 Creatine Kinase 115 144 H CK-MB (CK-2) 2.08 Troponin I 0.023 NT-Pro-B Natriuret Pep 03/26/20 03/26/20 03/26/20 08:17 14:07 14:07 Creatine Kinase 134 CK-MB (CK-2) 1.92 1.83 Troponin I 0.028 0.022 NT-Pro-B Natriuret Pep Impressions: Acute Abdomen Series 03/25/20 20:05 IMPRESSION: Patchy density in the right lung base new when compared to the previous study. Findings may reflect atelectasis versus developing infiltrate Cardiac enlargement KUB X-Ray 03/27/20 00:00 IMPRESSION: Nonspecific nonobstructive bowel gas pattern. Guidance Needle Placement CT 03/31/20 00:00 IMPRESSION: Please see combined report for performance of procedure and radiologic supervision and interpretation. Renal Biopsy CT 03/31/20 08:00 IMPRESSION: CT GUIDED LEFT KIDNEY CORTICAL BIOPSY. Abdomen/Pelvis CT 04/03/20 00:00 IMPRESSION: 1. Bilateral pleural effusions and increased collapse / atelectasis of the left lower lobe. The alveolar ground-glass opacities in the right middle lobe are nonspecific and could represent an infection or early edema. 2. Unchanged left perinephric and retroperitoneal hematomas. 3. Other findings as detailed above. Chest X-Ray 04/04/20 00:00 IMPRESSION: New bilateral peripheral alveolar infiltrates. Atypical pneumonia cannot be excluded. Clinical correlation is needed. Pulmonary edema is also a possibility. Assessment & Plan - Diagnosis (1) [id number] kidney injury Qualifiers: Acute renal failure type: with other specified pathological lesion Chronic kidney disease stage: stage 3 (moderate) Qualified Code(s): N17.8 - Other acute kidney failure; N18.3 - Chronic kidney disease, stage 3 (moderate) Is this a current diagnosis for this admission?: Yes Plan: Patient is currently oligo-anuric with developing fluid overload. Kidney function has deteriorated after the complicated kidney biopsy with subsequent perinephric hematoma. Due to increasing shortness of breath and fluid overload I recommended patient initiated on hemodialysis which the patient has consented to yesterday. We will do dialysis today for 2.5 hours, using the patient's right femoral trialysis catheter, with 2 potassium bath, blood flow rate of 250 mL per minute, dialysate flow rate of 600 mL per minute, ultrafiltration 2 to 2.5 L as tolerated, no heparin and no Procrit. Patient is being closely monitored throughout this first initial hemodialysis treatment today. Ultrafiltration being adjusted depending on the patient's response. We will continue to closely monitor the patient and reevaluate for further need for hemodialysis. Continue to monitor kidney function. (2) Closed hematoma of left kidney Qualifiers: Encounter type: initial encounter Qualified Code(s): S37.012A - Minor contusion of left kidney, initial encounter Is this a current diagnosis for this admission?: Yes Plan: CT scan on 04/01 and 04/03 showed unchanged perinephric hematoma with retroperitoneal hematoma. Yesterday Dr. Holley has a spoken to a urologist in [facility], Dr. Hay who indicated that there is no change in the CT scan and the patient's hemoglobin continues to be stable then supportive measures is recommended. However if again the patient shows any deterioration, I think we should reconsider possible transfer to tertiary care facility. The DIC was considered yesterday with low platelets, elevated PT and PTT and d- dimer, however the fibrinogen is normal. Close monitoring is warranted. Patient's hemoglobin appears to be stable for the last 48 hours. This would indicate that the bleeding stopped at this point. (3) CHF exacerbation Qualifiers: Heart failure type: unspecified Qualified Code(s): I50.9 - Heart failure, unspecified Is this a current diagnosis for this admission?: Yes Plan: Patient has developed mild respiratory distress. Her chest x-ray today showed bilateral alveolar airspace disease which could either be atypical edema versus atypical pneumonia and mild central vascular prominence which were new findings compared to previous chest x-rays. The CT scan of the abdomen that was done yesterday also showed bilateral pleural effusion associated with partial collapse of left lower lobe with areas of subsegmental atelectasis. There was also patchy groundglass opacity in the right middle lobe Dr. Pagan has been following the patient and ordered an echocardiogram. Patient did not respond to diuretics yesterday. Ultrafiltration to dialysis should help. (4) Metabolic acidosis Is this a current diagnosis for this admission?: Yes Plan: Due to VAISHNAVI (5) Hypertension Is this a current diagnosis for this admission?: Yes Plan: Likely secondary to fluid retention. Monitor blood pressure after dialysis today and adjust medications accordingly. (6) Acute blood loss anemia Is this a current diagnosis for this admission?: Yes Plan: Unfortunately patient had perinephric and retroperitoneal hematoma post kidney biopsy on March 31. She required blood transfusions for 2 consecutive days over the weekend. Patient also was considered for possible GI bleed last week prior to kidney biopsy. Colonoscopy was done on March 30 which did not show any active bleeding. Monitor hemoglobin. (7) Proteinuria Qualifiers: Proteinuria type: unspecified Qualified Code(s): R80.9 - Proteinuria, unspecified Is this a current diagnosis for this admission?: Yes Plan: Urine protein to creatinine ratio of 9.8 and 24-hour urine of 3.8 g. Due to being in the nephrotic range, percutaneous left kidney biopsy was done on March 31, 2020. Pathology report is still pending. Serologies have been negative. (8) Anasarca Is this a current diagnosis for this admission?: Yes Plan: Patient has nephrotic range proteinuria and hypoalbuminemia. (9) Atrial fibrillation Qualifiers: Atrial fibrillation type: paroxysmal Qualified Code(s): I48.0 - Paroxysmal atrial fibrillation Is this a current diagnosis for this admission?: Yes Plan: Defer to cardiology. (10) Hyponatremia Is this a current diagnosis for this admission?: Yes Plan: Likely secondary to hypervolemic state due to fluid retention and anuria. (11) Chronic kidney disease, stage 3 (moderate) Is this a current diagnosis for this admission?: Yes - Time Time with patient: 15-25 minutes
[2020-04-05] MEDS: MORPHINE SULFATE 10 MG/ML INJ IV PRN (22:00)
[2020-04-05] MEDS: MELATONIN 3 MG TABLET PO SCH (22:00)
[2020-04-06] MEDS ORDERED: HALOPERIDOL LACTATE INJ 5 MG/1 ML VIAL IV ONE (03:30)
[2020-04-06] MEDS: HEPARIN SOD (PORCINE) 5,000 UNIT/ML 1 ML VIAL SUBCUT SCH ×3 (05:57→21:36)
[2020-04-06 06:43] LABS: HEMATOCRIT 25.1 % (36.0-47.0); HEMOGLOBIN 8.9 g/dL (12.0-15.5); MEAN CORPUSCULAR HEMOGLOBIN 31.4 pg (27.0-33.4); MEAN CORPUSCULAR HGB CONC 35.6 g/dL (32.0-36.0); MEAN CORPUSCULAR VOLUME 88 fl (80-97); PLATELET COUNT 128 10^3/uL (150-450); RED BLOOD COUNT 2.84 10^6/uL (3.72-5.28); RED CELL DISTRIBUTION WIDTH 15.4 % (11.5-14.0); WHITE BLOOD COUNT 9.7 10^3/uL (4.0-10.5)
[2020-04-06] MEDS: METOPROLOL SUCCINATE 50 MG TAB.SR.24H PO SCH ×2 (06:47→17:05)
[2020-04-06] MEDS: DILTIAZEM HCL 30 MG TABLET PO SCH ×3 (06:47→21:37)
[2020-04-06] MEDS: LEVOTHYROXINE SODIUM 0.025 MG TABLET PO SCH (06:47)
[2020-04-06 07:02] LABS: ANION GAP 10 (5-19); BLOOD UREA NITROGEN 48 mg/dL (7-20); CALCIUM 8.1 mg/dL (8.4-10.2); CARBON DIOXIDE 23 mmol/L (22-30); CHLORIDE 98 mmol/L (98-107); GLUCOSE 117 mg/dL (75-110); POTASSIUM 4.1 mmol/L (3.6-5.0)
[2020-04-06 07:04] LABS: ARTERIAL BLOOD BASE EXCESS -4.5 mmol/L; ARTERIAL BLOOD H2CO3 1.18 mmol/L (1.05-1.35); ARTERIAL BLOOD HCO3 20.8 mmol/L (20-24); ARTERIAL BLOOD O2 SATURATION 93.6 % (94-98); ARTERIAL BLOOD PCO2 39.1 mmHg (35-45); ARTERIAL BLOOD PH 7.34 (7.35-7.45); ARTERIAL BLOOD PO2 71.4 mmHg (80-100)
[2020-04-06] MEDS: SUCRALFATE 1 GM TABLET PO SCH ×5 (09:49→21:37)
[2020-04-06] MEDS: CALCIUM CARBONATE 600 MG TABLET PO SCH ×3 (09:49→17:05)
[2020-04-06] MEDS: DOCUSATE SODIUM 100 MG CAPSULE PO SCH ×2 (09:50→17:04)
--- NOTE | 2020-04-06 10:09 | PDOC PROGRESS REPORT ---
Subjective Progress Note for:: 04/06/20 Subjective:: 74-year-old female with multiple medical problems who was admitted on 03/25/2020 with anasarca and who had been followed by Dr. Strickland for possible heart failure. For details of this admission and cardiology follow-up please see Dr. Strickland's notes. In summary, the patient presented slightly obtunded and with anasarca. She eventually developed new onset atrial fibrillation with RVR and was consulted to cardiology. During this hospitalization she also developed melena as well as a perinephric hematoma status post renal biopsy. Today she is at her baseline and this morning complains of slightly increase in her shortness of breath. Her hemoglobin dropped again as of this morning. Her telemetry demonstrates atrial fibrillation with no sustained ventricular dysrhythmias. 04/06/2020: The patient underwent dialysis yesterday at which time 2 L of fluid were removed. Review of the nursing notes revealed that the patient had an episode of shortness of breath and became combative at around 0 310, she was tachypneic with an oxygen saturation of 82%. She was given a dose of Haldol and was placed on BiPAP which improved her oxygenation to 98% at around 0 427. She has not been given her beta-iam because of being asleep. She is still 2.5 L positive in her fluid balance since admission. She is awake this morning with BiPAP machine on. She continues to feel poorly, has not eaten well. She denies new cardiac complaints. Her telemetry shows significant artifact as well as atrial fibrillation with heart rates between 60 and 80 bpm without sustained ventricular dysrhythmias. Physical exam on 04/06/2020: GENERAL: Pleasant. BiPAP machine on. Oriented x to. Disheveled. HEENT: Normocephalic, atraumatic. Pupils equal. Sclerae anicteric. Oropharynx moist. NECK: No JVD. No carotid bruits. LUNGS: Inspiratory and expiratory crackles in all walters as well as wheezing. CARDIOVASCULAR: Irregularly irregular rate and rhythm, normal S1 and S2 without murmurs, rubs, or gallops. PMI not displaced. EXTREMITIES: 2+ pitting edema bilaterally, no cyanosis, no clubbing. +2 pulses femoral and pedal pulses bilaterally. MUSCULOSKELETAL: No chest tenderness to palpation. NEUROLOGIC: Nonfocal. No gross sensory or motor deficits bilateral upper or lower extremities. Cardiac studies: Echocardiogram on 03/07/2020: -LV systolic function is normal. -EF 60 to 65%. -Moderate concentric LVH. -Grade 1 diastolic dysfunction. -Suspected pulmonary hypertension. -Small pericardial effusion. No evidence of cardiac tamponade. -Pleural effusion is present. Lexiscan MPS on 11/14/2014: -No ischemia or infarct. -Normal ejection fraction. Reason For Visit: ANASARCA,UPPER ABDOMINAL PAIN,MALIGNANT Physical Exam Vital Signs: Temp Pulse Resp BP Pulse Ox 97.4 F 76 16 149/56 H 96 04/06/20 03:53 04/06/20 03:53 04/06/20 04:18 04/06/20 03:53 04/06/20 04:18 Intake & Output 04/05/20 04/06/20 04/07/20 06:59 06:59 06:59 Intake Total 560 800 Output Total 140 3615 Balance 420 -2815 Weight 82.8 kg 79.9 kg Results Laboratory Results: 04/06/20 05:53 04/06/20 05:53 WBC 9.7 RBC 2.84 L Hgb 8.9 L Hct 25.1 L MCV 88 MCH 31.4 MCHC 35.6 RDW 15.4 H Plt Count 128 L 03/25/20 03/25/20 03/25/20 19:50 19:50 20:41 Creatine Kinase CK-MB (CK-2) Troponin I Cancelled 0.015 NT-Pro-B Natriuret Pep Cancelled [id number] H 03/26/20 03/26/20 03/26/20 02:54 02:54 08:17 Creatine Kinase 115 144 H CK-MB (CK-2) 2.08 Troponin I 0.023 NT-Pro-B Natriuret Pep 03/26/20 03/26/20 03/26/20 08:17 14:07 14:07 Creatine Kinase 134 CK-MB (CK-2) 1.92 1.83 Troponin I 0.028 0.022 NT-Pro-B Natriuret Pep Impressions: Acute Abdomen Series 03/25/20 20:05 IMPRESSION: Patchy density in the right lung base new when compared to the previous study. Findings may reflect atelectasis versus developing infiltrate Cardiac enlargement KUB X-Ray 03/27/20 00:00 IMPRESSION: Nonspecific nonobstructive bowel gas pattern. Guidance Needle Placement CT 03/31/20 00:00 IMPRESSION: Please see combined report for performance of procedure and radiologic supervision and interpretation. Renal Biopsy CT 03/31/20 08:00 IMPRESSION: CT GUIDED LEFT KIDNEY CORTICAL BIOPSY. Abdomen/Pelvis CT 04/03/20 00:00 IMPRESSION: 1. Bilateral pleural effusions and increased collapse / atelectasis of the left lower lobe. The alveolar ground-glass opacities in the right middle lobe are nonspecific and could represent an infection or early edema. 2. Unchanged left perinephric and retroperitoneal hematomas. 3. Other findings as detailed above. Chest X-Ray 04/04/20 00:00 IMPRESSION: New bilateral peripheral alveolar infiltrates. Atypical pneumonia cannot be excluded. Clinical correlation is needed. Pulmonary edema is also a possibility. 04/06/20 05:53 04/06/20 05:53 MCV 88 fl (80-97) 04/06/20 05:53 MCH 31.4 pg (27.0-33.4) 04/06/20 05:53 MCHC 35.6 g/dL (32.0-36.0) 04/06/20 05:53 RDW 15.4 % (11.5-14.0) H 04/06/20 05:53 Seg Neutrophils % Not Reportable 04/04/20 06:17 Carbonic Acid 1.04 mmol/L (1.05-1.35) L 04/04/20 17:27 HCO3/H2CO3 Ratio 17:1 04/04/20 17:27 ABG pH 7.34 (7.35-7.45) L 04/04/20 17:27 ABG pCO2 34.5 mmHg (35-45) L 04/04/20 17:27 ABG pO2 54.1 mmHg (80-100) L 04/04/20 17:27 ABG HCO3 18.3 mmol/L (20-24) L 04/04/20 17:27 ABG O2 Saturation 86.7 % (94-98) L 04/04/20 17:27 ABG Base Excess -6.7 mmol/L 04/04/20 17:27 FiO2 5.00 04/04/20 17:27 Chloride 98 mmol/L (98-107) 04/06/20 05:53 Carbon Dioxide 23 mmol/L (22-30) 04/06/20 05:53 Anion Gap 10 (5-19) 04/06/20 05:53 Est GFR ( Amer) 19 (>60) L 04/06/20 05:53 Est GFR (Non-Af Amer) Cancelled 03/25/20 19:50 Glucose 117 mg/dL (75-110) H 04/06/20 05:53 Serum Osmolality 261 mOsm/kg (275-301) L 03/27/20 05:40 Lactic Acid 1.0 mmol/L (0.7-2.1) 03/25/20 20:41 Calcium 8.1 mg/dL (8.4-10.2) L 04/06/20 05:53 Ionized Calcium [place] 1.01 mmol/L (1.14-1.30) L 03/29/20 14:47 Magnesium 2.7 mg/dL (1.6-2.3) H 03/27/20 05:40 Total Bilirubin 0.3 mg/dL (0.2-1.3) 03/29/20 06:40 AST 27 U/L (14-36) 03/29/20 06:40 Alkaline Phosphatase 76 U/L (38-126) 03/29/20 06:40 C-Reactive Protein < 5.0 mg/L (<10.0) 03/27/20 05:40 Total Protein 4.6 g/dL (6.3-8.2) L 03/29/20 06:40 Albumin 2.3 g/dL (3.5-5.0) L 03/29/20 06:40 Triglycerides 67 mg/dL (<150) 03/26/20 08:17 Cholesterol 108.20 mg/dL (0-200) 03/26/20 08:17 LDL Cholesterol Direct < 30 mg/dL (<100) 03/26/20 08:17 VLDL Cholesterol 13.0 mg/dL (10-31) 03/26/20 08:17 HDL Cholesterol 74 mg/dL (>40) 03/26/20 08:17 Lipase 71.7 U/L (23-300) 03/25/20 20:41 TSH 2.31 uIU/mL (0.47-4.68) 03/26/20 08:17 Free T3 pg/mL 2.29 pg/mL (2.77-5.27) L 03/26/20 08:17 PTH Intact 91.1 pg/mL (10.0-65.0) H 03/30/20 06:35 Urine Color YELLOW 03/26/20 05:50 Urine Appearance SLIGHTLY-CLOUDY 03/26/20 05:50 Urine pH 6.0 (5.0-9.0) 03/26/20 05:50 Ur Specific [place] 1.007 03/26/20 05:50 Urine Protein >=500 mg/dL (NEGATIVE) H 03/26/20 05:50 Urine Glucose (UA) 150 mg/dL (NEGATIVE) H 03/26/20 05:50 Urine Ketones NEGATIVE mg/dL (NEGATIVE) 03/26/20 05:50 Urine Blood SMALL (NEGATIVE) H 03/26/20 05:50 Urine Nitrite NEGATIVE (NEGATIVE) 03/26/20 05:50 Ur Leukocyte Esterase NEGATIVE (NEGATIVE) 03/26/20 05:50 Urine WBC (Auto) 2 /HPF 03/26/20 05:50 Urine RBC (Auto) 1 /HPF 03/26/20 05:50 Urine Osmolality 220 mOsm/kg (300-900) L 03/29/20 23:04 Ur 24 Hour Volume 960 mL 03/29/20 09:40 Ur Total Protein 24 Hr 3855 mg/day (42-225) H 03/29/20 09:40 Ur Sodium 24 Hour 37 mmol/day (40-200) L 03/29/20 09:40 Stool Occult Blood POSITIVE (NEGATIVE) 03/26/20 20:50 Blood Type A NEGATIVE 04/01/20 07:16 Antibody Screen NEGATIVE 04/01/20 07:16 03/25/20 03/25/20 03/25/20 19:50 19:50 20:41 Creatine Kinase CK-MB (CK-2) Troponin I Cancelled 0.015 NT-Pro-B Natriuret Pep Cancelled [id number] H 03/26/20 03/26/20 03/26/20 02:54 02:54 08:17 Creatine Kinase 115 144 H CK-MB (CK-2) 2.08 Troponin I 0.023 NT-Pro-B Natriuret Pep 03/26/20 03/26/20 03/26/20 08:17 14:07 14:07 Creatine Kinase 134 CK-MB (CK-2) 1.92 1.83 Troponin I 0.028 0.022 NT-Pro-B Natriuret Pep Current Medication List Generic Name Dose Route Start Last Admin Trade Name Freq PRN Reason Stop Dose Admin Acetaminophen 650 mg 03/25/20 23:03 04/01/20 17:38 Tylenol 325 Mg Tablet PO 04/24/20 23:02 650 mg Q4HP PRN Administration For headache, pain or fever Al Hydrox/Mg Hydrox/Simethicone 30 ml 03/25/20 22:57 04/05/20 05:28 Maalox Plus Susp 30 Udcup PO 04/24/20 22:56 30 ml Q6HP PRN Administration HEARTBURN Albuterol/Ipratropium 3 ml 04/03/20 15:25 04/05/20 00:23 Duoneb 3 Ml Ampul NEB 05/03/20 15:24 3 ml RTQ2HP PRN Administration SHORTNESS OF BREATH Artificial Tears 1 drop 03/30/20 11:04 Refresh Plus 0.5% Oph Soln 0.4 Ml Droperette OU 04/29/20 11:03 QIDP PRN DRY EYE(S) Calcium Carbonate 600 mg 04/03/20 17:00 04/05/20 17:02 Caltrate 600 Mg Tablet PO 05/03/20 16:59 600 mg BIDBS PATRICIA Administration Diltiazem HCl 30 mg 03/31/20 14:00 04/06/20 06:47 Cardizem 30 Mg Tablet PO 04/30/20 13:59 Not Given Q8 PATRICIA Docusate Sodium 100 mg 03/27/20 18:00 04/05/20 17:00 Colace 100 Mg Capsule PO 04/26/20 17:59 Not Given BID PATRICIA Guaifenesin 200 mg 03/25/20 23:03 Robitussin Syrup 200 Mg/10 Ml Ud Cup PO 04/24/20 23:02 Q4HP PRN COUGH Heparin Sodium (Porcine) 5,000 unit 03/26/20 06:00 04/06/20 05:57 Heparin Inj 5,000 Units/Ml 1 Ml Vial SUBCUT 04/25/20 05:59 Not Given Q8 PATRICIA Hydralazine HCl 10 mg 03/30/20 16:28 04/03/20 20:01 Apresoline Inj/Pf 20 Mg/1 Ml Sdv IV 04/29/20 16:27 10 mg Q6HP PRN Administration FOR SBP >160 AND/OR DBP > 100 Levothyroxine Sodium 0.025 mg 03/28/20 06:00 04/06/20 06:47 Synthroid 0.025 Mg Tablet PO 04/27/20 05:59 Not Given Q6AM PATRICIA Magnesium Hydroxide 30 ml 03/25/20 22:57 Milk Of Magnesia 30 Ml Udcup PO 04/24/20 22:56 HSP PRN FOR CONSTIPATION Melatonin 6 mg 03/29/20 22:00 04/05/20 22:00 Melatonin 3 Mg Tablet PO 04/28/20 21:59 6 mg QHS PATRICIA Administration Metoprolol Succinate 100 mg 04/03/20 18:00 04/06/20 06:47 Toprol Xl 50 Mg Tab.Sr PO 05/03/20 17:59 Not Given Q12A PATRICIA Morphine Sulfate 2 mg 04/01/20 19:21 04/05/20 22:00 Morphine 10 Mg/Ml Inj IV 04/08/20 19:20 2 mg Q4HP PRN Administration FOR PAIN SCALE 3-5 Ondansetron HCl 4 mg 03/25/20 22:57 04/05/20 02:24 Zofran Inj/Pf 4 Mg/2 Ml Sdv IV 04/24/20 22:56 4 mg Q4HP PRN Administration FOR NAUSEA/VOMITING Sodium Chloride 2.5 ml 03/26/20 06:00 04/06/20 06:48 Saline Flush 2.5 Ml Monoject Prefil Syrin IV 04/25/20 05:59 Not Given Q8 PATRICIA Sucralfate 1 gm 03/26/20 08:00 04/05/20 22:00 Carafate 1 Gm Tablet PO 04/25/20 07:59 1 gm ACHS PATRICIA Administration Throat Lozenges 1 each 04/03/20 21:05 04/03/20 21:45 Chloraseptic Sore Throat Lozenge BUCCAL 05/03/20 21:04 1 each Q2HP PRN Administration FOR SORE THROAT Discontinued Medications Generic Name Dose Route Start Last Admin Trade Name Freq PRN Reason Stop Dose Admin Amlodipine Besylate 5 mg 03/28/20 10:00 Norvasc 5 Mg Tablet PO 04/27/20 09:59 DAILY PATRICIA Amlodipine Besylate 10 mg 03/31/20 05:00 03/31/20 04:42 Norvasc 10 Mg Tablet PO 03/31/20 05:01 10 mg NOW ONE Administration Amlodipine Besylate 10 mg 03/31/20 10:00 Norvasc 10 Mg Tablet PO 04/30/20 09:59 DAILY PATRICIA Bumetanide 1 mg 03/25/20 23:30 03/27/20 11:50 Bumex Inj/Pf 1 Mg/4 Ml Sdv IV 04/24/20 23:29 1 mg Q6H PATRICIA Administration Bumetanide 1 mg 03/27/20 22:00 03/29/20 09:06 Bumex Inj/Pf 1 Mg/4 Ml Sdv IV 04/26/20 21:59 1 mg Q12 PATRICIA Administration Bumetanide 1 mg 03/29/20 18:00 04/01/20 17:33 Bumex Inj/Pf 1 Mg/4 Ml Sdv IV 04/28/20 17:59 1 mg Q8A PATRICIA Administration Bumetanide 2 mg 04/04/20 14:21 04/04/20 14:39 Bumex Inj/Pf 1 Mg/4 Ml Sdv IV 04/04/20 14:22 2 mg NOW ONE Administration Calcium Carbonate 600 mg 03/29/20 21:00 04/03/20 10:19 Caltrate 600 Mg Tablet PO 04/28/20 20:59 600 mg BID PATRICIA Administration Diphenoxylate HCl/Atropine 1 tab 03/27/20 15:44 03/27/20 17:09 Lomotil 2.5 Mg Tablet PO 04/03/20 15:43 1 tab QIDP PRN Administration DIARRHEA Docusate Sodium 100 mg 03/26/20 10:00 03/27/20 09:37 Colace Udc 100 Mg/10 Ml Oral Soln PO 04/25/20 09:59 Not Given BID PATRICIA Enalaprilat 2.5 mg 03/30/20 21:00 03/30/20 20:51 Vasotec Inj/Pf 2.5 Mg/2 Ml Sdv IV 03/30/20 21:01 2.5 mg NOW ONE Administration Epinephrine HCl Confirm 03/30/20 14:25 Epinephrine Inj 1 Mg/10 Ml Disp.Syrin Administered 03/30/20 14:26 Dose 1 mg .ROUTE .STK-MED ONE Famotidine 20 mg 03/25/20 23:00 03/27/20 09:37 Pepcid 20 Mg Tablet PO 04/24/20 22:59 20 mg Q12 PATRICIA Administration Famotidine 20 mg 03/28/20 10:00 03/29/20 09:06 Pepcid 20 Mg Tablet PO 04/27/20 09:59 20 mg DAILY PATRICIA Administration Fentanyl Citrate Confirm 03/31/20 08:31 03/31/20 11:03 Sublimaze Inj/Pf 100 Mcg/2 Ml Ampule Administered 03/31/20 08:32 Not Given Dose 100 mcg .ROUTE .STK-MED ONE Furosemide 60 mg 04/03/20 09:30 04/03/20 10:20 Lasix Inj/Pf 100 Mg/10 Ml Sdv IV 04/03/20 09:31 60 mg NOW ONE Administration Haloperidol Lactate 5 mg 04/01/20 21:30 04/01/20 21:36 Haldol 5 Mg/Ml Inj 1 Ml Vial IV 04/01/20 21:31 5 mg NOW ONE Administration Haloperidol Lactate Confirm 04/01/20 21:32 04/01/20 21:36 Haldol 5 Mg/Ml Inj 1 Ml Vial Administered 04/01/20 21:33 Not Given Dose 5 mg .ROUTE .STK-MED ONE Haloperidol Lactate 5 mg 04/06/20 03:30 04/06/20 03:34 Haldol 5 Mg/Ml Inj 1 Ml Vial IV 04/06/20 03:31 5 mg NOW ONE Administration Heparin Sodium (Porcine) 4,600 unit 04/05/20 05:00 04/05/20 08:56 Heparin Inj 1,000 Unit/Ml 10 Ml Vial IV 04/05/20 23:59 3,600 units .SPLIT B/N CATHETERS PRN Administration THIS MED IS NOT "PRN" Hydralazine HCl 20 mg 03/25/20 23:07 03/27/20 09:41 Apresoline Inj/Pf 20 Mg/1 Ml Sdv IV 04/24/20 23:06 20 mg Q4HP PRN Administration Give For Sbp > 160 / Dbp > 100 Hydralazine HCl 10 mg 03/27/20 11:30 03/30/20 09:43 Apresoline Inj/Pf 20 Mg/1 Ml Sdv IV 04/26/20 11:29 10 mg Q8HP PRN Administration FOR SBP >160 AND/OR DBP > 100 Sodium Chloride 1,000 mls @ 125 mls/hr 03/25/20 21:36 Nacl 0.9% 1000 Ml Iv Soln IV 04/24/20 21:35 .CONTINUOUS PRN DIARRHEA Albumin Human 12.5 gm in 50 mls @ 50 mls/hr 03/25/20 23:15 03/26/20 05:57 Albuminar-25 Rtu Inj 12.5 Gm/50 Ml Premix IV 03/26/20 03:14 Infused Q1H PATRICIA Infusion Albumin Human Confirm 03/26/20 01:29 03/26/20 01:47 Albuminar-25 Rtu Inj 12.5 Gm/50 Ml Premix Administered 03/26/20 01:30 Not Given Dose 50.0 gm in 200 mls @ ud IV .STK-MED ONE Sodium Chloride 1,000 mls @ 50 mls/hr 03/27/20 11:19 03/29/20 05:02 Nacl 0.9% 1000 Ml Iv Soln IV 04/26/20 11:18 50 mls/hr CONTINUOUS PRN Administration THIS MED IS NOT "PRN" Sodium Chloride 1,000 mls @ 40 mls/hr 03/29/20 10:59 Nacl 0.9% 1000 Ml Iv Soln IV 04/26/20 11:18 CONTINUOUS PRN THIS MED IS NOT "PRN" Albumin Human 12.5 gm in 50 mls @ 50 mls/hr 03/30/20 10:00 04/01/20 17:34 Albuminar-25 Rtu Inj 12.5 Gm/50 Ml Premix IV 04/02/20 09:59 50 mls/hr TID PATRICIA Administration Sodium Chloride 250 mls @ 30 mls/hr 04/01/20 08:12 Nacl 0.9% 250 Ml Iv Soln IV 04/02/20 08:11 .DURING TRANSFUSION PRN THIS MED IS NOT "PRN" Sodium Chloride 250 mls @ 0 mls/hr 04/01/20 08:12 Nacl 0.9% 250 Ml Iv Soln IV 04/02/20 08:11 CONTINUOUS PRN AFTER EACH UNIT As Directed Sodium Chloride 1,000 mls @ 100 mls/hr 04/01/20 19:09 04/02/20 23:45 Nacl 0.9% 1000 Ml Iv Soln IV 05/01/20 19:08 Infused CONTINUOUS PRN Infusion THIS MED IS NOT "PRN" Albumin Human 12.5 gm in 50 mls @ 50 mls/hr 04/02/20 21:00 04/03/20 01:45 Albuminar-25 Rtu Inj 12.5 Gm/50 Ml Premix IV 04/03/20 00:59 Infused Q1H PATRICIA Infusion Sodium Chloride 1,000 mls @ 150 mls/hr 04/02/20 21:01 04/03/20 04:00 Nacl 0.9% 1000 Ml Iv Soln IV 05/02/20 21:00 Infused CONTINUOUS PRN Infusion THIS MED IS NOT "PRN" Albumin Human Confirm 04/02/20 21:13 04/02/20 21:20 Albuminar-25 Rtu Inj 12.5 Gm/50 Ml Premix Administered 04/02/20 21:14 Not Given Dose 50.0 gm in 200 mls @ ud IV .STK-MED ONE Sodium Chloride 1,000 mls @ 100 mls/hr 04/03/20 05:56 Nacl 0.9% 1000 Ml Iv Soln IV 05/03/20 05:55 CONTINUOUS PRN THIS MED IS NOT "PRN" Desmopressin Acetate 20 mcg/ 50 mls @ 100 mls/hr 04/03/20 13:30 04/03/20 1 4:00 Sodium Chloride IV 04/03/20 13:59 Infused NOW ONE Infusion Sodium Chloride 1,000 mls @ 0 mls/hr 04/05/20 05:00 Nacl 0.9% 1000 Ml Iv Soln IV 04/05/20 23:59 .DIALYSIS PRN THIS MED IS NOT "PRN" As Directed Insulin Human Regular 0 - 15 unit 03/25/20 23:03 03/27/20 09:04 Humulin R (Pyxis) Insulin 100 Unit/Ml 3ml SUBCUT 04/24/20 23:02 Not Given ACHS [facility] Protocol Lorazepam 1 mg 03/25/20 23:03 Ativan Inj 2 Mg/1 Ml Vial IV 04/01/20 23:02 Q4HP PRN ANXIETY/AGITATION Lorazepam Confirm 03/31/20 03:47 03/31/20 03:53 Ativan Inj 2 Mg/1 Ml Vial Administered 03/31/20 03:48 Not Given Dose 2 mg .ROUTE .STK-MED ONE Lorazepam 1 mg 03/31/20 04:00 03/31/20 03:52 Ativan Inj 2 Mg/1 Ml Vial IV 03/31/20 04:01 1 mg NOW ONE Administration Losartan Potassium 50 mg 03/26/20 10:00 Cozaar 50 Mg Tablet PO 04/25/20 09:59 Q12 PATRICIA Losartan Potassium 50 mg 03/26/20 04:30 03/27/20 09:37 Cozaar 50 Mg Tablet PO 04/25/20 04:29 50 mg Q12 PATRICIA Administration Metoclopramide HCl 5 mg 03/26/20 08:00 03/29/20 11:50 Reglan 10 Mg Tablet PO 04/25/20 07:59 5 mg ACHS PATRICIA Administration Metoclopramide HCl 10 mg 04/01/20 17:30 04/01/20 17:31 Reglan Inj/Pf 10 Mg/2 Ml Sdv IV 04/01/20 17:31 10 mg NOW ONE Administration Metoclopramide HCl Confirm 04/01/20 17:28 04/01/20 17:46 Reglan Inj/Pf 10 Mg/2 Ml Sdv Administered 04/01/20 17:29 Not Given Dose 10 mg .ROUTE .STK-MED ONE Metoprolol Succinate 100 mg 03/26/20 10:00 Toprol Xl 50 Mg Tab.Sr PO 04/25/20 09:59 Q12 PATRICIA Metoprolol Succinate 100 mg 03/26/20 06:00 04/03/20 05:23 Toprol Xl 50 Mg Tab.Sr PO 04/25/20 05:59 100 mg Q12H PATRICIA Administration Metoprolol Tartrate 5 mg 03/25/20 23:07 Lopressor Inj/Pf 5 Mg/5 Ml Sdv IV 04/24/20 23:06 Q4HP PRN Give For Sbp > 160 / Dbp > 100 Midazolam HCl Confirm 03/31/20 08:31 03/31/20 11:04 Versed 2 Mg/2 Ml Inj Administered 03/31/20 08:32 Not Given Dose 2 mg .ROUTE .STK-MED ONE Morphine Sulfate Confirm 04/01/20 18:16 04/01/20 18:22 Morphine 10 Mg/Ml Inj Administered 04/01/20 18:17 2 mg Dose Administration 10 mg .ROUTE .STK-MED ONE Nitroglycerin 1 gm 03/26/20 03:34 03/26/20 04:52 Nitrol 2% Ointment 1gm Packet TP 04/25/20 03:33 Not Given Q6 PATRICIA Nitroglycerin 1 gm 03/26/20 04:30 Nitrol 2% Ointment 1gm Packet TP 04/25/20 04:29 Q6 PATRICIA Nitroglycerin 1 gm 03/26/20 04:30 03/27/20 06:35 Nitrol 2% Ointment 1gm Packet TP 04/25/20 04:29 Not Given Q6 PATRICIA Nitroglycerin 0.5 gm 03/31/20 03:46 03/31/20 03:53 Nitrol 2% Ointment 1gm Packet TP 03/31/20 03:47 0.5 gm NOW ONE Administration Nitroglycerin Confirm 03/31/20 03:55 03/31/20 04:15 Nitrol 2% Ointment 1gm Packet Administered 03/31/20 03:56 Not Given Dose 1 gm .ROUTE .STK-MED ONE Nitroglycerin 1 each 04/03/20 21:00 04/03/20 21:46 Nitro-Dur 5 Mg (0.2 Mg/Hr) Transdermal Patch TD 04/03/20 21:01 1 each NOW ONE Administration Pantoprazole Sodium 40 mg 03/29/20 22:00 04/01/20 10:48 Protonix Iv Inj 40 Mg Vial IV 04/01/20 21:59 40 mg Q12 PATRICIA Administration Polyethylene Glycol 17 gm 03/30/20 11:30 03/30/20 15:28 Miralax Powder 17 Gm/Packet PO 03/30/20 14:01 Not Given Q2 PATRICIA Polyethylene Glycol/Electrolytes 4,000 ml 03/28/20 17:30 03/28/20 22:57 Golytely Solution 4000 Ml PO 03/28/20 17:31 Not Given ONCE ONE Potassium Chloride 40 meq 03/28/20 08:17 03/28/20 09:17 Klor-Con 10 Meq Tablet Er PO 03/28/20 08:18 40 meq NOW ONE Administration Potassium Chloride 20 meq 03/28/20 14:00 03/28/20 14:19 Klor-Con 10 Meq Tablet Er PO 03/28/20 14:01 20 meq TAM@1400 ONE Administration Potassium Chloride 20 meq 03/31/20 13:00 03/31/20 14:00 Klor-Con 10 Meq Tablet Er PO 03/31/20 13:01 20 meq NOW ONE Administration Potassium Chloride 20 meq 04/01/20 10:00 04/01/20 10:52 Potassium Chloride 20 Meq Packet PO 05/01/20 09:59 Not Given DAILY PATRICIA Propofol Confirm 03/30/20 15:00 Diprivan Inj 200 Mg/20 Ml Vial Administered 03/30/20 15:01 Dose 200 mg IV .STK-MED ONE Sodium Bicarbonate 1,300 mg 03/26/20 09:00 03/27/20 09:37 Sodium Bicarbonate 650 Mg Tablet PO 04/25/20 08:59 1,300 mg PCHS PATRICIA Administration Sodium Bicarbonate 2,600 mg 03/25/20 23:05 03/26/20 01:29 Sodium Bicarbonate 650 Mg Tablet PO 03/25/20 23:06 2,600 mg NOW ONE Administration Sodium Bicarbonate 2,600 mg 03/26/20 01:30 03/26/20 01:48 Sodium Bicarbonate 650 Mg Tablet PO 03/26/20 01:31 Not Given NOW ONE Assessment & Plan - Diagnosis (1) Atrial fibrillation Qualifiers: Atrial fibrillation type: paroxysmal Qualified Code(s): I48.0 - Paroxysmal atrial fibrillation Is this a current diagnosis for this admission?: Yes Plan: Likely secondary to her other medical problems. She is unaware of her atrial fibrillation. Her telemetry did not show any sustained ventricular dysrhythmias with a controlled heart rate. Unfortunately she cannot be anticoagulated at this point given her bleeding issues and low platelets. Recommendations: -Continue with current medical management. -We will continue to follow-up with you. (2) Anasarca Is this a current diagnosis for this admission?: Yes Plan: The patient continues to be in heart failure with a positive fluid balance of 2.5 L. She has not required the use of BiPAP to maintain oxygenation. Her blood pressure is better controlled. She is still not on guideline directed medical therapy due to her multiple different comorbidities. Her main issue is fluid overload that Dr. Tabor is managing with dialysis. Recommendations: -Restrict fluid intake to 1500 cc daily. -Low sodium diet, less than 1500 mg daily. -Strict intake and output. -Daily weights. -Continue with dialysis per nephrology recommendations. -Echocardiogram to reassess systolic function. -Recommend stopping Toprol and starting Coreg 25 mg twice daily. -Recommend discontinue Cardizem and start an ALFREDO inhibitor but will defer to nephrology. (3) Acute blood loss anemia Is this a current diagnosis for this admission?: Yes Plan: Her hemoglobin is now stable. Recommendations: -Further management per primary team. (4) Closed hematoma of left kidney Qualifiers: Encounter type: initial encounter Qualified Code(s): S37.012A - Minor contusion of left kidney, initial encounter Is this a current diagnosis for this admission?: Yes Plan: Continues to be stable as of most recent CT scan. I will defer further management to primary team.
[2020-04-06] MEDS ORDERED: FUROSEMIDE INJ/PF 40 MG/4 ML SDV IV ONE ×2 (10:30→19:52)
--- NOTE | 2020-04-06 11:17 | PDOC PROGRESS REPORT ---
Subjective Progress Note for:: 04/06/20 Subjective:: 04/04/2020: Patient was seen and examined. She looks ill. She complains of shortness of breath and she is wheezing bilaterally. She has lower extremity edema. She has abdominal tenderness. Hemoglobin and platelet count so far stable. She is being followed by cardiology and nephrology. Creatinine still elevated and not improving. 04/05/2020: Patient was seen and examined on dialysis. She had dialysis catheter placed last night and started dialysis today. She still with poor appetite but looks better and feels better. 04/06/2020: Patient was seen and examined. She is currently sedated on BiPAP. Apparently she had issues with agitation and was pulling off her lines and BiPAP. She started dialysis yesterday Physical Exam General appearance: PRESENT: cooperative Head exam: PRESENT: atraumatic, normocephalic Eye exam: PRESENT: EOMI, PERRLA Mouth exam: PRESENT: neck supple Neck exam: PRESENT: tenderness, tracheostomy Respiratory exam: PRESENT: wheezes Cardiovascular exam: PRESENT: RRR GI/Abdominal exam: PRESENT: normal bowel sounds Rectal exam: PRESENT: deferred Extremities exam: PRESENT: pedal edema Psychiatric exam: PRESENT: anxious Reason For Visit: ANASARCA,UPPER ABDOMINAL PAIN,MALIGNANT Physical Exam Vital Signs: Temp Pulse Resp BP Pulse Ox 97.3 F 92 16 166/55 H 95 04/06/20 08:33 04/06/20 08:33 04/06/20 08:33 04/06/20 08:33 04/06/20 08:33 Intake & Output 04/05/20 04/06/20 04/07/20 06:59 06:59 06:59 Intake Total 560 800 Output Total 140 3615 Balance 420 -2815 Weight 182 lb 8.684 oz 176 lb 2.389 oz 176 lb 2.389 oz Results Laboratory Results: 04/06/20 05:53 04/06/20 05:53 04/06/20 04/06/20 04/06/20 05:53 05:53 06:39 WBC 9.7 RBC 2.84 L Hgb 8.9 L Hct 25.1 L MCV 88 MCH 31.4 MCHC 35.6 RDW 15.4 H Plt Count 128 L Carbonic Acid 1.18 HCO3/H2CO3 Ratio 17:1 ABG pH 7.34 L ABG pCO2 39.1 ABG pO2 71.4 L ABG HCO3 20.8 ABG O2 Saturation 93.6 L ABG Base Excess -4.5 FiO2 55% Sodium 131.3 L Potassium 4.1 Chloride 98 Carbon Dioxide 23 Anion Gap 10 BUN 48 H Creatinine 2.96 H Est GFR ( Amer) 19 L Glucose 117 H Calcium 8.1 L 03/25/20 03/25/20 03/25/20 19:50 19:50 20:41 Creatine Kinase CK-MB (CK-2) Troponin I Cancelled 0.015 NT-Pro-B Natriuret Pep Cancelled 60690 H 03/26/20 03/26/20 03/26/20 02:54 02:54 08:17 Creatine Kinase 115 144 H CK-MB (CK-2) 2.08 Troponin I 0.023 NT-Pro-B Natriuret Pep 03/26/20 03/26/20 03/26/20 08:17 14:07 14:07 Creatine Kinase 134 CK-MB (CK-2) 1.92 1.83 Troponin I 0.028 0.022 NT-Pro-B Natriuret Pep Impressions: Acute Abdomen Series 03/25/20 20:05 IMPRESSION: Patchy density in the right lung base new when compared to the previous study. Findings may reflect atelectasis versus developing infiltrate Cardiac enlargement KUB X-Ray 03/27/20 00:00 IMPRESSION: Nonspecific nonobstructive bowel gas pattern. Guidance Needle Placement CT 03/31/20 00:00 IMPRESSION: Please see combined report for performance of procedure and radiologic supervision and interpretation. Renal Biopsy CT 03/31/20 08:00 IMPRESSION: CT GUIDED LEFT KIDNEY CORTICAL BIOPSY. Abdomen/Pelvis CT 04/03/20 00:00 IMPRESSION: 1. Bilateral pleural effusions and increased collapse / atelectasis of the left lower lobe. The alveolar ground-glass opacities in the right middle lobe are nonspecific and could represent an infection or early edema. 2. Unchanged left perinephric and retroperitoneal hematomas. 3. Other findings as detailed above. Chest X-Ray 04/04/20 00:00 IMPRESSION: New bilateral peripheral alveolar infiltrates. Atypical pneumonia cannot be excluded. Clinical correlation is needed. Pulmonary edema is also a possibility. Assessment and Plan - Diagnosis (1) Closed hematoma of left kidney Qualifiers: Encounter type: initial encounter Qualified Code(s): S37.012A - Minor contusion of left kidney, initial encounter Is this a current diagnosis for this admission?: Yes Plan: repeat CT scan shows unchanged retroperitoneal hematoma. Dr. Holley spoke with Dr. Hay, a urologist in [place], and discussed the case at length. At that time her repeat hemoglobin and platelets are so far stable. This would seem to indicate that any bleeding has stabilized. Dr. Hay indicated that if the bleeding remained stable, then we should continue to treat her supportively as we have been doing. (2) Acute blood loss anemia Is this a current diagnosis for this admission?: Yes Plan: Her hemoglobin seems relatively stable at this time. She had to get 2 units and 2 consecutive days. Her platelets are stable from yesterday. There has been mention of some concern that this might be DIC. It appears that Dr. Holley ruled that out. (3) Anasarca Is this a current diagnosis for this admission?: Yes Plan: Slight improvement. Patient's anasarca is likely due to her kidney disease. ABD U/S shows coarse heterogeneous liver appearance; likely underlying liver disease. LFTs unremarkable Hep B negative. Hep C negative. Cardiology and Nephrology services are consulted. Echo pending per cardiology. Dr. Holley did discuss with Dr. Strickland; unlikely due to CHF alone, though expects some underlying diastolic dysfunction. Nephrology evaluating for nephrotic syndome, which her 24-hour urine would suggest. S/p kidney biopsy Did not respond to diuretics. Patient had dialysis catheter placed 04/04/2020 and dialysis started yesterday. (4) Atrial fibrillation Qualifiers: Atrial fibrillation type: paroxysmal Qualified Code(s): I48.0 - Paroxysmal atrial fibrillation Is this a current diagnosis for this admission?: Yes Plan: She is already on metoprolol 100 mg twice daily. diltiazem 30 mg every 8 hours. Not a candidate for anticoagulation or aspirin therapy at this time due to recent renal hematoma and GI bleed. (5) CHF exacerbation Qualifiers: Heart failure type: unspecified Qualified Code(s): I50.9 - Heart failure, unspecified Is this a current diagnosis for this admission?: Yes Plan: Anasarca actually not thought to be due to a CHF exacerbation at this time, echocardiogram pending, cardiology following (6) Chronic kidney disease, stage 3 (moderate) Is this a current diagnosis for this admission?: Yes Plan: Received records from [facility]. Patient's GFR was between 30 and 45 as well. She has a lot of protein in her urine. S/p renal biopsy, results are pending Patient started dialysis yesterday (7) Bxkdr-nf-urdglbo kidney injury Qualifiers: Acute renal failure type: with other specified pathological lesion Chronic kidney disease stage: stage 3 (moderate) Qualified Code(s): N17.8 - Other acute kidney failure; N18.3 - Chronic kidney disease, stage 3 (moderate) Is this a current diagnosis for this admission?: Yes Plan: Creatinine has gotten worse. She was on IV fluids and got repeat transfusions. Very poor urine output. Started dialysis yesterday. Nephrology is managing. (8) Diabetes mellitus type 2 in nonobese Is this a current diagnosis for this admission?: Yes Plan: Continue sliding scale and diabetic diet - Plan Summary Summary: I spoke with Dr. Hay, a urologist in [place], and discussed the case at length. At this time her repeat hemoglobin has come back up to 8.8, and her platelets are also trending back up at 86. This would seem to indicate that any bleeding has stabilized. The repeat CT scan showed subcapsular hematoma was stable, and a retroperitoneal hematoma was also mentioned as being stable, even though this was not mentioned on the initial CT. Dr. Hay indicated that if the bleeding remained stable, then we should continue to treat her supportively as we have been doing. As previously noted, I do not believe for many reasons that this patient is in DIC, and indeed if she was her hemoglobin and her platelets would continue to drop. She should be on bedrest until her hemoglobin is stable for another 24 hours, and then we could potentially consider ambulating her. Her urine output seems to have increased a little bit today, and so we will monitor her for recovery of function. No adverse events overnight. Vital signs been stable. Urine output has been minimal. Her creatinine went up a little again today. Her platelets have been stable. Her hemoglobin was down a point from yesterday but she is been on continuous fluids overnight. She is awake and looks fatigued, but she says that overall she feels okay, just tired. She is not complaining of any abdominal pain. Breathing has been comfortable. There has been no visual evidence of any external bleeding. No rashes. Interestingly, her edema does not appear to have gotten any worse. Reason For Visit: ANASARCA,UPPER ABDOMINAL PAIN,MALIGNANT (1) Closed hematoma of left kidney Qualifiers: Encounter type: initial encounter Qualified Code(s): S37.012A - Minor contusion of left kidney, initial encounter Is this a current diagnosis for this admission?: Yes Plan: I have ordered a repeat CT scan today to see if the size of the hematoma has changed. I will call and speak with the urologist once I have this information, to see if there is any recommendation that could help her from a surgical standpoint. (2) Acute blood loss anemia Is this a current diagnosis for this admission?: Yes Plan: Her hemoglobin seems relatively stable at this time. She had to get 2 units and 2 consecutive days. Her hemoglobin was down a little bit today, but I suspect some of this is from hemodilution. Her platelets are stable from yesterday. There has been mention of some concern that this might be DIC. I do not believe this to be the case, and there are multiple reasons why. First, she has a good explanation for why her hemoglobin is down, and she has had no signs of any external bleeding. Second, her platelets are low, but they have stabilized, and you can see a drop in platelets with blood volume loss combined with administration of IV fluids. Third, her coagulation studies are not that much different from when she was admitted 9 days ago. Her PT is up from 15-17, and her PTT is up from 37-39. Fourth, her fibrinogen is well within the normal range at 338. Her d-dimer is elevated, but with her level of renal failure this is to be expected, and with the bleeding she has had we would expect it to be a little elevated, which it is. Fifth, her LDH is normal, which argues against microangiopathic hemolysis that one typically sees with DIC. We will of course be monitoring her closely for development of this process, but at this time I do not think that is what is going on, for the reasons noted above. (3) Anasarca Is this a current diagnosis for this admission?: Yes Plan: Slight improvement. Patient's anasarca is likely due to her kidney disease. ABD U/S shows coarse heterogeneous liver appearance; likely underlying liver disease. LFTs unremarkable Hep B negative. Hep C negative. Cardiology and Nephrology services are consulted. Echo pending per cardiology. Did discuss with Dr. Strickland; unlikely due to CHF alone, though expects some underlying diastolic dysfunction. Nephrology evaluating for nephrotic syndome, which her 24-hour urine would suggest. S/p kidney biopsy IV fluids and IV bumetanide per Dr. Mac, bumetanide on hold due to renal fa ilure. maternal child nurse is consulted. (4) Atrial fibrillation Qualifiers: Atrial fibrillation type: paroxysmal Qualified Code(s): I48.0 - Paroxysmal atrial fibrillation Is this a current diagnosis for this admission?: Yes Plan: Patient converted into atrial fibrillation overnight on telemetry. Confirmed by EKG. Unknown history of the same; patient not able to elaborate. She is already on metoprolol 100 mg twice daily. diltiazem 30 mg every 8 hours. Not a candidate for anticoagulation or aspirin therapy at this time due to recent renal hematoma and GI bleed. (5) CHF exacerbation Qualifiers: Heart failure type: unspecified Qualified Code(s): I50.9 - Heart failure, unspecified Is this a current diagnosis for this admission?: Yes Plan: Anasarca actually not thought to be due to a CHF exacerbation at this time, echocardiogram pending, cardiology consulted (6) Chronic kidney disease, stage 3 (moderate) Is this a current diagnosis for this admission?: Yes Plan: Received records from [facility]. Patient's GFR was between 30 and 45 as well. She has a lot of protein in her urine. S/p renal biopsy Nephrology has been consulted; primary management per their expertise. (7) Diabetes mellitus type 2 in nonobese Is this a current diagnosis for this admission?: Yes Plan: Continue sliding scale and diabetic diet (8) Pajbx-ed-kvewiia kidney injury Qualifiers: Acute renal failure type: with other specified pathological lesion Chronic kidney disease stage: stage 3 (moderate) Qualified Code(s): N17.8 - Other acute kidney failure; N18.3 - Chronic kidney disease, stage 3 (moderate) Is this a current diagnosis for this admission?: Yes Plan: Creatinine has gotten worse since the formation of a hematoma. Creatinine went up fairly quickly, up to 2.88 today. She is on IV fluids and getting repeat transfusions as needed, monitoring urine output. Am repeating the CT of the abdomen and pelvis to assess for interval change in the size of the renal hematoma. Once I have that information, I will contact the urologist to discuss the case and see if there is any role for surgical intervention here. My concern is that on the original CT the right kidney looks very atrophic, and I believe the left kidney was probably the better of the 2, and now it is compromised by a large subcapsular hematoma putting mass-effect onto the renal parenchyma, and I would like to see if there is something that can be done to salvage this kidney. With her decreased urine output, she may need dialysis. - Time Time Spent with patient: 25-34 minutes
--- NOTE | 2020-04-06 12:46 | RADIOLOGY REPORT (SQ) ---
EXAM DESCRIPTION: CHEST SINGLE VIEW IMAGES COMPLETED DATE/TIME: 04/06/2020 11:20 am REASON FOR STUDY: SOB/CHF COMPARISON: None. EXAM PARAMETERS: NUMBER OF VIEWS: One view. TECHNIQUE: Single frontal radiographic view of the chest acquired. RADIATION DOSE: NA LIMITATIONS: None. FINDINGS: LUNGS AND PLEURA: Persistent bilateral diffuse airspace disease may be on the basis of at ypical pneumonia or edema, appears slightly increased. Small left pleural effusion, unchanged findin g. No pneumothorax. MEDIASTINUM AND HILAR STRUCTURES: No masses. Contour normal. HEART AND VASCULAR STRUCTURES: Cardiomegaly. Mild pulmonary vascular congestion. BONES: No acute findings. HARDWARE: None in the chest. OTHER: No other significant finding. IMPRESSION: 1. Persistent increasing bilateral airspace disease since the previous examination date d 04/04/2020. Durations for these findings include atypical pneumonia and or edema. Small left pleur al effusion. TECHNICAL DOCUMENTATION: JOB ID: [id number] [employer]- All Rights Reserved Reading location - IP/workstation name: [email or web address]
[2020-04-06] MEDS: HYDRALAZINE HCL INJ/PF 20 MG/1 ML SDV IV PRN (14:08)
[2020-04-06 16:37] LABS: FACTOR X ACTIVITY 87 % (76-183)
--- NOTE | 2020-04-06 17:58 | XCELERA REPORT ---
[address] [address] Transthoracic Echocardiogram Report Name: LITZY DUKES Age: 74 yrs Gender: Female : 1945 Patient Status: Inpatient Patient Location: [address] [place], [place] [address] Study Date: 04/06/2020 10:47 AM Height: 66 in Weight: 176 lb BSA: 1.9 m2 Procedure: A complete two-dimensional transthoracic echocardiogram was performed (2D, M-mode, spectral and color flow Doppler). The study was technically adequate with some images being suboptimal in quality. Reason For Study: CHF Previous Evaluation: No previous studies were available. History: Other: A-fib. Ordering Physician: DIPIKA PAGAN Performed By: Nadya Gutierrez Interpretation Summary There is mild to moderate concentric left ventricular hypertrophy. The left ventricular ejection fraction is within normal limits. The Ejection Fraction estimate is 65-70%. LV diastolic function could not be adequately assessed due to atrial fibrilation. The left ventricular wall motion is normal. The left ventricular apex is not well visualized. Severe biatrial enlargement. Mild MR, moderate TR, mild AI, trace PI. Moderate to severe pulmonary hypertension with estimated pressures between 55 and 61 mmHg. Small, hemodynamically insignificant, circumferential pericardial effusion. MMode/2D Measurements & Calculations RVDd: 2.8 cm LVIDd: 3.9 cm FS: 36.6 % Ao root diam: 2.4 cm IVSd: 1.5 cm LVIDs: 2.5 cm EDV(Teich): 65.4 ml Ao root area: 4.4 cm2 LVPWd: 1.5 cm ESV(Teich): 21.5 ml LA dimension: 5.5 cm EF(Teich): 67.0 % Doppler Measurements & Calculations MV E max jodi: MV P1/2t max jodi: Ao V2 max: LV V1 max P.2 cm/sec 122.0 cm/sec 165.1 cm/sec 3.6 mmHg MV A max jodi: MV P1/2t: 40.0 msec Ao max PG: LV V1 max: 33.6 cm/sec MVA(P1/2t): 5.5 cm2 10.9 mmHg 95.3 cm/sec MV E/A: 3.6 MV dec slope: 892.1 cm/sec2 MV dec time: 0.14 sec PA V2 max: PI end-d jodi: TR max jodi: MV P1/2t-pr_phl: 86.9 cm/sec 161.5 cm/sec 339.3 cm/sec 41.9 msec PA max P.0 mmHg TR max P.1 mmHg Left Ventricle The left ventricle is grossly normal size. There is mild to moderate concentric left ventricular hypertrophy. The left ventricular ejection fraction is within normal limits. The Ejection Fraction estimate is 65-70%. LV diastolic function could not be adequately assessed due to atrial fibrilation. The left ventricular wall motion is normal. The left ventricular apex is not well visualized. Right Ventricle The right ventricle is grossly normal size. The right ventricular systolic function is normal. Atria The right atrium is normal. The left and right artia are severely dilated. Interarterial septum not well visualized and not well dopplered. Cannot comment on ASD/PFO presence. Mitral Valve The mitral valve is normal in structure and function. There is a mild amount of mitral regurgitation. Aortic Valve The aortic valve is mildly calcified. Trileaflet valve. There is no aortic valve stenosis. There is a mild amount of aortic regurgitation. Tricuspid Valve The tricuspid valve is not well visualized, but is grossly normal. There is a moderate amount of tricuspid regurgitation. Moderate to severe pulmonary hypertension with estimated pressures between 55 and 61 mmHg. Pulmonic Valve The pulmonic valve is normal in structure and function. MPA annulus measures 3.4cm. There is a trace or physiologic amount of pulmonic regurgitation. Great Vessels The inferior vena cava appeared dilated and decreased < 50% with respiration (RAP 15-20 mmHg). Effusions Small, hemodynamically insignificant, circumferential pericardial effusion. : DIPIKA PAGAN Antonio
--- NOTE | 2020-04-06 19:52 | PDOC PROGRESS REPORT ---
Subjective Progress Note for:: 04/06/20 Subjective:: Events overnight noted. 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 She was initially agitated and has been pulling of the BiPAP so she was given Haldol and is rested on BiPAP since. This morning she is still on BiPAP and is somewhat lethargic although she is arousable. She continues to be oligo anuric with urine output of only 150- minute and will the past 24 hours. She had hemodialysis yesterday and about 3500 mL of ultrafiltration. She did not really verbalize any complaints but is too somnolent to do so. Reason For Visit: ANASARCA,UPPER ABDOMINAL PAIN,MALIGNANT Physical Exam Vital Signs: Temp Pulse Resp BP Pulse Ox 97.3 F 92 16 166/55 H 95 04/06/20 08:33 04/06/20 08:33 04/06/20 08:33 04/06/20 08:33 04/06/20 08:33 Intake & Output 04/05/20 04/06/20 04/07/20 06:59 06:59 06:59 Intake Total 560 800 Output Total 140 3615 Balance 420 -2815 Weight 82.8 kg 79.9 kg Exam: General appearance: PRESENT: On BiPAP, very somnolent. Head exam: PRESENT: atraumatic, normocephalic Eye exam: PRESENT: conjunctiva pale, PERRLA. ABSENT: scleral icterus Neck exam: ABSENT: JVD Respiratory exam: PRESENT: Coarse breath sounds. ABSENT: crackles, rales, r honchi, unlabored, wheezes Cardiovascular exam: PRESENT: Irregular rate rhythm -+S1, +S2. ABSENT: d iastolic murmur, systolic murmur GI/Abdominal exam: PRESENT: normal bowel sounds, soft. ABSENT: guarding, mass, tenderness Extremities exam: Positive anasarca Neurological exam: PRESENT: Lethargic. Skin exam: PRESENT: dry, warm, positive pallor Cardiovascular exam: PRESENT: +S1, +S2 GI/Abdominal exam: PRESENT: soft. ABSENT: firm, guarding, normal bowel sounds, organomegaly, tenderness - Mainly in the left upper quadrant Results Laboratory Results: 04/06/20 05:53 04/06/20 05:53 04/06/20 04/06/20 04/06/20 05:53 05:53 06:39 WBC 9.7 RBC 2.84 L Hgb 8.9 L Hct 25.1 L MCV 88 MCH 31.4 MCHC 35.6 RDW 15.4 H Plt Count 128 L Carbonic Acid 1.18 HCO3/H2CO3 Ratio 17:1 ABG pH 7.34 L ABG pCO2 39.1 ABG pO2 71.4 L ABG HCO3 20.8 ABG O2 Saturation 93.6 L ABG Base Excess -4.5 FiO2 55% Sodium 131.3 L Potassium 4.1 Chloride 98 Carbon Dioxide 23 Anion Gap 10 BUN 48 H Creatinine 2.96 H Est GFR ( Amer) 19 L Glucose 117 H Calcium 8.1 L 03/25/20 03/25/20 03/25/20 19:50 19:50 20:41 Creatine Kinase CK-MB (CK-2) Troponin I Cancelled 0.015 NT-Pro-B Natriuret Pep Cancelled 40015 H 03/26/20 03/26/20 03/26/20 02:54 02:54 08:17 Creatine Kinase 115 144 H CK-MB (CK-2) 2.08 Troponin I 0.023 NT-Pro-B Natriuret Pep 03/26/20 03/26/20 03/26/20 08:17 14:07 14:07 Creatine Kinase 134 CK-MB (CK-2) 1.92 1.83 Troponin I 0.028 0.022 NT-Pro-B Natriuret Pep Impressions: Acute Abdomen Series 03/25/20 20:05 IMPRESSION: Patchy density in the right lung base new when compared to the previous study. Findings may reflect atelectasis versus developing infiltrate Cardiac enlargement KUB X-Ray 03/27/20 00:00 IMPRESSION: Nonspecific nonobstructive bowel gas pattern. Guidance Needle Placement CT 03/31/20 00:00 IMPRESSION: Please see combined report for performance of procedure and radiologic supervision and interpretation. Renal Biopsy CT 03/31/20 08:00 IMPRESSION: CT GUIDED LEFT KIDNEY CORTICAL BIOPSY. Abdomen/Pelvis CT 04/03/20 00:00 IMPRESSION: 1. Bilateral pleural effusions and increased collapse / atelectasi s of the left lower lobe. The alveolar ground-glass opacities in the right middle lobe are nonspecific and could represent an infection or early edema. 2. Unchanged left perinephric and retroperitoneal hematomas. 3. Other findings as detailed above. Chest X-Ray 04/04/20 00:00 IMPRESSION: New bilateral peripheral alveolar infiltrates. Atypical pneumonia cannot be excluded. Clinical correlation is needed. Pulmonary edema is also a possibility. Assessment & Plan - Diagnosis (1) [id number] kidney injury Qualifiers: Acute renal failure type: with other specified pathological lesion Chronic kidney disease stage: stage 3 (moderate) Qualified Code(s): N17.8 - Other acute kidney failure; N18.3 - Chronic kidney disease, stage 3 (moderate) Is this a current diagnosis for this admission?: Yes Plan: Patient is currently oligo-anuric with developing fluid overload. Kidney function has deteriorated after the complicated kidney biopsy with subsequent perinephric hematoma. Due to increasing shortness of breath and fluid overload I recommended patient initiated on hemodialysis which the patient has consented to and had her first hemodialysis on February 03. Today I will give her a trial of another dose of diuretics to see if she will start producing some more urine. Otherwise we will plan for next dialysis tomorrow. (2) Closed hematoma of left kidney Qualifiers: Encounter type: initial encounter Qualified Code(s): S37.012A - Minor contusion of left kidney, initial encounter Is this a current diagnosis for this admission?: Yes Plan: CT scan on 04/01 and 04/03 showed unchanged perinephric hematoma with retroperitoneal hematoma. Yesterday Dr. Holley has a spoken to a urologist in [facility], Dr. Hay who indicated that there is no change in the CT scan and the patient's hemoglobin continues to be stable then supportive measures is recommended. However if again the patient shows any deterioration, I think we should reconsider possible transfer to tertiary care facility. The DIC was considered yesterday with low platelets, elevated PT and PTT and d- dimer, however the fibrinogen is normal. Close monitoring is warranted. Patient's hemoglobin appears to be stable for the last 48 hours. This would indicate that the bleeding stopped at this point. (3) CHF exacerbation Qualifiers: Heart failure type: unspecified Qualified Code(s): I50.9 - Heart failure, unspecified Is this a current diagnosis for this admission?: Yes Plan: Patient has developed mild respiratory distress. Her chest x-ray today showed bilateral alveolar airspace disease which could either be atypical edema versus atypical pneumonia and mild central vascular prominence which were new findings compared to previous chest x-rays. The CT scan of the abdomen that was done yesterday also showed bilateral pleural effusion associated with partial collapse of left lower lobe with areas of subsegmental atelectasis. There was also patchy groundglass opacity in the right middle lobe Dr. Pagan has been following the patient and ordered an echocardiogram which is still pending. I will repeat chest x-ray today to see if congestion improve after dialysis. (4) Metabolic acidosis Is this a current diagnosis for this admission?: Yes Plan: Resolved with dialysis. (5) Hypertension Is this a current diagnosis for this admission?: Yes Plan: Likely secondary to fluid retention. Monitor blood pressure after dialysis today and adjust medications accordingly. (6) Acute blood loss anemia Is this a current diagnosis for this admission?: Yes Plan: Unfortunately patient had perinephric and retroperitoneal hematoma post kidney biopsy on March 31. She required blood transfusions for 2 consecutive days over the weekend. Patient also was considered for possible GI bleed last week prior to kidney biopsy. Colonoscopy was done on March 30 which did not show any active bleeding. Monitor hemoglobin. Currently stable with hemoglobin of 8.9 today. (7) Proteinuria Qualifiers: Proteinuria type: unspecified Qualified Code(s): R80.9 - Proteinuria, unsp ecified Is this a current diagnosis for this admission?: Yes Plan: Urine protein to creatinine ratio of 9.8 and 24-hour urine of 3.8 g. Due to being in the nephrotic range, percutaneous left kidney biopsy was done on March 31, 2020. Pathology report is still pending. Serologies have been negative. (8) Anasarca Is this a current diagnosis for this admission?: Yes Plan: Patient has nephrotic range proteinuria and hypoalbuminemia. (9) Atrial fibrillation Qualifiers: Atrial fibrillation type: paroxysmal Qualified Code(s): I48.0 - Paroxysmal atrial fibrillation Is this a current diagnosis for this admission?: Yes Plan: Defer to cardiology. (10) Hyponatremia Is this a current diagnosis for this admission?: Yes Plan: Likely secondary to hypervolemic state due to fluid retention and anuria. (11) Chronic kidney disease, stage 3 (moderate) Is this a current diagnosis for this admission?: Yes - Time Time with patient: 15-25 minutes
[2020-04-06] MEDS: MELATONIN 3 MG TABLET PO SCH (21:37)
[2020-04-07] MEDS: HYDRALAZINE HCL INJ/PF 20 MG/1 ML SDV IV PRN ×2 (00:03→21:14)
[2020-04-07] MEDS ORDERED: NORMAL SALINE 1000 ML 1,000 ML IV PRN (05:00)
[2020-04-07] MEDS ORDERED: EPOETIN ALFA-EPBX 20,000 UNIT in SYRINGE, DISPOSABLE, 1 EACH IV PRN (05:00)
[2020-04-07] MEDS ORDERED: HEPARIN SOD (PORCINE) 1,000 UNIT/ML 10 ML VIAL IV PRN (05:00)
[2020-04-07 06:09] LABS: HEMATOCRIT 25.1 % (36.0-47.0); HEMOGLOBIN 9.1 g/dL (12.0-15.5); MEAN CORPUSCULAR HEMOGLOBIN 31.6 pg (27.0-33.4); MEAN CORPUSCULAR HGB CONC 36.2 g/dL (32.0-36.0); MEAN CORPUSCULAR VOLUME 87 fl (80-97); PLATELET COUNT 152 10^3/uL (150-450); RED BLOOD COUNT 2.87 10^6/uL (3.72-5.28); RED CELL DISTRIBUTION WIDTH 15.2 % (11.5-14.0); WHITE BLOOD COUNT 10.5 10^3/uL (4.0-10.5)
[2020-04-07 06:30] LABS: ANION GAP 10 (5-19); BLOOD UREA NITROGEN 57 mg/dL (7-20); CALCIUM 8.2 mg/dL (8.4-10.2); CARBON DIOXIDE 21 mmol/L (22-30); CHLORIDE 100 mmol/L (98-107); GLUCOSE 154 mg/dL (75-110); PHOSPHORUS 2.5 mg/dL (2.5-4.5)
[2020-04-07] MEDS: DILTIAZEM HCL 30 MG TABLET PO SCH ×2 (06:38→16:32)
[2020-04-07] MEDS: HEPARIN SOD (PORCINE) 5,000 UNIT/ML 1 ML VIAL SUBCUT SCH ×3 (06:39→21:15)
[2020-04-07] MEDS: LEVOTHYROXINE SODIUM 0.025 MG TABLET PO SCH (06:39)
[2020-04-07] MEDS: METOPROLOL SUCCINATE 50 MG TAB.SR.24H PO SCH ×2 (06:39→17:06)
--- NOTE | 2020-04-07 08:17 | PDOC PROGRESS REPORT ---
Subjective Progress Note for:: 04/07/20 Subjective:: 74-year-old female with multiple medical problems who was admitted on 03/25/2020 with anasarca and who had been followed by Dr. Strickland for possible heart failure. For details of this admission and cardiology follow-up please see Dr. Strickland's notes. In summary, the patient presented slightly obtunded and with anasarca. She eventually developed new onset atrial fibrillation with RVR and was consulted to cardiology. During this hospitalization she also developed melena as well as a perinephric hematoma status post renal biopsy. Today she is at her baseline and this morning complains of slightly increase in her shortness of breath. Her hemoglobin dropped again as of this morning. Her telemetry demonstrates atrial fibrillation with no sustained ventricular dysrhythmias. 04/07/2020: Unfortunately the patient patient continues to deteriorate. She is now on BiPAP and is difficult to arouse her this morning. She is noted to be tachycardic. Her chest x-ray continues to worsen as she continues to be fluid overloaded. She is scheduled to undergo dialysis again today. She is unable to articulate any complaints this morning. Physical exam on 04/06/2020: GENERAL: BiPAP machine on. Difficult to arouse, disheveled. HEENT: Normocephalic, atraumatic. Pupils equal. Sclerae anicteric. Oropharynx moist. NECK: No JVD. No carotid bruits. LUNGS: Inspiratory and expiratory crackles in all walters as well as wheezing. CARDIOVASCULAR: Tachycardic. Irregularly irregular rate and rhythm, normal S1 and S2 without murmurs, rubs, or gallops. PMI not displaced. EXTREMITIES: 2+ pitting edema bilaterally, no cyanosis, no clubbing. +2 pulses femoral and pedal pulses bilaterally. MUSCULOSKELETAL: No chest tenderness to palpation. NEUROLOGIC: Nonfocal. No gross sensory or motor deficits bilateral upper or lower extremities. Cardiac studies: Echocardiogram on 04/06/2020: -Mild to moderate concentric LVH. -EF 65 to 70%. -Diastolic function cannot be assessed due to the presence of atrial fibrillation. -No regional wall motion abnormalities. -Severe biatrial enlargement. -Mild MR, moderate TR, mild AI, trace PI. -Moderate to severe pulmonary hypertension with estimated pressures between 55 and 61 mmHg. -Small, hemodynamically insignificant, circumferential pericardial effusion. Lexiscan MPS on 11/14/2014: -No ischemia or infarct. -Normal ejection fraction. Reason For Visit: ANASARCA,UPPER ABDOMINAL PAIN,MALIGNANT Physical Exam Vital Signs: Temp Pulse Resp BP Pulse Ox 97.4 F 125 H 18 139/92 H 96 04/07/20 03:21 04/07/20 03:21 04/07/20 06:13 04/07/20 03:21 04/07/20 06:13 Intake & Output 04/05/20 04/06/20 04/07/20 06:59 06:59 06:59 Intake Total 560 800 0 Output Total 140 3615 150 Balance 420 -2815 -150 Weight 82.8 kg 79.9 kg 79.9 kg Results Laboratory Results: 04/07/20 05:20 04/06/20 04/06/20 04/06/20 05:53 05:53 06:39 WBC 9.7 RBC 2.84 L Hgb 8.9 L Hct 25.1 L MCV 88 MCH 31.4 MCHC 35.6 RDW 15.4 H Plt Count 128 L Carbonic Acid 1.18 HCO3/H2CO3 Ratio 17:1 ABG pH 7.34 L ABG pCO2 39.1 ABG pO2 71.4 L ABG HCO3 20.8 ABG O2 Saturation 93.6 L ABG Base Excess -4.5 FiO2 55% Sodium 131.3 L Potassium 4.1 Chloride 98 Carbon Dioxide 23 Anion Gap 10 BUN 48 H Creatinine 2.96 H Est GFR ( Amer) 19 L Glucose 117 H Calcium 8.1 L 04/07/20 05:20 WBC 10.5 RBC 2.87 L Hgb 9.1 L Hct 25.1 L MCV 87 MCH 31.6 MCHC 36.2 H RDW 15.2 H Plt Count 152 Carbonic Acid HCO3/H2CO3 Ratio ABG pH ABG pCO2 ABG pO2 ABG HCO3 ABG O2 Saturation ABG Base Excess FiO2 Sodium Potassium Chloride Carbon Dioxide Anion Gap BUN Creatinine Est GFR ( Amer) Glucose Calcium 03/25/20 03/25/20 03/25/20 19:50 19:50 20:41 Creatine Kinase CK-MB (CK-2) Troponin I Cancelled 0.015 NT-Pro-B Natriuret Pep Cancelled [id number] H 03/26/20 03/26/20 03/26/20 02:54 02:54 08:17 Creatine Kinase 115 144 H CK-MB (CK-2) 2.08 Troponin I 0.023 NT-Pro-B Natriuret Pep 03/26/20 03/26/20 03/26/20 08:17 14:07 14:07 Creatine Kinase 134 CK-MB (CK-2) 1.92 1.83 Troponin I 0.028 0.022 NT-Pro-B Natriuret Pep Impressions: Acute Abdomen Series 03/25/20 20:05 IMPRESSION: Patchy density in the right lung base new when compared to the previous study. Findings may reflect atelectasis versus developing infiltrate Cardiac enlargement KUB X-Ray 03/27/20 00:00 IMPRESSION: Nonspecific nonobstructive bowel gas pattern. Guidance Needle Placement CT 03/31/20 00:00 IMPRESSION: Please see combined report for performance of procedure and radiologic supervision and interpretation. Renal Biopsy CT 03/31/20 08:00 IMPRESSION: CT GUIDED LEFT KIDNEY CORTICAL BIOPSY. Abdomen/Pelvis CT 04/03/20 00:00 IMPRESSION: 1. Bilateral pleural effusions and increased collapse / atelectasis of the left lower lobe. The alveolar ground-glass opacities in the right middle lobe are nonspecific and could represent an infection or early edema. 2. Unchanged left perinephric and retroperitoneal hematomas. 3. Other findings as detailed above. Chest X-Ray 04/06/20 00:00 IMPRESSION: 1. Persistent increasing bilateral airspace disease since the previous examination dated 04/04/2020. Durations for these findings include atypical pneumonia and or edema. Small left pleural effusion. 04/07/20 05:20 04/07/20 05:20 MCV 87 fl (80-97) 04/07/20 05:20 MCH 31.6 pg (27.0-33.4) 04/07/20 05:20 MCHC 36.2 g/dL (32.0-36.0) H 04/07/20 05:20 RDW 15.2 % (11.5-14.0) H 04/07/20 05:20 Seg Neutrophils % Not Reportable 04/04/20 06:17 Carbonic Acid 1.18 mmol/L (1.05-1.35) 04/06/20 06:39 HCO3/H2CO3 Ratio 17:1 04/06/20 06:39 ABG pH 7.34 (7.35-7.45) L 04/06/20 06:39 ABG pCO2 39.1 mmHg (35-45) 04/06/20 06:39 ABG pO2 71.4 mmHg (80-100) L 04/06/20 06:39 ABG HCO3 20.8 mmol/L (20-24) 04/06/20 06:39 ABG O2 Saturation 93.6 % (94-98) L 04/06/20 06:39 ABG Base Excess -4.5 mmol/L 04/06/20 06:39 FiO2 55% 04/06/20 06:39 Chloride 100 mmol/L (98-107) 04/07/20 05:20 Carbon Dioxide 21 mmol/L (22-30) L 04/07/20 05:20 Anion Gap 10 (5-19) 04/07/20 05:20 Est GFR ( Amer) 18 (>60) L 04/07/20 05:20 Est GFR (Non-Af Amer) Cancelled 03/25/20 19:50 Glucose 154 mg/dL (75-110) H 04/07/20 05:20 Serum Osmolality 261 mOsm/kg (275-301) L 03/27/20 05:40 Lactic Acid 1.0 mmol/L (0.7-2.1) 03/25/20 20:41 Calcium 8.2 mg/dL (8.4-10.2) L 04/07/20 05:20 Ionized Calcium Dina 1.01 mmol/L (1.14-1.30) L 03/29/20 14:47 Phosphorus 2.5 mg/dL (2.5-4.5) 04/07/20 05:20 Magnesium 2.0 mg/dL (1.6-2.3) 04/07/20 05:20 Total Bilirubin 0.3 mg/dL (0.2-1.3) 03/29/20 06:40 AST 27 U/L (14-36) 03/29/20 06:40 Alkaline Phosphatase 76 U/L (38-126) 03/29/20 06:40 C-Reactive Protein < 5.0 mg/L (<10.0) 03/27/20 05:40 Total Protein 4.6 g/dL (6.3-8.2) L 03/29/20 06:40 Albumin 2.3 g/dL (3.5-5.0) L 03/29/20 06:40 Triglycerides 67 mg/dL (<150) 03/26/20 08:17 Cholesterol 108.20 mg/dL (0-200) 03/26/20 08:17 LDL Cholesterol Direct < 30 mg/dL (<100) 03/26/20 08:17 VLDL Cholesterol 13.0 mg/dL (10-31) 03/26/20 08:17 HDL Cholesterol 74 mg/dL (>40) 03/26/20 08:17 Lipase 71.7 U/L (23-300) 03/25/20 20:41 TSH 2.31 uIU/mL (0.47-4.68) 03/26/20 08:17 Free T3 pg/mL 2.29 pg/mL (2.77-5.27) L 03/26/20 08:17 PTH Intact 91.1 pg/mL (10.0-65.0) H 03/30/20 06:35 Urine Color YELLOW 03/26/20 05:50 Urine Appearance SLIGHTLY-CLOUDY 03/26/20 05:50 Urine pH 6.0 (5.0-9.0) 03/26/20 05:50 Ur Specific Rogers 1.007 03/26/20 05:50 Urine Protein >=500 mg/dL (NEGATIVE) H 03/26/20 05:50 Urine Glucose (UA) 150 mg/dL (NEGATIVE) H 03/26/20 05:50 Urine Ketones NEGATIVE mg/dL (NEGATIVE) 03/26/20 05:50 Urine Blood SMALL (NEGATIVE) H 03/26/20 05:50 Urine Nitrite NEGATIVE (NEGATIVE) 03/26/20 05:50 Ur Leukocyte Esterase NEGATIVE (NEGATIVE) 03/26/20 05:50 Urine WBC (Auto) 2 /HPF 03/26/20 05:50 Urine RBC (Auto) 1 /HPF 03/26/20 05:50 Urine Osmolality 220 mOsm/kg (300-900) L 03/29/20 23:04 Ur 24 Hour Volume 960 mL 03/29/20 09:40 Ur Total Protein 24 Hr 3855 mg/day (42-225) H 03/29/20 09:40 Ur Sodium 24 Hour 37 mmol/day (40-200) L 03/29/20 09:40 Stool Occult Blood POSITIVE (NEGATIVE) 03/26/20 20:50 Blood Type A NEGATIVE 04/01/20 07:16 Antibody Screen NEGATIVE 04/01/20 07:16 03/25/20 03/25/20 03/25/20 19:50 19:50 20:41 Creatine Kinase CK-MB (CK-2) Troponin I Cancelled 0.015 NT-Pro-B Natriuret Pep Cancelled [id number] H 03/26/20 03/26/20 03/26/20 02:54 02:54 08:17 Creatine Kinase 115 144 H CK-MB (CK-2) 2.08 Troponin I 0.023 NT-Pro-B Natriuret Pep 03/26/20 03/26/20 03/26/20 08:17 14:07 14:07 Creatine Kinase 134 CK-MB (CK-2) 1.92 1.83 Troponin I 0.028 0.022 NT-Pro-B Natriuret Pep Current Medication List Generic Name Dose Route Start Last Admin Trade Name Freq PRN Reason Stop Dose Admin Acetaminophen 650 mg 03/25/20 23:03 04/01/20 17:38 Tylenol 325 Mg Tablet PO 04/24/20 23:02 650 mg Q4HP PRN Administration For headache, pain or fever Al Hydrox/Mg Hydrox/Simethicone 30 ml 03/25/20 22:57 04/05/20 05:28 Maalox Plus Susp 30 Udcup PO 04/24/20 22:56 30 ml Q6HP PRN Administration HEARTBURN Albuterol/Ipratropium 3 ml 04/03/20 15:25 04/05/20 00:23 Duoneb 3 Ml Ampul NEB 05/03/20 15:24 3 ml RTQ2HP PRN Administration SHORTNESS OF BREATH Artificial Tears 1 drop 03/30/20 11:04 Refresh Plus 0.5% Oph Soln 0.4 Ml Droperette OU 04/29/20 11:03 QIDP PRN DRY EYE(S) Calcium Carbonate 600 mg 04/03/20 17:00 04/06/20 17:05 Caltrate 600 Mg Tablet PO 05/03/20 16:59 600 mg BIDBS PATRICIA Administration Diltiazem HCl 30 mg 03/31/20 14:00 04/07/20 06:38 Cardizem 30 Mg Tablet PO 04/30/20 13:59 Not Given Q8 PATRICIA Docusate Sodium 100 mg 03/27/20 18:00 04/06/20 17:04 Colace 100 Mg Capsule PO 04/26/20 17:59 Not Given BID PATRICIA Guaifenesin 200 mg 03/25/20 23:03 Robitussin Syrup 200 Mg/10 Ml Ud Cup PO 04/24/20 23:02 Q4HP PRN COUGH Heparin Sodium (Porcine) 5,000 unit 03/26/20 06:00 04/07/20 06:39 Heparin Inj 5,000 Units/Ml 1 Ml Vial SUBCUT 04/25/20 05:59 Not Given Q8 PATRICIA Heparin Sodium (Porcine) 4,200 unit 04/07/20 05:00 Heparin Inj 1,000 Unit/Ml 10 Ml Vial IV 04/07/20 23:59 .SPLIT B/N CATHETERS PRN THIS MED IS NOT "PRN" Hydralazine HCl 10 mg 03/30/20 16:28 04/07/20 00:03 Apresoline Inj/Pf 20 Mg/1 Ml Sdv IV 04/29/20 16:27 10 mg Q6HP PRN Administration FOR SBP >160 AND/OR DBP > 100 Sodium Chloride 1,000 mls @ 0 mls/hr 04/07/20 05:00 Nacl 0.9% 1000 Ml Iv Soln IV 04/07/20 23:59 .DIALYSIS PRN THIS MED IS NOT "PRN" As Directed Epoetin Feng-epbx 20,000 unit/ 2 mls @ 0 mls/hr 04/07/20 05:00 Syringe IV 04/07/20 23:59 .DIALYSIS PRN THIS MED IS NOT "PRN" As Directed Levothyroxine Sodium 0.025 mg 03/28/20 06:00 04/07/20 06:39 Synthroid 0.025 Mg Tablet PO 04/27/20 05:59 Not Given Q6AM PATRICIA Magnesium Hydroxide 30 ml 03/25/20 22:57 Milk Of Magnesia 30 Ml Udcup PO 04/24/20 22:56 HSP PRN FOR CONSTIPATION Melatonin 6 mg 03/29/20 22:00 04/06/20 21:37 Melatonin 3 Mg Tablet PO 04/28/20 21:59 6 mg QHS PATRICIA Administration Metoprolol Succinate 100 mg 04/03/20 18:00 04/07/20 06:39 Toprol Xl 50 Mg Tab.Sr PO 05/03/20 17:59 Not Given Q12A PATRICIA Morphine Sulfate 2 mg 04/01/20 19:21 04/05/20 22:00 Morphine 10 Mg/Ml Inj IV 04/08/20 19:20 2 mg Q4HP PRN Administration FOR PAIN SCALE 3-5 Ondansetron HCl 4 mg 03/25/20 22:57 04/05/20 02:24 Zofran Inj/Pf 4 Mg/2 Ml Sdv IV 04/24/20 22:56 4 mg Q4HP PRN Administration FOR NAUSEA/VOMITING Sodium Chloride 2.5 ml 03/26/20 06:00 04/07/20 06:39 Saline Flush 2.5 Ml Monoject Prefil Syrin IV 04/25/20 05:59 Not Given Q8 PATRICIA Sucralfate 1 gm 03/26/20 08:00 04/06/20 21:37 Carafate 1 Gm Tablet PO 04/25/20 07:59 1 gm ACHS PATRICIA Administration Throat Lozenges 1 each 04/03/20 21:05 04/03/20 21:45 Chloraseptic Sore Throat Lozenge BUCCAL 05/03/20 21:04 1 each Q2HP PRN Administration FOR SORE THROAT Discontinued Medications Generic Name Dose Route Start Last Admin Trade Name Freq PRN Reason Stop Dose Admin Amlodipine Besylate 5 mg 03/28/20 10:00 Norvasc 5 Mg Tablet PO 04/27/20 09:59 DAILY PATRICIA Amlodipine Besylate 10 mg 03/31/20 05:00 03/31/20 04:42 Norvasc 10 Mg Tablet PO 03/31/20 05:01 10 mg NOW ONE Administration Amlodipine Besylate 10 mg 03/31/20 10:00 Norvasc 10 Mg Tablet PO 04/30/20 09:59 DAILY PATRICIA Bumetanide 1 mg 03/25/20 23:30 03/27/20 11:50 Bumex Inj/Pf 1 Mg/4 Ml Sdv IV 04/24/20 23:29 1 mg Q6H PATRICIA Administration Bumetanide 1 mg 03/27/20 22:00 03/29/20 09:06 Bumex Inj/Pf 1 Mg/4 Ml Sdv IV 04/26/20 21:59 1 mg Q12 PATRICIA Administration Bumetanide 1 mg 03/29/20 18:00 04/01/20 17:33 Bumex Inj/Pf 1 Mg/4 Ml Sdv IV 04/28/20 17:59 1 mg Q8A PATRICIA Administration Bumetanide 2 mg 04/04/20 14:21 04/04/20 14:39 Bumex Inj/Pf 1 Mg/4 Ml Sdv IV 04/04/20 14:22 2 mg NOW ONE Administration Calcium Carbonate 600 mg 03/29/20 21:00 04/03/20 10:19 Caltrate 600 Mg Tablet PO 04/28/20 20:59 600 mg BID PATRICIA Administration Diphenoxylate HCl/Atropine 1 tab 03/27/20 15:44 03/27/20 17:09 Lomotil 2.5 Mg Tablet PO 04/03/20 15:43 1 tab QIDP PRN Administration DIARRHEA Docusate Sodium 100 mg 03/26/20 10:00 03/27/20 09:37 Colace Udc 100 Mg/10 Ml Oral Soln PO 04/25/20 09:59 Not Given BID PATRICIA Enalaprilat 2.5 mg 03/30/20 21:00 03/30/20 20:51 Vasotec Inj/Pf 2.5 Mg/2 Ml Sdv IV 03/30/20 21:01 2.5 mg NOW ONE Administration Epinephrine HCl Confirm 03/30/20 14:25 Epinephrine Inj 1 Mg/10 Ml Disp.Syrin Administered 03/30/20 14:26 Dose 1 mg .ROUTE .STK-MED ONE Famotidine 20 mg 03/25/20 23:00 03/27/20 09:37 Pepcid 20 Mg Tablet PO 04/24/20 22:59 20 mg Q12 PATRICIA Administration Famotidine 20 mg 03/28/20 10:00 03/29/20 09:06 Pepcid 20 Mg Tablet PO 04/27/20 09:59 20 mg DAILY PATRICIA Administration Fentanyl Citrate Confirm 03/31/20 08:31 03/31/20 11:03 Sublimaze Inj/Pf 100 Mcg/2 Ml Ampule Administered 03/31/20 08:32 Not Given Dose 100 mcg .ROUTE .STK-MED ONE Furosemide 60 mg 04/03/20 09:30 04/03/20 10:20 Lasix Inj/Pf 100 Mg/10 Ml Sdv IV 04/03/20 09:31 60 mg NOW ONE Administration Furosemide 40 mg 04/06/20 10:30 04/06/20 11:43 Lasix Inj/Pf 40 Mg/4 Ml Sdv IV 04/06/20 10:31 40 mg NOW ONE Administration Furosemide 80 mg 04/06/20 19:52 04/06/20 20:49 Lasix Inj/Pf 40 Mg/4 Ml Sdv IV 04/06/20 19:53 80 mg NOW ONE Administration Haloperidol Lactate 5 mg 04/01/20 21:30 04/01/20 21:36 Haldol 5 Mg/Ml Inj 1 Ml Vial IV 04/01/20 21:31 5 mg NOW ONE Administration Haloperidol Lactate Confirm 04/01/20 21:32 04/01/20 21:36 Haldol 5 Mg/Ml Inj 1 Ml Vial Administered 04/01/20 21:33 Not Given Dose 5 mg .ROUTE .STK-MED ONE Haloperidol Lactate 5 mg 04/06/20 03:30 04/06/20 03:34 Haldol 5 Mg/Ml Inj 1 Ml Vial IV 04/06/20 03:31 5 mg NOW ONE Administration Heparin Sodium (Porcine) 4,600 unit 04/05/20 05:00 04/05/20 08:56 Heparin Inj 1,000 Unit/Ml 10 Ml Vial IV 04/05/20 23:59 3,600 units .SPLIT B/N CATHETERS PRN Administration THIS MED IS NOT "PRN" Hydralazine HCl 20 mg 03/25/20 23:07 03/27/20 09:41 Apresoline Inj/Pf 20 Mg/1 Ml Sdv IV 04/24/20 23:06 20 mg Q4HP PRN Administration Give For Sbp > 160 / Dbp > 100 Hydralazine HCl 10 mg 03/27/20 11:30 03/30/20 09:43 Apresoline Inj/Pf 20 Mg/1 Ml Sdv IV 04/26/20 11:29 10 mg Q8HP PRN Administration FOR SBP >160 AND/OR DBP > 100 Sodium Chloride 1,000 mls @ 125 mls/hr 03/25/20 21:36 Nacl 0.9% 1000 Ml Iv Soln IV 04/24/20 21:35 .CONTINUOUS PRN DIARRHEA Albumin Human 12.5 gm in 50 mls @ 50 mls/hr 03/25/20 23:15 03/26/20 05:57 Albuminar-25 Rtu Inj 12.5 Gm/50 Ml Premix IV 03/26/20 03:14 Infused Q1H PATRICIA Infusion Albumin Human Confirm 03/26/20 01:29 03/26/20 01:47 Albuminar-25 Rtu Inj 12.5 Gm/50 Ml Premix Administered 03/26/20 01:30 Not Given Dose 50.0 gm in 200 mls @ ud IV .STK-MED ONE Sodium Chloride 1,000 mls @ 50 mls/hr 03/27/20 11:19 03/29/20 05:02 Nacl 0.9% 1000 Ml Iv Soln IV 04/26/20 11:18 50 mls/hr CONTINUOUS PRN Administration THIS MED IS NOT "PRN" Sodium Chloride 1,000 mls @ 40 mls/hr 03/29/20 10:59 Nacl 0.9% 1000 Ml Iv Soln IV 04/26/20 11:18 CONTINUOUS PRN THIS MED IS NOT "PRN" Albumin Human 12.5 gm in 50 mls @ 50 mls/hr 03/30/20 10:00 04/01/20 17:34 Albuminar-25 Rtu Inj 12.5 Gm/50 Ml Premix IV 04/02/20 09:59 50 mls/hr TID PATRICIA Administration Sodium Chloride 250 mls @ 30 mls/hr 04/01/20 08:12 Nacl 0.9% 250 Ml Iv Soln IV 04/02/20 08:11 .DURING TRANSFUSION PRN THIS MED IS NOT "PRN" Sodium Chloride 250 mls @ 0 mls/hr 04/01/20 08:12 Nacl 0.9% 250 Ml Iv Soln IV 04/02/20 08:11 CONTINUOUS PRN AFTER EACH UNIT As Directed Sodium Chloride 1,000 mls @ 100 mls/hr 04/01/20 19:09 04/02/20 23:45 Nacl 0.9% 1000 Ml Iv Soln IV 05/01/20 19:08 Infused CONTINUOUS PRN Infusion THIS MED IS NOT "PRN" Albumin Human 12.5 gm in 50 mls @ 50 mls/hr 04/02/20 21:00 04/03/20 01:45 Albuminar-25 Rtu Inj 12.5 Gm/50 Ml Premix IV 04/03/20 00:59 Infused Q1H PATRICIA Infusion Sodium Chloride 1,000 mls @ 150 mls/hr 04/02/20 21:01 04/03/20 04:00 Nacl 0.9% 1000 Ml Iv Soln IV 05/02/20 21:00 Infused CONTINUOUS PRN Infusion THIS MED IS NOT "PRN" Albumin Human Confirm 04/02/20 21:13 04/02/20 21:20 Albuminar-25 Rtu Inj 12.5 Gm/50 Ml Premix Administered 04/02/20 21:14 Not Given Dose 50.0 gm in 200 mls @ ud IV .STK-MED ONE Sodium Chloride 1,000 mls @ 100 mls/hr 04/03/20 05:56 Nacl 0.9% 1000 Ml Iv Soln IV 05/03/20 05:55 CONTINUOUS PRN THIS MED IS NOT "PRN" Desmopressin Acetate 20 mcg/ 50 mls @ 100 mls/hr 04/03/20 13:30 04/03/20 14:00 Sodium Chloride IV 04/03/20 13:59 Infused NOW ONE Infusion Sodium Chloride 1,000 mls @ 0 mls/hr 04/05/20 05:00 Nacl 0.9% 1000 Ml Iv Soln IV 04/05/20 23:59 .DIALYSIS PRN THIS MED IS NOT "PRN" As Directed Insulin Human Regular 0 - 15 unit 03/25/20 23:03 03/27/20 09:04 Humulin R (Pyxis) Insulin 100 Unit/Ml 3ml SUBCUT 04/24/20 23:02 Not Given ACHS PATRICIA Protocol Lorazepam 1 mg 03/25/20 23:03 Ativan Inj 2 Mg/1 Ml Vial IV 04/01/20 23:02 Q4HP PRN ANXIETY/AGITATION Lorazepam Confirm 03/31/20 03:47 03/31/20 03:53 Ativan Inj 2 Mg/1 Ml Vial Administered 03/31/20 03:48 Not Given Dose 2 mg .ROUTE .STK-MED ONE Lorazepam 1 mg 03/31/20 04:00 03/31/20 03:52 Ativan Inj 2 Mg/1 Ml Vial IV 03/31/20 04:01 1 mg NOW ONE Administration Losartan Potassium 50 mg 03/26/20 10:00 Cozaar 50 Mg Tablet PO 04/25/20 09:59 Q12 PATRICIA Losartan Potassium 50 mg 03/26/20 04:30 03/27/20 09:37 Cozaar 50 Mg Tablet PO 04/25/20 04:29 50 mg Q12 PATRICIA Administration Metoclopramide HCl 5 mg 03/26/20 08:00 03/29/20 11:50 Reglan 10 Mg Tablet PO 04/25/20 07:59 5 mg ACHS PATRICIA Administration Metoclopramide HCl 10 mg 04/01/20 17:30 04/01/20 17:31 Reglan Inj/Pf 10 Mg/2 Ml Sdv IV 04/01/20 17:31 10 mg NOW ONE Administration Metoclopramide HCl Confirm 04/01/20 17:28 04/01/20 17:46 Reglan Inj/Pf 10 Mg/2 Ml Sdv Administered 04/01/20 17:29 Not Given Dose 10 mg .ROUTE .STK-MED ONE Metoprolol Succinate 100 mg 03/26/20 10:00 Toprol Xl 50 Mg Tab.Sr PO 04/25/20 09:59 Q12 PATRICIA Metoprolol Succinate 100 mg 03/26/20 06:00 04/03/20 05:23 Toprol Xl 50 Mg Tab.Sr PO 04/25/20 05:59 100 mg Q12H PATRICIA Administration Metoprolol Tartrate 5 mg 03/25/20 23:07 Lopressor Inj/Pf 5 Mg/5 Ml Sdv IV 04/24/20 23:06 Q4HP PRN Give For Sbp > 160 / Dbp > 100 Midazolam HCl Confirm 03/31/20 08:31 03/31/20 11:04 Versed 2 Mg/2 Ml Inj Administered 03/31/20 08:32 Not Given Dose 2 mg .ROUTE .STK-MED ONE Morphine Sulfate Confirm 04/01/20 18:16 04/01/20 18:22 Morphine 10 Mg/Ml Inj Administered 04/01/20 18:17 2 mg Dose Administration 10 mg .ROUTE .STK-MED ONE Nitroglycerin 1 gm 03/26/20 03:34 03/26/20 04:52 Nitrol 2% Ointment 1gm Packet TP 04/25/20 03:33 Not Given Q6 PATRICIA Nitroglycerin 1 gm 03/26/20 04:30 Nitrol 2% Ointment 1gm Packet TP 04/25/20 04:29 Q6 PATRICIA Nitroglycerin 1 gm 03/26/20 04:30 03/27/20 06:35 Nitrol 2% Ointment 1gm Packet TP 04/25/20 04:29 Not Given Q6 PATRICIA Nitroglycerin 0.5 gm 03/31/20 03:46 03/31/20 03:53 Nitrol 2% Ointment 1gm Packet TP 03/31/20 03:47 0.5 gm NOW ONE Administration Nitroglycerin Confirm 03/31/20 03:55 03/31/20 04:15 Nitrol 2% Ointment 1gm Packet Administered 03/31/20 03:56 Not Given Dose 1 gm .ROUTE .STK-MED ONE Nitroglycerin 1 each 04/03/20 21:00 04/03/20 21:46 Nitro-Dur 5 Mg (0.2 Mg/Hr) Transdermal Patch TD 04/03/20 21:01 1 each NOW ONE Administration Pantoprazole Sodium 40 mg 03/29/20 22:00 04/01/20 10:48 Protonix Iv Inj 40 Mg Vial IV 04/01/20 21:59 40 mg Q12 PATRICIA Administration Polyethylene Glycol 17 gm 03/30/20 11:30 03/30/20 15:28 Miralax Powder 17 Gm/Packet PO 03/30/20 14:01 Not Given Q2 PATRICIA Polyethylene Glycol/Electrolytes 4,000 ml 03/28/20 17:30 03/28/20 22:57 Golytely Solution 4000 Ml PO 03/28/20 17:31 Not Given ONCE ONE Potassium Chloride 40 meq 03/28/20 08:17 03/28/20 09:17 Klor-Con 10 Meq Tablet Er PO 03/28/20 08:18 40 meq NOW ONE Administration Potassium Chloride 20 meq 03/28/20 14:00 03/28/20 14:19 Klor-Con 10 Meq Tablet Er PO 03/28/20 14:01 20 meq TAM@1400 ONE Administration Potassium Chloride 20 meq 03/31/20 13:00 03/31/20 14:00 Klor-Con 10 Meq Tablet Er PO 03/31/20 13:01 20 meq NOW ONE Administration Potassium Chloride 20 meq 04/01/20 10:00 04/01/20 10:52 Potassium Chloride 20 Meq Packet PO 05/01/20 09:59 Not Given DAILY PATRICIA Propofol Confirm 03/30/20 15:00 Diprivan Inj 200 Mg/20 Ml Vial Administered 03/30/20 15:01 Dose 200 mg IV .STK-MED ONE Sodium Bicarbonate 1,300 mg 03/26/20 09:00 03/27/20 09:37 Sodium Bicarbonate 650 Mg Tablet PO 04/25/20 08:59 1,300 mg PCHS PATRICIA Administration Sodium Bicarbonate 2,600 mg 03/25/20 23:05 03/26/20 01:29 Sodium Bicarbonate 650 Mg Tablet PO 03/25/20 23:06 2,600 mg NOW ONE Administration Sodium Bicarbonate 2,600 mg 03/26/20 01:30 03/26/20 01:48 Sodium Bicarbonate 650 Mg Tablet PO 03/26/20 01:31 Not Given NOW ONE Assessment & Plan - Diagnosis (1) Atrial fibrillation Qualifiers: Atrial fibrillation type: paroxysmal Qualified Code(s): I48.0 - Paroxysmal atrial fibrillation Is this a current diagnosis for this admission?: Yes Plan: She is tachycardic this morning likely secondary to her other comorbidities particularly fluid overload as well as not receiving any of her AV tomy agents given her heart failure I recommend discontinuing calcium channel iam and start IV ALFREDO inhibitor if cleared by nephrology. Recommendations: -Continue to treat underlying comorbidities particularly heart failure. -If the patient continues to be unable to take by mouth medications, discontinue metoprolol p.o. and start IV beta-iam such as esmolol or labetalol. (2) Heart failure with preserved ejection fraction, borderline, class IV Plan: The patient continues to be in heart failure with clinical deterioration and re quiring BiPAP support to maintain oxygenation. Her chest x-ray appears to be worse. She is scheduled to undergo dialysis today. Her echocardiogram yesterday demonstrated a preserved ejection fraction with moderate to severe pulmonary hypertension. A positive fluid balance of 2.5 L. She has not required the use of BiPAP to maintain oxygenation. Recommendations: -Restrict fluid intake to 1500 cc daily. -Low sodium diet, less than 1500 mg daily. -Strict intake and output. -Daily weights. -Continue with dialysis per nephrology recommendations. -IV ALFREDO inhibitor if okay by nephrology. (3) Anasarca Is this a current diagnosis for this admission?: Yes Plan: The patient will continue to follow-up with nephrology. (4) Acute blood loss anemia Is this a current diagnosis for this admission?: Yes Plan: Her hemoglobin continues to be stable. Recommendations: -Further management per primary team. (5) Closed hematoma of left kidney Qualifiers: Encounter type: initial encounter Qualified Code(s): S37.012A - Minor contusion of left kidney, initial encounter Is this a current diagnosis for this admission?: Yes Plan: Continues to be stable as of most recent CT scan. I will defer further management to primary team.
[2020-04-07] MEDS: CALCIUM CARBONATE 600 MG TABLET PO SCH ×2 (09:22→17:06)
[2020-04-07] MEDS: SUCRALFATE 1 GM TABLET PO SCH ×4 (09:22→21:14)
[2020-04-07] MEDS: DOCUSATE SODIUM 100 MG CAPSULE PO SCH ×2 (09:23→20:41)
[2020-04-07] MEDS ORDERED: DILTIAZEM HCL INJ 25 MG/5 ML VIAL ONE (10:38)
[2020-04-07] MEDS: MORPHINE SULFATE 10 MG/ML INJ IV PRN ×3 (10:47→21:31)
[2020-04-07] MEDS ORDERED: DILTIAZEM HCL INJ 25 MG/5 ML VIAL IV ONE (11:00)
[2020-04-07 11:05] LABS: FACTOR V ACTIVITY 104 % (70-150); FACTOR VII ACTIVITY 89 % (51-186); PROTEIN C FUNCTIONAL 59 % (73-180)
--- NOTE | 2020-04-07 13:09 | PDOC PROGRESS REPORT ---
Subjective Progress Note for:: 04/07/20 Subjective:: The patient reports feeling poorly in general. Her answers are mostly head nods in one-word answers. She is still on BiPAP. She still is feeling quite weak. She just came from hemodialysis where they removed 3+ liters. She states that her breathing might be a little better but not significantly. Reason For Visit: ANASARCA,UPPER ABDOMINAL PAIN,MALIGNANT Physical Exam Vital Signs: Temp Pulse Resp BP Pulse Ox 97.3 F 59 L 23 H 147/89 H 95 04/07/20 07:58 04/07/20 07:58 04/07/20 10:32 04/07/20 07:58 04/07/20 10:32 Intake & Output 04/06/20 04/07/20 04/08/20 06:59 06:59 06:59 Intake Total 800 0 Output Total 3615 200 Balance -2815 -200 Weight 79.9 kg 80.3 kg General appearance: PRESENT: mild distress, well-developed, other - BiPAP in place Head exam: PRESENT: atraumatic, normocephalic Eye exam: PRESENT: conjunctiva pale, EOMI. ABSENT: scleral icterus Ear exam: PRESENT: normal external ear exam. ABSENT: bleeding, drainage Mouth exam: PRESENT: other - BiPAP mask in place Respiratory exam: PRESENT: rales - Bilaterally, symmetrical, tachypnea. ABSENT: rhonchi, wheezes Cardiovascular exam: PRESENT: irregular rhythm, +S1, +S2, tachycardia. ABSENT: diastolic murmur, systolic murmur GI/Abdominal exam: PRESENT: diminished bowel sounds, soft. ABSENT: distended, guarding, tenderness Rectal exam: PRESENT: deferred Extremities exam: PRESENT: pedal edema Neurological exam: PRESENT: alert, awake, oriented to person - Difficult for her to answer questions so unable to further assess, CN II-XII grossly intact Psychiatric exam: PRESENT: flat affect - Flat and ill-appearing. ABSENT: agitated, anxious Skin exam: PRESENT: dry, pallor, warm Results Laboratory Results: 04/07/20 05:20 04/07/20 05:20 04/07/20 04/07/20 05:20 05:20 WBC 10.5 RBC 2.87 L Hgb 9.1 L Hct 25.1 L MCV 87 MCH 31.6 MCHC 36.2 H RDW 15.2 H Plt Count 152 Sodium 130.6 L Potassium 4.0 Chloride 100 Carbon Dioxide 21 L Anion Gap 10 BUN 57 H Creatinine 3.05 H Est GFR ( Amer) 18 L Glucose 154 H Calcium 8.2 L Phosphorus 2.5 Magnesium 2.0 03/25/20 03/25/20 03/25/20 19:50 19:50 20:41 Creatine Kinase CK-MB (CK-2) Troponin I Cancelled 0.015 NT-Pro-B Natriuret Pep Cancelled 06524 H 03/26/20 03/26/20 03/26/20 02:54 02:54 08:17 Creatine Kinase 115 144 H CK-MB (CK-2) 2.08 Troponin I 0.023 NT-Pro-B Natriuret Pep 03/26/20 03/26/20 03/26/20 08:17 14:07 14:07 Creatine Kinase 134 CK-MB (CK-2) 1.92 1.83 Troponin I 0.028 0.022 NT-Pro-B Natriuret Pep Impressions: Acute Abdomen Series 03/25/20 20:05 IMPRESSION: Patchy density in the right lung base new when compared to the previous study. Findings may reflect atelectasis versus developing infiltrate Cardiac enlargement KUB X-Ray 03/27/20 00:00 IMPRESSION: Nonspecific nonobstructive bowel gas pattern. Guidance Needle Placement CT 03/31/20 00:00 IMPRESSION: Please see combined report for performance of procedure and radiologic supervision and interpretation. Renal Biopsy CT 03/31/20 08:00 IMPRESSION: CT GUIDED LEFT KIDNEY CORTICAL BIOPSY. Abdomen/Pelvis CT 04/03/20 00:00 IMPRESSION: 1. Bilateral pleural effusions and increased collapse / atelectasis of the left lower lobe. The alveolar ground-glass opacities in the right middle lobe are nonspecific and could represent an infection or early edema. 2. Unchanged left perinephric and retroperitoneal hematomas. 3. Other findings as detailed above. Chest X-Ray 04/06/20 00:00 IMPRESSION: 1. Persistent increasing bilateral airspace disease since the previous examination dated 04/04/2020. Durations for these findings include atypical pneumonia and or edema. Small left pleural effusion. Assessment and Plan - Diagnosis (1) Closed hematoma of left kidney Qualifiers: Encounter type: initial encounter Qualified Code(s): S37.012A - Minor contusion of left kidney, initial encounter Is this a current diagnosis for this admission?: Yes Plan: repeat CT scan shows unchanged retroperitoneal hematoma. Dr. Holley spoke with Dr. Hay, a urologist in [place], and discussed the case at length. At that time her repeat hemoglobin and platelets are so far stable. This would seem to indicate that any bleeding has stabilized. Dr. Hay indicated that if the bleeding remained stable, then we should continue to treat her supportively as we have been doing. 04/07/2020 Secondary to kidney biopsy. Stable at this time. Continue to monitor. (2) Acute blood loss anemia Is this a current diagnosis for this admission?: Yes Plan: Her hemoglobin seems relatively stable at this time. She had to get 2 units and 2 consecutive days. Her platelets are stable from yesterday. There has been mention of some concern that this might be DIC. It appears that Dr. Holley ruled that out. 04/07/2020 Hemoglobin slowly continues to improve. It was 9.1 today. (3) Anasarca Is this a current diagnosis for this admission?: Yes Plan: Slight improvement. Patient's anasarca is likely due to her kidney disease. ABD U/S shows coarse heterogeneous liver appearance; likely underlying liver disease. LFTs unremarkable Hep B negative. Hep C negative. Cardiology and Nephrology services are consulted. Echo pending per cardiology. Dr. Holley did discuss with Dr. Strickland; unlikely due to CHF alone, though expects some underlying diastolic dysfunction. Nephrology evaluating for nephrotic syndome, which her 24-hour urine would suggest. S/p kidney biopsy Did not respond to diuretics. Patient had dialysis catheter placed 04/04/2020 and dialysis started yesterday. 04/07/2020 Currently being treated with hemodialysis. Remains oliguric. Also being followed by cardiology and nephrology. (4) Paroxysmal atrial fibrillation Is this a current diagnosis for this admission?: Yes Plan: 04/07/2020 No anticoagulation due to hematoma and blood loss anemia. Per Dr. Pagan is suggestion/recommendation I have discontinued the diltiazem. She does take her metoprolol but it is inconsistent. I have added IV labetalol to be available for increased heart rate. We will continue to monitor on telemetry. (5) Chronic kidney disease, stage 3 (moderate) Is this a current diagnosis for this admission?: Yes Plan: Received records from [facility]. Patient's GFR was between 30 and 45 as well. She has a lot of protein in her urine. S/p renal biopsy, results are pending Patient started dialysis yesterday 04/07/2020 Prior to this hospitalization the patient had chronic kidney disease stage III. Due to worsening renal function she has been undergoing dialysis. (6) [id number] kidney injury Qualifiers: Acute renal failure type: with other specified pathological lesion Chronic kidney disease stage: stage 3 (moderate) Qualified Code(s): N17.8 - Other acute kidney failure; N18.3 - Chronic kidney disease, stage 3 (moderate) Is this a current diagnosis for this admission?: Yes Plan: Creatinine has gotten worse. She was on IV fluids and got repeat transfusions. Very poor urine output. Started dialysis yesterday. Nephrology is managing. 04/07/2020 The patient serum creatinine today was 3.05. Yesterday it was 2.96. She did undergo dialysis today and in fact they were able to remove over 3 L of fluid. Postdialysis she did not report feeling much better but she had just gotten back to the floor. The serum creatinine has not improved dramatically. Her urine output still remains quite low. BUN continues to increase. (7) Heart failure with preserved ejection fraction Qualifiers: Heart failure chronicity: acute on chronic Qualified Code(s): I50.33 - Acute on chronic diastolic (congestive) heart failure Is this a current diagnosis for this admission?: Yes Plan: 04/07/2020 Fluid management is by hemodialysis at this time. No diuretic therapy in use. Appreciate ongoing cardiology input. (8) Pulmonary hypertension Is this a current diagnosis for this admission?: Yes Plan: 04/07/2020 Migraine multiple contributing etiologies. We will continue to treat other comorbidities. (9) Hypertension Qualifiers: Hypertension type: essential hypertension Qualified Code(s): I10 - Essential (primary) hypertension Is this a current diagnosis for this admission?: Yes Plan: 04/07/2020 3 hypertensive emergency present on admission has resolved however she still has ongoing elevated blood pressures. We will continue current medication regimen. Will adjust medication based on input from nephrology and cardiology. (10) Hyponatremia Is this a current diagnosis for this admission?: Yes Plan: Sodium 18.2; Trending upward from 118 at time of admission. Likely secondary to fluid volume overload resulting in anasarca. Nephrology is consulted. Appreciate Dr. Mac's assistance. 04/07/2020 Her hyponatremia is vastly improved from the 118 noted on admission. She is now up to 130. She had chronic hyponatremia likely due to her kidney failure. Continue to monitor electrolytes. (11) Hyperglycemia due to diabetes mellitus Is this a current diagnosis for this admission?: No Plan: Patient reports that she does not have diabetes. Hemoglobin A1c 5.1%. Has not required insulin coverage. We will discontinue Accu-Cheks and insulin. Should we note that her glucose on chemistries trend upward; reevaluate. Registered dietitian is consulted. Consistent Carb diet. 04/07/2020 No insulin coverage at this time. If consistently elevated glucoses are noted we may start sliding scale coverage. (12) Proteinuria due to type 2 diabetes mellitus Is this a current diagnosis for this admission?: Yes Plan: 03/26/2020 Marked proteinuria by dipstick. 24-hour studies have been ordered. 04/07/2020 Nephrotic range proteinuria (3.8 g) detected on 24-hour urine specimen previously collected. Currently on dialysis. (13) Chronic diarrhea Is this a current diagnosis for this admission?: Yes Plan: Patient reports chronic diarrhea since prior ruptured colon with subsequent partial colectomy; unclear follow up. Stool culture and C. diff negative. Occult stool positive. Melena and blood clots w/ stools is resolved. KUB shows nonspecific gas pattern. Colonoscopy revealed a colon polyps (removed via snare) and no active signs of GI bleeding. Clear liquid diet. Protonix and Carafate Clear liquids. Hold on antidiarrheal. Stop scheduled Reglan GI consulted today; appreciate Dr. Deshpande's evaluation and recommendations. 04/07/2020 Bowel movements have significantly decreased. This is most likely due to her limited dietary intake. - Plan Summary Summary: I spoke with Dr. Hay, a urologist in [place], and discussed the case at length. At this time her repeat hemoglobin has come back up to 8.8, and her platelets are also trending back up at 86. This would seem to indicate that any bleeding has stabilized. The repeat CT scan showed subcapsular hematoma was stable, and a retroperitoneal hematoma was also mentioned as being stable, even though this was not mentioned on the initial CT. Dr. Hay indicated that if the bleeding remained stable, then we should continue to treat her supportively as we have been doing. As previously noted, I do not believe for many reasons that this patient is in DIC, and indeed if she was her hemoglobin and her platelets would continue to drop. She should be on bedrest until her hemoglobin is stable for another 24 hours, and then we could potentially consider ambulating her. Her urine output seems to have increased a little bit today, and so we will monitor her for recovery of function. No adverse events overnight. Vital signs been stable. Urine output has been minimal. Her creatinine went up a little again today. Her platelets have been stable. Her hemoglobin was down a point from yesterday but she is been on continuous fluids overnight. She is awake and looks fatigued, but she says that overall she feels okay, just tired. She is not complaining of any abdominal pain. Breathing has been comfortable. There has been no visual evidence of any external bleeding. No rashes. Interestingly, her edema does not appear to have gotten any worse. Reason For Visit: ANASARCA,UPPER ABDOMINAL PAIN,MALIGNANT (1) Closed hematoma of left kidney Qualifiers: Encounter type: initial encounter Qualified Code(s): S37.012A - Minor contusion of left kidney, initial encounter Is this a current diagnosis for this admission?: Yes Plan: I have ordered a repeat CT scan today to see if the size of the hematoma has changed. I will call and speak with the urologist once I have this information, to see if there is any recommendation that could help her from a surgical standpoint. (2) Acute blood loss anemia Is this a current diagnosis for this admission?: Yes Plan: Her hemoglobin seems relatively stable at this time. She had to get 2 units and 2 consecutive days. Her hemoglobin was down a little bit today, but I suspect some of this is from hemodilution. Her platelets are stable from yesterday. T here has been mention of some concern that this might be DIC. I do not believe this to be the case, and there are multiple reasons why. First, she has a good explanation for why her hemoglobin is down, and she has had no signs of any external bleeding. Second, her platelets are low, but they have stabilized, and you can see a drop in platelets with blood volume loss combined with administration of IV fluids. Third, her coagulation studies are not that much different from when she was admitted 9 days ago. Her PT is up from 15-17, and her PTT is up from 37-39. Fourth, her fibrinogen is well within the normal range at 338. Her d-dimer is elevated, but with her level of renal failure this is to be expected, and with the bleeding she has had we would expect it to be a little elevated, which it is. Fifth, her LDH is normal, which argues against microangiopathic hemolysis that one typically sees with DIC. We will of course be monitoring her closely for development of this process, but at this time I do not think that is what is going on, for the reasons noted above. (3) Anasarca Is this a current diagnosis for this admission?: Yes Plan: Slight improvement. Patient's anasarca is likely due to her kidney disease. ABD U/S shows coarse heterogeneous liver appearance; likely underlying liver disease. LFTs unremarkable Hep B negative. Hep C negative. Cardiology and Nephrology services are consulted. Echo pending per cardiology. Did discuss with Dr. Strickland; unlikely due to CHF alone, though expects some underlying diastolic dysfunction. Nephrology evaluating for nephrotic syndome, which her 24-hour urine would suggest. S/p kidney biopsy IV fluids and IV bumetanide per Dr. Mac, bumetanide on hold due to renal failure. pipeline construction inspector is consulted. (4) Atrial fibrillation Qualifiers: Atrial fibrillation type: paroxysmal Qualified Code(s): I48.0 - Paroxysmal atrial fibrillation Is this a current diagnosis for this admission?: Yes Plan: Patient converted into atrial fibrillation overnight on telemetry. Confirmed by EKG. Unknown history of the same; patient not able to elaborate. She is already on metoprolol 100 mg twice daily. diltiazem 30 mg every 8 hours. Not a candidate for anticoagulation or aspirin therapy at this time due to recent renal hematoma and GI bleed. (5) CHF exacerbation Qualifiers: Heart failure type: unspecified Qualified Code(s): I50.9 - Heart failure, unspecified Is this a current diagnosis for this admission?: Yes Plan: Anasarca actually not thought to be due to a CHF exacerbation at this time, ech ocardiogram pending, cardiology consulted (6) Chronic kidney disease, stage 3 (moderate) Is this a current diagnosis for this admission?: Yes Plan: Received records from [facility]. Patient's GFR was between 30 and 45 as well. She has a lot of protein in her urine. S/p renal biopsy Nephrology has been consulted; primary management per their expertise. (7) Diabetes mellitus type 2 in nonobese Is this a current diagnosis for this admission?: Yes Plan: Continue sliding scale and diabetic diet (8) [id number] kidney injury Qualifiers: Acute renal failure type: with other specified pathological lesion Chronic kidney disease stage: stage 3 (moderate) Qualified Code(s): N17.8 - Other acute kidney failure; N18.3 - Chronic kidney disease, stage 3 (moderate) Is this a current diagnosis for this admission?: Yes Plan: Creatinine has gotten worse since the formation of a hematoma. Creatinine went up fairly quickly, up to 2.88 today. She is on IV fluids and getting repeat transfusions as needed, monitoring urine output. Am repeating the CT of the abdomen and pelvis to assess for interval change in the size of the renal hematoma. Once I have that information, I will contact the urologist to discuss the case and see if there is any role for surgical intervention here. My concern is that on the original CT the right kidney looks very atrophic, and I believe the left kidney was probably the better of the 2, and now it is compromised by a large subcapsular hematoma putting mass-effect onto the renal parenchyma, and I would like to see if there is something that can be done to salvage this kidney. With her decreased urine output, she may need dialysis. - Time Time Spent with patient: 25-34 minutes - Time Time Spent with patient: 25-34 minutes Medications reviewed and adjusted accordingly: Yes Anticipated discharge: Other - Unknown at this time Within: Other - Unknown at this time
[2020-04-07] MEDS: MELATONIN 3 MG TABLET PO SCH (21:14)
--- NOTE | 2020-04-07 23:35 | PDOC PROGRESS REPORT ---
Subjective Progress Note for:: 04/07/20 Subjective:: Patient continued to be on BiPAP. She needed to be transferred temporarily in ICU so that we can do hemodialysis while on BiPAP. When I see her this morning on dialysis, she was tachycardic. We gave her a little dose of morphine because she was complaining of right flank pain but that did not improve her heart rate so I gave her diltiazem 10 mg IV x1 dose which seemed to help. Patient remained to be oliguric with urine output of only 200 mL for the past 24 hours. I gave her Lasix 80 mg x 1 dose yesterday but she did not have any significant response. Currently she is being monitored throughout dialysis treatment. Reason For Visit: ANASARCA,UPPER ABDOMINAL PAIN,MALIGNANT Physical Exam Vital Signs: Temp Pulse Resp BP Pulse Ox 97.3 F 59 L 18 147/89 H 97 04/07/20 07:58 04/07/20 07:58 04/07/20 06:13 04/07/20 07:58 04/07/20 07:58 Intake & Output 04/06/20 04/07/20 04/08/20 06:59 06:59 06:59 Intake Total 800 0 Output Total 3615 200 Balance -2815 -200 Weight 79.9 kg 80.3 kg Vitals during dialysis: Blood pressure 131/70, heart rate fluctuates anywhere between 112-128,, oxygen saturation of 96% with respiratory rate of 22 while on BiPAP with FiO2 of 55%. Exam: General appearance: PRESENT: On BiPAP, well-developed, well-nourished Head exam: PRESENT: atraumatic, normocephalic Eye exam: PRESENT: conjunctiva pale, PERRLA. ABSENT: scleral icterus Neck exam: ABSENT: JVD Respiratory exam: PRESENT: Coarse breath sounds. ABSENT: crackles, rales, rhonchi, unlabored, wheezes Cardiovascular exam: PRESENT: Irregularly irregular rate rhythm -+S1, +S2. ABSENT: diastolic murmur, systolic murmur GI/Abdominal exam: PRESENT: normal bowel sounds, soft. ABSENT: guarding, mass, tenderness Extremities exam: Unchanged anasarca with upper and lower extremities edema. Neurological exam: PRESENT: alert, awake, Skin exam: PRESENT: dry, warm, Cardiovascular exam: PRESENT: +S1, +S2 GI/Abdominal exam: PRESENT: soft. ABSENT: firm, guarding, normal bowel sounds, organomegaly, tenderness - Mainly in the left upper quadrant Results Laboratory Results: 04/07/20 05:20 04/07/20 05:20 04/07/20 04/07/20 05:20 05:20 WBC 10.5 RBC 2.87 L Hgb 9.1 L Hct 25.1 L MCV 87 MCH 31.6 MCHC 36.2 H RDW 15.2 H Plt Count 152 Sodium 130.6 L Potassium 4.0 Chloride 100 Carbon Dioxide 21 L Anion Gap 10 BUN 57 H Creatinine 3.05 H Est GFR ( Amer) 18 L Glucose 154 H Calcium 8.2 L Phosphorus 2.5 Magnesium 2.0 03/25/20 03/25/20 03/25/20 19:50 19:50 20:41 Creatine Kinase CK-MB (CK-2) Troponin I Cancelled 0.015 NT-Pro-B Natriuret Pep Cancelled [id number] H 03/26/20 03/26/20 03/26/20 02:54 02:54 08:17 Creatine Kinase 115 144 H CK-MB (CK-2) 2.08 Troponin I 0.023 NT-Pro-B Natriuret Pep 03/26/20 03/26/20 03/26/20 08:17 14:07 14:07 Creatine Kinase 134 CK-MB (CK-2) 1.92 1.83 Troponin I 0.028 0.022 NT-Pro-B Natriuret Pep Impressions: Acute Abdomen Series 03/25/20 20:05 IMPRESSION: Patchy density in the right lung base new when compared to the previous study. Findings may reflect atelectasis versus developing infiltrate Cardiac enlargement KUB X-Ray 03/27/20 00:00 IMPRESSION: Nonspecific nonobstructive bowel gas pattern. Guidance Needle Placement CT 03/31/20 00:00 IMPRESSION: Please see combined report for performance of procedure and radiologic supervision and interpretation. Renal Biopsy CT 03/31/20 08:00 IMPRESSION: CT GUIDED LEFT KIDNEY CORTICAL BIOPSY. Abdomen/Pelvis CT 04/03/20 00:00 IMPRESSION: 1. Bilateral pleural effusions and increased collapse / atele ctasis of the left lower lobe. The alveolar ground-glass opacities in the right middle lobe are nonspecific and could represent an infection or early edema. 2. Unchanged left perinephric and retroperitoneal hematomas. 3. Other findings as detailed above. Chest X-Ray 04/06/20 00:00 IMPRESSION: 1. Persistent increasing bilateral airspace disease since the previous examination dated 04/04/2020. Durations for these findings include atypical pneumonia and or edema. Small left pleural effusion. Assessment & Plan - Diagnosis (1) Vihcg-is-avewnwk kidney injury Qualifiers: Acute renal failure type: with other specified pathological lesion Chronic kidney disease stage: stage 3 (moderate) Qualified Code(s): N17.8 - Other ac melani kidney failure; N18.3 - Chronic kidney disease, stage 3 (moderate) Is this a current diagnosis for this admission?: Yes Plan: Patient is currently oligo-anuric with developing fluid overload. Kidney function has deteriorated after the complicated kidney biopsy with subsequent perinephric hematoma. Due to increasing shortness of breath and fluid overload I recommended patient initiated on hemodialysis which the patient has consented to and had her first hemodialysis on February 03. We will do dialysis today for 2.5 hours, using the patient's dialysis catheter, with 3 potassium bath, blood flow rate of 250 mL per minute, dialysate flow rate of 600 mL per minute, ultrafiltration 2.5 to 3 L as tolerated, no heparin and Procrit with 20,000 units during dialysis intravenously. Patient is monitored very closely due to her rapid ventricular response. We will continue to follow and reevaluate for further need for dialysis treatment. (2) Closed hematoma of left kidney Qualifiers: Encounter type: initial encounter Qualified Code(s): S37.012A - Minor contusion of left kidney, initial encounter Is this a current diagnosis for this admission?: Yes Plan: CT scan on 04/01 and 04/03 showed unchanged perinephric hematoma with retroperitoneal hematoma. Yesterday Dr. Holley has a spoken to a urologist in [facility], Dr. Hay who indicated that there is no change in the CT scan and the patient's hemoglobin continues to be stable then supportive measures is recommended. However if again the patient shows any deterioration, I think we should reconsider possible transfer to tertiary care facility. The DIC was considered yesterday with low platelets, elevated PT and PTT and d- dimer, however the fibrinogen is normal. Close monitoring is warranted. Patient's hemoglobin appears to be stable for the last 48 hours. This would indicate that the bleeding stopped at this point. (3) CHF exacerbation Qualifiers: Heart failure type: unspecified Qualified Code(s): I50.9 - Heart failure, unspecified Is this a current diagnosis for this admission?: Yes Plan: Patient has developed mild respiratory distress. Her chest x-ray today showed bilateral alveolar airspace disease which could either be atypical edema versus atypical pneumonia and mild central vascular prominence which were new findings compared to previous chest x-rays. The CT scan of the abdomen that was done yesterday also showed bilateral pleural effusion associated with partial collapse of left lower lobe with areas of subsegmental atelectasis. There was also patchy groundglass opacity in the right middle lobe Dr. Pagan has been following the patient and ordered an echocardiogram which showed moderate LVH, LVEF of 65 to 70% and moderate to severe pulmonary hypertension. (4) Metabolic acidosis Is this a current diagnosis for this admission?: Yes Plan: Resolving. (5) Hypertension Qualifiers: Hypertension type: essential hypertension Qualified Code(s): I10 - Esse ntial (primary) hypertension Is this a current diagnosis for this admission?: Yes Plan: Likely secondary to fluid retention. Monitor blood pressure after dialysis today and adjust medications accordingly. (6) Acute blood loss anemia Is this a current diagnosis for this admission?: Yes Plan: Unfortunately patient had perinephric and retroperitoneal hematoma post kidney biopsy on March 31. She required blood transfusions for 2 consecutive days over the weekend. Patient also was considered for possible GI bleed last week prior to kidney biopsy. Colonoscopy was done on March 30 which did not show any active bleeding. Monitor hemoglobin. Currently stable with hemoglobin of 9.1 today. (7) Proteinuria Qualifiers: Proteinuria type: unspecified Qualified Code(s): R80.9 - Proteinuria, unspecified Is this a current diagnosis for this admission?: Yes Plan: Urine protein to creatinine ratio of 9.8 and 24-hour urine of 3.8 g. Due to being in the nephrotic range, percutaneous left kidney biopsy was done on March 31, 2020. Serologies have been negative. 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 (8) Anasarca Is this a current diagnosis for this admission?: Yes Plan: Patient has nephrotic range proteinuria and hypoalbuminemia. (9) Atrial fibrillation Qualifiers: Atrial fibrillation type: paroxysmal Qualified Code(s): I48.0 - Paroxysmal atrial fibrillation Is this a current diagnosis for this admission?: Yes Plan: Defer to cardiology. (10) Hyponatremia Is this a current diagnosis for this admission?: Yes Plan: Likely secondary to hypervolemic state due to fluid retention and anuria. Unchanged and stable. (11) Chronic kidney disease, stage 3 (moderate) Is this a current diagnosis for this admission?: Yes - Time Time with patient: 15-25 minutes
[2020-04-08] MEDS: MORPHINE SULFATE 10 MG/ML INJ IV PRN ×2 (01:04→04:36)
[2020-04-08] MEDS: LABETALOL HCL INJ 20 MG/4 ML DISP.SYRIN IV PRN ×5 (01:05→18:04)
[2020-04-08] MEDS: IPRATROPIUM/ALBUTEROL 0.5-2.5 MG/3 ML AMPUL NEB PRN (01:15)
[2020-04-08] MEDS: HEPARIN SOD (PORCINE) 5,000 UNIT/ML 1 ML VIAL SUBCUT SCH ×3 (05:23→22:04)
[2020-04-08] MEDS: LEVOTHYROXINE SODIUM 0.025 MG TABLET PO SCH ×2 (05:29→05:50)
[2020-04-08] MEDS: METOPROLOL SUCCINATE 50 MG TAB.SR.24H PO SCH ×3 (05:29→18:05)
[2020-04-08 06:47] LABS: HEMATOCRIT 26.6 % (36.0-47.0); HEMOGLOBIN 9.3 g/dL (12.0-15.5); MEAN CORPUSCULAR HGB CONC 35.2 g/dL (32.0-36.0); MEAN CORPUSCULAR VOLUME 88 fl (80-97); PLATELET COUNT 138 10^3/uL (150-450); RED BLOOD COUNT 3.01 10^6/uL (3.72-5.28); RED CELL DISTRIBUTION WIDTH 15.5 % (11.5-14.0); WHITE BLOOD COUNT 12.1 10^3/uL (4.0-10.5)
[2020-04-08 07:06] LABS: ALBUMIN 2.6 g/dL (3.5-5.0); ANION GAP 10 (5-19); BLOOD UREA NITROGEN 49 mg/dL (7-20); CALCIUM 8.4 mg/dL (8.4-10.2); CARBON DIOXIDE 22 mmol/L (22-30); CHLORIDE 102 mmol/L (98-107); GLUCOSE 143 mg/dL (75-110); PHOSPHORUS 2.4 mg/dL (2.5-4.5); POTASSIUM 3.8 mmol/L (3.6-5.0)
[2020-04-08 07:45] LABS: ABSOLUTE LYMPHOCYTES# (MANUAL) 0.1 10^3/uL (0.5-4.7); ABSOLUTE MONOCYTES # (MANUAL) 0.1 10^3/uL (0.1-1.4); BAND NEUTROPHILS % (MANUAL) 1 % (3-5); BASOPHILS % (MANUAL) 0 % (0-2); EOSINOPHILS % (MANUAL) 1 % (0-6); LYMPHOCYTES % (MANUAL) 1 % (13-45); MONOCYTES % (MANUAL) 1 % (3-13); SEGMENTED NEUTROPHILS % (MAN) 96 % (42-78); TOTAL CELLS COUNTED 100
[2020-04-08 07:47] LABS: ANISOCYTOSIS SLIGHT; PAPPENHEIMER BODIES PRESENT; PLATELET COMMENT DECREASED; POIKILOCYTOSIS SLIGHT; POLYCHROMASIA 1+; SCHISTOCYTES SLIGHT; TOXIC GRANULATION SLIGHT
--- NOTE | 2020-04-08 07:55 | PDOC PROGRESS REPORT ---
Subjective Progress Note for:: 04/08/20 Subjective:: 74-year-old female with multiple medical problems who was admitted on 03/25/2020 with anasarca and who had been followed by Dr. Strickland for possible heart failure. For details of this admission and cardiology follow-up please see Dr. Strickland's notes. In summary, the patient presented slightly obtunded and with anasarca. She eventually developed new onset atrial fibrillation with RVR and was consulted to cardiology. During this hospitalization she also developed melena as well as a perinephric hematoma status post renal biopsy. Today she is at her baseline and this morning complains of slightly increase in her shortness of breath. Her hemoglobin dropped again as of this morning. Her telemetry demonstrates atrial fibrillation with no sustained ventricular dysrhythmias. 04/08/2020: The patient underwent dialysis yesterday with removal of 3 L. She continues to be extremely sick however she is more awake this morning. The nursing staff reports that her heart rate continues to be in the 130-140 bpm and that only decreases to the low 100s for approximately 1 hour after administration of labetalol IV. She is tolerating BiPAP but continues to feel very poorly. She has not had any caloric intake since 03/29/2020 and has not been able to take any of her p.o. medications for quite some time. The patient denied having specific cardiac complaints today. Physical exam on 04/08/2020: GENERAL: BiPAP machine on. Feeling poorly, disheveled. HEENT: Normocephalic, atraumatic. Pupils equal. Sclerae anicteric. Oropharynx moist. NECK: No JVD. No carotid bruits. LUNGS: Coarse breath sounds bilaterally. CARDIOVASCULAR: Tachycardic. Irregularly irregular rate and rhythm, normal S1 and S2 without murmurs, rubs, or gallops. PMI not displaced. EXTREMITIES: 2+ pitting edema bilaterally, no cyanosis, no clubbing. +2 pulses femoral and pedal pulses bilaterally. MUSCULOSKELETAL: No chest tenderness to palpation. NEUROLOGIC: Nonfocal. No gross sensory or motor deficits bilateral upper or lower extremities. Cardiac studies: Echocardiogram on 04/06/2020: -Mild to moderate concentric LVH. -EF 65 to 70%. -Diastolic function cannot be assessed due to the presence of atrial fibrillation. -No regional wall motion abnormalities. -Severe biatrial enlargement. -Mild MR, moderate TR, mild AI, trace PI. -Moderate to severe pulmonary hypertension with estimated pressures between 55 and 61 mmHg. -Small, hemodynamically insignificant, circumferential pericardial effusion. Lexiscan MPS on 11/14/2014: -No ischemia or infarct. -Normal ejection fraction. Reason For Visit: ANASARCA,UPPER ABDOMINAL PAIN,MALIGNANT Physical Exam Vital Signs: Temp Pulse Resp BP Pulse Ox 97.4 F 117 H 28 H 119/70 99 04/08/20 03:00 04/08/20 03:00 04/08/20 04:09 04/08/20 03:00 04/08/20 04:09 Intake & Output 04/06/20 04/07/20 04/08/20 06:59 06:59 06:59 Intake Total 800 0 20 Output Total 3615 200 3485 Balance -2815 -200 -3465 Weight 79.9 kg 80.3 kg Results Laboratory Results: 04/07/20 05:20 04/07/20 05:20 04/07/20 05:20 Sodium 130.6 L Potassium 4.0 Chloride 100 Carbon Dioxide 21 L Anion Gap 10 BUN 57 H Creatinine 3.05 H Est GFR ( Amer) 18 L Glucose 154 H Calcium 8.2 L Phosphorus 2.5 Magnesium 2.0 03/25/20 03/25/20 03/25/20 19:50 19:50 20:41 Creatine Kinase CK-MB (CK-2) Troponin I Cancelled 0.015 NT-Pro-B Natriuret Pep Cancelled [id number] H 03/26/20 03/26/20 03/26/20 02:54 02:54 08:17 Creatine Kinase 115 144 H CK-MB (CK-2) 2.08 Troponin I 0.023 NT-Pro-B Natriuret Pep 03/26/20 03/26/20 03/26/20 08:17 14:07 14:07 Creatine Kinase 134 CK-MB (CK-2) 1.92 1.83 Troponin I 0.028 0.022 NT-Pro-B Natriuret Pep Impressions: Acute Abdomen Series 03/25/20 20:05 IMPRESSION: Patchy density in the right lung base new when compared to the previous study. Findings may reflect atelectasis versus developing infiltrate Cardiac enlargement KUB X-Ray 03/27/20 00:00 IMPRESSION: Nonspecific nonobstructive bowel gas pattern. Guidance Needle Placement CT 03/31/20 00:00 IMPRESSION: Please see combined report for performance of procedure and r adiologic supervision and interpretation. Renal Biopsy CT 03/31/20 08:00 IMPRESSION: CT GUIDED LEFT KIDNEY CORTICAL BIOPSY. Abdomen/Pelvis CT 04/03/20 00:00 IMPRESSION: 1. Bilateral pleural effusions and increased collapse / atelectasis of the left lower lobe. The alveolar ground-glass opacities in the right middle lobe are nonspecific and could represent an infection or early edema. 2. Unchanged left perinephric and retroperitoneal hematomas. 3. Other findings as detailed above. Chest X-Ray 04/06/20 00:00 IMPRESSION: 1. Persistent increasing bilateral airspace disease since the previous examination dated 04/04/2020. Durations for these findings include atypical pneumonia and or edema. Small left pleural effusion. 04/07/20 05:20 04/07/20 05:20 MCV 87 fl (80-97) 04/07/20 05: MCH 31.6 pg (27.0-33.4) 04/07/20 05:20 MCHC 36.2 g/dL (32.0-36.0) H 04/07/20 05:20 RDW 15.2 % (11.5-14.0) H 04/07/20 05:20 Seg Neutrophils % Not Reportable 04/04/20 06:17 Carbonic Acid 1.18 mmol/L (1.05-1.35) 04/06/20 06:39 HCO3/H2CO3 Ratio 17:1 04/06/20 06:39 ABG pH 7.34 (7.35-7.45) L 04/06/20 06:39 ABG pCO2 39.1 mmHg (35-45) 04/06/20 06:39 ABG pO2 71.4 mmHg (80-100) L 04/06/20 06:39 ABG HCO3 20.8 mmol/L (20-24) 04/06/20 06:39 ABG O2 Saturation 93.6 % (94-98) L 04/06/20 06:39 ABG Base Excess -4.5 mmol/L 04/06/20 06:39 FiO2 55% 04/06/20 06:39 Chloride 100 mmol/L (98-107) 04/07/20 05:20 Carbon Dioxide 21 mmol/L (22-30) L 04/07/20 05:20 Anion Gap 10 (5-19) 04/07/20 05:20 Est GFR ( Amer) 18 (>60) L 04/07/20 05:20 Est GFR (Non-Af Amer) Cancelled 03/25/20 19:50 Glucose 154 mg/dL (75-110) H 04/07/20 05:20 Serum Osmolality 261 mOsm/kg (275-301) L 03/27/20 05:40 Lactic Acid 1.0 mmol/L (0.7-2.1) 03/25/20 20:41 Calcium 8.2 mg/dL (8.4-10.2) L 04/07/20 05:20 Ionized Calcium [place] 1.01 mmol/L (1.14-1.30) L 03/29/20 14:47 Phosphorus 2.5 mg/dL (2.5-4.5) 04/07/20 05:20 Magnesium 2.0 mg/dL (1.6-2.3) 04/07/20 05:20 Total Bilirubin 0.3 mg/dL (0.2-1.3) 03/29/20 06:40 AST 27 U/L (14-36) 03/29/20 06:40 Alkaline Phosphatase 76 U/L (38-126) 03/29/20 06:40 C-Reactive Protein < 5.0 mg/L (<10.0) 03/27/20 05:40 Total Protein 4.6 g/dL (6.3-8.2) L 03/29/20 06:40 Albumin 2.3 g/dL (3.5-5.0) L 03/29/20 06:40 Triglycerides 67 mg/dL (<150) 03/26/20 08:17 Cholesterol 108.20 mg/dL (0-200) 03/26/20 08:17 LDL Cholesterol Direct < 30 mg/dL (<100) 03/26/20 08:17 VLDL Cholesterol 13.0 mg/dL (10-31) 03/26/20 08:17 HDL Cholesterol 74 mg/dL (>40) 03/26/20 08:17 Lipase 71.7 U/L (23-300) 03/25/20 20:41 TSH 2.31 uIU/mL (0.47-4.68) 03/26/20 08:17 Free T3 pg/mL 2.29 pg/mL (2.77-5.27) L 03/26/20 08:17 PTH Intact 91.1 pg/mL (10.0-65.0) H 03/30/20 06:35 Urine Color YELLOW 03/26/20 05:50 Urine Appearance SLIGHTLY-CLOUDY 03/26/20 05:50 Urine pH 6.0 (5.0-9.0) 03/26/20 05:50 Ur Specific [place] 1.007 03/26/20 05:50 Urine Protein >=500 mg/dL (NEGATIVE) H 03/26/20 05:50 Urine Glucose (UA) 150 mg/dL (NEGATIVE) H 03/26/20 05:50 Urine Ketones NEGATIVE mg/dL (NEGATIVE) 03/26/20 05:50 Urine Blood SMALL (NEGATIVE) H 03/26/20 05:50 Urine Nitrite NEGATIVE (NEGATIVE) 03/26/20 05:50 Ur Leukocyte Esterase NEGATIVE (NEGATIVE) 03/26/20 05:50 Urine WBC (Auto) 2 /HPF 03/26/20 05:50 Urine RBC (Auto) 1 /HPF 03/26/20 05:50 Urine Osmolality 220 mOsm/kg (300-900) L 03/29/20 23:04 Ur 24 Hour Volume 960 mL 03/29/20 09:40 Ur Total Protein 24 Hr 3855 mg/day (42-225) H 03/29/20 09:40 Ur Sodium 24 Hour 37 mmol/day (40-200) L 03/29/20 09:40 Stool Occult Blood POSITIVE (NEGATIVE) 03/26/20 20:50 Blood Type A NEGATIVE 04/01/20 07:16 Antibody Screen NEGATIVE 04/01/20 07:16 03/25/20 03/25/20 03/25/20 19:50 19:50 20:41 Creatine Kinase CK-MB (CK-2) Troponin I Cancelled 0.015 NT-Pro-B Natriuret Pep Cancelled [id number] H 03/26/20 03/26/20 03/26/20 02:54 02:54 08:17 Creatine Kinase 115 144 H CK-MB (CK-2) 2.08 Troponin I 0.023 NT-Pro-B Natriuret Pep 03/26/20 03/26/20 03/26/20 08:17 14:07 14:07 Creatine Kinase 134 CK-MB (CK-2) 1.92 1.83 Troponin I 0.028 0.022 NT-Pro-B Natriuret Pep Current Medication List Generic Name Dose Route Start Last Admin Trade Name Freq PRN Reason Stop Dose Admin Acetaminophen 650 mg 03/25/20 23:03 04/01/20 17:38 Tylenol 325 Mg Tablet PO 04/24/20 23:02 650 mg Q4HP PRN Administration For headache, pain or fever Al Hydrox/Mg Hydrox/Simethicone 30 ml 03/25/20 22:57 04/05/20 05:28 Maalox Plus Susp 30 Udcup PO 04/24/20 22:56 30 ml Q6HP PRN Administration HEARTBURN Albuterol/Ipratropium 3 ml 04/03/20 15:25 04/08/20 01:15 Duoneb 3 Ml Ampul NEB 05/03/20 15:24 3 ml RTQ2HP PRN Administration SHORTNESS OF BREATH Artificial Tears 1 drop 03/30/20 11:04 Refresh Plus 0.5% Oph Soln 0.4 Ml Droperette OU 04/29/20 11:03 QIDP PRN DRY EYE(S) Calcium Carbonate 600 mg 04/03/20 17:00 04/07/20 17:06 Caltrate 600 Mg Tablet PO 05/03/20 16:59 600 mg BIDBS PATRICIA Administration Docusate Sodium 100 mg 03/27/20 18:00 04/07/20 20:41 Colace 100 Mg Capsule PO 04/26/20 17:59 Not Given BID PATRICIA Guaifenesin 200 mg 03/25/20 23:03 Robitussin Syrup 200 Mg/10 Ml Ud Cup PO 04/24/20 23:02 Q4HP PRN COUGH Heparin Sodium (Porcine) 5,000 unit 03/26/20 06:00 04/08/20 05:23 Heparin Inj 5,000 Units/Ml 1 Ml Vial SUBCUT 04/25/20 05:59 Not Given Q8 PATRICIA Hydralazine HCl 10 mg 03/30/20 16:28 04/07/20 21:14 Apresoline Inj/Pf 20 Mg/1 Ml Sdv IV 06/06/20 16:27 10 mg Q6HP PRN Administration FOR SBP >160 AND/OR DBP > 100 Labetalol HCl 20 mg 04/07/20 17:47 04/08/20 04:37 Normodyne Inj 20 Mg/4 Ml Syringe IV 05/07/20 17:46 20 mg Q4HP PRN Administration Give For Hr > 110 Levothyroxine Sodium 0.025 mg 03/28/20 06:00 04/08/20 05:50 Synthroid 0.025 Mg Tablet PO 04/27/20 05:59 Not Given Q6AM PATRICIA Magnesium Hydroxide 30 ml 03/25/20 22:57 Milk Of Magnesia 30 Ml Udcup PO 04/24/20 22:56 HSP PRN FOR CONSTIPATION Melatonin 6 mg 03/29/20 22:00 04/07/20 21:14 Melatonin 3 Mg Tablet PO 04/28/20 21:59 6 mg QHS PATRICIA Administration Metoprolol Succinate 100 mg 04/03/20 18:00 04/08/20 05:51 Toprol Xl 50 Mg Tab.Sr PO 05/03/20 17:59 Not Given Q12A PATRICIA Morphine Sulfate 2 mg 04/01/20 19:21 04/08/20 04:36 Morphine 10 Mg/Ml Inj IV 04/08/20 19:20 2 mg Q4HP PRN Administration FOR PAIN SCALE 3-5 Ondansetron HCl 4 mg 03/25/20 22:57 04/05/20 02:24 Zofran Inj/Pf 4 Mg/2 Ml Sdv IV 04/24/20 22:56 4 mg Q4HP PRN Administration FOR NAUSEA/VOMITING Sodium Chloride 2.5 ml 03/26/20 06:00 04/08/20 05:29 Saline Flush 2.5 Ml Monoject Prefil Syrin IV 04/25/20 05:59 2.5 ml Q8 PATRICIA Administration Sucralfate 1 gm 03/26/20 08:00 04/07/20 21:14 Carafate 1 Gm Tablet PO 04/25/20 07:59 1 gm ACHS PATRICIA Administration Throat Lozenges 1 each 04/03/20 21:05 04/03/20 21:45 Chloraseptic Sore Throat Lozenge BUCCAL 05/03/20 21:04 1 each Q2HP PRN Administration FOR SORE THROAT Discontinued Medications Generic Name Dose Route Start Last Admin Trade Name Freq PRN Reason Stop Dose Admin Amlodipine Besylate 5 mg 03/28/20 10:00 Norvasc 5 Mg Tablet PO 04/27/20 09:59 DAILY PATRICIA Amlodipine Besylate 10 mg 03/31/20 05:00 03/31/20 04:42 Norvasc 10 Mg Tablet PO 03/31/20 05:01 10 mg NOW ONE Administration Amlodipine Besylate 10 mg 03/31/20 10:00 Norvasc 10 Mg Tablet PO 04/30/20 09:59 DAILY PATRICIA Bumetanide 1 mg 03/25/20 23:30 03/27/20 11:50 Bumex Inj/Pf 1 Mg/4 Ml Sdv IV 04/24/20 23:29 1 mg Q6H PATRICIA Administration Bumetanide 1 mg 03/27/20 22:00 03/29/20 09:06 Bumex Inj/Pf 1 Mg/4 Ml Sdv IV 04/26/20 21:59 1 mg Q12 PATRICIA Administration Bumetanide 1 mg 03/29/20 18:00 04/01/20 17:33 Bumex Inj/Pf 1 Mg/4 Ml Sdv IV 04/28/20 17:59 1 mg Q8A PATRICIA Administration Bumetanide 2 mg 04/04/20 14:21 04/04/20 14:39 Bumex Inj/Pf 1 Mg/4 Ml Sdv IV 04/04/20 14:22 2 mg NOW ONE Administration Calcium Carbonate 600 mg 03/29/20 21:00 04/03/20 10:19 Caltrate 600 Mg Tablet PO 04/28/20 20:59 600 mg BID PATRICIA Administration Diltiazem HCl 30 mg 03/31/20 14:00 04/07/20 16:32 Cardizem 30 Mg Tablet PO 04/30/20 13:59 30 mg Q8 PATRICIA Administration Diltiazem HCl 10 mg 04/07/20 11:00 04/07/20 11:56 Cardizem Inj 25 Mg/5 Ml Vial IV 04/07/20 11:01 Not Given NOW ONE Diltiazem HCl Confirm 04/07/20 10:38 04/07/20 10:47 Cardizem Inj 25 Mg/5 Ml Vial Administered 04/07/20 10:39 25 mg Dose Administration 25 mg .ROUTE .STK-MED ONE Diphenoxylate HCl/Atropine 1 tab 05/04/20 15:44 03/27/20 17:09 Lomotil 2.5 Mg Tablet PO 04/03/20 15:43 1 tab QIDP PRN Administration DIARRHEA Docusate Sodium 100 mg 03/26/20 10:00 03/27/20 09:37 Colace Udc 100 Mg/10 Ml Oral Soln PO 04/25/20 09:59 Not Given BID PATRICIA Enalaprilat 2.5 mg 03/30/20 21:00 03/30/20 20:51 Vasotec Inj/Pf 2.5 Mg/2 Ml Sdv IV 03/30/20 21:01 2.5 mg NOW ONE Administration Epinephrine HCl Confirm 03/30/20 14:25 Epinephrine Inj 1 Mg/10 Ml Disp.Syrin Administered 03/30/20 14:26 Dose 1 mg .ROUTE .STK-MED ONE Famotidine 20 mg 03/25/20 23:00 03/27/20 09:37 Pepcid 20 Mg Tablet PO 04/24/20 22:59 20 mg Q12 PATRICIA Administration Famotidine 20 mg 03/28/20 10:00 03/29/20 09:06 Pepcid 20 Mg Tablet PO 04/27/20 09:59 20 mg DAILY PATRICIA Administration Fentanyl Citrate Confirm 03/31/20 08:31 03/31/20 11:03 Sublimaze Inj/Pf 100 Mcg/2 Ml Ampule Administered 03/31/20 08:32 Not Given Dose 100 mcg .ROUTE .STK-MED ONE Furosemide 60 mg 04/03/20 09:30 04/03/20 10:20 Lasix Inj/Pf 100 Mg/10 Ml Sdv IV 04/03/20 09:31 60 mg NOW ONE Administration Furosemide 40 mg 04/06/20 10:30 04/06/20 11:43 Lasix Inj/Pf 40 Mg/4 Ml Sdv IV 04/06/20 10:31 40 mg NOW ONE Administration Furosemide 80 mg 04/06/20 19:52 04/06/20 20:49 Lasix Inj/Pf 40 Mg/4 Ml Sdv IV 04/06/20 19:53 80 mg NOW ONE Administration Haloperidol Lactate 5 mg 04/01/20 21:30 04/01/20 21:36 Haldol 5 Mg/Ml Inj 1 Ml Vial IV 04/01/20 21:31 5 mg NOW ONE Administration Haloperidol Lactate Confirm 04/01/20 21:32 04/01/20 21:36 Haldol 5 Mg/Ml Inj 1 Ml Vial Administered 04/01/20 21:33 Not Given Dose 5 mg .ROUTE .STK-MED ONE Haloperidol Lactate 5 mg 04/06/20 03:30 04/06/20 03:34 Haldol 5 Mg/Ml Inj 1 Ml Vial IV 04/06/20 03:31 5 mg NOW ONE Administration Heparin Sodium (Porcine) 4,600 unit 04/05/20 05:00 04/05/20 08:56 Heparin Inj 1,000 Unit/Ml 10 Ml Vial IV 04/05/20 23:59 3,600 units .SPLIT B/N CATHETERS PRN Administration THIS MED IS NOT "PRN" Heparin Sodium (Porcine) 4,200 unit 04/07/20 05:00 04/07/20 11:51 Heparin Inj 1,000 Unit/Ml 10 Ml Vial IV 04/07/20 23:59 3,600 units .SPLIT B/N CATHETERS PRN Administration THIS MED IS NOT "PRN" Hydralazine HCl 20 mg 03/25/20 23:07 03/27/20 09:41 Apresoline Inj/Pf 20 Mg/1 Ml Sdv IV 04/24/20 23:06 20 mg Q4HP PRN Administration Give For Sbp > 160 / Dbp > 100 Hydralazine HCl 10 mg 03/27/20 11:30 03/30/20 09:43 Apresoline Inj/Pf 20 Mg/1 Ml Sdv IV 04/26/20 11:29 10 mg Q8HP PRN Administration FOR SBP >160 AND/OR DBP > 100 Sodium Chloride 1,000 mls @ 125 mls/hr 03/25/20 21:36 Nacl 0.9% 1000 Ml Iv Soln IV 04/24/20 21:35 .CONTINUOUS PRN DIARRHEA Albumin Human 12.5 gm in 50 mls @ 50 mls/hr 03/25/20 23:15 03/26/20 05:57 Albuminar-25 Rtu Inj 12.5 Gm/50 Ml Premix IV 03/26/20 03:14 Infused Q1H PATRICIA Infusion Albumin Human Confirm 03/26/20 01:29 03/26/20 01:47 Albuminar-25 Rtu Inj 12.5 Gm/50 Ml Premix Administered 03/26/20 01:30 Not Given Dose 50.0 gm in 200 mls @ ud IV .STK-MED ONE Sodium Chloride 1,000 mls @ 50 mls/hr 03/27/20 11:19 03/29/20 05:02 Nacl 0.9% 1000 Ml Iv Soln IV 04/26/20 11:18 50 mls/hr CONTINUOUS PRN Administration THIS MED IS NOT "PRN" Sodium Chloride 1,000 mls @ 40 mls/hr 03/29/20 10:59 Nacl 0.9% 1000 Ml Iv Soln IV 04/26/20 11:18 CONTINUOUS PRN THIS MED IS NOT "PRN" Albumin Human 12.5 gm in 50 mls @ 50 mls/hr 03/30/20 10:00 04/01/20 17:34 Albuminar-25 Rtu Inj 12.5 Gm/50 Ml Premix IV 04/02/20 09:59 50 mls/hr TID PATRICIA Administration Sodium Chloride 250 mls @ 30 mls/hr 04/01/20 08:12 Nacl 0.9% 250 Ml Iv Soln IV 04/02/20 08:11 .DURING TRANSFUSION PRN THIS MED IS NOT "PRN" Sodium Chloride 250 mls @ 0 mls/hr 04/01/20 08:12 Nacl 0.9% 250 Ml Iv Soln IV 04/02/20 08:11 CONTINUOUS PRN AFTER EACH UNIT As Directed Sodium Chloride 1,000 mls @ 100 mls/hr 04/01/20 19:09 04/02/20 23:45 Nacl 0.9% 1000 Ml Iv Soln IV 05/01/20 19:08 Infused CONTINUOUS PRN Infusion THIS MED IS NOT "PRN" Albumin Human 12.5 gm in 50 mls @ 50 mls/hr 04/02/20 21:00 04/03/20 01:45 Albuminar-25 Rtu Inj 12.5 Gm/50 Ml Premix IV 04/03/20 00:59 Infused Q1H PATRICIA Infusion Sodium Chloride 1,000 mls @ 150 mls/hr 04/02/20 21:01 04/03/20 04:00 Nacl 0.9% 1000 Ml Iv Soln IV 05/02/20 21:00 Infused CONTINUOUS PRN Infusion THIS MED IS NOT "PRN" Albumin Human Confirm 04/02/20 21:13 04/02/20 21:20 Albuminar-25 Rtu Inj 12.5 Gm/50 Ml Premix Administered 04/02/20 21:14 Not Given Dose 50.0 gm in 200 mls @ ud IV .STK-MED ONE Sodium Chloride 1,000 mls @ 100 mls/hr 04/03/20 05:56 Nacl 0.9% 1000 Ml Iv Soln IV 05/03/20 05:55 CONTINUOUS PRN THIS MED IS NOT "PRN" Desmopressin Acetate 20 mcg/ 50 mls @ 100 mls/hr 04/03/20 13:30 04/03/20 14:00 Sodium Chloride IV 04/03/20 13:59 Infused NOW ONE Infusion Sodium Chloride 1,000 mls @ 0 mls/hr 04/05/20 05:00 Nacl 0.9% 1000 Ml Iv Soln IV 04/05/20 23:59 .DIALYSIS PRN THIS MED IS NOT "PRN" As Directed Sodium Chloride 1,000 mls @ 0 mls/hr 04/07/20 05:00 Nacl 0.9% 1000 Ml Iv Soln IV 04/07/20 23:59 .DIALYSIS PRN THIS MED IS NOT "PRN" As Directed Epoetin Feng-epbx 20,000 unit/ 2 mls @ 0 mls/hr 04/07/20 05:00 04/07/20 11:21 Syringe IV 04/07/20 23:59 20,000 mls/hr .DIALYSIS PRN Administration THIS MED IS NOT "PRN" As Directed Insulin Human Regular 0 - 15 unit 03/25/20 23:03 03/27/20 09:04 Humulin R (Pyxis) Insulin 100 Unit/Ml 3ml SUBCUT 04/24/20 23:02 Not Given ACHS PATRICIA Protocol Lorazepam 1 mg 03/25/20 23:03 Ativan Inj 2 Mg/1 Ml Vial IV 04/01/20 23:02 Q4HP PRN ANXIETY/AGITATION Lorazepam Confirm 03/31/20 03:47 03/31/20 03:53 Ativan Inj 2 Mg/1 Ml Vial Administered 03/31/20 03:48 Not Given Dose 2 mg .ROUTE .STK-MED ONE Lorazepam 1 mg 03/31/20 04:00 03/31/20 03:52 Ativan Inj 2 Mg/1 Ml Vial IV 03/31/20 04:01 1 mg NOW ONE Administration Losartan Potassium 50 mg 03/26/20 10:00 Cozaar 50 Mg Tablet PO 04/25/20 09:59 Q12 PATRICIA Losartan Potassium 50 mg 03/26/20 04:30 03/27/20 09:37 Cozaar 50 Mg Tablet PO 04/25/20 04:29 50 mg Q12 PATRICIA Administration Metoclopramide HCl 5 mg 03/26/20 08:00 03/29/20 11:50 Reglan 10 Mg Tablet PO 04/25/20 07:59 5 mg ACHS PATRICIA Administration Metoclopramide HCl 10 mg 04/01/20 17:30 04/01/20 17:31 Reglan Inj/Pf 10 Mg/2 Ml Sdv IV 04/01/20 17:31 10 mg NOW ONE Administration Metoclopramide HCl Confirm 04/01/20 17:28 04/01/20 17:46 Reglan Inj/Pf 10 Mg/2 Ml Sdv Administered 04/01/20 17:29 Not Given Dose 10 mg .ROUTE .STK-MED ONE Metoprolol Succinate 100 mg 03/26/20 10:00 Toprol Xl 50 Mg Tab.Sr PO 04/25/20 09:59 Q12 PATRICIA Metoprolol Succinate 100 mg 03/26/20 06:00 04/03/20 05:23 Toprol Xl 50 Mg Tab.Sr PO 04/25/20 05:59 100 mg Q12H PATRICIA Administration Metoprolol Tartrate 5 mg 03/25/20 23:07 Lopressor Inj/Pf 5 Mg/5 Ml Sdv IV 04/24/20 23:06 Q4HP PRN Give For Sbp > 160 / Dbp > 100 Midazolam HCl Confirm 03/31/20 08:31 03/31/20 11:04 Versed 2 Mg/2 Ml Inj Administered 03/31/20 08:32 Not Given Dose 2 mg .ROUTE .STK-MED ONE Morphine Sulfate Confirm 04/01/20 18:16 04/01/20 18:22 Morphine 10 Mg/Ml Inj Administered 04/01/20 18:17 2 mg Dose Administration 10 mg .ROUTE .STK-MED ONE Nitroglycerin 1 gm 03/26/20 03:34 03/26/20 04:52 Nitrol 2% Ointment 1gm Packet TP 04/25/20 03:33 Not Given Q6 PATRICIA Nitroglycerin 1 gm 03/26/20 04:30 Nitrol 2% Ointment 1gm Packet TP 04/25/20 04:29 Q6 PATRICIA Nitroglycerin 1 gm 03/26/20 04:30 03/27/20 06:35 Nitrol 2% Ointment 1gm Packet TP 04/25/20 04:29 Not Given Q6 PATRICIA Nitroglycerin 0.5 gm 03/31/20 03:46 03/31/20 03:53 Nitrol 2% Ointment 1gm Packet TP 03/31/20 03:47 0.5 gm NOW ONE Administration Nitroglycerin Confirm 03/31/20 03:55 03/31/20 04:15 Nitrol 2% Ointment 1gm Packet Administered 03/31/20 03:56 Not Given Dose 1 gm .ROUTE .STK-MED ONE Nitroglycerin 1 each 04/03/20 21:00 04/03/20 21:46 Nitro-Dur 5 Mg (0.2 Mg/Hr) Transdermal Patch TD 04/03/20 21:01 1 each NOW ONE Administration Pantoprazole Sodium 40 mg 03/29/20 22:00 04/01/20 10:48 Protonix Iv Inj 40 Mg Vial IV 04/01/20 21:59 40 mg Q12 PATRICIA Administration Polyethylene Glycol 17 gm 03/30/20 11:30 03/30/20 15:28 Miralax Powder 17 Gm/Packet PO 03/30/20 14:01 Not Given Q2 PATRICIA Polyethylene Glycol/Electrolytes 4,000 ml 03/28/20 17:30 03/28/20 22:57 Golytely Solution 4000 Ml PO 03/28/20 17:31 Not Given ONCE ONE Potassium Chloride 40 meq 03/28/20 08:17 03/28/20 09:17 Klor-Con 10 Meq Tablet Er PO 03/28/20 08:18 40 meq NOW ONE Administration Potassium Chloride 20 meq 03/28/20 14:00 03/28/20 14:19 Klor-Con 10 Meq Tablet Er PO 03/28/20 14:01 20 meq TAM@1400 ONE Administration Potassium Chloride 20 meq 03/31/20 13:00 03/31/20 14:00 Klor-Con 10 Meq Tablet Er PO 03/31/20 13:01 20 meq NOW ONE Administration Potassium Chloride 20 meq 04/01/20 10:00 04/01/20 10:52 Potassium Chloride 20 Meq Packet PO 05/01/20 09:59 Not Given DAILY PATRICIA Propofol Confirm 03/30/20 15:00 Diprivan Inj 200 Mg/20 Ml Vial Administered 03/30/20 15:01 Dose 200 mg IV .STK-MED ONE Sodium Bicarbonate 1,300 mg 03/26/20 09:00 03/27/20 09:37 Sodium Bicarbonate 650 Mg Tablet PO 04/25/20 08:59 1,300 mg PCHS PATRICIA Administration Sodium Bicarbonate 2,600 mg 03/25/20 23:05 03/26/20 01:29 Sodium Bicarbonate 650 Mg Tablet PO 03/25/20 23:06 2,600 mg NOW ONE Administration Sodium Bicarbonate 2,600 mg 03/26/20 01:30 03/26/20 01:48 Sodium Bicarbonate 650 Mg Tablet PO 03/26/20 01:31 Not Given NOW ONE Assessment & Plan - Diagnosis (1) Atrial fibrillation Qualifiers: Atrial fibrillation type: paroxysmal Qualified Code(s): I48.0 - Paroxysmal atrial fibrillation Is this a current diagnosis for this admission?: Yes Plan: She continues to be tachycardic this morning secondary to her other comorbidities and not receiving any of her AV tomy agents. She is not taking any p.o. and continues to refuse to take her p.o. medications. Unfortunately labetalol IV has not been effective in keeping her heart rate down although this could be from her overall poor clinical status. Of note, the patient has not had any meaningful p.o. intake since 03/29/2020. Recommendations: -Primary team to explore means to feed this patient which would be ideal to restart all her cardiac medications particularly given her fluid overload. -Reconsider anticoagulation now that her hemoglobin is stable and there is no clinical evidence of bleeding, will defer final decision to primary team. -Continue with current medical management for now. (2) Anasarca Is this a current diagnosis for this admission?: Yes Plan: The patient will continue to follow-up with nephrology. (3) Acute blood loss anemia Is this a current diagnosis for this admission?: Yes Plan: Her hemoglobin continues to be stable. Recommendations: -Further management per primary team. (4) Closed hematoma of left kidney Qualifiers: Encounter type: initial encounter Qualified Code(s): S37.012A - Minor contusion of left kidney, initial encounter Is this a current diagnosis for this admission?: Yes Plan: Continues to be stable as of most recent CT scan. I will defer further management to primary team. (5) Heart failure with preserved ejection fraction, borderline, class IV Plan: The patient was dialyzed yesterday and, per nursing staff, 3 L of fluid were removed. Her lung exam is slightly improved today but she continues to have significant lower extremity edema. Her creatinine is slightly improved. Recommendations: -Restrict fluid intake to 1500 cc daily. -Low sodium diet, less than 1500 mg daily. -Strict intake and output. -Daily weights. -Continue with dialysis per nephrology recommendations. -May consider IV ALFREDO inhibitor if patient hypotensive.
[2020-04-08] MEDS: CALCIUM CARBONATE 600 MG TABLET PO SCH ×2 (08:07→18:04)
[2020-04-08] MEDS: SUCRALFATE 1 GM TABLET PO SCH ×3 (08:08→18:04)
[2020-04-08] MEDS: DOCUSATE SODIUM 100 MG CAPSULE PO SCH ×2 (10:06→18:04)
--- NOTE | 2020-04-08 13:08 | PDOC PROGRESS REPORT ---
Subjective Progress Note for:: 04/08/20 Subjective:: The patient remains extremely weak. She has not been able to come off of BiPAP. She finally has a negative fluid balance after over 3 L being removed with hemodialysis yesterday. Unfortunately she has not been eating or taking many medications by mouth. Reason For Visit: ANASARCA,UPPER ABDOMINAL PAIN,MALIGNANT Physical Exam Vital Signs: Temp Pulse Resp BP Pulse Ox 97.4 F 143 H 12 161/77 H 98 04/08/20 12:05 04/08/20 12:05 04/08/20 12:05 04/08/20 12:05 04/08/20 12:05 Intake & Output 04/07/20 04/08/20 04/09/20 06:59 06:59 06:59 Intake Total 0 20 50 Output Total 200 3495 15 Balance -200 -3475 35 Weight 80.3 kg 73.6 kg General appearance: PRESENT: no acute distress, other - Lethargic. She does nod her head to answer yes and no questions. It is hard for her to maintain eye contact. Head exam: PRESENT: atraumatic, normocephalic Eye exam: PRESENT: conjunctiva pale. ABSENT: scleral icterus Ear exam: PRESENT: normal external ear exam. ABSENT: bleeding, drainage Mouth exam: PRESENT: other - Remains on BiPAP. Difficult to assess. Respiratory exam: PRESENT: prolonged expiratory phas, rales - Bilaterally, symmetrical. ABSENT: rhonchi, wheezes Cardiovascular exam: PRESENT: irregular rhythm, +S1, +S2. ABSENT: diastolic murmur, systolic murmur GI/Abdominal exam: PRESENT: hypoactive bowel sounds, soft. ABSENT: distended, guarding, tenderness Rectal exam: PRESENT: deferred Gentrourinary exam: PRESENT: indwelling catheter Extremities exam: PRESENT: other - 3+ edema lower extremities Musculoskeletal exam: ABSENT: ambulatory, normal inspection Neurological exam: PRESENT: altered, awake, oriented to person Psychiatric exam: PRESENT: flat affect. ABSENT: agitated, anxious Results Laboratory Results: 04/08/20 06:22 04/08/20 06:22 04/08/20 04/08/20 06:22 06:22 WBC 12.1 H RBC 3.01 L Hgb 9.3 L Hct 26.6 L MCV 88 MCH 31.0 MCHC 35.2 RDW 15.5 H Plt Count 138 L Seg Neutrophils % Not Reportable Sodium 133.9 L Potassium 3.8 Chloride 102 Carbon Dioxide 22 Anion Gap 10 BUN 49 H Creatinine 2.85 H Est GFR ( Amer) 20 L Glucose 143 H Calcium 8.4 Phosphorus 2.4 L Magnesium 2.0 Albumin 2.6 L 03/25/20 03/25/20 03/25/20 19:50 19:50 20:41 Creatine Kinase CK-MB (CK-2) Troponin I Cancelled 0.015 NT-Pro-B Natriuret Pep Cancelled 18922 H 03/26/20 03/26/20 03/26/20 02:54 02:54 08:17 Creatine Kinase 115 144 H CK-MB (CK-2) 2.08 Troponin I 0.023 NT-Pro-B Natriuret Pep 03/26/20 03/26/20 03/26/20 08:17 14:07 14:07 Creatine Kinase 134 CK-MB (CK-2) 1.92 1.83 Troponin I 0.028 0.022 NT-Pro-B Natriuret Pep Impressions: Acute Abdomen Series 03/25/20 20:05 IMPRESSION: Patchy density in the right lung base new when compared to the previous study. Findings may reflect atelectasis versus developing infiltrate Cardiac enlargement KUB X-Ray 03/27/20 00:00 IMPRESSION: Nonspecific nonobstructive bowel gas pattern. Guidance Needle Placement CT 03/31/20 00:00 IMPRESSION: Please see combined report for performance of procedure and rad iologic supervision and interpretation. Renal Biopsy CT 03/31/20 08:00 IMPRESSION: CT GUIDED LEFT KIDNEY CORTICAL BIOPSY. Abdomen/Pelvis CT 04/03/20 00:00 IMPRESSION: 1. Bilateral pleural effusions and increased collapse / atelectasis of the left lower lobe. The alveolar ground-glass opacities in the right middle lobe are nonspecific and could represent an infection or early edema. 2. Unchanged left perinephric and retroperitoneal hematomas. 3. Other findings as detailed above. Chest X-Ray 04/06/20 00:00 IMPRESSION: 1. Persistent increasing bilateral airspace disease since the previous examination dated 04/04/2020. Durations for these findings include atypical pneumonia and or edema. Small left pleural effusion. Assessment and Plan - Diagnosis (1) Closed hematoma of left kidney Qualifiers: Encounter type: initial encounter Qualified Code(s): S37.012A - Minor contusion of left kidney, initial encounter Is this a current diagnosis for this admission?: Yes Plan: repeat CT scan shows unchanged retroperitoneal hematoma. Dr. Holley spoke with Dr. Hay, a urologist in [place], and discussed the case at length. At that time her repeat hemoglobin and platelets are so far stable. This would seem to indicate that any bleeding has stabilized. Dr. Hay indicated that if the bleeding remained stable, then we should continue to treat her supportively as we have been doing. 04/07/2020 Secondary to kidney biopsy. Stable at this time. Continue to monitor. (2) Acute blood loss anemia Is this a current diagnosis for this admission?: Yes Plan: Her hemoglobin seems relatively stable at this time. She had to get 2 units and 2 consecutive days. Her platelets are stable from yesterday. There has been mention of some concern that this might be DIC. It appears that Dr. Holley ruled that out. 04/07/2020 Hemoglobin slowly continues to improve. It was 9.1 today. 04/08/2020 Hemoglobin is 9.3 today. Continue to monitor. (3) Anasarca Is this a current diagnosis for this admission?: Yes Plan: Slight improvement. Patient's anasarca is likely due to her kidney disease. ABD U/S shows coarse heterogeneous liver appearance; likely underlying liver disease. LFTs unremarkable Hep B negative. Hep C negative. Cardiology and Nephrology services are consulted. Echo pending per cardiology. Dr. Holley did discuss with Dr. Strickland; unlikely due to CHF alone, though expects some underlying diastolic dysfunction. Nephrology evaluating for nephrotic syndome, which her 24-hour urine would suggest. S/p kidney biopsy Did not respond to diuretics. Patient had dialysis catheter placed 04/04/2020 and dialysis started yesterday. 04/07/2020 Currently being treated with hemodialysis. Remains oliguric. Also being followed by cardiology and nephrology. 04/08/2020 The patient has finally had a net negative fluid balance today. 3 and half liters were removed with dialysis yesterday. Hopefully she will continue to tolerate large amounts of fluid removal. Still with marked swelling especially lower extremities (4) Paroxysmal atrial fibrillation Is this a current diagnosis for this admission?: Yes Plan: 04/07/2020 No anticoagulation due to hematoma and blood loss anemia. Per Dr. Pagan is suggestion/recommendation I have discontinued the diltiazem. She does take her metoprolol but it is inconsistent. I have added IV labetalol to be available for increased heart rate. We will continue to monitor on telemetry. 04/08/[address] an NG tube so that the patient to receive nutrition but just as importantly will be able to return to regular administration of medications inc luding her metoprolol. Hopefully this will slow the heart rate. (5) Chronic kidney disease, stage 3 (moderate) Is this a current diagnosis for this admission?: Yes Plan: Received records from [facility]. Patient's GFR was between 30 and 45 as well. She has a lot of protein in her urine. S/p renal biopsy, results are pending Patient started dialysis yesterday 04/07/2020 Prior to this hospitalization the patient had chronic kidney disease stage III. Due to worsening renal function she has been undergoing dialysis. (6) Gouhs-md-atagmag kidney injury Qualifiers: Acute renal failure type: with other specified pathological lesion Chronic kidney disease stage: stage 3 (moderate) Qualified Code(s): N17.8 - Other acute kidney failure; N18.3 - Chronic kidney disease, stage 3 (moderate) Is this a current diagnosis for this admission?: Yes Plan: Creatinine has gotten worse. She was on IV fluids and got repeat transfusions. Very poor urine output. Started dialysis yesterday. Nephrology is managing. 04/07/2020 The patient serum creatinine today was 3.05. Yesterday it was 2.96. She did undergo dialysis today and in fact they were able to remove over 3 L of fluid. Postdialysis she did not report feeling much better but she had just gotten back to the floor. The serum creatinine has not improved dramatically. Her urine output still remains quite low. BUN continues to increase. 04/08/2020 Her serum creatinine is improved. Hopefully this is beginning of a consistent trend. Her urine output is still not significant. Continue to monitor closely. (7) Heart failure with preserved ejection fraction Qualifiers: Heart failure chronicity: acute on chronic Qualified Code(s): I50.33 - Acute on chronic diastolic (congestive) heart failure Is this a current diagnosis for this admission?: Yes Plan: 04/07/2020 Fluid management is by hemodialysis at this time. No diuretic therapy in use. Appreciate ongoing cardiology input. 04/08/2020 Continue to monitor intake and output with a goal of negative fluid balance. (8) Pulmonary hypertension Is this a current diagnosis for this admission?: Yes Plan: 04/07/2020 Most likely multiple contributing etiologies. We will continue to treat other comorbidities. (9) Hypertension Qualifiers: Hypertension type: essential hypertension Qualified Code(s): I10 - Essential (primary) hypertension Is this a current diagnosis for this admission?: Yes Plan: 04/07/2020 hypertensive emergency present on admission has resolved however she still has ongoing elevated blood pressures. We will continue current medication regimen. Will adjust medication based on input from nephrology and cardiology. 04/08/2020 Months the nasogastric tube was replaced will be able to administer regular dosing of antihypertensive medications. This should improve blood pressure control. Will adjust medications based on effectiveness. (10) Hyponatremia Is this a current diagnosis for this admission?: Yes Plan: Sodium 18.2; Trending upward from 118 at time of admission. Likely secondary to fluid volume overload resulting in anasarca. Nephrology is consulted. Appreciate Dr. Mac's assistance. 04/07/2020 Her hyponatremia is vastly improved from the 118 noted on admission. She is now up to 130. She had chronic hyponatremia likely due to her kidney failure. Continue to monitor electrolytes. 04/08/2020 Continues to slowly improve. Continue to monitor. (11) Hyperglycemia due to diabetes mellitus Is this a current diagnosis for this admission?: No Plan: Patient reports that she does not have diabetes. Hemoglobin A1c 5.1%. Has not required insulin coverage. We will discontinue Accu-Cheks and insulin. Should we note that her glucose on chemistries trend upward; reevaluate. Registered dietitian is consulted. Consistent Carb diet. 04/07/2020 No insulin coverage at this time. If consistently elevated glucoses are noted we may start sliding scale coverage. 04/08/2020 Acceptable Accu-Cheks at this time. No change in regimen. She will be starting tube feedings and we may need to add to the treatment plan. (12) Proteinuria due to type 2 diabetes mellitus Is this a current diagnosis for this admission?: Yes Plan: 03/26/2020 Marked proteinuria by dipstick. 24-hour studies have been ordered. 04/07/2020 Nephrotic range proteinuria (3.8 g) detected on 24-hour urine specimen previously collected. Currently on dialysis. (13) Chronic diarrhea Is this a current diagnosis for this admission?: Yes Plan: Patient reports chronic diarrhea since prior ruptured colon with subsequent partial colectomy; unclear follow up. Stool culture and C. diff negative. Occult stool positive. Melena and blood clots w/ stools is resolved. KUB shows nonspecific gas pattern. Colonoscopy revealed a colon polyps (removed via snare) and no active signs of GI bleeding. Clear liquid diet. Protonix and Carafate Clear liquids. Hold on antidiarrheal. Stop scheduled Reglan GI consulted today; appreciate Dr. Deshpande's evaluation and recommendations. 04/07/2020 Bowel movements have significantly decreased. This is most likely due to her l imited dietary intake. - Plan Summary Summary: I spoke with Dr. Hay, a urologist in [place], and discussed the case at length. At this time her repeat hemoglobin has come back up to 8.8, and her platelets are also trending back up at 86. This would seem to indicate that any bleeding has stabilized. The repeat CT scan showed subcapsular hematoma was stable, and a retroperitoneal hematoma was also mentioned as being stable, even though this was not mentioned on the initial CT. Dr. Hay indicated that if the bleeding remained stable, then we should continue to treat her supportively as we have been doing. As previously noted, I do not believe for many reasons that this patient is in DIC, and indeed if she was her hemoglobin and her candelaria telets would continue to drop. She should be on bedrest until her hemoglobin is stable for another 24 hours, and then we could potentially consider ambulating her. Her urine output seems to have increased a little bit today, and so we will monitor her for recovery of function. No adverse events overnight. Vital signs been stable. Urine output has been minimal. Her creatinine went up a little again today. Her platelets have been stable. Her hemoglobin was down a point from yesterday but she is been on continuous fluids overnight. She is awake and looks fatigued, but she says that overall she feels okay, just tired. She is not complaining of any abdominal pain. Breathing has been comfortable. There has been no visual evidence of any external bleeding. No rashes. Interestingly, her edema does not appear to have gotten any worse. Reason For Visit: ANASARCA,UPPER ABDOMINAL PAIN,MALIGNANT (1) Closed hematoma of left kidney Qualifiers: Encounter type: initial encounter Qualified Code(s): S37.012A - Minor contusion of left kidney, initial encounter Is this a current diagnosis for this admission?: Yes Plan: I have ordered a repeat CT scan today to see if the size of the hematoma has changed. I will call and speak with the urologist once I have this information, to see if there is any recommendation that could help her from a surgical standpoint. (2) Acute blood loss anemia Is this a current diagnosis for this admission?: Yes Plan: Her hemoglobin seems relatively stable at this time. She had to get 2 units and 2 consecutive days. Her hemoglobin was down a little bit today, but I suspect some of this is from hemodilution. Her platelets are stable from yesterday. There has been mention of some concern that this might be DIC. I do not believe this to be the case, and there are multiple reasons why. First, she has a good explanation for why her hemoglobin is down, and she has had no signs of any ex ternal bleeding. Second, her platelets are low, but they have stabilized, and you can see a drop in platelets with blood volume loss combined with administration of IV fluids. Third, her coagulation studies are not that much different from when she was admitted 9 days ago. Her PT is up from 15-17, and her PTT is up from 37-39. Fourth, her fibrinogen is well within the normal range at 338. Her d-dimer is elevated, but with her level of renal failure this is to be expected, and with the bleeding she has had we would expect it to be a little elevated, which it is. Fifth, her LDH is normal, which argues against microangiopathic hemolysis that one typically sees with DIC. We will of course be monitoring her closely for development of this process, but at this time I do not think that is what is going on, for the reasons noted above. (3) Anasarca Is this a current diagnosis for this admission?: Yes Plan: Slight improvement. Patient's anasarca is likely due to her kidney disease. ABD U/S shows coarse heterogeneous liver appearance; likely underlying liver disease. LFTs unremarkable Hep B negative. Hep C negative. Cardiology and Nephrology services are consulted. Echo pending per cardiology. Did discuss with Dr. Strickland; unlikely due to CHF alone, though expects some underlying diastolic dysfunction. Nephrology evaluating for nephrotic syndome, which her 24-hour urine would suggest. S/p kidney biopsy IV fluids and IV bumetanide per Dr. Mac, bumetanide on hold due to renal failure. marker delivery is consulted. (4) Atrial fibrillation Qualifiers: Atrial fibrillation type: paroxysmal Qualified Code(s): I48.0 - Paroxysmal atrial fibrillation Is this a current diagnosis for this admission?: Yes Plan: Patient converted into atrial fibrillation overnight on telemetry. Confirmed by EKG. Unknown history of the same; patient not able to elaborate. She is already on metoprolol 100 mg twice daily. diltiazem 30 mg every 8 hours. Not a candidate for anticoagulation or aspirin therapy at this time due to recent renal hematoma and GI bleed. (5) CHF exacerbation Qualifiers: Heart failure type: unspecified Qualified Code(s): I50.9 - Heart failure, unspecified Is this a current diagnosis for this admission?: Yes Plan: Anasarca actually not thought to be due to a CHF exacerbation at this time, echocardiogram pending, cardiology consulted (6) Chronic kidney disease, stage 3 (moderate) Is this a current diagnosis for this admission?: Yes Plan: Received records from [facility]. Patient's GFR was between 30 and 45 as well. She has a lot of protein in her urine. S/p renal biopsy Nephrology has been consulted; primary management per their expertise. (7) Diabetes mellitus type 2 in nonobese Is this a current diagnosis for this admission?: Yes Plan: Continue sliding scale and diabetic diet (8) Pcoqj-[id number]-cdsnhkl kidney injury Qualifiers: Acute renal failure type: with other specified pathological lesion Chronic kidney disease stage: stage 3 (moderate) Qualified Code(s): N17.8 - Other acute kidney failure; N18.3 - Chronic kidney disease, stage 3 (moderate) Is this a current diagnosis for this admission?: Yes Plan: Creatinine has gotten worse since the formation of a hematoma. Creatinine went up fairly quickly, up to 2.88 today. She is on IV fluids and getting repeat transfusions as needed, monitoring urine output. Am repeating the CT of the abdomen and pelvis to assess for interval change in the size of the renal h ematoma. Once I have that information, I will contact the urologist to discuss the case and see if there is any role for surgical intervention here. My concern is that on the original CT the right kidney looks very atrophic, and I believe the left kidney was probably the better of the 2, and now it is compromised by a large subcapsular hematoma putting mass-effect onto the renal parenchyma, and I would like to see if there is something that can be done to salvage this kidney. With her decreased urine output, she may need dialysis. - Time Time Spent with patient: 25-34 minutes - Time Time Spent with patient: I did speak with patient's today. He is certainly disappointed with her lack of progress. We discussed placement of the nasogastric tube which will allow for tube feedings and administration of medications. He was in agreement.
--- NOTE | 2020-04-08 16:22 | RADIOLOGY REPORT (SQ) ---
EXAM DESCRIPTION: KUB/ABDOMEN (SINGLE VIEW) IMAGES COMPLETED DATE/TIME: 04/08/2020 3:50 pm REASON FOR STUDY: Check Placement of NG Tube COMPARISON: None. NUMBER OF VIEWS: One view. TECHNIQUE: Supine radiographic image of the abdomen acquired. LIMITATIONS: For nasogastric tube placement FINDINGS: Nasogastric tube tip and side port in the stomach. Bibasilar consolidation is present unchanged from chest film 04/06/2020 Nonspecific bowel gas pattern with air stomach small bowel colon. Right femoral central venous dialy sis catheter. IMPRESSION: Nasogastric tube tip and side port in the stomach TECHNICAL DOCUMENTATION: JOB ID: [id number] 2010 [employer]- All Rights Reserved Reading location - IP/workstation name: [email or web address]
[2020-04-08] MEDS ORDERED: ACETAMINOPHEN 325 MG TABLET NG PRN (18:57)
[2020-04-08] MEDS ORDERED: PHARMACY COMMUNICATION ORDER MC NR (19:00)
[2020-04-08] MEDS ORDERED: GUAIFENESIN SYRP 200 MG/10 ML UDC NG PRN (19:30)
[2020-04-08] MEDS ORDERED: MAGNESIUM HYDROXIDE SUSP 30 ML UDCUP NG PRN (19:30)
[2020-04-08] MEDS ORDERED: MAG HYDROX/AL HYDROX/SIMETH SUSP 30 ML UDCUP NG PRN (19:30)
[2020-04-08] MEDS ORDERED: MELATONIN 3 MG TABLET NG SCH (22:00)
[2020-04-08] MEDS: SUCRALFATE 1 GM TABLET NG SCH (22:03)
[2020-04-08] MEDS: METOPROLOL TARTRATE 100 MG TABLET NG SCH (22:03)
[2020-04-09] MEDS: HEPARIN SOD (PORCINE) 5,000 UNIT/ML 1 ML VIAL SUBCUT SCH ×2 (05:13→13:29)
[2020-04-09 07:24] LABS: ALBUMIN 2.3 g/dL (3.5-5.0); ANION GAP 8 (5-19); BLOOD UREA NITROGEN 57 mg/dL (7-20); CALCIUM 8.4 mg/dL (8.4-10.2); CARBON DIOXIDE 25 mmol/L (22-30); CHLORIDE 100 mmol/L (98-107); GLUCOSE 136 mg/dL (75-110); PHOSPHORUS 2.4 mg/dL (2.5-4.5)
[2020-04-09 07:26] LABS: HEMATOCRIT 24.6 % (36.0-47.0); HEMOGLOBIN 8.4 g/dL (12.0-15.5); MEAN CORPUSCULAR HEMOGLOBIN 30.3 pg (27.0-33.4); MEAN CORPUSCULAR HGB CONC 34.3 g/dL (32.0-36.0); MEAN CORPUSCULAR VOLUME 88 fl (80-97); PLATELET COUNT 155 10^3/uL (150-450); RED BLOOD COUNT 2.78 10^6/uL (3.72-5.28); RED CELL DISTRIBUTION WIDTH 16.1 % (11.5-14.0); WHITE BLOOD COUNT 19.1 10^3/uL (4.0-10.5)
[2020-04-09 07:56] LABS: ABSOLUTE LYMPHOCYTES# (MANUAL) 0.2 10^3/uL (0.5-4.7); BAND NEUTROPHILS % (MANUAL) 4 % (3-5); BASOPHILS % (MANUAL) 0 % (0-2); EOSINOPHILS % (MANUAL) 0 % (0-6); LYMPHOCYTES % (MANUAL) 1 % (13-45); METAMYELOCYTES % (MANUAL) 1 % (0-1); MONOCYTES % (MANUAL) 0 % (3-13); SEGMENTED NEUTROPHILS % (MAN) 94 % (42-78); TOTAL CELLS COUNTED 100
[2020-04-09 07:57] LABS: ANISOCYTOSIS 1+; PLATELET COMMENT ADEQUATE; POLYCHROMASIA SLIGHT
--- NOTE | 2020-04-09 09:00 | PDOC PROGRESS REPORT ---
Subjective Progress Note for:: 04/09/20 Subjective:: Today the patient is more awake than I have seen her in the last 3 days. She has been getting medications consistently as well as nutrition since the nasogastric tube was placed. She is still on BiPAP. Reason For Visit: ANASARCA,UPPER ABDOMINAL PAIN,MALIGNANT Physical Exam Vital Signs: Temp Pulse Resp BP Pulse Ox 97.8 F 105 H 21 H 119/73 100 04/09/20 07:08 04/09/20 07:08 04/09/20 07:08 04/09/20 07:08 04/09/20 07:08 Intake & Output 04/08/20 04/09/20 04/10/20 06:59 06:59 06:59 Intake Total 20 250 Output Total 3495 70 Balance -3475 180 Weight 73.6 kg 74.3 kg General appearance: PRESENT: cooperative, mild distress, well-developed, other - Frail appearing Head exam: PRESENT: atraumatic, normocephalic Eye exam: PRESENT: conjunctiva pale. ABSENT: scleral icterus Ear exam: PRESENT: normal external ear exam. ABSENT: bleeding, drainage Mouth exam: PRESENT: other - BiPAP in place Respiratory exam: PRESENT: rales - Diffuse bilaterally, symmetrical, tachypnea, unlabored. ABSENT: rhonchi, wheezes Cardiovascular exam: PRESENT: irregular rhythm, +S1, +S2, tachycardia. ABSENT: diastolic murmur, systolic murmur GI/Abdominal exam: PRESENT: normal bowel sounds, soft, other - Ventral hernia right of midline. ABSENT: distended, guarding, tenderness Rectal exam: PRESENT: deferred Gentrourinary exam: PRESENT: indwelling catheter Extremities exam: PRESENT: +2 edema Musculoskeletal exam: ABSENT: deformity, normal inspection - Edema as above Neurological exam: PRESENT: alert, awake, oriented to person, other - Difficult to assess further. Patient remains on BiPAP.. ABSENT: altered Psychiatric exam: PRESENT: flat affect. ABSENT: agitated, anxious Focused psych exam: ABSENT: catatonic, restlessness Skin exam: PRESENT: dry, pallor, warm. ABSENT: rash Results Laboratory Results: 04/09/20 06:45 04/09/20 06:45 04/09/20 04/09/20 06:45 06:45 WBC 19.1 H RBC 2.78 L Hgb 8.4 L Hct 24.6 L MCV 88 MCH 30.3 MCHC 34.3 RDW 16.1 H Plt Count 155 Seg Neutrophils % Not Reportable Sodium 133.4 L Potassium 4.0 Chloride 100 Carbon Dioxide 25 Anion Gap 8 BUN 57 H Creatinine 3.38 H Est GFR ( Amer) 16 L Glucose 136 H Calcium 8.4 Phosphorus 2.4 L Magnesium 2.0 Albumin 2.3 L 03/25/20 03/25/20 03/25/20 19:50 19:50 20:41 Creatine Kinase CK-MB (CK-2) Troponin I Cancelled 0.015 NT-Pro-B Natriuret Pep Cancelled 05289 H 03/26/20 03/26/20 03/26/20 02:54 02:54 08:17 Creatine Kinase 115 144 H CK-MB (CK-2) 2.08 Troponin I 0.023 NT-Pro-B Natriuret Pep 03/26/20 03/26/20 03/26/20 08:17 14:07 14:07 Creatine Kinase 134 CK-MB (CK-2) 1.92 1.83 Troponin I 0.028 0.022 NT-Pro-B Natriuret Pep Impressions: Acute Abdomen Series 03/25/20 20:05 IMPRESSION: Patchy density in the right lung base new when compared to the previous study. Findings may reflect atelectasis versus developing infiltrate Cardiac enlargement Guidance Needle Placement CT 03/31/20 00:00 IMPRESSION: Please see combined report for performance of procedure and radiologic supervision and interpretation. Renal Biopsy CT 03/31/20 08:00 IMPRESSION: CT GUIDED LEFT KIDNEY CORTICAL BIOPSY. Abdomen/Pelvis CT 04/03/20 00:00 IMPRESSION: 1. Bilateral pleural effusions and increased collapse / atele ctasis of the left lower lobe. The alveolar ground-glass opacities in the right middle lobe are nonspecific and could represent an infection or early edema. 2. Unchanged left perinephric and retroperitoneal hematomas. 3. Other findings as detailed above. Chest X-Ray 04/06/20 00:00 IMPRESSION: 1. Persistent increasing bilateral airspace disease since the previous examination dated 04/04/2020. Durations for these findings include atypical pneumonia and or edema. Small left pleural effusion. KUB X-Ray 04/08/20 13:57 IMPRESSION: Nasogastric tube tip and side port in the stomach Assessment and Plan - Diagnosis (1) [id number]-[id number] kidney injury Qualifiers: Acute renal failure type: with other specified pathological lesion Chronic kidney disease stage: stage 3 (moderate) Qualified Code(s): N17.8 - Other acute kidney failure; N18.3 - Chronic kidney disease, stage 3 (moderate) Is this a current diagnosis for this admission?: Yes Plan: Creatinine has gotten worse. She was on IV fluids and got repeat transfusions. Very poor urine output. Started dialysis yesterday. Nephrology is managing. 04/07/2020 The patient serum creatinine today was 3.05. Yesterday it was 2.96. She did undergo dialysis today and in fact they were able to remove over 3 L of fluid. Postdialysis she did not report feeling much better but she had just gotten back to the floor. The serum creatinine has not improved dramatically. Her urine output still remains quite low. BUN continues to increase. 04/08/2020 Her serum creatinine is improved. Hopefully this is beginning of a consistent trend. Her urine output is still not significant. Continue to monitor closely. 04/09/2020 Urine output is decreased. Serum creatinine is elevated but I would expect this as she is due for dialysis tomorrow. She was awake and interacting somewhat today. This is likely the addition of nutrition. (2) Acute blood loss anemia Is this a current diagnosis for this admission?: Yes Plan: Her hemoglobin seems relatively stable at this time. She had to get 2 units and 2 consecutive days. Her platelets are stable from yesterday. There has been mention of some concern that this might be DIC. It appears that Dr. Holley ruled that out. 04/07/2020 Hemoglobin slowly continues to improve. It was 9.1 today. 04/08/2020 Hemoglobin is 9.3 today. Continue to monitor. 04/09/2020 Hemoglobin is trickling down. Part of this could be from the number of blood tests required. We will continue to monitor. (3) Chronic kidney disease, stage 3 (moderate) Is this a current diagnosis for this admission?: Yes Plan: Received records from [facility]. Patient's GFR was between 30 and 45 as well. She has a lot of protein in her urine. S/p renal biopsy, results are pending Patient started dialysis yesterday 04/07/2020 Prior to this hospitalization the patient had chronic kidney disease stage III. Due to worsening renal function she has been undergoing dialysis. (4) Paroxysmal atrial fibrillation Is this a current diagnosis for this admission?: Yes Plan: 04/07/2020 No anticoagulation due to hematoma and blood loss anemia. Per Dr. Pagan is suggestion/recommendation I have discontinued the diltiazem. She does take her metoprolol but it is inconsistent. I have added IV labetalol to be available for increased heart rate. We will continue to monitor on telemetry. 04/08/[address] an NG tube so that the patient to receive nutrition but just as importantly will be able to return to regular administration of medications including her metoprolol. Hopefully this will slow the heart rate. 04/09/2020 Able to administer metoprolol tartrate via the nasogastric tube. She is currently on 100 mg every 12 hours. After discussion with cardiology I will change this to 50 mg every 6 hours. She does have IV beta-iam available if needed. (5) Anasarca Is this a current diagnosis for this admission?: Yes Plan: Slight improvement. Patient's anasarca is likely due to her kidney disease. ABD U/S shows coarse heterogeneous liver appearance; likely underlying liver disease. LFTs unremarkable Hep B negative. Hep C negative. Cardiology and Nephrology services are consulted. Echo pending per cardiology. Dr. Holley did discuss with Dr. Strickland; unlikely due to CHF alone, though expects some underlying diastolic dysfunction. Nephrology evaluating for nephrotic syndome, which her 24-hour urine would suggest. S/p kidney biopsy Did not respond to diuretics. Patient had dialysis catheter placed 04/04/2020 and dialysis started yesterday. 04/07/2020 Currently being treated with hemodialysis. Remains oliguric. Also being followed by cardiology and nephrology. 04/08/2020 The patient has finally had a net negative fluid balance today. 3 and half li ters were removed with dialysis yesterday. Hopefully she will continue to tolerate large amounts of fluid removal. Still with marked swelling especially lower extremities 04/09/2020 Continue current treatment plan (6) Heart failure with preserved ejection fraction Qualifiers: Heart failure chronicity: acute on chronic Qualified Code(s): I50.33 - Acute on chronic diastolic (congestive) heart failure Is this a current diagnosis for this admission?: Yes Plan: 04/07/2020 Fluid management is by hemodialysis at this time. No diuretic therapy in use. Appreciate ongoing cardiology input. 04/08/2020 Continue to monitor intake and output with a goal of negative fluid balance. 04/09/2020 Current fluid management is with dialysis. Continue current medications (7) Pulmonary hypertension Is this a current diagnosis for this admission?: Yes Plan: 04/07/2020 Most likely multiple contributing etiologies. We will continue to treat other comorbidities. (8) Hypertension Qualifiers: Hypertension type: essential hypertension Qualified Code(s): I10 - Essential (primary) hypertension Is this a current diagnosis for this admission?: Yes Plan: 04/07/2020 hypertensive emergency present on admission has resolved however she still has ongoing elevated blood pressures. We will continue current medication regimen. Will adjust medication based on input from nephrology and cardiology. 04/08/2020 Months the nasogastric tube was replaced will be able to administer regular dosing of antihypertensive medications. This should improve blood pressure control. Will adjust medications based on effectiveness. 04/09/2020 We will continue to monitor as she adjusts to receiving her oral medications again (9) Hyponatremia Is this a current diagnosis for this admission?: Yes Plan: Sodium 18.2; Trending upward from 118 at time of admission. Likely secondary to fluid volume overload resulting in anasarca. Nephrology is consulted. Appreciate Dr. Mac's assistance. 04/07/2020 Her hyponatremia is vastly improved from the 118 noted on admission. She is now up to 130. She had chronic hyponatremia likely due to her kidney failure. Continue to monitor electrolytes. 04/08/2020 Continues to slowly improve. Continue to monitor. 04/09/2020 Stable (10) Hyperglycemia due to diabetes mellitus Is this a current diagnosis for this admission?: No Plan: Patient reports that she does not have diabetes. Hemoglobin A1c 5.1%. Has not required insulin coverage. We will discontinue Accu-Cheks and insulin. Should we note that her glucose on chemistries trend upward; reevaluate. Registered dietitian is consulted. Consistent Carb diet. 04/07/2020 No insulin coverage at this time. If consistently elevated glucoses are noted we may start sliding scale coverage. 04/08/2020 Acceptable Accu-Cheks at this time. No change in regimen. She will be starting tube feedings and we may need to add to the treatment plan. 04/09/2020 Continue current regimen. Good control of her serum glucose at this time. (11) Proteinuria due to type 2 diabetes mellitus Is this a current diagnosis for this admission?: Yes Plan: 03/26/2020 Marked proteinuria by dipstick. 24-hour studies have been ordered. 04/07/2020 Nephrotic range proteinuria (3.8 g) detected on 24-hour urine specimen previously collected. Currently on dialysis. (12) Chronic diarrhea Is this a current diagnosis for this admission?: Yes Plan: Patient reports chronic diarrhea since prior ruptured colon with subsequent partial colectomy; unclear follow up. Stool culture and C. diff negative. Occult stool positive. Melena and blood clots w/ stools is resolved. KUB shows nonspecific gas pattern. Colonoscopy revealed a colon polyps (removed via snare) and no active signs of GI bleeding. Clear liquid diet. Protonix and Carafate Clear liquids. Hold on antidiarrheal. Stop scheduled Reglan GI consulted today; appreciate Dr. Deshpande's evaluation and recommendations. 04/07/2020 Bowel movements have significantly decreased. This is most likely due to her limited dietary intake. (13) Closed hematoma of left kidney Qualifiers: Encounter type: initial encounter Qualified Code(s): S37.012A - Minor contusion of left kidney, initial encounter Is this a current diagnosis for this admission?: Yes Plan: repeat CT scan shows unchanged retroperitoneal hematoma. Dr. Holley spoke with Dr. Hay, a urologist in [place], and discussed the case at length. At that time her repeat hemoglobin and platelets are so far stable. This would seem to indicate that any bleeding has stabilized. Dr. Hay indicated that if the bleeding remained stable, then we should continue to treat her supportively as we have been doing. 04/07/2020 Secondary to kidney biopsy. Stable at this time. Continue to monitor. - Plan Summary Summary: I spoke with Dr. Hay, a urologist in [place], and discussed the case at length. At this time her repeat hemoglobin has come back up to 8.8, and her platelets are also trending back up at 86. This would seem to indicate that any bleeding has stabilized. The repeat CT scan showed subcapsular hematoma was stable, and a retroperitoneal hematoma was also mentioned as being stable, even though this was not mentioned on the initial CT. Dr. Hay indicated that if the bleeding remained stable, then we should continue to treat her supportively as we have been doing. As previously noted, I do not believe for many reasons that this patient is in DIC, and indeed if she was her hemoglobin and her platelets would continue to drop. She should be on bedrest until her hemoglobin is stable for another 24 hours, and then we could potentially consider a mbulating her. Her urine output seems to have increased a little bit today, and so we will monitor her for recovery of function. No adverse events overnight. Vital signs been stable. Urine output has been minimal. Her creatinine went up a little again today. Her platelets have been stable. Her hemoglobin was down a point from yesterday but she is been on continuous fluids overnight. She is awake and looks fatigued, but she says that overall she feels okay, just tired. She is not complaining of any abdominal pain. Breathing has been comfortable. There has been no visual evidence of any external bleeding. No rashes. Interestingly, her edema does not appear to have gotten any worse. Reason For Visit: ANASARCA,UPPER ABDOMINAL PAIN,MALIGNANT (1) Closed hematoma of left kidney Qualifiers: Encounter type: initial encounter Qualified Code(s): S37.012A - Minor contusion of left kidney, initial encounter Is this a current diagnosis for this admission?: Yes Plan: I have ordered a repeat CT scan today to see if the size of the hematoma has changed. I will call and speak with the urologist once I have this information, to see if there is any recommendation that could help her from a surgical standpoint. (2) Acute blood loss anemia Is this a current diagnosis for this admission?: Yes Plan: Her hemoglobin seems relatively stable at this time. She had to get 2 units and 2 consecutive days. Her hemoglobin was down a little bit today, but I suspect some of this is from hemodilution. Her platelets are stable from yesterday. There has been mention of some concern that this might be DIC. I do not believe this to be the case, and there are multiple reasons why. First, she has a good explanation for why her hemoglobin is down, and she has had no signs of any external bleeding. Second, her platelets are low, but they have stabilized, and you can see a drop in platelets with blood volume loss combined with ad ministration of IV fluids. Third, her coagulation studies are not that much different from when she was admitted 9 days ago. Her PT is up from 15-17, and her PTT is up from 37-39. Fourth, her fibrinogen is well within the normal range at 338. Her d-dimer is elevated, but with her level of renal failure this is to be expected, and with the bleeding she has had we would expect it to be a little elevated, which it is. Fifth, her LDH is normal, which argues against microangiopathic hemolysis that one typically sees with DIC. We will of course be monitoring her closely for development of this process, but at this time I do not think that is what is going on, for the reasons noted above. (3) Anasarca Is this a current diagnosis for this admission?: Yes Plan: Slight improvement. Patient's anasarca is likely due to her kidney disease. ABD U/S shows coarse heterogeneous liver appearance; likely underlying liver disease. LFTs unremarkable Hep B negative. Hep C negative. Cardiology and Nephrology services are consulted. Echo pending per cardiology. Did discuss with Dr. Strickland; unlikely due to CHF alone, though expects some underlying diastolic dysfunction. Nephrology evaluating for nephrotic syndome, which her 24-hour urine would suggest. S/p kidney biopsy IV fluids and IV bumetanide per Dr. Mac, bumetanide on hold due to renal failure. terminal carman is consulted. (4) Atrial fibrillation Qualifiers: Atrial fibrillation type: paroxysmal Qualified Code(s): I48.0 - Paroxysmal atrial fibrillation Is this a current diagnosis for this admission?: Yes Plan: Patient converted into atrial fibrillation overnight on telemetry. Confirmed by EKG. Unknown history of the same; patient not able to elaborate. She is already on metoprolol 100 mg twice daily. diltiazem 30 mg every 8 hours. Not a candidate for anticoagulation or aspirin therapy at this time due to recent renal hematoma and GI bleed. (5) CHF exacerbation Qualifiers: Heart failure type: unspecified Qualified Code(s): I50.9 - Heart failure, unspecified Is this a current diagnosis for this admission?: Yes Plan: Anasarca actually not thought to be due to a CHF exacerbation at this time, echocardiogram pending, cardiology consulted (6) Chronic kidney disease, stage 3 (moderate) Is this a current diagnosis for this admission?: Yes Plan: Received records from [facility]. Patient's GFR was between 30 and 45 as well. She has a lot of protein in her urine. S/p renal biopsy Nephrology has been consulted; primary management per their expertise. (7) Diabetes mellitus type 2 in nonobese Is this a current diagnosis for this admission?: Yes Plan: Continue sliding scale and diabetic diet (8) [id number] kidney injury Qualifiers: Acute renal failure type: with other specified pathological lesion Chronic kidney disease stage: stage 3 (moderate) Qualified Code(s): N17.8 - Other acute kidney failure; N18.3 - Chronic kidney disease, stage 3 (moderate) Is this a current diagnosis for this admission?: Yes Plan: Creatinine has gotten worse since the formation of a hematoma. Creatinine went up fairly quickly, up to 2.88 today. She is on IV fluids and getting repeat tr ansfusions as needed, monitoring urine output. Am repeating the CT of the abdomen and pelvis to assess for interval change in the size of the renal hematoma. Once I have that information, I will contact the urologist to discuss the case and see if there is any role for surgical intervention here. My concern is that on the original CT the right kidney looks very atrophic, and I believe the left kidney was probably the better of the 2, and now it is compromised by a large subcapsular hematoma putting mass-effect onto the renal parenchyma, and I would like to see if there is something that can be done to salvage this kidney. With her decreased urine output, she may need dialysis. - Time Time Spent with patient: 25-34 minutes - Time Time Spent with patient: 15-24 minutes Medications reviewed and adjusted accordingly: Yes
[2020-04-09] MEDS: SUCRALFATE 1 GM TABLET NG SCH ×3 (09:03→20:47)
[2020-04-09] MEDS: DOCUSATE SODIUM 100 MG/10 ML UDC NG SCH ×2 (09:03→20:50)
[2020-04-09] MEDS: CALCIUM CARBONATE 600 MG TABLET NG SCH ×2 (09:03→20:48)
[2020-04-09] MEDS: METOPROLOL TARTRATE 100 MG TABLET NG SCH ×3 (09:03→20:50)
[2020-04-09] MEDS ORDERED: LABETALOL HCL INJ 20 MG/4 ML DISP.SYRIN IV PRN (09:41)
[2020-04-09] MEDS ORDERED: LEVOTHYROXINE SODIUM INJ/PF 0.1 MG SDV IV SCH (10:00)
--- NOTE | 2020-04-09 11:50 | PDOC PROGRESS REPORT ---
Subjective Progress Note for:: 04/09/20 Subjective:: 74-year-old female with multiple medical problems who was admitted on 03/25/2020 with anasarca and who had been followed by Dr. Strickland for possible heart failure. For details of this admission and cardiology follow-up please see Dr. Strickland's notes. In summary, the patient presented slightly obtunded and with anasarca. She eventually developed new onset atrial fibrillation with RVR and was consulted to cardiology. During this hospitalization she also developed melena as well as a perinephric hematoma status post renal biopsy. Today she is at her baseline and this morning complains of slightly increase in her shortness of breath. Her hemoglobin dropped again as of this morning. Her telemetry demonstrates atrial fibrillation with no sustained ventricular dysrhythmias. 04/09/2020: The patient continues to be essentially at her cardiovascular baseline when compared to her prior cardiac evaluations during this hospitalization. Her heart rate is slightly better. She now has a nasogastric tube and is scheduled to have her metoprolol tartrate today. She is found in bed asleep and tolerating BiPaP machine. She is arousable and nods her head to respond to my questions although she quickly falls asleep. She continues to be extremely sick Physical exam on 04/08/2020: GENERAL: BiPAP machine on. Feeling poorly, disheveled. Arousable for quickly falls asleep. HEENT: Normocephalic, atraumatic. Pupils equal. Sclerae anicteric. NECK: No JVD. No carotid bruits. LUNGS: Coarse breath sounds bilaterally. CARDIOVASCULAR: Tachycardic. Irregularly irregular rate and rhythm, normal S1 and S2 without murmurs, rubs, or gallops. PMI not displaced. EXTREMITIES: 2+ pitting edema bilaterally, no cyanosis, no clubbing. +2 pulses femoral and pedal pulses bilaterally. MUSCULOSKELETAL: No chest tenderness to palpation. NEUROLOGIC: Nonfocal. No gross sensory or motor deficits bilateral upper or lower extremities. Cardiac studies: Echocardiogram on 04/06/2020: -Mild to moderate concentric LVH. -EF 65 to 70%. -Diastolic function cannot be assessed due to the presence of atrial fibrillation. -No regional wall motion abnormalities. -Severe biatrial enlargement. -Mild MR, moderate TR, mild AI, trace PI. -Moderate to severe pulmonary hypertension with estimated pressures between 55 and 61 mmHg. -Small, hemodynamically insignificant, circumferential pericardial effusion. Lexiscan MPS on 11/14/2014: -No ischemia or infarct. -Normal ejection fraction. Reason For Visit: ANASARCA,UPPER ABDOMINAL PAIN,MALIGNANT Physical Exam Vital Signs: Temp Pulse Resp BP Pulse Ox 97.8 F 105 H 21 H 119/73 100 04/09/20 07:08 04/09/20 07:08 04/09/20 07:08 04/09/20 07:08 04/09/20 07:08 Intake & Output 04/08/20 04/09/20 04/10/20 06:59 06:59 06:59 Intake Total 20 250 83 Output Total 3495 70 Balance -3475 180 83 Weight 73.6 kg 74.3 kg Results Laboratory Results: 04/09/20 06:45 04/09/20 06:45 04/09/20 04/09/20 06:45 06:45 WBC 19.1 H RBC 2.78 L Hgb 8.4 L Hct 24.6 L MCV 88 MCH 30.3 MCHC 34.3 RDW 16.1 H Plt Count 155 Seg Neutrophils % Not Reportable Sodium 133.4 L Potassium 4.0 Chloride 100 Carbon Dioxide 25 Anion Gap 8 BUN 57 H Creatinine 3.38 H Est GFR ( Amer) 16 L Glucose 136 H Calcium 8.4 Phosphorus 2.4 L Magnesium 2.0 Albumin 2.3 L 03/25/20 03/25/20 03/25/20 19:50 19:50 20:41 Creatine Kinase CK-MB (CK-2) Troponin I Cancelled 0.015 NT-Pro-B Natriuret Pep Cancelled [id number] H 03/26/20 03/26/20 03/26/20 02:54 02:54 08:17 Creatine Kinase 115 144 H CK-MB (CK-2) 2.08 Troponin I 0.023 NT-Pro-B Natriuret Pep 03/26/20 03/26/20 03/26/20 08:17 14:07 14:07 Creatine Kinase 134 CK-MB (CK-2) 1.92 1.83 Troponin I 0.028 0.022 NT-Pro-B Natriuret Pep Impressions: Acute Abdomen Series 03/25/20 20:05 IMPRESSION: Patchy density in the right lung base new when compared to the previous study. Findings may reflect atelectasis versus developing infiltrate Cardiac enlargement Guidance Needle Placement CT 03/31/20 00:00 IMPRESSION: Please see combined report for performance of procedure and radiologic supervision and interpretation. Renal Biopsy CT 03/31/20 08:00 IMPRESSION: CT GUIDED LEFT KIDNEY CORTICAL BIOPSY. Abdomen/Pelvis CT 04/03/20 00:00 IMPRESSION: 1. Bilateral pleural effusions and increased collapse / atelectasis of the left lower lobe. The alveolar ground-glass opacities in the right middle lobe are nonspecific and could represent an infection or early edema. 2. Unchanged left perinephric and retroperitoneal hematomas. 3. Other findings as detailed above. Chest X-Ray 04/06/20 00:00 IMPRESSION: 1. Persistent increasing bilateral airspace disease since the previous examination dated 04/04/2020. Durations for these findings include atypical pneumonia and or edema. Small left pleural effusion. KUB X-Ray 04/08/20 13:57 IMPRESSION: Nasogastric tube tip and side port in the stomach 04/09/20 06:45 04/09/20 06:45 MCV 88 fl (80-97) 04/09/20 06:45 MCH 30.3 pg (27.0-33.4) 04/09/20 06:45 MCHC 34.3 g/dL (32.0-36.0) 04/09/20 06:45 RDW 16.1 % (11.5-14.0) H 04/09/20 06:45 Seg Neutrophils % Not Reportable 04/09/20 06:45 Carbonic Acid 1.18 mmol/L (1.05-1.35) 04/06/20 06:39 HCO3/H2CO3 Ratio 17:1 04/06/20 06:39 ABG pH 7.34 (7.35-7.45) L 04/06/20 06:39 ABG pCO2 39.1 mmHg (35-45) 04/06/20 06:39 ABG pO2 71.4 mmHg (80-100) L 04/06/20 06:39 ABG HCO3 20.8 mmol/L (20-24) 04/06/20 06:39 ABG O2 Saturation 93.6 % (94-98) L 04/06/20 06:39 ABG Base Excess -4.5 mmol/L 04/06/20 06:39 FiO2 55% 04/06/20 06:39 Chloride 100 mmol/L (98-107) 04/09/20 06:45 Carbon Dioxide 25 mmol/L (22-30) 04/09/20 06:45 Anion Gap 8 (5-19) 04/09/20 06:45 Est GFR ( Amer) 16 (>60) L 04/09/20 06:45 Est GFR (Non-Af Amer) Cancelled 03/25/20 19:50 Glucose 136 mg/dL (75-110) H 04/09/20 06:45 Serum Osmolality 261 mOsm/kg (275-301) L 03/27/20 05:40 Lactic Acid 1.0 mmol/L (0.7-2.1) 03/25/20 20:41 Calcium 8.4 mg/dL (8.4-10.2) 04/09/20 06:45 Ionized Calcium [place] 1.01 mmol/L (1.14-1.30) L 03/29/20 14:47 Phosphorus 2.4 mg/dL (2.5-4.5) L 04/09/20 06:45 Magnesium 2.0 mg/dL (1.6-2.3) 04/09/20 06:45 Total Bilirubin 0.3 mg/dL (0.2-1.3) 03/29/20 06:40 AST 27 U/L (14-36) 03/29/20 06:40 Alkaline Phosphatase 76 U/L (38-126) 03/29/20 06:40 C-Reactive Protein < 5.0 mg/L (<10.0) 03/27/20 05:40 Total Protein 4.6 g/dL (6.3-8.2) L 03/29/20 06:40 Albumin 2.3 g/dL (3.5-5.0) L 04/09/20 06:45 Triglycerides 67 mg/dL (<150) 03/26/20 08:17 Cholesterol 108.20 mg/dL (0-200) 03/26/20 08:17 LDL Cholesterol Direct < 30 mg/dL (<100) 03/26/20 08:17 VLDL Cholesterol 13.0 mg/dL (10-31) 03/26/20 08:17 HDL Cholesterol 74 mg/dL (>40) 03/26/20 08:17 Lipase 71.7 U/L (23-300) 03/25/20 20:41 TSH 2.31 uIU/mL (0.47-4.68) 03/26/20 08:17 Free T3 pg/mL 2.29 pg/mL (2.77-5.27) L 03/26/20 08:17 PTH Intact 91.1 pg/mL (10.0-65.0) H 03/30/20 06:35 Urine Color YELLOW 03/26/20 05:50 Urine Appearance SLIGHTLY-CLOUDY 03/26/20 05:50 Urine pH 6.0 (5.0-9.0) 03/26/20 05:50 Ur Specific [place] 1.007 03/26/20 05:50 Urine Protein >=500 mg/dL (NEGATIVE) H 03/26/20 05:50 Urine Glucose (UA) 150 mg/dL (NEGATIVE) H 03/26/20 05:50 Urine Ketones NEGATIVE mg/dL (NEGATIVE) 03/26/20 05:50 Urine Blood SMALL (NEGATIVE) H 03/26/20 05:50 Urine Nitrite NEGATIVE (NEGATIVE) 03/26/20 05:50 Ur Leukocyte Esterase NEGATIVE (NEGATIVE) 03/26/20 05:50 Urine WBC (Auto) 2 /HPF 03/26/20 05:50 Urine RBC (Auto) 1 /HPF 03/26/20 05:50 Urine Osmolality 220 mOsm/kg (300-900) L 03/29/20 23:04 Ur 24 Hour Volume 960 mL 03/29/20 09:40 Ur Total Protein 24 Hr 3855 mg/day (42-225) H 03/29/20 09:40 Ur Sodium 24 Hour 37 mmol/day (40-200) L 03/29/20 09:40 Stool Occult Blood POSITIVE (NEGATIVE) 03/26/20 20:50 Blood Type A NEGATIVE 04/01/20 07:16 Antibody Screen NEGATIVE 04/01/20 07:16 03/25/20 03/25/20 03/25/20 19:50 19:50 20:41 Creatine Kinase CK-MB (CK-2) Troponin I Cancelled 0.015 NT-Pro-B Natriuret Pep Cancelled [id number] H 03/26/20 03/26/20 03/26/20 02:54 02:54 08:17 Creatine Kinase 115 144 H CK-MB (CK-2) 2.08 Troponin I 0.023 NT-Pro-B Natriuret Pep 03/26/20 03/26/20 03/26/20 08:17 14:07 14:07 Creatine Kinase 134 CK-MB (CK-2) 1.92 1.83 Troponin I 0.028 0.022 NT-Pro-B Natriuret Pep Current Medication List Generic Name Dose Route Start Last Admin Trade Name Freq PRN Reason Stop Dose Admin Acetaminophen 650 mg 04/08/20 18:57 Tylenol 325 Mg Tablet NG 04/24/20 23:02 Q4HP PRN For headache, pain or fever Al Hydrox/Mg Hydrox/Simethicone 30 ml 04/08/20 19:30 Maalox Plus Susp 30 Udcup NG 04/24/20 22:56 Q6HP PRN HEARTBURN Albuterol/Ipratropium 3 ml 04/03/20 15:25 04/08/20 01:15 Duoneb 3 Ml Ampul NEB 05/03/20 15:24 3 ml RTQ2HP PRN Administration SHORTNESS OF BREATH Artificial Tears 1 drop 03/30/20 11:04 Refresh Plus 0.5% Oph Soln 0.4 Ml Droperette OU 04/29/20 11:03 QIDP PRN DRY EYE(S) Calcium Carbonate 600 mg 04/09/20 08:00 04/09/20 09:03 Caltrate 600 Mg Tablet NG 05/09/20 07:59 600 mg BIDBS PATRICIA Administration Docusate Sodium 100 mg 04/09/20 10:00 04/09/20 09:03 Colace Udc 100 Mg/10 Ml Oral Soln NG 05/08/20 19:29 100 mg BID PATRICIA Administration Guaifenesin 200 mg 04/08/20 19:30 Robitussin Syrup 200 Mg/10 Ml Ud Cup NG 04/24/20 23:02 Q4HP PRN COUGH Heparin Sodium (Porcine) 5,000 unit 03/26/20 06:00 04/09/20 05:13 Heparin Inj 5,000 Units/Ml 1 Ml Vial SUBCUT 04/25/20 05:59 Not Given Q8 PATRICIA Hydralazine HCl 10 mg 03/30/20 16:28 04/07/20 21:14 Apresoline Inj/Pf 20 Mg/1 Ml Sdv IV 04/29/20 16:27 10 mg Q6HP PRN Administration FOR SBP >160 AND/OR DBP > 100 Labetalol HCl 20 mg 04/09/20 09:41 Normodyne Inj 20 Mg/4 Ml Syringe IV 05/09/20 09:40 Q4HP PRN Give For Hr > 110 Levothyroxine Sodium 0.0125 mg 04/09/20 10:00 04/09/20 10:57 Synthroid Inj/Pf 0.1 Mg Sdv IV 04/12/20 09:59 0.0125 mg DAILY PATRICIA Administration Magnesium Hydroxide 30 ml 04/08/20 19:30 Milk Of Magnesia 30 Ml Udcup NG 04/24/20 22:56 HSP PRN FOR CONSTIPATION Melatonin 6 mg 04/08/20 22:00 04/08/20 22:03 Melatonin 3 Mg Tablet NG 04/28/20 21:59 6 mg QHS PATRICIA Administration Metoprolol Tartrate 50 mg 04/09/20 12:00 Lopressor 100 Mg Tablet NG 05/09/20 11:59 Q6 PATRICIA Ondansetron HCl 4 mg 03/25/20 22:57 04/05/20 02:24 Zofran Inj/Pf 4 Mg/2 Ml Sdv IV 04/24/20 22:56 4 mg Q4HP PRN Administration FOR NAUSEA/VOMITING Pharmacy Profile Note 1 each 04/08/20 19:00 Medication Communication Order 05/08/20 18:59 .NOTICE NR Sodium Chloride 2.5 ml 03/26/20 06:00 04/09/20 05:13 Saline Flush 2.5 Ml Monoject Prefil Syrin IV 04/25/20 05:59 Not Given Q8 PATRICIA Sucralfate 1 gm 04/08/20 22:00 04/09/20 09:03 Carafate 1 Gm Tablet NG 04/25/20 07:59 1 gm ACHS PATRICIA Administration Throat Lozenges 1 each 04/03/20 21:05 04/03/20 21:45 Chloraseptic Sore Throat Lozenge BUCCAL 05/03/20 21:04 1 each Q2HP PRN Administration FOR SORE THROAT Discontinued Medications Generic Name Dose Route Start Last Admin Trade Name Freq PRN Reason Stop Dose Admin Acetaminophen 650 mg 03/25/20 23:03 04/01/20 17:38 Tylenol 325 Mg Tablet PO 04/24/20 23:02 650 mg Q4HP PRN Administration For headache, pain or fever Al Hydrox/Mg Hydrox/Simethicone 30 ml 03/25/20 22:57 04/05/20 05:28 Maalox Plus Susp 30 Udcup PO 04/24/20 22:56 30 ml Q6HP PRN Administration HEARTBURN Amlodipine Besylate 5 mg 03/28/20 10:00 Norvasc 5 Mg Tablet PO 04/27/20 09:59 DAILY PATRICIA Amlodipine Besylate 10 mg 03/31/20 05:00 03/31/20 04:42 Norvasc 10 Mg Tablet PO 03/31/20 05:01 10 mg NOW ONE Administration Amlodipine Besylate 10 mg 03/31/20 10:00 Norvasc 10 Mg Tablet PO 04/30/20 09:59 DAILY PATRICIA Bumetanide 1 mg 03/25/20 23:30 03/27/20 11:50 Bumex Inj/Pf 1 Mg/4 Ml Sdv IV 04/24/20 23:29 1 mg Q6H PATRICIA Administration Bumetanide 1 mg 03/27/20 22:00 03/29/20 09:06 Bumex Inj/Pf 1 Mg/4 Ml Sdv IV 04/26/20 21:59 1 mg Q12 PATRICIA Administration Bumetanide 1 mg 03/29/20 18:00 04/01/20 17:33 Bumex Inj/Pf 1 Mg/4 Ml Sdv IV 04/28/20 17:59 1 mg Q8A PATRICIA Administration Bumetanide 2 mg 04/04/20 14:21 04/04/20 14:39 Bumex Inj/Pf 1 Mg/4 Ml Sdv IV 04/04/20 14:22 2 mg NOW ONE Administration Calcium Carbonate 600 mg 03/29/20 21:00 04/03/20 10:19 Caltrate 600 Mg Tablet PO 04/28/20 20:59 600 mg BID PATRICIA Administration Calcium Carbonate 600 mg 04/03/20 17:00 04/08/20 18:04 Caltrate 600 Mg Tablet PO 05/03/20 16:59 600 mg BIDBS PATRICIA Administration Diltiazem HCl 30 mg 03/31/20 14:00 04/07/20 16:32 Cardizem 30 Mg Tablet PO 04/30/20 13:59 30 mg Q8 PATRICIA Administration Diltiazem HCl 10 mg 04/07/20 11:00 04/07/20 11:56 Cardizem Inj 25 Mg/5 Ml Vial IV 04/07/20 11:01 Not Given NOW ONE Diltiazem HCl Confirm 04/07/20 10:38 04/07/20 10:47 Cardizem Inj 25 Mg/5 Ml Vial Administered 04/07/20 10:39 25 mg Dose Administration 25 mg .ROUTE .STK-MED ONE Diphenoxylate HCl/Atropine 1 tab 03/27/20 15:44 03/27/20 17:09 Lomotil 2.5 Mg Tablet PO 04/03/20 15:43 1 tab QIDP PRN Administration DIARRHEA Docusate Sodium 100 mg 03/26/20 10:00 03/27/20 09:37 Colace Udc 100 Mg/10 Ml Oral Soln PO 04/25/20 09:59 Not Given BID PATRICIA Docusate Sodium 100 mg 03/27/20 18:00 04/08/20 18:04 Colace 100 Mg Capsule PO 04/26/20 17:59 Not Given BID PATRICIA Enalaprilat 2.5 mg 03/30/20 21:00 03/30/20 20:51 Vasotec Inj/Pf 2.5 Mg/2 Ml Sdv IV 03/30/20 21:01 2.5 mg NOW ONE Administration Epinephrine HCl Confirm 03/30/20 14:25 Epinephrine Inj 1 Mg/10 Ml Disp.Syrin Administered 03/30/20 14:26 Dose 1 mg .ROUTE .STK-MED ONE Famotidine 20 mg 03/25/20 23:00 03/27/20 09:37 Pepcid 20 Mg Tablet PO 04/24/20 22:59 20 mg Q12 PATRICIA Administration Famotidine 20 mg 03/28/20 10:00 03/29/20 09:06 Pepcid 20 Mg Tablet PO 04/27/20 09:59 20 mg DAILY PATRICIA Administration Fentanyl Citrate Confirm 03/31/20 08:31 03/31/20 11:03 Sublimaze Inj/Pf 100 Mcg/2 Ml Ampule Administered 03/31/20 08:32 Not Given Dose 100 mcg .ROUTE .STK-MED ONE Furosemide 60 mg 04/03/20 09:30 04/03/20 10:20 Lasix Inj/Pf 100 Mg/10 Ml Sdv IV 04/03/20 09:31 60 mg NOW ONE Administration Furosemide 40 mg 04/06/20 10:30 04/06/20 11:43 Lasix Inj/Pf 40 Mg/4 Ml Sdv IV 04/06/20 10:31 40 mg NOW ONE Administration Furosemide 80 mg 04/06/20 19:52 04/06/20 20:49 Lasix Inj/Pf 40 Mg/4 Ml Sdv IV 04/06/20 19:53 80 mg NOW ONE Administration Guaifenesin 200 mg 03/25/20 23:03 Robitussin Syrup 200 Mg/10 Ml Ud Cup PO 04/24/20 23:02 Q4HP PRN COUGH Haloperidol Lactate 5 mg 04/01/20 21:30 04/01/20 21:36 Haldol 5 Mg/Ml Inj 1 Ml Vial IV 04/01/20 21:31 5 mg NOW ONE Administration Haloperidol Lactate Confirm 04/01/20 21:32 04/01/20 21:36 Haldol 5 Mg/Ml Inj 1 Ml Vial Administered 04/01/20 21:33 Not Given Dose 5 mg .ROUTE .STK-MED ONE Haloperidol Lactate 5 mg 04/06/20 03:30 04/06/20 03:34 Haldol 5 Mg/Ml Inj 1 Ml Vial IV 04/06/20 03:31 5 mg NOW ONE Administration Heparin Sodium (Porcine) 4,600 unit 04/05/20 05:00 04/05/20 08:56 Heparin Inj 1,000 Unit/Ml 10 Ml Vial IV 04/05/20 23:59 3,600 units .SPLIT B/N CATHETERS PRN Administration THIS MED IS NOT "PRN" Heparin Sodium (Porcine) 4,200 unit 04/07/20 05:00 04/07/20 11:51 Heparin Inj 1,000 Unit/Ml 10 Ml Vial IV 04/07/20 23:59 3,600 units .SPLIT B/N CATHETERS PRN Administration THIS MED IS NOT "PRN" Hydralazine HCl 20 mg 03/25/20 23:07 03/27/20 09:41 Apresoline Inj/Pf 20 Mg/1 Ml Sdv IV 04/24/20 23:06 20 mg Q4HP PRN Administration Give For Sbp > 160 / Dbp > 100 Hydralazine HCl 10 mg 03/27/20 11:30 03/30/20 09:43 Apresoline Inj/Pf 20 Mg/1 Ml Sdv IV 04/26/20 11:29 10 mg Q8HP PRN Administration FOR SBP >160 AND/OR DBP > 100 Sodium Chloride 1,000 mls @ 125 mls/hr 03/25/20 21:36 Nacl 0.9% 1000 Ml Iv Soln IV 04/24/20 21:35 .CONTINUOUS PRN DIARRHEA Albumin Human 12.5 gm in 50 mls @ 50 mls/hr 03/25/20 23:15 03/26/20 05:57 Albuminar-25 Rtu Inj 12.5 Gm/50 Ml Premix IV 03/26/20 03:14 Infused Q1H PATRICIA Infusion Albumin Human Confirm 03/26/20 01:29 03/26/20 01:47 Albuminar-25 Rtu Inj 12.5 Gm/50 Ml Premix Administered 03/26/20 01:30 Not Given Dose 50.0 gm in 200 mls @ ud IV .STK-MED ONE Sodium Chloride 1,000 mls @ 50 mls/hr 03/27/20 11:19 03/29/20 05:02 Nacl 0.9% 1000 Ml Iv Soln IV 04/26/20 11:18 50 mls/hr CONTINUOUS PRN Administration THIS MED IS NOT "PRN" Sodium Chloride 1,000 mls @ 40 mls/hr 03/29/20 10:59 Nacl 0.9% 1000 Ml Iv Soln IV 04/26/20 11:18 CONTINUOUS PRN THIS MED IS NOT "PRN" Albumin Human 12.5 gm in 50 mls @ 50 mls/hr 03/30/20 10:00 04/01/20 17:34 Albuminar-25 Rtu Inj 12.5 Gm/50 Ml Premix IV 04/02/20 09:59 50 mls/hr TID PATRICIA Administration Sodium Chloride 250 mls @ 30 mls/hr 04/01/20 08:12 Nacl 0.9% 250 Ml Iv Soln IV 04/02/20 08:11 .DURING TRANSFUSION PRN THIS MED IS NOT "PRN" Sodium Chloride 250 mls @ 0 mls/hr 04/01/20 08:12 Nacl 0.9% 250 Ml Iv Soln IV 04/02/20 08:11 CONTINUOUS PRN AFTER EACH UNIT As Directed Sodium Chloride 1,000 mls @ 100 mls/hr 04/01/20 19:09 04/02/20 23:45 Nacl 0.9% 1000 Ml Iv Soln IV 05/01/20 19:08 Infused CONTINUOUS PRN Infusion THIS MED IS NOT "PRN" Albumin Human 12.5 gm in 50 mls @ 50 mls/hr 04/02/20 21:00 04/03/20 01:45 Albuminar-25 Rtu Inj 12.5 Gm/50 Ml Premix IV 04/03/20 00:59 Infused Q1H PATRICIA Infusion Sodium Chloride 1,000 mls @ 150 mls/hr 04/02/20 21:01 04/03/20 04:00 Nacl 0.9% 1000 Ml Iv Soln IV 05/02/20 21:00 Infused CONTINUOUS PRN Infusion THIS MED IS NOT "PRN" Albumin Human Confirm 04/02/20 21:13 04/02/20 21:20 Albuminar-25 Rtu Inj 12.5 Gm/50 Ml Premix Administered 04/02/20 21:14 Not Given Dose 50.0 gm in 200 mls @ ud IV .STK-MED ONE Sodium Chloride 1,000 mls @ 100 mls/hr 04/03/20 05:56 Nacl 0.9% 1000 Ml Iv Soln IV 05/03/20 05:55 CONTINUOUS PRN THIS MED IS NOT "PRN" Desmopressin Acetate 20 mcg/ 50 mls @ 100 mls/hr 04/03/20 13:30 04/03/20 14:00 Sodium Chloride IV 04/03/20 13:59 Infused NOW ONE Infusion Sodium Chloride 1,000 mls @ 0 mls/hr 04/05/20 05:00 Nacl 0.9% 1000 Ml Iv Soln IV 04/05/20 23:59 .DIALYSIS PRN THIS MED IS NOT "PRN" As Directed Sodium Chloride 1,000 mls @ 0 mls/hr 04/07/20 05:00 Nacl 0.9% 1000 Ml Iv Soln IV 04/07/20 23:59 .DIALYSIS PRN THIS MED IS NOT "PRN" As Directed Epoetin Feng-epbx 20,000 unit/ 2 mls @ 0 mls/hr 04/07/20 05:00 04/07/20 11:21 Syringe IV 04/07/20 23:59 20,000 mls/hr .DIALYSIS PRN Administration THIS MED IS NOT "PRN" As Directed Insulin Human Regular 0 - 15 unit 03/25/20 23:03 03/27/20 09:04 Humulin R (Pyxis) Insulin 100 Unit/Ml 3ml SUBCUT 04/24/20 23:02 Not Given ACHS PATRICIA Protocol Labetalol HCl 20 mg 04/07/20 17:47 04/08/20 18:04 Normodyne Inj 20 Mg/4 Ml Syringe IV 05/07/20 17:46 20 mg Q4HP PRN Administration Give For Hr > 110 Levothyroxine Sodium 0.025 mg 03/28/20 06:00 04/08/20 05:50 Synthroid 0.025 Mg Tablet PO 04/27/20 05:59 Not Given Q6AM PATRICIA Lorazepam 1 mg 03/25/20 23:03 Ativan Inj 2 Mg/1 Ml Vial IV 04/01/20 23:02 Q4HP PRN ANXIETY/AGITATION Lorazepam Confirm 03/31/20 03:47 03/31/20 03:53 Ativan Inj 2 Mg/1 Ml Vial Administered 03/31/20 03:48 Not Given Dose 2 mg .ROUTE .STK-MED ONE Lorazepam 1 mg 03/31/20 04:00 03/31/20 03:52 Ativan Inj 2 Mg/1 Ml Vial IV 03/31/20 04:01 1 mg NOW ONE Administration Losartan Potassium 50 mg 03/26/20 10:00 Cozaar 50 Mg Tablet PO 04/25/20 09:59 Q12 PATRICIA Losartan Potassium 50 mg 03/26/20 04:30 03/27/20 09:37 Cozaar 50 Mg Tablet PO 04/25/20 04:29 50 mg Q12 PATRICIA Administration Magnesium Hydroxide 30 ml 03/25/20 22:57 Milk Of Magnesia 30 Ml Udcup PO 04/24/20 22:56 HSP PRN FOR CONSTIPATION Melatonin 6 mg 03/29/20 22:00 04/07/20 21:14 Melatonin 3 Mg Tablet PO 04/28/20 21:59 6 mg QHS PATRICIA Administration Metoclopramide HCl 5 mg 03/26/20 08:00 03/29/20 11:50 Reglan 10 Mg Tablet PO 04/25/20 07:59 5 mg ACHS PATRICIA Administration Metoclopramide HCl 10 mg 04/01/20 17:30 04/01/20 17:31 Reglan Inj/Pf 10 Mg/2 Ml Sdv IV 04/01/20 17:31 10 mg NOW ONE Administration Metoclopramide HCl Confirm 04/01/20 17:28 04/01/20 17:46 Reglan Inj/Pf 10 Mg/2 Ml Sdv Administered 04/01/20 17:29 Not Given Dose 10 mg .ROUTE .STK-MED ONE Metoprolol Succinate 100 mg 03/26/20 10:00 Toprol Xl 50 Mg Tab.Sr PO 04/25/20 09:59 Q12 PATRICIA Metoprolol Succinate 100 mg 03/26/20 06:00 04/03/20 05:23 Toprol Xl 50 Mg Tab.Sr PO 04/25/20 05:59 100 mg Q12H PATRICIA Administration Metoprolol Succinate 100 mg 04/03/20 18:00 04/08/20 18:05 Toprol Xl 50 Mg Tab.Sr PO 05/03/20 17:59 Not Given Q12A PATRICIA Metoprolol Tartrate 5 mg 03/25/20 23:07 Lopressor Inj/Pf 5 Mg/5 Ml Sdv IV 04/24/20 23:06 Q4HP PRN Give For Sbp > 160 / Dbp > 100 Metoprolol Tartrate 100 mg 04/08/20 22:00 04/09/20 09:03 Lopressor 100 Mg Tablet NG 05/08/20 21:59 100 mg Q12 PATRICIA Administration Midazolam HCl Confirm 03/31/20 08:31 03/31/20 11:04 Versed 2 Mg/2 Ml Inj Administered 03/31/20 08:32 Not Given Dose 2 mg .ROUTE .STK-MED ONE Morphine Sulfate Confirm 04/01/20 18:16 04/01/20 18:22 Morphine 10 Mg/Ml Inj Administered 04/01/20 18:17 2 mg Dose Administration 10 mg .ROUTE .STK-MED ONE Morphine Sulfate 2 mg 04/01/20 19:21 04/08/20 04:36 Morphine 10 Mg/Ml Inj IV 04/08/20 19:20 2 mg Q4HP PRN Administration FOR PAIN SCALE 3-5 Nitroglycerin 1 gm 03/26/20 03:34 03/26/20 04:52 Nitrol 2% Ointment 1gm Packet TP 04/25/20 03:33 Not Given Q6 PATRICIA Nitroglycerin 1 gm 03/26/20 04:30 Nitrol 2% Ointment 1gm Packet TP 04/25/20 04:29 Q6 PATRICIA Nitroglycerin 1 gm 03/26/20 04:30 03/27/20 06:35 Nitrol 2% Ointment 1gm Packet TP 04/25/20 04:29 Not Given Q6 PATRICIA Nitroglycerin 0.5 gm 03/31/20 03:46 03/31/20 03:53 Nitrol 2% Ointment 1gm Packet TP 03/31/20 03:47 0.5 gm NOW ONE Administration Nitroglycerin Confirm 03/31/20 03:55 03/31/20 04:15 Nitrol 2% Ointment 1gm Packet Administered 03/31/20 03:56 Not Given Dose 1 gm .ROUTE .STK-MED ONE Nitroglycerin 1 each 04/03/20 21:00 04/03/20 21:46 Nitro-Dur 5 Mg (0.2 Mg/Hr) Transdermal Patch TD 04/03/20 21:01 1 each NOW ONE Administration Pantoprazole Sodium 40 mg 03/29/20 22:00 04/01/20 10:48 Protonix Iv Inj 40 Mg Vial IV 04/01/20 21:59 40 mg Q12 PATRICIA Administration Polyethylene Glycol 17 gm 03/30/20 11:30 03/30/20 15:28 Miralax Powder 17 Gm/Packet PO 03/30/20 14:01 Not Given Q2 PATRICIA Polyethylene Glycol/Electrolytes 4,000 ml 03/28/20 17:30 03/28/20 22:57 Golytely Solution 4000 Ml PO 03/28/20 17:31 Not Given ONCE ONE Potassium Chloride 40 meq 03/28/20 08:17 03/28/20 09:17 Klor-Con 10 Meq Tablet Er PO 03/28/20 08:18 40 meq NOW ONE Administration Potassium Chloride 20 meq 03/28/20 14:00 03/28/20 14:19 Klor-Con 10 Meq Tablet Er PO 03/28/20 14:01 20 meq TAM@1400 ONE Administration Potassium Chloride 20 meq 03/31/20 13:00 03/31/20 14:00 Klor-Con 10 Meq Tablet Er PO 03/31/20 13:01 20 meq NOW ONE Administration Potassium Chloride 20 meq 04/01/20 10:00 04/01/20 10:52 Potassium Chloride 20 Meq Packet PO 05/01/20 09:59 Not Given DAILY PATRICIA Propofol Confirm 03/30/20 15:00 Diprivan Inj 200 Mg/20 Ml Vial Administered 03/30/20 15:01 Dose 200 mg IV .STK-MED ONE Sodium Bicarbonate 1,300 mg 03/26/20 09:00 03/27/20 09:37 Sodium Bicarbonate 650 Mg Tablet PO 04/25/20 08:59 1,300 mg PCHS PATRICIA Administration Sodium Bicarbonate 2,600 mg 03/25/20 23:05 03/26/20 01:29 Sodium Bicarbonate 650 Mg Tablet PO 03/25/20 23:06 2,600 mg NOW ONE Administration Sodium Bicarbonate 2,600 mg 03/26/20 01:30 03/26/20 01:48 Sodium Bicarbonate 650 Mg Tablet PO 03/26/20 01:31 Not Given NOW ONE Sucralfate 1 gm 03/26/20 08:00 04/08/20 18:04 Carafate 1 Gm Tablet PO 04/25/20 07:59 1 gm ACHS PATRICIA Administration Assessment & Plan - Diagnosis (1) Atrial fibrillation Qualifiers: Atrial fibrillation type: paroxysmal Qualified Code(s): I48.0 - Paroxysmal atrial fibrillation Plan: She continues to be tachycardic although her hear rate was slighltly improved this morning. She now has an NGT in place and is scheduled to start tube feeds and home medications so I expect her heart rate to be at goal once her BB is re- established. Unfortunately labetalol IV has not been effective in keeping her heart rate down although this could be from her overall poor clinical status. Her hemoglobin is again decreased therefore we will continue to hold anticoagulation. Recommendations: -Continue to hold anticoagulation. -Continue with current medical management for now. (2) Anasarca Is this a current diagnosis for this admission?: Yes Plan: The patient will continue to follow-up with nephrology. (3) Acute blood loss anemia Is this a current diagnosis for this admission?: Yes Plan: Her hemoglobin dropped one point without any obvious evidence of bleeding. The patient had been getting IVF so it could be dilutional although occult bleeding is still a possibility. Recommendations: -Further management per primary team. (4) Closed hematoma of left kidney Qualifiers: Encounter type: initial encounter Qualified Code(s): S37.012A - Minor contusion of left kidney, initial encounter Plan: Continues to be stable as of most recent CT scan. I will defer further management to primary team. (5) Heart failure with preserved ejection fraction, borderline, class IV Plan: The patient continues to be stable withing her grave condition. Now that she has an NGT all of her heart failure drugs will be restarted. Further fluid management per nephrology recommendations. Recommendations: -Re start HF medications via NGT as cleared by pharmacist.
[2020-04-09 15:55] LABS: HEMATOCRIT 25.1 % (36.0-47.0); HEMOGLOBIN 8.6 g/dL (12.0-15.5); MEAN CORPUSCULAR HEMOGLOBIN 30.7 pg (27.0-33.4); MEAN CORPUSCULAR HGB CONC 34.3 g/dL (32.0-36.0); MEAN CORPUSCULAR VOLUME 89 fl (80-97); PLATELET COUNT 151 10^3/uL (150-450); RED BLOOD COUNT 2.81 10^6/uL (3.72-5.28); RED CELL DISTRIBUTION WIDTH 15.9 % (11.5-14.0); WHITE BLOOD COUNT 14.1 10^3/uL (4.0-10.5)
[2020-04-09] MEDS ORDERED: ETOMIDATE INJ/PF 20 MG/10 ML SDV IV ONE ×2 (16:00→17:00)
[2020-04-09] MEDS ORDERED: VANCOMYCIN HCL 0 MG in DEXTROSE 5%-WATER 250 ML IV NR (16:00)
[2020-04-09 16:01] LABS: ARTERIAL BLOOD BASE EXCESS -2.9 mmol/L; ARTERIAL BLOOD H2CO3 1.46 mmol/L (1.05-1.35); ARTERIAL BLOOD HCO3 23.8 mmol/L (20-24); ARTERIAL BLOOD O2 SATURATION 95.5 % (94-98); ARTERIAL BLOOD PCO2 48.5 mmHg (35-45); ARTERIAL BLOOD PH 7.31 (7.35-7.45); ARTERIAL BLOOD PO2 84.9 mmHg (80-100); ARTERIAL BLOOD TOTAL CO2 25.3 mmol/L (21-25)
[2020-04-09 16:02] LABS: ARTERIAL BLOOD FIO2 70%
[2020-04-09 16:09] LABS: ANION GAP 9 (5-19); BLOOD UREA NITROGEN 61 mg/dL (7-20); CALCIUM 8.4 mg/dL (8.4-10.2); CARBON DIOXIDE 24 mmol/L (22-30); CHLORIDE 100 mmol/L (98-107); GLUCOSE 134 mg/dL (75-110); PHOSPHORUS 2.6 mg/dL (2.5-4.5); POTASSIUM 4.2 mmol/L (3.6-5.0)
[2020-04-09 16:12] LABS: ABSOLUTE LYMPHOCYTES# (MANUAL) 0.1 10^3/uL (0.5-4.7); BAND NEUTROPHILS % (MANUAL) 7 % (3-5); BASOPHILS % (MANUAL) 0 % (0-2); EOSINOPHILS % (MANUAL) 0 % (0-6); LYMPHOCYTES % (MANUAL) 1 % (13-45); MONOCYTES % (MANUAL) 0 % (3-13); NUCLEATED RED BLOOD CELLS 1 /100 WBC (0); SEGMENTED NEUTROPHILS % (MAN) 92 % (42-78); TOTAL CELLS COUNTED 100
[2020-04-09 16:15] LABS: ANISOCYTOSIS SLIGHT; BURR CELLS SLIGHT; OVALOCYTES SLIGHT; TOXIC GRANULATION 1+
[2020-04-09 16:16] LABS: PLATELET COMMENT ADEQUATE
--- NOTE | 2020-04-09 16:25 | RADIOLOGY REPORT (SQ) ---
EXAM DESCRIPTION: CHEST SINGLE VIEW IMAGES COMPLETED DATE/TIME: 04/09/2020 3:46 pm REASON FOR STUDY: Respiratory failure COMPARISON: Chest films 05/02/2011, 04/03/2020, 04/04/2020, 04/06/2020 EXAM PARAMETERS: NUMBER OF VIEWS: One view. TECHNIQUE: Single frontal radiographic view of the chest acquired. RADIATION DOSE: NA LIMITATIONS: None. FINDINGS: LUNGS AND PLEURA: Increasing diffuse bilateral airspace disease compared to 04/06/2020, wor sening pulmonary edema or pneumonia. New trace left pleural effusion. No pneumothorax MEDIASTINUM AND HILAR STRUCTURES: No masses. Contour normal. HEART AND VASCULAR STRUCTURES: Stable massive cardiomegaly BONES: No acute findings. HARDWARE: Nasogastric tube tip and side port in the stomach OTHER: No other significant finding. IMPRESSION: Worsening diffuse bilateral airspace disease, edema versus pneumonia New trace left pleural effusion Nasogastric tube tip and side port in the stomach TECHNICAL DOCUMENTATION: JOB ID: [id number] 2010 [employer]- All Rights Reserved Reading location - IP/workstation name: [email or web address]
[2020-04-09] MEDS ORDERED: DEXMEDETOMIDINE IN 0.9 % NACL 400 MCG/100 ML RTUPB IV PRN (16:26)
[2020-04-09] MEDS ORDERED: DEXMEDETOMIDINE IN NS 400 MCG/100 ML RTUPB IV PRN (16:28)
[2020-04-09] MEDS ORDERED: DEXMEDETOMIDINE IN 0.9 % NACL 400 MCG/100 ML RTUPB IV ONE (16:28)
[2020-04-09] MEDS ORDERED: CEFEPIME 1 GM/D5W RTU 1 GM/50 ML RTUPB IV SCH (16:30)
[2020-04-09] MEDS ORDERED: CEFEPIME 1 GM/D5W RTU 1 GM/50 ML RTUPB IV ONE (16:30)
[2020-04-09] MEDS ORDERED: PHARMACY COMMUNICATION ORDER MC NR (16:30)
--- NOTE | 2020-04-09 16:32 | Progress Note ---
Provider Note Provider Note: Pt intubated for aspiration, obtundation, airway protection. Number 7.5 ETT placed with glidescope. Etomidate sedation.
[2020-04-09] MEDS ORDERED: VANCOMYCIN HCL 1,500 MG in DEXTROSE 5%-WATER 250 ML IV ONE (17:00)
[2020-04-09] MEDS ORDERED: NOREPINEPHRINE BITARTRATE INJ/PF 4 MG/4 ML SDV IV ONE ×2 (17:00→20:13)
--- NOTE | 2020-04-09 17:15 | CRITICAL CARE ADMISSION REPORT ---
HPI Date:: 04/09/20 Time:: 16:00 Reason for ICU Reason:: Needs intubation HPI: This patient is a 76 yo woman with dehydration, new to HD who has been on bipap for a week and not getting better. Seen at the request of Dr. Casanova. More obtunded. Probable aspiration. Not responding well and at this point needs intubation for airway protection. Intubated with #7.5 ETT and receiving boluses. HD Friday but she is now quite dehydrated. History obtained from:: Dr. Casanova and record. - Diagnosis/Plan (1) Aspiration into respiratory tract Qualifiers: Encounter type: initial encounter Qualified Code(s): T17.908A - Unspecified foreign body in respiratory tract, part unspecified causing other injury, initial encounter Is this a current diagnosis for this admission?: Yes Plan: Ng suctioned. Allow lungs to recover. Antibiotics pending culture (2) Encephalopathy acute Is this a current diagnosis for this admission?: Yes Plan: Aspiration can promote a syndrome of encephalopathy which she has. (3) Chronic diarrhea Is this a current diagnosis for this admission?: Yes Plan: This has been ongoing for 10 years and there is no definate source. Studies thus far are negative. (4) Diabetes mellitus type 2 in nonobese Is this a current diagnosis for this admission?: Yes Plan: Controlled (5) Dehydration Is this a current diagnosis for this admission?: Yes Plan: She will need careful hydration. (6) Malnutrition compromising bodily function Is this a current diagnosis for this admission?: Yes Plan: Albumin only 2.3. CKD playing a role. Continue Nepro. Plan Summary: Intubated for airway protection. Allow lungs to recover. Contiue tube feeds. Prognosis not good. Past Medical History Cardiac Medical History: Reports: Hyperlipidema, Hypertension Denies: Atrial Fibrillation, Congestive Heart Failure, Coronary Artery Disease, DVT, Myocardial Infarction, Pulmonary Embolism Pulmonary Medical History: Denies: Asthma, Chronic Obstructive Pulmonary Disease (COPD) EENT Medical History: Denies: Cataracts, Ears - Hearing aids Neurological Medical History: Denies: Hemorrhagic CVA, Ischemic CVA, Seizures Endocrine Medical History: Reports: Diabetes Mellitus Type 2 Denies: Diabetes Mellitus Type 1, Hyperthyroidism, Hypothyroidism Renal/ Medical History: Reports: Chronic Kidney Disease Denies: Nephrolithiasis Malignancy Medical History: Reports: None GI Medical History: Denies: Cirrhosis, Hepatitis, Peptic Ulcer Disease Musculoskeltal Medical History: Denies: Fibromyalgia, Gout Skin Medical History: Denies: Eczema, Psoriasis Psychiatric Medical History: Reports: Depression Denies: Alcohol Dependency, Substance Abuse, Tobacco Dependency Traumatic Medical History: Reports: None Hematology: Denies: Anemia, Bleeding Tendencies Infectious Medical History: Reports: None Past Surgical History Past Surgical History: Reports: None Social/Family History - Social History Lives with: Spouse/Significant other Smoking Status: Former Smoker Frequency of Alcohol Use: None Hx Recreational Drug Use: No Drugs: None Hx Prescription Drug Abuse: No - Medication/Allergies Home Medications: Amlodipine Besylate [Norvasc 5 mg Tablet] 5 mg PO DAILY 03/26/20 Aspirin [Ecotrin 81 mg EC Tablet] 81 mg PO DAILY 03/26/20 Azilsartan Medoxomil [Edarbi] 80 mg PO QPM 03/26/20 Cholecalciferol (Vitamin D3) [Vitamin D3 1000 Unit Tablet] 2,000 unit PO DAILY 03/26/20 Cholestyramine (with Sugar) [Cholestyramine Packet] 4 gm PO TID 03/26/20 Levothyroxine Sodium [Synthroid 0.025 mg Tablet] 0.025 mg PO Q6AM 03/26/20 Loperamide HCl [Imodium 2 mg Capsule] 2 mg PO Q6HP PRN 03/26/20 Magnesium Oxide [Mag-Ox 400 mg Tablet] 400 mg PO BID 03/26/20 Simvastatin 20 mg PO QHS 03/26/20 Ubidecarenone [Co Q-10] 150 mg PO DAILY 03/26/20 Allergies/Adverse Reactions: oxycodone [From Percocet] Adverse Reaction (Verified 03/26/20 00:40) Nausea Review of Systems ROS unobtainable: Due to endotracheal tube, Due to mental status Physical Exam Vital Signs: Temp Pulse Resp BP Pulse Ox 97.4 F 58 L 19 108/74 94 04/09/20 15:13 04/09/20 15:13 04/09/20 15:40 04/09/20 15:13 04/09/20 15:40 Intake & Output 04/08/20 04/09/20 04/10/20 06:59 06:59 06:59 Intake Total 20 250 230 Output Total 3495 70 0 Balance -3475 180 230 Weight 73.6 kg 74.3 kg Weight/Height Weight 74.3 kg Height 5 ft 6 in General appearance: PRESENT: no acute distress Head exam: PRESENT: atraumatic, normocephalic Eye exam: PRESENT: conjunctiva pink, EOMI, PERRLA. ABSENT: scleral icterus Ear exam: PRESENT: normal external ear exam Mouth exam: PRESENT: moist, tongue midline Respiratory exam: PRESENT: accessory muscle use, rhonchi Cardiovascular exam: PRESENT: irregular rhythm, tachycardia GI/Abdominal exam: PRESENT: hypoactive bowel sounds, normal bowel sounds, soft. ABSENT: distended, guarding, mass, organolmegaly, rebound, tenderness Rectal exam: PRESENT: deferred Gentrourinary exam: PRESENT: indwelling catheter Extremities exam: PRESENT: other - Anasarca Neurological exam: PRESENT: altered Skin exam: PRESENT: dry, intact, warm. ABSENT: cyanosis, rash Tubes/Lines: PRESENT: Endotracheal Tube, Nasogastic Tube Laboratory/Radiographs Laboratory Results: 04/09/20 15:30 04/09/20 15:30 04/09/20 04/09/20 04/09/20 06:45 06:45 15:30 WBC 19.1 H 14.1 H RBC 2.78 L 2.81 L Hgb 8.4 L 8.6 L Hct 24.6 L 25.1 L MCV 88 89 MCH 30.3 30.7 MCHC 34.3 34.3 RDW 16.1 H 15.9 H Plt Count 155 151 Seg Neutrophils % Not Reportable Not Reportable Carbonic Acid HCO3/H2CO3 Ratio ABG pH ABG pCO2 ABG pO2 ABG HCO3 ABG O2 Saturation ABG Base Excess FiO2 Sodium 133.4 L Potassium 4.0 Chloride 100 Carbon Dioxide 25 Anion Gap 8 BUN 57 H Creatinine 3.38 H Est GFR ( Amer) 16 L Glucose 136 H Calcium 8.4 Phosphorus 2.4 L Magnesium 2.0 Albumin 2.3 L 04/09/20 04/09/20 15:30 15:45 WBC RBC Hgb Hct MCV MCH MCHC RDW Plt Count Seg Neutrophils % Carbonic Acid 1.46 H HCO3/H2CO3 Ratio 16:1 ABG pH 7.31 L ABG pCO2 48.5 H ABG pO2 84.9 ABG HCO3 23.8 ABG O2 Saturation 95.5 ABG Base Excess -2.9 FiO2 70% Sodium 133.2 L Potassium 4.2 Chloride 100 Carbon Dioxide 24 Anion Gap 9 BUN 61 H Creatinine 3.63 H Est GFR ( Amer) 15 L Glucose 134 H Calcium 8.4 Phosphorus 2.6 Magnesium 1.9 Albumin 2.0 L 03/25/20 03/25/20 03/25/20 19:50 19:50 20:41 Creatine Kinase CK-MB (CK-2) Troponin I Cancelled 0.015 NT-Pro-B Natriuret Pep Cancelled [id number] H 03/26/20 03/26/20 03/26/20 02:54 02:54 08:17 Creatine Kinase 115 144 H CK-MB (CK-2) 2.08 Troponin I 0.023 NT-Pro-B Natriuret Pep 03/26/20 03/26/20 03/26/20 08:17 14:07 14:07 Creatine Kinase 134 CK-MB (CK-2) 1.92 1.83 Troponin I 0.028 0.022 NT-Pro-B Natriuret Pep Impressions: Acute Abdomen Series 03/25/20 20:05 IMPRESSION: Patchy density in the right lung base new when compared to the previous study. Findings may reflect atelectasis versus developing infiltrate Cardiac enlargement Guidance Needle Placement CT 03/31/20 00:00 IMPRESSION: Please see combined report for performance of procedure and radiologic supervision and interpretation. Renal Biopsy CT 03/31/20 08:00 IMPRESSION: CT GUIDED LEFT KIDNEY CORTICAL BIOPSY. Abdomen/Pelvis CT 04/03/20 00:00 IMPRESSION: 1. Bilateral pleural effusions and increased collapse / atelectasis of the left lower lobe. The alveolar ground-glass opacities in the right middle lobe are nonspecific and could represent an infection or early edema. 2. Unchanged left perinephric and retroperitoneal hematomas. 3. Other findings as detailed above. KUB X-Ray 04/08/20 13:57 IMPRESSION: Nasogastric tube tip and side port in the stomach Chest X-Ray 04/09/20 00:00 IMPRESSION: Worsening diffuse bilateral airspace disease, edema versus pneumonia New trace left pleural effusion Nasogastric tube tip and side port in the stomach All labs, radiographs, diagnostic studies and EKGs were personally reviewed: Yes In addition, reports of radiographic and diagnostic studies were read: Yes Critical Time Critical Time (minutes): 40 -: The care of a critically ill patient is dynamic. This note represents a static moment in the admission process. Orders and treatments may be given simultaneously and urgently, and time is not small business representative of the treatment process. This patient requires Critical Care secondary to life threatening organ or limb dysfunction. Without Critical Care services, the patient is at risk for increased mortality and morbidity.
--- NOTE | 2020-04-09 17:17 | Progress Note ---
Provider Note Provider Note: TLC attempted in R IJ and subclavian. Vein accessed but unable to thread wire.
[2020-04-09] MEDS ORDERED: DEXTROSE 5%-WATER 250 ML with NOREPINEPHRINE BITARTRATE 4 MG IV PRN ×2 (17:26)
[2020-04-09] MEDS ORDERED: HYDROCORTISONE SOD SUCCINATE INJ/PF 100 MG/2 ML SDV IV SCH (17:30)
[2020-04-09] MEDS ORDERED: ALBUMIN HUMAN 12.5 GM/50 ML RTUINJ IV SCH (17:30)
[2020-04-09 17:52] LABS: ARTERIAL BLOOD BASE EXCESS -7.4 mmol/L; ARTERIAL BLOOD H2CO3 2.29 mmol/L (1.05-1.35); ARTERIAL BLOOD HCO3 22.7 mmol/L (20-24); ARTERIAL BLOOD O2 SATURATION 72.7 % (94-98); ARTERIAL BLOOD PO2 52.8 mmHg (80-100)
[2020-04-09 17:53] LABS: ARTERIAL BLOOD FIO2 100%
[2020-04-09 17:55] LABS: ARTERIAL BLOOD PCO2 76.2 mmHg (35-45); ARTERIAL BLOOD PH 7.09 (7.35-7.45)
[2020-04-09] MEDS ORDERED: DEXTROSE 5%-WATER 1000 ML 1,000 ML with SODIUM BICARBONATE 150 MEQ IV PRN ×2 (17:58)
--- NOTE | 2020-04-09 18:01 | Progress Note ---
Provider Note Provider Note: ABG is either venous or mixed as O2 saturation on ABG is 72 and it was 90% on oximetry. SVo2 of 72 is acceptable. Ph is 7.09 is low. Bicarb infusion to start.
[2020-04-09] MEDS ORDERED: SODIUM BICARBONATE 8.4% INJ 50 MEQ/50 ML DISP.SYRIN ONE ×2 (18:08→18:13)
[2020-04-09] MEDS ORDERED: HYDROCORTISONE SOD SUCCINATE INJ/PF 100 MG/2 ML SDV ONE (18:09)
[2020-04-09] MEDS ORDERED: EPINEPHRINE INJ 1 MG/10 ML DISP.SYRIN ONE (18:16)
[2020-04-09 18:28] LABS: ARTERIAL BLOOD H2CO3 2.19 mmol/L (1.05-1.35); ARTERIAL BLOOD HCO3 18.7 mmol/L (20-24); ARTERIAL BLOOD O2 SATURATION 83.3 % (94-98); ARTERIAL BLOOD PO2 68.9 mmHg (80-100)
[2020-04-09 18:29] LABS: ARTERIAL BLOOD FIO2 100%
[2020-04-09 18:30] LABS: ARTERIAL BLOOD PCO2 72.8 mmHg (35-45); ARTERIAL BLOOD PH 7.03 (7.35-7.45)
--- NOTE | 2020-04-09 18:43 | PDOC PROGRESS REPORT ---
Subjective Progress Note for:: 04/09/20 Subjective:: I was called urgently to the patient's bedside. The nurse reports that the patient is decompensating. Reason For Visit: ANASARCA,UPPER ABDOMINAL PAIN,MALIGNANT Physical Exam Vital Signs: Temp Pulse Resp BP Pulse Ox 97.4 F 58 L 19 108/74 90 L 04/09/20 15:13 04/09/20 15:13 04/09/20 15:40 04/09/20 15:13 04/09/20 17:17 Intake & Output 04/08/20 04/09/20 04/10/20 06:59 06:59 06:59 Intake Total 20 250 230 Output Total 3495 70 0 Balance -3475 180 230 Weight 73.6 kg 74.3 kg General appearance: PRESENT: other - Appears much more ill than this morning.. ABSENT: cooperative - Unable to engage in meaningful interaction Respiratory exam: PRESENT: rhonchi - Diffuse rhonchi throughout, symmetrical, tachypnea. ABSENT: wheezes Cardiovascular exam: PRESENT: irregular rhythm GI/Abdominal exam: PRESENT: diminished bowel sounds, soft. ABSENT: distended, tenderness Extremities exam: PRESENT: +2 edema Neurological exam: PRESENT: awake, other - Lethargic. ABSENT: alert Psychiatric exam: PRESENT: other - Affect reflects her critical state Results Laboratory Results: 04/09/20 15:30 04/09/20 15:30 04/09/20 04/09/20 04/09/20 06:45 06:45 15:30 WBC 19.1 H 14.1 H RBC 2.78 L 2.81 L Hgb 8.4 L 8.6 L Hct 24.6 L 25.1 L MCV 88 89 MCH 30.3 30.7 MCHC 34.3 34.3 RDW 16.1 H 15.9 H Plt Count 155 151 Seg Neutrophils % Not Reportable Not Reportable Carbonic Acid HCO3/H2CO3 Ratio ABG pH ABG pCO2 ABG pO2 ABG HCO3 ABG O2 Saturation ABG Base Excess FiO2 Sodium 133.4 L Potassium 4.0 Chloride 100 Carbon Dioxide 25 Anion Gap 8 BUN 57 H Creatinine 3.38 H Est GFR ( Amer) 16 L Glucose 136 H Calcium 8.4 Phosphorus 2.4 L Magnesium 2.0 Albumin 2.3 L 04/09/20 04/09/20 04/09/20 15:30 15:45 17:30 WBC RBC Hgb Hct MCV MCH MCHC RDW Plt Count Seg Neutrophils % Carbonic Acid 1.46 H 2.29 H HCO3/H2CO3 Ratio 16:1 9:1 ABG pH 7.31 L 7.09 L* ABG pCO2 48.5 H 76.2 H* ABG pO2 84.9 52.8 L ABG HCO3 23.8 22.7 ABG O2 Saturation 95.5 72.7 L ABG Base Excess -2.9 -7.4 FiO2 70% 100% Sodium 133.2 L Potassium 4.2 Chloride 100 Carbon Dioxide 24 Anion Gap 9 BUN 61 H Creatinine 3.63 H Est GFR ( Amer) 15 L Glucose 134 H Calcium 8.4 Phosphorus 2.6 Magnesium 1.9 Albumin 2.0 L 04/09/20 18:00 WBC RBC Hgb Hct MCV MCH MCHC RDW Plt Count Seg Neutrophils % Carbonic Acid 2.19 H HCO3/H2CO3 Ratio 8:1 ABG pH 7.03 L* ABG pCO2 72.8 H* ABG pO2 68.9 L ABG HCO3 18.7 L ABG O2 Saturation 83.3 L ABG Base Excess -12.0 FiO2 100% Sodium Potassium Chloride Carbon Dioxide Anion Gap BUN Creatinine Est GFR ( Amer) Glucose Calcium Phosphorus Magnesium Albumin 03/25/20 03/25/20 03/25/20 19:50 19:50 20:41 Creatine Kinase CK-MB (CK-2) Troponin I Cancelled 0.015 NT-Pro-B Natriuret Pep Cancelled 43338 H 03/26/20 03/26/20 03/26/20 02:54 02:54 08:17 Creatine Kinase 115 144 H CK-MB (CK-2) 2.08 Troponin I 0.023 NT-Pro-B Natriuret Pep 03/26/20 03/26/20 03/26/20 08:17 14:07 14:07 Creatine Kinase 134 CK-MB (CK-2) 1.92 1.83 Troponin I 0.028 0.022 NT-Pro-B Natriuret Pep Impressions: Acute Abdomen Series 03/25/20 20:05 IMPRESSION: Patchy density in the right lung base new when compared to the previous study. Findings may reflect atelectasis versus developing infiltrate Cardiac enlargement Guidance Needle Placement CT 03/31/20 00:00 IMPRESSION: Please see combined report for performance of procedure and radiologic supervision and interpretation. Renal Biopsy CT 03/31/20 08:00 IMPRESSION: CT GUIDED LEFT KIDNEY CORTICAL BIOPSY. Abdomen/Pelvis CT 04/03/20 00:00 IMPRESSION: 1. Bilateral pleural effusions and increased collapse / atelectasis of the left lower lobe. The alveolar ground-glass opacities in the right middle lobe are nonspecific and could represent an infection or early edema. 2. Unchanged left perinephric and retroperitoneal hematomas. 3. Other findings as detailed above. KUB X-Ray 04/08/20 13:57 IMPRESSION: Nasogastric tube tip and side port in the stomach Assessment and Plan - Diagnosis (1) Aspiration into respiratory tract Qualifiers: Encounter type: initial encounter Qualified Code(s): T17.908A - Unspecified foreign body in respiratory tract, part unspecified causing other injury, initial encounter Is this a current diagnosis for this admission?: Yes Plan: 04/09/2020 The patient was examined. Her breathing was much more labored. Her chest sound ed worse with louder rhonchi. Respirations were shallow. She is afebrile but her white blood cell count is elevated. Her tube feeds were initiated yesterday. The tube placement was confirmed by x-ray. Nursing does not report any emesis of tube feeds. I have ordered a stat chest x-ray and stat labs. I have consulted the varnish blender. Reviewing the data on patient's condition it appears that aspiration pneumonia is the most likely etiology of her decompensation. After review of the data with Dr. Louise, and considering her current status, it was decided that the patient was appropriate to transfer to the ICU for intubation. I had already spoken to pharmacy and ordered cefepime and vanco mycin dosed according to her renal failure. Once the decision was made I did reach out to the patient's . Informed him that Mrs. Magana had decompensated and is requiring transfer to the ICU with intubation. I further reported that due to her severely compromised clinical state at this time this could be a devastating turn of events. He was quite upset and saddened by this turn of events. I did explain that this may not be a survivable change in status. The phone number for the intensive care unit was provided. (2) Ttouh-qm-fzqknci kidney injury Qualifiers: Acute renal failure type: with other specified pathological lesion Chronic kidney disease stage: stage 3 (moderate) Qualified Code(s): N17.8 - Other acute kidney failure; N18.3 - Chronic kidney disease, stage 3 (moderate) Is this a current diagnosis for this admission?: Yes (3) Acute blood loss anemia Is this a current diagnosis for this admission?: Yes (4) Chronic kidney disease, stage 3 (moderate) Is this a current diagnosis for this admission?: Yes (5) Paroxysmal atrial fibrillation Is this a current diagnosis for this admission?: Yes (6) Anasarca Is this a current diagnosis for this admission?: Yes (7) Heart failure with preserved ejection fraction Qualifiers: Heart failure chronicity: acute on chronic Qualified Code(s): I50.33 - Acute on chronic diastolic (congestive) heart failure Is this a current diagnosis for this admission?: Yes (8) Pulmonary hypertension Is this a current diagnosis for this admission?: Yes (9) Hypertension Qualifiers: Hypertension type: essential hypertension Qualified Code(s): I10 - Essential (primary) hypertension Is this a current diagnosis for this admission?: Yes (10) Hyponatremia Is this a current diagnosis for this admission?: Yes (11) Hyperglycemia due to diabetes mellitus Is this a current diagnosis for this admission?: No (12) Proteinuria due to type 2 diabetes mellitus Is this a current diagnosis for this admission?: Yes (13) Chronic diarrhea Is this a current diagnosis for this admission?: Yes (14) Closed hematoma of left kidney Qualifiers: Encounter type: initial encounter Qualified Code(s): S37.012A - Minor contusion of left kidney, initial encounter Is this a current diagnosis for this admission?: Yes - Plan Summary Summary: I spoke with Dr. Hay, a urologist in [place], and discussed the case at length. At this time her repeat hemoglobin has come back up to 8.8, and her platelets are also trending back up at 86. This would seem to indicate that any bleeding has stabilized. The repeat CT scan showed subcapsular hematoma was stable, and a retroperitoneal hematoma was also mentioned as being stable, even though this was not mentioned on the initial CT. Dr. Hay indicated that if the bleeding remained stable, then we should continue to treat her supportively as we have been doing. As previously noted, I do not believe for many reasons that this patient is in DIC, and indeed if she was her hemoglobin and her platelets would continue to drop. She should be on bedrest until her hemoglobin is stable for another 24 hours, and then we could potentially consider ambulating her. Her urine output seems to have increased a little bit today, and so we will monitor her for recovery of function. No adverse events overnight. Vital signs been stable. Urine output has been minimal. Her creatinine went up a little again today. Her platelets have been stable. Her hemoglobin was down a point from yesterday but she is been on continuous fluids overnight. She is awake and looks fatigued, but she says that overall she feels okay, just tired. She is not complaining of any abdominal pain. Breathing has been comfortable. There has been no visual evidence of any external bleeding. No rashes. Interestingly, her edema does not appear to have gotten any worse. Reason For Visit: ANASARCA,UPPER ABDOMINAL PAIN,MALIGNANT (1) Closed hematoma of left kidney Qualifiers: Encounter type: initial encounter Qualified Code(s): S37.012A - Minor contusion of left kidney, initial encounter Is this a current diagnosis for this admission?: Yes Plan: I have ordered a repeat CT scan today to see if the size of the hematoma has changed. I will call and speak with the urologist once I have this information, to see if there is any recommendation that could help her from a surgical standpoint. (2) Acute blood loss anemia Is this a current diagnosis for this admission?: Yes Plan: Her hemoglobin seems relatively stable at this time. She had to get 2 units and 2 consecutive days. Her hemoglobin was down a little bit today, but I suspect some of this is from hemodilution. Her platelets are stable from yesterday. T here has been mention of some concern that this might be DIC. I do not believe this to be the case, and there are multiple reasons why. First, she has a good explanation for why her hemoglobin is down, and she has had no signs of any external bleeding. Second, her platelets are low, but they have stabilized, and you can see a drop in platelets with blood volume loss combined with administration of IV fluids. Third, her coagulation studies are not that much different from when she was admitted 9 days ago. Her PT is up from 15-17, and her PTT is up from 37-39. Fourth, her fibrinogen is well within the normal range at 338. Her d-dimer is elevated, but with her level of renal failure this is to be expected, and with the bleeding she has had we would expect it to be a little elevated, which it is. Fifth, her LDH is normal, which argues against microangiopathic hemolysis that one typically sees with DIC. We will of course be monitoring her closely for development of this process, but at this time I do not think that is what is going on, for the reasons noted above. (3) Anasarca Is this a current diagnosis for this admission?: Yes Plan: Slight improvement. Patient's anasarca is likely due to her kidney disease. ABD U/S shows coarse heterogeneous liver appearance; likely underlying liver disease. LFTs unremarkable Hep B negative. Hep C negative. Cardiology and Nephrology services are consulted. Echo pending per cardiology. Did discuss with Dr. Strickland; unlikely due to CHF alone, though expects some underlying diastolic dysfunction. Nephrology evaluating for nephrotic syndome, which her 24-hour urine would suggest. S/p kidney biopsy IV fluids and IV bumetanide per Dr. Mac, bumetanide on hold due to renal failure. slot shift supervisor is consulted. (4) Atrial fibrillation Qualifiers: Atrial fibrillation type: paroxysmal Qualified Code(s): I48.0 - Paroxysmal atrial fibrillation Is this a current diagnosis for this admission?: Yes Plan: Patient converted into atrial fibrillation overnight on telemetry. Confirmed by EKG. Unknown history of the same; patient not able to elaborate. She is already on metoprolol 100 mg twice daily. diltiazem 30 mg every 8 hours. Not a candidate for anticoagulation or aspirin therapy at this time due to recent renal hematoma and GI bleed. (5) CHF exacerbation Qualifiers: Heart failure type: unspecified Qualified Code(s): I50.9 - Heart failure, unspecified Is this a current diagnosis for this admission?: Yes Plan: Anasarca actually not thought to be due to a CHF exacerbation at this time, ech ocardiogram pending, cardiology consulted (6) Chronic kidney disease, stage 3 (moderate) Is this a current diagnosis for this admission?: Yes Plan: Received records from [facility]. Patient's GFR was between 30 and 45 as well. She has a lot of protein in her urine. S/p renal biopsy Nephrology has been consulted; primary management per their expertise. (7) Diabetes mellitus type 2 in nonobese Is this a current diagnosis for this admission?: Yes Plan: Continue sliding scale and diabetic diet (8) Abizw-ve-moivpcg kidney injury Qualifiers: Acute renal failure type: with other specified pathological lesion Chronic kidney disease stage: stage 3 (moderate) Qualified Code(s): N17.8 - Other acute kidney failure; N18.3 - Chronic kidney disease, stage 3 (moderate) Is this a current diagnosis for this admission?: Yes Plan: Creatinine has gotten worse since the formation of a hematoma. Creatinine went up fairly quickly, up to 2.88 today. She is on IV fluids and getting repeat transfusions as needed, monitoring urine output. Am repeating the CT of the abdomen and pelvis to assess for interval change in the size of the renal hematoma. Once I have that information, I will contact the urologist to discuss the case and see if there is any role for surgical intervention here. My concern is that on the original CT the right kidney looks very atrophic, and I believe the left kidney was probably the better of the 2, and now it is compromised by a large subcapsular hematoma putting mass-effect onto the renal parenchyma, and I would like to see if there is something that can be done to salvage this kidney. With her decreased urine output, she may need dialysis. - Time Time Spent with patient: 25-34 minutes - Time Total Critical Time (Minutes): 50 Medications reviewed and adjusted accordingly: Yes Disposition: Patient transferred to the intensive care unit
[2020-04-09] MEDS ORDERED: SODIUM BICARBONATE 4.2% INJ (2.5 MEQ/5 ML) VIAL INJ ONE (19:00)
--- NOTE | 2020-04-09 19:16 | RADIOLOGY REPORT (SQ) ---
EXAM DESCRIPTION: CHEST SINGLE VIEW IMAGES COMPLETED DATE/TIME: 04/09/2020 4:41 pm REASON FOR STUDY: Intubation. COMPARISON: Same date at 1548 hours. EXAM PARAMETERS: NUMBER OF VIEWS: One view. TECHNIQUE: Single frontal radiographic view of the chest acquired. RADIATION DOSE: NA LIMITATIONS: None. FINDINGS: LUNGS AND PLEURA: There is worsening consolidation in the right upper lung with confluent consolidation in the right mid to lower lung. Patchy areas of consolidation in the left lung. Proba ble small bilateral pleural effusions. MEDIASTINUM AND HILAR STRUCTURES: No masses. Contour normal. HEART AND VASCULAR STRUCTURES: Moderate cardiomegaly with moderate pulmonary edema. BONES: No acute findings. HARDWARE: Interval placement of an endotracheal tube with tip in the lower thoracic trachea extending toward the right mainstem bronchus. Esophagogastric tube tip and side-hole are below the diaphragm. OTHER: No other significant finding. IMPRESSION: Interval placement of a endotracheal tube with tip extending toward the right mainstem b ronchus. Recommend pulling back approximately 2-3 cm. Worsening airspace disease. TECHNICAL DOCUMENTATION: JOB ID: [id number] 2010 [employer]- All Rights Reserved Reading location - IP/workstation name: [email or web address]
[2020-04-09 20:16] VITALS: BP 110/67
[2020-04-09] MEDS ORDERED: MORPHINE SULFATE 60 MG/60 ML RTUINJ IV ONE (20:21)
[2020-04-09] MEDS ORDERED: DEXTROSE 5%-WATER 250 ML with EPINEPHRINE/PF 1 MG IV PRN ×2 (21:42)
--- NOTE | 2020-04-09 21:51 | Death Summary ---
Summary Date : 04/09/20 Time of :: 09:00 Autopsy: No Resuscitation Status: Do Not Resuscitate Consulting Provider: Dr. Casanova - Final Diagnosis (1) Kfenn-wi-ugiwctg kidney injury Is this a current diagnosis for this admission?: Yes (2) Aspiration into respiratory tract Is this a current diagnosis for this admission?: Yes Hospital Course:: 76-year-old female with extensive medical history including acute on chronic kidney disease. Patient had been on BiPAP for several days for ongoing respiratory insufficiency and today became more obtunded. She was intubated and transferred to the intensive care unit. Patient became hypotensive requiring both Levophed and epinephrine to maintain adequate perfusion. (please see Dr. Louise's note and Dr. Padron's note from this date.) After intubation, an emergent right IJ triple-lumen catheter was placed for vasoactive medication administration. Family was updated with patient's condition. Patient's and daughter came to the bedside and stated clearly that it is in her living well to not have any of these heroic measures performed. Of note, patient was full code prior to initiating emergency intubation. After my conversation with the patient's and daughter, a DO NOT RESUSCITATE order was placed and as per family's request, according to the known wishes of the patient, the endotracheal tube was removed and vasoactive medications discontinued. Patient was started on a morphine drip with 1 mg every 15 minutes as needed for pain and shortness of breath. Patient's was at the bedside at time of . Patient was with no respirations, and no heart rate. She was pronounced at 9:01 PM. Patient's and daughter were notified that she had .
--- NOTE | 2020-04-09 21:55 | Operative Report ---
Bedside Procedure - History of Present Illness History of Present Illness: Procedure: Central line placement Indication: Vasoactive medications, IV fluids, blood draws. Procedure strap machine operator: NITISH Molina Attending physician: Dr. Louise Consent: The procedure was performed emergently and the permission was implied because of the emergent nature. Procedure summary: The [facility] central line insertion practice form was completed by RN. A timeout was performed. My hands were washed immediately prior to the procedur e. I wore surgical cap, mask with protective eyewear, full gown and sterile gloves throughout the procedure. The patient was placed in Trendelenburg position. Right neck and chest region was prepped using chlorhexidine scrub and draped in sterile fashion using a full drape. Sterile probe cover was placed on ultrasound probe. The medial and lateral heads of the sternocleidomastoid muscle were identified as was the carotid pulse. The internal jugular vein was identified using ultrasound. Anesthesia was achieved over the vein using 4 cc of 1% lidocaine. Using real-time out of plane guidance, the introducer needle was inserted into the internal jugular vein under direct ultrasound visualization. Venous blood was withdrawn. The syringe was removed and a guidewire was advanced into the introducer needle. The guidewire was visualized in the internal jugular vein by ultrasound. A small incision was made at the skin surface with a scalpel and the introducer needle was exchanged for a dilator over the guidewire. After appropriate dilation was obtained, the dilator was exchanged over a wire for a 7 Finnish, 20 cm central venous catheter. The wire was removed and the catheter was sutured in place at 15 cm. A IO patch was placed and a sterile Sorbaview shield was placed over the catheter at the insertion site. The patient tolerated the procedure well without any hemodynamic compromise. At time of procedure completion, all ports aspirated and flushed properly. Postprocedure x-ray shows central line in proper place. Estimated blood loss is approximately 10 cc. Indication for Procedure: Vasoactive medication administration. Date: 04/09/20 Provider: RUTH SCOTT - Central Line Right Internal jugular Time completed: 20:00 Consent obtained: No - Emergent consent and agreement between myself, Dr. Louise and RN. Central line pre-insertion: Sterile PPE donned, Chloraprep applied, Sterile drapes applied Central line size (Fr.): 7 Central line lumen type: Triple Anesthetic type: 1% Lidocaine mL's of anesthesia: 3 Ultrasound guided: Yes CM at insertion site: 15 Line secured with sutures: Yes Central line post-insertion: Blood return from lumens, Biopatch applied, Sutured, Sterile dressing applied Number of attempts: 1 Complications: No
[2020-04-09] MEDS ORDERED: EPINEPHRINE INJ 1 MG/10 ML DISP.SYRIN IV ONE (22:00)
[2020-04-09] MEDS ORDERED: SODIUM BICARBONATE 8.4% INJ 50 MEQ/50 ML DISP.SYRIN IV ONE (22:00)
[2020-04-09] MEDS ORDERED: MORPHINE SULFATE 60 MG/60 ML RTUINJ IV PRN (23:18)
[2020-04-10] MEDS ORDERED: NORMAL SALINE 1000 ML 1,000 ML IV PRN (05:00)
[2020-04-10] MEDS ORDERED: EPOETIN ALFA-EPBX 20,000 UNIT in SYRINGE, DISPOSABLE, 1 EACH IV PRN (05:00)
[2020-04-10] MEDS ORDERED: HEPARIN SOD (PORCINE) 1,000 UNIT/ML 10 ML VIAL IV PRN (05:00)
[2020-04-10] MEDS ORDERED: CEFEPIME HCL 0.5 GM in DEXTROSE 5%-WATER 25 ML IV SCH ×4 (18:00)
[2020-04-10] MEDS ORDERED: VANCOMYCIN HCL 750 MG in DEXTROSE 5%-WATER 250 ML IV SCH (18:00)
== END 2020-04-09 22:27 | DRG 698 ==
LOC: ER 19:30 → EH 22:14 → 3W 23:55 → ICU 04-09 16:12
PROVIDERS: ADMIT Emergency Medicine; ATTEND Hospitalist
PROC: 0DBP8ZX Excision of Rectum, Via Natural or Artificial Opening Endoscopic, Diagnostic (ICD-10-PCS; 2020-03-30)
PROC: 0DBN8ZX Excision of Sigmoid Colon, Via Natural or Artificial Opening Endoscopic, Diagnostic (ICD-10-PCS; 2020-03-30)
PROC: 0TB13ZX Excision of Left Kidney, Percutaneous Approach, Diagnostic (ICD-10-PCS; 2020-03-31)
PROC: 30233N1 Transfusion of Nonautologous Red Blood Cells into Peripheral Vein, Percutaneous Approach (ICD-10-PCS; 2020-04-01)
PROC: 06HM33Z Insertion of Infusion Device into Right Femoral Vein, Percutaneous Approach (ICD-10-PCS; 2020-04-04)
PROC: B54BZZA Ultrasonography of Right Lower Extremity Veins, Guidance (ICD-10-PCS; 2020-04-04)
PROC: 5A1D70Z Performance of Urinary Filtration, Intermittent, Less than 6 Hours Per Day (ICD-10-PCS; 2020-04-05)
PROC: 5A1D70Z Performance of Urinary Filtration, Intermittent, Less than 6 Hours Per Day (ICD-10-PCS; 2020-04-07)
PROC: 0DH67UZ Insertion of Feeding Device into Stomach, Via Natural or Artificial Opening (ICD-10-PCS; 2020-04-08)
PROC: 0BH17EZ Insertion of Endotracheal Airway into Trachea, Via Natural or Artificial Opening (ICD-10-PCS; principal; 2020-04-09)
PROC: 5A1935Z Respiratory Ventilation, Less than 24 Consecutive Hours (ICD-10-PCS; 2020-04-09)
PROC: 05HM33Z Insertion of Infusion Device into Right Internal Jugular Vein, Percutaneous Approach (ICD-10-PCS; 2020-04-09)
DX: N04.9 Nephrotic syndrome with unspecified morphologic changes (principal); J69.0 Pneumonitis due to inhalation of food and vomit; I50.33 Acute on chronic diastolic (congestive) heart failure; I13.0 Hypertensive heart and chronic kidney disease with heart failure and stage 1 through stage 4 chronic kidney disease, or unspecified chronic kidney disease; G93.40 Encephalopathy, unspecified; E46 Unspecified protein-calorie malnutrition; E87.1 Hypo-osmolality and hyponatremia; I16.1 Hypertensive emergency; D62 Acute posthemorrhagic anemia; N99.840 Postprocedural hematoma of a genitourinary system organ or structure following a genitourinary system procedure; K91.870 Postprocedural hematoma of a digestive system organ or structure following a digestive system procedure; K92.1 Melena; N17.8 Other acute kidney failure; N18.3 Chronic kidney disease, stage 3 (moderate); E11.22 Type 2 diabetes mellitus with diabetic chronic kidney disease; N18.9 Chronic kidney disease, unspecified; E78.5 Hyperlipidemia, unspecified; E86.0 Dehydration; I48.0 Paroxysmal atrial fibrillation; Y84.8 Other medical procedures as the cause of abnormal reaction of the patient, or of later complication, without mention of misadventure at the time of the procedure; I27.20 Pulmonary hypertension, unspecified; K52.9 Noninfective gastroenteritis and colitis, unspecified; E11.65 Type 2 diabetes mellitus with hyperglycemia; K64.8 Other hemorrhoids; Z88.8 Allergy status to other drugs, medicaments and biological substances; K57.30 Diverticulosis of large intestine without perforation or abscess without bleeding; K63.5 Polyp of colon; R80.9 Proteinuria, unspecified; Z79.899 Other long term (current) drug therapy; Z79.82 Long term (current) use of aspirin; Z79.890 Hormone replacement therapy; Z88.5 Allergy status to narcotic agent; Z83.3 Family history of diabetes mellitus; Z82.49 Family history of ischemic heart disease and other diseases of the circulatory system; Z90.49 Acquired absence of other specified parts of digestive tract; E87.6 Hypokalemia; E83.51 Hypocalcemia; Z87.891 Personal history of nicotine dependence; Z66 Do not resuscitate; Z78.1 Physical restraint status
CPT/HCPCS: 00811; 31500; 36415; 36430; 36556; 36600; 45380; 45385; 50200; 71045; 74018; 74022; 74176; 76700; 77012; 80048; 80053; 80061; 80069; 81001; 82272; 82330; 82533; 82550; 82553; 82570; 82705; 82803; 82962; 83010; 83036; 83516; 83605; 83615; 83690; 83735; 83880; 83930; 83935; 83970; 84100; 84156; 84300; 84443; 84481; 84484; 85025; 85027; 85210; 85220; 85230; 85260; 85300; 85303; 85306; 85379; 85384; 85610; 85652; 85730; 86038; 86140; 86225; 86256; 86317; 86704; 86850; 86900; 86901; 86920; 87045; 87070; 87077; 87186; 87205; 87324; 87340; 87449; 87522; 88305; 88313; 88346; 88348; 93005; 93010; 93306; 93976; 94002; 94640; 94660; 94799; 99140; 99285; 99291; C9113; J0171; J0360; J1630; J1644; J1720; J1940; J2060; J2250; J2270; J2405; J2597; J2704; J2765; J3010; J3490; J7030; J7060; J7620; P9016; P9047; Q5105